=== PATIENT | male | born 1940 | race Caucasian/White ===

== ENCOUNTER → 2020-05-29 13:42 | Outpatient (BNVA) | payer MEDICARE, SELFPAY | PROVIDERS: PCP Internal Medicine; Referring Provider Internal Medicine; Visit Provider Surgery | DX: K42.9 Umbilical hernia without obstruction or gangrene (principal) | CPT/HCPCS: 99202 ==

== ENCOUNTER 2020-10-02 14:12 | Outpatient (REF) | payer MEDICARE, SELFPAY ==
--- NOTE | ~2020-10-02 | XR_ITS ---
EXAMINATION: XR CHEST CLINICAL INFORMATION: Cough. COMPARISON: Chest 12/18/2019 TECHNIQUE: 2 views of the chest were obtained. FINDINGS: The lungs are well-expanded and clear of acute pneumonic process. There is minimal atelectatic changes left lung base. Heart size and pulmonary vascularity is normal. 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 No gross bony abnormality seen. XR/XR chest 2V IMPRESSION: Minimal atelectatic changes left lung base.
== END 2020-10-02 14:13 | disposition home or self-care (01) ==
LOC: HO.HMGCX 14:12
PROVIDERS: PCP Internal Medicine; Visit Provider Internal Medicine
DX: R05 Cough (principal)
CPT/HCPCS: 71046

== ENCOUNTER 2020-10-03 13:49 | Outpatient (REF) | payer MEDICARE, SELFPAY ==
--- NOTE | ~2020-10-03 | XR_ITS ---
EXAMINATION: XR LUMBOSACRAL SPINE CLINICAL INFORMATION: Lower back pain COMPARISON: 12/07/2016 TECHNIQUE: Three views of the lumbosacral spine. FINDINGS: No acute fracture or subluxation. Grade 1 anterolisthesis of L4 on L5 with mild disc space narrowing. Vertebral body height and alignment is otherwise maintained. Remaining disc spaces are maintained with small multilevel endplate osteophytes. Mild facet arthropathy of the lower lumbar spine. Sacroiliac joints are symmetric. The sacrum appears intact. The bowel gas pattern is unremarkable. Aortic calcifications are noted. XR/XR lumbar spine 2-3V IMPRESSION: Mild multilevel degenerative changes of the spine. These are similar to prior.
== END 2020-10-03 13:50 | disposition home or self-care (01) ==
LOC: HO.HMGCX 13:49
PROVIDERS: PCP Internal Medicine; Visit Provider Internal Medicine
DX: M54.5 Low back pain (principal)
CPT/HCPCS: 72100

== ENCOUNTER 2020-10-11 09:58 | Outpatient (REF) | payer MEDICARE, SELFPAY ==
--- NOTE | ~2020-10-11 | US_ITS ---
EXAMINATION: US RETROPERITONEAL COMPLETE (RENAL) CLINICAL INFORMATION: Elevated blood work. COMPARISON: None TECHNIQUE: Real-time imaging of the kidneys and bladder. FINDINGS: RIGHT KIDNEY: 10.7 x 5.3 x 5.3 cm (SAG x AP x TRV). The kidney is normal in size, contour, and echogenicity. Renal cortical thickness is normal. No calculi or focal parenchymal lesions. No hydronephrosis. LEFT KIDNEY: 9.7 x 5.5 x 5.5 cm (SAG x AP x TRV). The kidney is normal in size, contour, and echogenicity. Renal cortical thickness is normal. No calculi or focal parenchymal lesions. No hydronephrosis. BLADDER: Well distended. No stone or mass. There is a small bladder diverticulum measuring 1.4 x 0.7 x 2.3 cm. Bilateral ureteral jets are demonstrated. Prevoid bladder volume is 203 mL. Postvoid bladder volume is 11.7 mL. Prostate volume is 54.9 mL. There is a 2.2 x 2.5 x 1.9 cm hypoechoic or cystic area in the prostate gland. US/US retroperitoneal comp IMPRESSION: Normal renal ultrasound. Small bladder diverticulum otherwise normal bladder ultrasound. Enlarged prostate gland. 2.2 x 2.5 x 1.9 cm cystic area in the central prostate gland..
== END 2020-10-11 09:59 | disposition home or self-care (01) ==
LOC: HO.HMGCX 09:58
PROVIDERS: Visit Provider Internal Medicine
DX: R79.89 Other specified abnormal findings of blood chemistry (principal); N40.0 Benign prostatic hyperplasia without lower urinary tract symptoms
CPT/HCPCS: 76770

== ENCOUNTER 2021-07-19 12:59 | Outpatient (REF) | payer MEDICARE, SELFPAY ==
--- NOTE | ~2021-07-19 | XR_ITS ---
EXAMINATION: XR KNEE, LEFT XR SHOULDER, LEFT CLINICAL INFORMATION: Sprain left knee. Injury left shoulder and left upper arm. COMPARISON: None TECHNIQUE: 4 views left knee and 2 views left shoulder. FINDINGS: Left Knee: There is mild reduction in the medial and patellofemoral compartment joint space with periarticular spurring anterior inferior patella. There is no visible acute fracture, dislocation or subluxation seen. No loose body seen. There is minimal suprapatellar joint effusion. The soft tissues are normal. Left Shoulder: There is no acute fracture, dislocation subluxation. There is moderate enthesophytes along the inferior acromion. The AC joint appears intact. The soft tissues are normal. XR/XR shoulder LT min 2V IMPRESSION: Mild degenerative changes medial and patellofemoral compartment with superior patellar enthesophytes. No joint effusion seen. There is minimal suprapatellar joint effusion. Moderate size enthesophyte along the inferior acromion. No visible acute fracture, dislocation or subluxation.
--- NOTE | ~2021-07-19 | XR_ITS ---
EXAMINATION: XR KNEE, LEFT XR SHOULDER, LEFT CLINICAL INFORMATION: Sprain left knee. Injury left shoulder and left upper arm. COMPARISON: None TECHNIQUE: 4 views left knee and 2 views left shoulder. FINDINGS: Left Knee: There is mild reduction in the medial and patellofemoral compartment joint space with periarticular spurring anterior inferior patella. There is no visible acute fracture, dislocation or subluxation seen. No loose body seen. There is minimal suprapatellar joint effusion. The soft tissues are normal. Left Shoulder: There is no acute fracture, dislocation subluxation. There is moderate enthesophytes along the inferior acromion. The AC joint appears intact. The soft tissues are normal. XR/XR knee LT 4V IMPRESSION: Mild degenerative changes medial and patellofemoral compartment with superior patellar enthesophytes. No joint effusion seen. There is minimal suprapatellar joint effusion. Moderate size enthesophyte along the inferior acromion. No visible acute fracture, dislocation or subluxation.
== END 2021-07-19 13:00 | disposition home or self-care (01) ==
LOC: HO.HMGCX 12:59
PROVIDERS: Visit Provider Physician Assistant Medical
DX: S83.92XD Sprain of unspecified site of left knee, subsequent encounter (principal); S49.90XD Unspecified injury of shoulder and upper arm, unspecified arm, subsequent encounter
CPT/HCPCS: 73030; 73564

== ENCOUNTER 2021-12-06 09:06 | Emergency (ER) | payer MEDICARE, SELFPAY ==
--- NOTE | ~2021-12-06 | CT_ITS ---
EXAMINATION: CT ABDOMEN AND PELVIS WITHOUT CONTRAST CLINICAL INFORMATION: Lower abdominal pain and diarrhea for one week COMPARISON: None TECHNIQUE: Multidetector volumetric imaging was performed from the superior aspect of the liver through the pubic symphysis. Sagittal and coronal reformatted images were obtained on the technologist's workstation. This CT examination was performed using dose optimization techniques as appropriate, variously including the following: *Automated exposure control *Adjustment of mA and/or kV according to patient size (this includes techniques or standardized protocols for targeted exams where dose is matched to indication/reason for exam; i.e. extremities or head) *Use of iterative reconstruction technique DLP: 549 mGy-cm FINDINGS: LUNG BASES: Linear scarring is seen at the lung bases. No pleural or pericardial effusion. Coronary artery calcifications are seen. There is a large hiatal hernia present. LIVER, GALLBLADDER, AND BILIARY TREE: The liver is normal in size, shape, and attenuation. No focal hepatic lesion or biliary ductal dilatation is present. The gallbladder is unremarkable with no evidence of radiopaque gallstones, gallbladder wall thickening, or obvious pericholecystic inflammatory changes. PANCREAS: Unremarkable. SPLEEN: Unremarkable. ADRENAL GLANDS: Unremarkable. KIDNEYS AND URETERS: The kidneys are normal in size, shape, and attenuation. No hydronephrosis, hydroureter, or calculi seen. There is bilateral perinephric stranding. BLADDER: Unremarkable. GASTROINTESTINAL TRACT: There is trace free fluid within the pelvis. No free air is seen. No dilated loops of large or small bowel are present. There is diverticular disease of the colon as well as some colonic wall thickening within the sigmoid colon and pericolonic fat stranding consistent with acute diverticulitis. No abscess formation is appreciated. ABDOMINAL WALL: No significant hernia is appreciated. LYMPH NODES: No lymphadenopathy appreciated. VASCULAR: Moderate calcified plaque within the aortoiliac system. No abdominal aortic aneurysm. PELVIC VISCERA: Prostatic calcifications present. OSSEOUS STRUCTURES: There are changes of enthesopathy seen within the pelvis. Multilevel degenerative disc disease is seen throughout the lumbar spine. No suspicious destructive bony lesions. Grade 1 spondylolisthesis L4-L5. CT/CT abdomen pelvis wo con IMPRESSION: Acute sigmoid diverticulitis without drainable abscess formation.
[2021-12-06 09:10] VITALS: BP 141/77; PULSE 81; RESP 19; TEMP 36.6; O2SAT 98; BMI 24.3
--- NOTE | 2021-12-06 11:29 | ED_ITS ---
HPI - Abdominal Pain General Chief Complaint: Abdominal Pain Stated Complaint: cramping/lower abd pain/diarrhea Time Seen by Provider: 12/06/21 10:03 Source: patient and family ( at bed) Mode of arrival: ambulatory Limitations: no limitations History of Present Illness HPI narrative: 81-year-old male with a past medical history of hypertension, hypercholesterolemia, CAD disease status post 5 vessel bypass approximately 18- 20 years currently on Plavix taking as, anxiety, depression, umbilical hernia and BPH presenting to the ED with his at bedside with complaints of lower abdominal pain with associated watery diarrhea for the past week intermittently. He denies any fevers, chills, dizziness, headaches, neck pain/stiffness, trouble swallowing or breathing, chest pain or shortness of breath, dyspnea on exertion, orthopnea, palpitations, paresthesias, radiation of the abdominal pain, back pain, flank pain, black or bloody emesis, black or bloody stools, recent antibiotic usage or travel, others with similar symptoms, recent hospitalization, history of C diff, possible bad food exposure or any other symptoms complaints or concerns at this time MD elicited complaint: abdominal pain Pertinent past history: other (See above) Onset (ago): week(s) (1) Pain Consistency: intermittent Location: RLQ, LLQ and suprapubic Severity: moderate Quality: cramping and aching Radiation: none Migration to: no migration Exacerbating factors: nothing Relieving factors: nothing Associated symptoms: diarrhea Related Data Home Medications Medication Instructions Recorded Confirmed alprazolam 0.5 mg tablet 0.5 mg PO TID PRN 05/29/20 clopidogrel 75 mg tablet 75 mg PO DAILY 05/29/20 doxazosin 8 mg tablet 8 mg PO DAILY 05/29/20 finasteride 5 mg tablet 5 mg PO DAILY 05/29/20 lisinopril 2.5 mg tablet 2.5 mg PO DAILY 05/29/20 metoprolol succinate 25 mg 25 mg PO DAILY 05/29/20 tablet,extended release 24 hr rosuvastatin 20 mg tablet 20 mg PO BEDTIME 05/29/20 sertraline 100 mg tablet 100 mg PO DAILY 05/29/20 Previous Rx's Medication Instructions Recorded acetaminophen 500 mg tablet 1,000 mg PO QID PRN #14 tab 12/06/21 (Tylenol Extra Strength) amoxicillin 875 mg-potassium 1 tab PO BID 10 Days #20 tab 06/04/22 clavulanate 125 mg tablet oxycodone 5 mg tablet 5 mg PO Q6H PRN #14 tab 12/06/21 Allergies Allergy/AdvReac Type Severity Reaction Status Date / Time No Known Allergies Allergy Mild NOT Unverified 05/29/20 13:47 APPLICABLE Review of Systems Review of Systems Constitutional : No Weight loss, No Fever, No Chills, No Night Sweats, No Fatigue, No Malaise ENT/Mouth : No Hearing loss, No Ear Pain, No Nasal Congestion, No Sinus Pain, No Hoarseness, No sore throat, No Rhinorrhea, No Swallowing Difficulty Eyes: No Eye Pain, No Swelling, No Redness, No Foreign Body, No Discharge, No Vision Changes Cardiovascular : No Chest Pain, No SOB, No Dyspnea on Exertion, No Orthopnea, No Edema, No Palpitations Respiratory : No Cough, No Sputum, No Wheezing, No Smoke Exposure, No Dyspnea Gastrointestinal : + diarrhea/abdominal pain, No Nausea, No Vomiting, No Constipation, No Hematochezia, No Melena Genitourinary : no irregular bleeding, No Dysuria, No Urinary Frequency, No Hematuria, No Urinary Incontinence, No Urgency, No Flank Pain, No Urinary Flow Changes, No Hesitancy Musculoskeletal : No joint pain, No Myalgias, No Joint Swelling Skin : No Skin Lesions, No rash Neuro : No Weakness, No Numbness, No Paresthesias, No Loss of Consciousness, No Dizziness, No Headache Psych : No Anxiety/Panic, No Depression, No SI/HI/AH/VH, No Social Issues, Heme/Lymph: No Bruising, No Bleeding,No Lymphadenopathy Endocrine : No Polyuria, No Polydipsia, No Temperature Intolerance Yes all other systems are reviewed and are negative [facility] Past Medical History Attestation statement: The following information was validated with the patient. Source: old records reviewed, obtained from family and nursing notes reviewed Medical History Anxiety Benign prostatic hyperplasia Coronary artery disease Depression Hypercholesterolemia Hypertension Surgical History History of ankle surgery History of heart surgery (~05/2004) Social History Social History Alcohol intake: never Years Smoked: 30 years Advance Directives: Yes Advance Directives Information Provided: No Advance Directives on File: No Physical Exam ED Vital Signs: Vital Signs - 24 hr 12/06/21 09:10 12/06/21 13:15 Temperature 98 F Pulse Rate 81 74 Respiratory Rate 19 20 Blood Pressure 141/77 H 134/84 Pulse Oximetry 98 97 BMI result Body Mass Index 24.3 vital signs have been reviewed as normal and appeared to be correct. Blood pressure 141/77. Heart rate normal. Respiration rate normal. Temperature normal. Oxygen saturation normal. Appearance: Alert. Oriented X3. No acute distress. Head: Normal external exam. Normocephalic. Atraumatic. Eyes: PERRLA. EOMI. Conjunctiva and sclera normal. Eyelids normal. ENT: Pharynx normal. Uvula midline. Moist mucous membranes. No lesions/ulcerations or masses noted on the tongue. Normal voice. No trismus noted. No drooling noted. No muffled voice noted. Neck: Normal inspection. Neck supple. FROM. No adenopathy. Thyroid Normal. No meningeal signs. No neck mass noted. No signs of trauma noted. CVS: Normal heart rate and rhythm. Heart sound normal. Pulses normal throughout. No murmurs/rales/gallops. Respiratory: No respiratory distress. Painless inspiration. Breath sounds normal. No wheezes/rales/rhonchi noted. Chest nontender. No crepitus is noted. No accessory muscle usage noted or decreased air movement noted. Abdomen: Soft and moderate tenderness palpation to the left lower quadrant and suprapubic area. No tenderness to the right lower quadrant on my exam no rebound tenderness is no Bowel sounds normal in all 4 quadrants. No distention noted. No organomegaly noted. No visible injury noted. Negative psoas sign. Negative Chapman sign. Negative obturator's sign. Negative Rovsing sign Back: No CVA tenderness. Full range of motion noted. Nontender. No signs of trauma. Patient neuro intact bilaterally and distally on all 4 extremities. Patient's reflexes intact bilaterally and distally on all 4 extremities. No rashes/lesion/induration/fluctuance or signs of infection noted. Skin: Skin warm and dry. Normal skin color. Normal skin turgor. No rashes/lesions/lacerations noted. Extremities: No lower extremity edema. No calf tenderness is noted. Extremities exhibit normal range of motion and nontender. Neuro: Oriented X 3. No motor deficit. No sensory deficit. Reflexes normal. Normal steady gait. No focal neuro deficits noted. CN's II-XII intact bilaterally? Vascular: + radial pulses/+ 2 distal pedal pulses/+2 dorsalis pedis b/l. Normal cap refill. No cyanosis noted to upper extremity nails and lower extremity toes nails. Course Course Course Narrative: 10:20pm - 81-year-old male presenting to the ED with his at bedside with complaints of lower abdominal pain with associated watery diarrhea for the past week intermittently. Concern for diverticulitis. Less concern for perforation as patient is afebrile. Less concern for appendicitis as patient does not have any right lower quadrant abdominal pain does not have any fevers, nausea/vomiting. Less concern for kidney stones as patient does not have any flank pain and is urinating normally. Not concerned for ACS as patient denies any cardiac related complaints. Reports only abdominal pain and diarrhea Plan: Will obtain labs, UA, CT scan abdomen pelvis without IV contrast. I did offer the patient some nausea medication and pain medication although he reports he is not nauseous and does not need anything for pain at this time. Will re- evaluate Reevaluation(s) Reevaluation #1: - labs reviewed and patient with an elevated white blood cell count at 11,000. Mild anemia with an H&H of 10.9/32.1. When I compared to the patient's labs and 2009 it appears that he has had some anemia at that time as well he had an H&H of 13.6/41.5 this was in the [facility] - platelet count 117 this is similar compared to his prior platelet count in 2009 from the [facility] where he had a platelet count of 158 - random glucose 117 - total protein 6.0 - otherwise all other labs are within normal limits - CT scan of abdomen and pelvis without IV contrast revealed acute diverticulitis of the sigmoid colon without drainable abscess formation - I did offer the patient admission although patient does not want to stay here and patient's pain is controlled I did not have to give him anything for pain while he was here he does not have an abscess and he is able to tolerate p.o. fluids as solids. He denied any nausea or vomiting therefore is a candidate for discharge with p.o. antibiotics. Will DC home antibiotics for acute diverticulitis and instructions to follow-up with PCP/GI and to return if any n ew or worsening symptoms. Patient and at bedside understand agree this plan Time: 12:42 MDM - Abdominal Pain Medical Records Attestation: I reviewed the patient's medical records. Lab Data Attestation: I reviewed the patient's lab results. Result diagrams: 12/06/21 11:21 12/06/21 11:21 Labs: Lab Results 12/06/21 12/06/21 12/06/21 Range/Units 10:40 11:21 11:21 WBC 11.6 H (4.8-10.8) X10*3/uL RBC 3.49 L (4.60-5.80) X10*6/uL Hgb 10.9 L (14.0-18.0) g/dl Hct 32.1 L (42.0-52.0) % MCV 92.0 (80.0-98.0) fL MCH 31.2 (27.0-33.0) pg MCHC 34.0 (31.0-36.0) g/dl RDW 12.3 (11.0-16.0) % Plt Count 117 L (160-400) X10*3/uL MPV 9.1 L (9.4-12.4) fL Immature Gran % (Auto) 0.9 H (0.0-0.4) % Neut % (Auto) 79.8 H (45-73) % Lymph % (Auto) 8.7 L (20-40) % [place] % (Auto) 9.9 (2-11) % Eos % (Auto) 0.4 (0-4) % Baso % (Auto) 0.3 (0-2) % Lymph # (Auto) 1.0 L (1.2-4.9) X10*3/uL [place] # (Auto) 1.2 (0.1-1.2) X10*3/uL Eos # (Auto) 0.1 (0.0-0.4) X10*3/uL Baso # (Auto) 0.0 (0.0-0.2) X10*3/uL Abs Immat Gran (auto) 0.10 H (0.00-0.03) X10*3/uL Absolute Neuts (auto) 9.3 H (2.0-8.3) x10*3/uL Absolute Nucleated RBC 0.000 (0.0-0.012) X10*3/uL Nucleated RBC % (auto) 0.0 (0.0-0.2) /100WBC Hold Purple Top SEE NOTE PT 11.0 (9.9-13.0) SEC INR 1.0 (0.9-1.1) Sodium (135-145) mmol/L Potassium (3.3-5.1) mmol/L Chloride (96-108) mmol/L Carbon Dioxide (22-29) mmol/L Anion Gap (12-20) BUN (9-16) mg/dL Creatinine (0.5-1.4) mg/dL Estim Creat Clear Calc Estimated GFR Random Glucose (60-115) mg/dL Calcium (8.4-10.2) mg/dL Magnesium (1.6-2.6) mg/dL Total Bilirubin (0.0-1.0) mg/dL AST (5-37) U/L ALT (0-40) U/L Alkaline Phosphatase (39-117) U/L Total Protein (6.5-8.0) g/dL Albumin (3.5-5.0) g/dL Lipase (8-78) U/L Urine Color Urine Appearance Urine pH (5.0-8.0) Ur Specific [place] (1.005-1.025) Urine Protein (NEG-TRACE) MG/DL Urine Glucose (UA) (NEG) MG/DL Urine Ketones (NEG) MG/DL Urine Blood (NEG) Urine Nitrite (NEG) Ur Leukocyte Esterase (NEG) 12/06/21 12/06/21 Range/Units 11:21 12:53 WBC (4.8-10.8) X10*3/uL RBC (4.60-5.80) X10*6/uL Hgb (14.0-18.0) g/dl Hct (42.0-52.0) % MCV (80.0-98.0) fL MCH (27.0-33.0) pg MCHC (31.0-36.0) g/dl RDW (11.0-16.0) % Plt Count (160-400) X10*3/uL MPV (9.4-12.4) fL Immature Gran % (Auto) (0.0-0.4) % Neut % (Auto) (45-73) % Lymph % (Auto) (20-40) % [place] % (Auto) (2-11) % Eos % (Auto) (0-4) % Baso % (Auto) (0-2) % Lymph # (Auto) (1.2-4.9) X10*3/uL [place] # (Auto) (0.1-1.2) X10*3/uL Eos # (Auto) (0.0-0.4) X10*3/uL Baso # (Auto) (0.0-0.2) X10*3/uL Abs Immat Gran (auto) (0.00-0.03) X10*3/uL Absolute Neuts (auto) (2.0-8.3) x10*3/uL Absolute Nucleated RBC (0.0-0.012) X10*3/uL Nucleated RBC % (auto) (0.0-0.2) /100WBC Hold Purple Top PT (9.9-13.0) SEC INR (0.9-1.1) Sodium 138 (135-145) mmol/L Potassium 4.2 (3.3-5.1) mmol/L Chloride 103 (96-108) mmol/L Carbon Dioxide 26 (22-29) mmol/L Anion Gap 13 (12-20) BUN 15 (9-16) mg/dL Creatinine 1.16 (0.5-1.4) mg/dL Estim Creat Clear Calc 50.7 Estimated GFR > 60 Random Glucose 117 H (60-115) mg/dL Calcium 8.7 (8.4-10.2) mg/dL Magnesium 2.0 (1.6-2.6) mg/dL Total Bilirubin 0.3 (0.0-1.0) mg/dL AST 22 (5-37) U/L ALT 33 (0-40) U/L Alkaline Phosphatase 66 (39-117) U/L Total Protein 6.0 L (6.5-8.0) g/dL Albumin 3.6 (3.5-5.0) g/dL Lipase 22 (8-78) U/L Urine Color YELLOW Urine Appearance CLEAR Urine pH 7.0 (5.0-8.0) Ur Specific [place] 1.010 (1.005-1.025) Urine Protein NEG (NEG-TRACE) MG/DL Urine Glucose (UA) NEG (NEG) MG/DL Urine Ketones NEG (NEG) MG/DL Urine Blood NEG (NEG) Urine Nitrite NEG (NEG) Ur Leukocyte Esterase NEG (NEG) Imaging Data CT scan abdomen pelvis without IV contrast: Attestation: I personally reviewed and interpreted this imaging study as follows: Radiologist's impression: FINDINGS: LUNG BASES: Linear scarring is seen at the lung bases. No pleural or pericardial effusion. Coronary artery calcifications are seen. There is a large hiatal hernia present.? LIVER, GALLBLADDER, AND BILIARY TREE: The liver is normal in size, shape, and attenuation. No focal hepatic lesion or biliary ductal dilatation is present. The gallbladder is unremarkable with no evidence of radiopaque gallstones, gallbladder wall thickening, or obvious pericholecystic inflammatory changes.? PANCREAS: Unremarkable.? SPLEEN: Unremarkable.? ADRENAL GLANDS: Unremarkable.? KIDNEYS AND URETERS: The kidneys are normal in size, shape, and attenuation. No hydronephrosis, hydroureter, or calculi seen. There is bilateral perinephric stranding. ? BLADDER: Unremarkable.? GASTROINTESTINAL TRACT: There is trace free fluid within the pelvis. No free air is seen. No dilated loops of large or small bowel are present. There is diverticular disease of the colon as well as some colonic wall thickening within the sigmoid colon and pericolonic fat stranding consistent with acute diverticulitis. No abscess formation is appreciated. ABDOMINAL WALL: No significant hernia is appreciated.? LYMPH NODES: No lymphadenopathy appreciated. VASCULAR: Moderate calcified plaque within the aortoiliac system. No abdominal aortic aneurysm. PELVIC VISCERA: Prostatic calcifications present.? OSSEOUS STRUCTURES: There are changes of enthesopathy seen within the pelvis. Multilevel degenerative disc disease is seen throughout the lumbar spine. No suspicious destructive bony lesions.? Grade [address] spondylolisthesis L4-L5. CT/CT abdomen pelvis wo con IMPRESSION: Acute sigmoid diverticulitis without drainable abscess formation.? Critical Care Time Critical Care Time Critical Care Time: Yes Total Critical Care Time: 60 Attestation: I personally attest to this time spent taking care of the patient Discharge Plan Discharge Clinical Impression: Diverticulitis, Anemia with low platelet count Patient Disposition: Home, Self-Care Instructions: Diverticulitis (ED), Diverticulitis Diet (ED) Prescriptions: New amoxicillin-pot clavulanate 875-125 mg tablet 1 tab PO BID 10 Days Qty: 20 0RF acetaminophen [Tylenol Extra Strength] 500 mg tablet 1,000 mg PO QID PRN (Reason: fever or pain) Qty: 14 0RF oxycodone 5 mg tablet 5 mg PO Q6H PRN (Reason: pain) Qty: 14 0RF No Action doxazosin 8 mg tablet 8 mg PO DAILY 0RF finasteride 5 mg tablet 5 mg PO DAILY 0RF clopidogrel 75 mg tablet 75 mg PO DAILY 0RF sertraline 100 mg tablet 100 mg PO DAILY 0RF lisinopril 2.5 mg tablet 2.5 mg PO DAILY 0RF alprazolam 0.5 mg tablet 0.5 mg PO TID PRN0RF metoprolol succinate 25 mg tablet extended release 24 hr 25 mg PO DAILY 0RF rosuvastatin 20 mg tablet 20 mg PO BEDTIME 0RF Referrals: Wolf Burnette MD [Primary Care Provider] - 2 days Sam Boyce [Physician] - 1 week Interventions: ED Discharge Assessment Last Done: 12/06/21 13:16 Discharge Date/Time: 12/06/21 13:16
[2021-12-06 11:35] LABS: Basophils Percent Auto 0.3 % (0-2); Eosinophils Absolute Auto 0.1 X10*3/uL (0.0-0.4); Eosinophils Percent Auto 0.4 % (0-4); Hematocrit 32.1 % (42.0-52.0); Hemoglobin 10.9 g/dl (14.0-18.0); Imm Gran Pct Auto 0.9 % (0.0-0.4); Lymphocytes Percent Auto 8.7 % (20-40); Mean Corpuscular Hemoglobin 31.2 pg (27.0-33.0); Mean Platelet Volume 9.1 fL (9.4-12.4); Monocytes Absolute Auto 1.2 X10*3/uL (0.1-1.2); Monocytes Percent Auto 9.9 % (2-11); Neutrophils Absolute Auto 9.3 x10*3/uL (2.0-8.3); Neutrophils Percent Auto 79.8 % (45-73); Platelet Count 117 X10*3/uL (160-400); Red Blood Count 3.49 X10*6/uL (4.60-5.80); Red Cell Distribution Width 12.3 % (11.0-16.0); White Blood Count 11.6 X10*3/uL (4.8-10.8)
[2021-12-06 11:38] LABS: MANUAL DIFF FLAG NO
[2021-12-06 11:59] LABS: Alanine Aminotransferase 33 U/L (0-40); Albumin Level 3.6 g/dL (3.5-5.0); Alkaline Phosphatase 66 U/L (39-117); Anion Gap 13 (12-20); Aspartate Amino Transferase 22 U/L (5-37); Bilirubin Total 0.3 mg/dL (0.0-1.0); Blood Urea Nitrogen 15 mg/dL (9-16); Calcium 8.7 mg/dL (8.4-10.2); Carbon Dioxide 26 mmol/L (22-29); Chloride 103 mmol/L (96-108); Creatinine Clr Calc Pharmacy 50.7; Estimated Glomerular Filt Rate > 60; Glucose Random 117 mg/dL (60-115); Lipase 22 U/L (8-78); Potassium 4.2 mmol/L (3.3-5.1); Sodium 138 mmol/L (135-145)
[2021-12-06] MEDS: Amoxicillin/Potassium Clav 875 MG TABLET PO (13:04)
[2021-12-06 13:15] VITALS: BP 134/84; PULSE 74; RESP 20; O2SAT 97
[2021-12-06 13:19] LABS: Appearance Urine CLEAR; Color Urine YELLOW; Glucose Urine UA NEG (NEG); Leukocyte Esterase Urine NEG (NEG); Nitrite Urine NEG (NEG); Urine Blood NEG (NEG); Urine Ketones NEG (NEG); Urine Protein NEG (NEG-TRACE)
== END 2021-12-06 13:16 | disposition home or self-care (01) ==
PROVIDERS: Physician Assistant Medical; Emergency Provider Student in an Organized Health Care Education/Training Program; PCP Internal Medicine
DX: K57.32 Diverticulitis of large intestine without perforation or abscess without bleeding (principal); D64.9 Anemia, unspecified; R10.31 Right lower quadrant pain; Z79.899 Other long term (current) drug therapy
CPT/HCPCS: 36415; 74176; 80053; 81003; 83690; 83735; 85025; 85610; 99284

== ENCOUNTER 2022-04-29 08:49 | Day surgery (SDC) | payer MEDICARE, SELFPAY ==
--- NOTE | 2022-04-28 13:10 | HO.ANESPROP2 ---
Documented by User: Johanny Tracy NP 04/28/22 13:19 HPI - Anesthesia Eval Consult details Narrative: 81yo M for Colonoscopy CAD s/p CABG x 5 in 2003. 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 Remains on plavix. Denies CP/SOB with activity. PMF Active Problems Active Problems: All Active Problems (Updated 12/07/21 @ 00:02 by Background Daemon) Hypertension (Acute) Hypercholesterolemia (Acute) Depression (Acute) Coronary artery disease (Acute) Benign prostatic hyperplasia (Acute) Anxiety (Acute) Shoulder injury (Acute) Left knee sprain (Acute) Umbilical hernia (Acute) Past Medical History Medical History Anxiety Benign prostatic hyperplasia Coronary artery disease Depression Hypercholesterolemia Hypertension Surgical History Surgical History History of ankle surgery History of heart surgery (~05/2004) Social History Social History Alcohol intake: never Patient Tobacco Use Status: Former Tobacco user Quit Date: 34 years ago Years Smoked: 30 years Use of substances other than those prescribed or required for medical reasons: No Are you DNR?: No Advance Directives: No Advance Directives Information Provided: Yes Meds Allergies Allergy/AdvReac Type Severity Reaction Status Date / Time No Known Allergies Allergy Mild NOT Unverified 05/29/20 13:47 APPLICABLE Home Medications Medication Instructions Recorded Confirmed Last Taken Type alprazolam 0.5 mg tablet 0.5 mg PO TID PRN Anxiety 05/29/20 04/29/22 History clopidogrel 75 mg tablet 75 mg PO DAILY 05/29/20 Unknown History doxazosin 8 mg tablet 8 mg PO DAILY 05/29/20 04/29/22 History finasteride 5 mg tablet 5 mg PO DAILY 05/29/20 Unknown History lisinopril 2.5 mg tablet 2.5 mg PO DAILY 05/29/20 04/29/22 History metoprolol succinate 25 mg 25 mg PO DAILY 05/29/20 Unknown History tablet,extended release 24 hr rosuvastatin 20 mg tablet 20 mg PO BEDTIME 05/29/20 Unknown History sertraline 100 mg tablet 100 mg PO DAILY 05/29/20 04/29/22 History Exam Exam Date and Time: April 28, 2022 1310 Pertinent Lab Results Pertinent Lab Results: Laboratory Tests 12/06/21 12/06/21 11:21 11:21 WBC 11.6 H Hgb 10.9 L Hct 32.1 L Plt Count 117 L Sodium 138 Potassium 4.2 Chloride 103 Carbon Dioxide 26 BUN 15 Creatinine 1.16 Assessment and Plan Assessment Anesthesia Assessment: Chart Reviewed Documented by User: Kevin Ryan MD 04/29/22 10:13 [facility] Past Medical History Medical History Anxiety Benign prostatic hyperplasia Coronary artery disease Depression Hypercholesterolemia Hypertension Family History Family history of problems with anesthesia: No Surgical History Surgical History History of ankle surgery History of heart surgery (~05/2004) History of Problems with Anesthesia: No Social History Social History Alcohol intake: never Patient Tobacco Use Status: Former Tobacco user Quit Date: 34 years ago Years Smoked: 30 years Use of substances other than those prescribed or required for medical reasons: No Are you DNR?: No Advance Directives: No Advance Directives Information Provided: Yes Meds Allergies Allergy/AdvReac Type Severity Reaction Status Date / Time No Known Allergies Allergy Mild NOT Unverified 05/29/20 13:47 APPLICABLE Home Medications Medication Instructions Recorded Confirmed Last Taken Type alprazolam 0.5 mg tablet 0.5 mg PO TID PRN Anxiety 05/29/20 04/29/22 History clopidogrel 75 mg tablet 75 mg PO DAILY 05/29/20 Unknown History doxazosin 8 mg tablet 8 mg PO DAILY 05/29/20 04/29/22 History finasteride 5 mg tablet 5 mg PO DAILY 05/29/20 Unknown History lisinopril 2.5 mg tablet 2.5 mg PO DAILY 05/29/20 04/29/22 History metoprolol succinate 25 mg 25 mg PO DAILY 05/29/20 Unknown History tablet,extended release 24 hr rosuvastatin 20 mg tablet 20 mg PO BEDTIME 05/29/20 Unknown History sertraline 100 mg tablet 100 mg PO DAILY 05/29/20 04/29/22 History Exam Airway Mallampati Class: III TM Dist: >3cm Neck ROM: Full Loose/Missing/Broken Teeth: No Heart: rrr Lungs: clear Assessment and Plan Final Anesthetic Review Family History of Problems with Anesthesia: No History of Problems with Anesthesia: No NPO: Yes ASA Class: III Final Preanesthetic Review: No Changes in Pt Med Stat, Meds/Allgs Chart Reviewed, Consent Obtained/Reviewed and Anes Risks/Benef Reviewed Patient Risk: Intermediate Procedure Risk: Low Anesthetic Plan Anesthetic Plan: MAC: Disposition: Standard PACU
[2022-04-29] VITALS (8 sets, daily range): BP systolic 77–125; BP diastolic 46–67; PULSE 47–62; RESP 16–20; TEMP 36.1–36.3; O2SAT 96–98; BMI 23.6
[2022-04-29] MEDS: Lactated Ringers 1,000 ML 50 ML IVCONT (09:51)
--- NOTE | 2022-04-29 11:01 | PM.OP ---
Brief Operative Note Date of Service: 04/29/22 Pre-op diagnosis: Abnormal xray of GI tract Post-op diagnosis: other (Diverticulosis) Procedure: Colonoscopy to the cecum and TI Surgeon: Sam Boyce Anesthesia: MAC Was an Structural Steel Trades Worker used for this Procedure?: No Estimated blood loss (mL): 0 Pathology: none sent Condition: stable Disposition: PACU
--- NOTE | 2022-04-30 11:54 | OP_ITS ---
SURGEON: Sam Boyce MD INDICATIONS: The patient presents for evaluation of abnormal CT scan of colon. Full consent obtained from him for this, including risks of bleeding and perforation. PREOPERATIVE DIAGNOSIS: POSTOPERATIVE DIAGNOSIS: Abnormal CT scan of colon, diverticulosis, internal hemorrhoids. PROCEDURE PERFORMED: Colonoscopy to the cecum and terminal ileum. ESTIMATED BLOOD LOSS: COMPLICATIONS: ANESTHESIA: Monitored anesthesia care. ASSISTANTS: SPECIMENS: PREOPERATIVE DIAGNOSES: Abnormal CT scan of colon. DESCRIPTION OF PROCEDURE: The patient was placed in the left lateral decubitus position. The digital rectal exam revealed no abnormalities. The Olympus video pediatric colonoscope was entered into the rectum and advanced easily to the cecum. Once in the cecum, I did identify normal-appearing cecal pouch with appendiceal orifice and normal-appearing ileocecal valve. The terminal ileum was cannulated and appeared normal. The scope was withdrawn back in the colon. The entire cecum and ileocecal valve appeared normal. The scope was slowly withdrawn assessing all mucosal surfaces carefully. Preparation was excellent. I did not visualize any sign of polyps, colitis, or angiodysplasia. There was a moderate amount of sigmoid diverticulosis. In the rectum, scope was retroflexed visualizing internal hemorrhoids, but no other pathology. The rectal mucosa appeared normal. The scope was straightened and withdrawn from the patient. He tolerated the procedure well and was returned to recovery area in stable condition. IMPRESSION: 1. Diverticulosis. 2. Internal hemorrhoids. PLAN: Given the negative exam and his age, I do not think he will need any further screening colonoscopies. He was advised to resume his aspirin, Plavix, iron, and fish oil today. He has not had any episodes of diverticulitis since the episode back in December. He will see me on a p.r.n. basis. MD AMRIK Cerna/SHON / [id number] MTDD
== END 2022-04-29 12:39 | disposition home or self-care (01) ==
PROVIDERS: PCP Internal Medicine; Visit Provider Internal Medicine
PROC: 0DJD8ZZ Inspection of Lower Intestinal Tract, Via Natural or Artificial Opening Endoscopic (ICD-10-PCS; CPT 45378; principal; 2022-04-29 10:30)
DX: R93.3 Abnormal findings on diagnostic imaging of other parts of digestive tract (principal); Z87.19 Personal history of other diseases of the digestive system; K57.30 Diverticulosis of large intestine without perforation or abscess without bleeding; K64.8 Other hemorrhoids; I25.10 Atherosclerotic heart disease of native coronary artery without angina pectoris; I10 Essential (primary) hypertension; E78.00 Pure hypercholesterolemia, unspecified; F41.1 Generalized anxiety disorder; N40.0 Benign prostatic hyperplasia without lower urinary tract symptoms; Z79.82 Long term (current) use of aspirin; Z79.899 Other long term (current) drug therapy; Z87.891 Personal history of nicotine dependence
CPT/HCPCS: 45378

== ENCOUNTER 2022-07-10 13:00 | Outpatient (REF) | payer MEDICARE, SELFPAY ==
--- NOTE | ~2022-07-10 | CT_ITS ---
EXAMINATION: CT HEAD WITHOUT CONTRAST CLINICAL INFORMATION: Headaches COMPARISON: None TECHNIQUE: Contiguous axial imaging was performed from the skull base to vertex without intravenous administration of contrast. This CT examination was performed using dose optimization techniques as appropriate, variously including the following: *Automated exposure control *Adjustment of mA and/or kV according to patient size (this includes techniques or standardized protocols for targeted exams where dose is matched to indication/reason for exam; i.e. extremities or head) *Use of iterative reconstruction technique DLP: 826 mGy-cm FINDINGS: There is no acute intra-axial, extra-axial bleed, masses, collection or midline shift. There is no acute infarction in evolution. There is no edema. The lateral ventricles are symmetrical in size and configuration without enlargement. Maki to white matter differentiation is maintained normal. Bone windows reveal no calvarial abnormality. CT/CT head/brain wo IV con IMPRESSION: No acute intracranial process seen.
== END 2022-07-10 13:01 | disposition home or self-care (01) ==
LOC: HO.CT 13:00
PROVIDERS: PCP Internal Medicine; Visit Provider Internal Medicine
DX: R51.9 Headache, unspecified (principal)
CPT/HCPCS: 70450

== ENCOUNTER 2022-07-24 15:04 | Outpatient (REF) | payer MEDICARE, SELFPAY ==
--- NOTE | ~2022-07-24 | XR_ITS ---
EXAMINATION: XR CERVICAL SPINE CLINICAL INFORMATION: Cervical pain. COMPARISON: Radiographs dated 12/10/2015. TECHNIQUE: Frontal, odontoid and lateral views of the cervical spine were obtained. FINDINGS: Vertebral body heights are normal. At C4-C5, there is a 2 mm anterolisthesis. At C5-C6, there is mild to moderate disc space narrowing. The remaining disc spaces are relatively well-maintained. No acute fracture or spondylolisthesis is seen. There is multi-level cervical spondylosis and facet arthropathy. The dens is intact. There is no prevertebral soft tissue swelling. There are bilateral carotid atherosclerotic calcifications. XR/XR cervical spine 3V IMPRESSION: 1. There is multi-level cervical degenerative disc disease, spondylosis and facet arthropathy. Degenerative disc disease is most pronounced at C5-C6, where it is mild to moderate. 2. Bilateral carotid atherosclerotic calcifications could be more fully evaluated with dedicated carotid ultrasound, if clinically indicated.
== END 2022-07-24 15:05 | disposition home or self-care (01) ==
LOC: HO.HMGCX 15:04
PROVIDERS: PCP Internal Medicine; Visit Provider Internal Medicine
DX: M54.2 Cervicalgia (principal)
CPT/HCPCS: 72040

== ENCOUNTER 2022-08-05 14:01 | Outpatient (REF) | payer MEDICARE, SELFPAY ==
--- NOTE | ~2022-08-05 | US_ITS ---
EXAMINATION: US EXTRACRANIAL CAROTID DUPLEX, BILATERAL CLINICAL INFORMATION: Atherosclerotic calcification on cervical spine x-ray. COMPARISON: None TECHNIQUE: Real-time ultrasound and Doppler techniques (integrating B-mode 2-D vascular images, Doppler spectral analysis and color-flow Doppler imaging) were utilized to interrogate the extracranial carotid arteries, the vertebral arteries and proximal subclavian arteries bilaterally. The degree of stenosis is determined by criteria similar to NASCET. FINDINGS: Right Side: 1. There is mild atherosclerotic plaque seen in the bifurcation/proximal ICA region. 2. The common carotid artery PSV proximally is 77 cm/s and distally 79 cm/s. 3. The proximal internal carotid artery velocities are 58 cm/s systolic and 19 cm/s diastolic. 4. The proximal external carotid artery PSV is 106 cm/s. 5. The vertebral artery shows into flow. 6. The subclavian artery waveforms are normal. Left Side: 1. There is mild atherosclerotic plaque seen in the bifurcation/proximal ICA region. 2. The common carotid artery PSV proximally is 87 cm/s and distally 75 cm/s. 3. The proximal internal carotid artery velocities are 57 cm/s systolic and 23 cm/s diastolic. 4. The proximal external carotid artery PSV is 128 cm/s. 5. The vertebral artery shows into flow. 6. The subclavian artery waveforms are normal. US/US carotid duplex BI IMPRESSION: 1. RIGHT: Minimal, non-hemodynamically significant stenosis of the proximal right internal carotid artery corresponding to a 0-49% stenosis by velocity criteria. 2. LEFT: Minimal, non-hemodynamically significant stenosis of the proximal left internal carotid artery corresponding to a 0-49% stenosis by velocity criteria.
== END 2022-08-05 14:02 | disposition home or self-care (01) ==
LOC: HO.HMGCX 14:01
PROVIDERS: PCP Internal Medicine; Visit Provider Internal Medicine
DX: I65.23 Occlusion and stenosis of bilateral carotid arteries (principal)
CPT/HCPCS: 93880

== ENCOUNTER 2022-08-21 11:24 | Outpatient (REF) | payer MEDICARE, SELFPAY ==
--- NOTE | ~2022-08-21 | XR_ITS ---
EXAMINATION: XR CHEST CLINICAL INFORMATION: Cough, rule out pneumonia. COMPARISON: 10/02/2020 chest radiographs. TECHNIQUE: 2 views of the chest were obtained. FINDINGS: No significant abnormality is noted involving the heart, lungs, mediastinum, bony thorax or soft tissues. Multilevel sternotomy wires. The superior most wire is fractured without significant displacement or change. XR/XR chest 2V IMPRESSION: No acute cardiopulmonary process.
== END 2022-08-21 11:25 | disposition home or self-care (01) ==
LOC: HO.HMGCX 11:24
PROVIDERS: PCP Internal Medicine; Visit Provider Internal Medicine
DX: R05.9 Cough, unspecified (principal)
CPT/HCPCS: 71046

== ENCOUNTER 2022-10-21 13:30 | Outpatient (REF) | payer MEDICARE, SELFPAY | END 2022-10-21 13:31 | disposition home or self-care (01) | LOC: HO.SH 13:30 | PROVIDERS: Visit Provider Internal Medicine | DX: Z01.118 Encounter for examination of ears and hearing with other abnormal findings (principal); H90.3 Sensorineural hearing loss, bilateral | CPT/HCPCS: 92557; 92567 ==

== ENCOUNTER 2023-07-06 10:26 | Inpatient (IN) | payer MEDICARE, SELFPAY ==
--- NOTE | ~2023-07-06 | CT_ITS ---
EXAMINATION: CT HEAD WITHOUT CONTRAST CLINICAL INFORMATION: Confusion/garbled speech COMPARISON: CT brain 07/10/2022 TECHNIQUE: Contiguous axial imaging was performed from the skull base to vertex without intravenous administration of contrast. This CT examination was performed using dose optimization techniques as appropriate, variously including the following: *Automated exposure control *Adjustment of mA and/or kV according to patient size (this includes techniques or standardized protocols for targeted exams where dose is matched to indication/reason for exam; i.e. extremities or head) *Use of iterative reconstruction technique DLP: 1762 mGy-cm FINDINGS: There is no acute intra-axial, extra-axial bleed, masses or midline shift. There is no acute infarction evolution. The jarvis to white matter differentiation is maintained normal. The lateral ventricles are symmetrical in size and configuration with mild enlargement. Bone windows reveal no calvarial abnormality. There is no scalp soft tissue abnormality. Bilateral paranasal sinuses and mastoid air cells are well-aerated. CT/CT head/brain wo IV con IMPRESSION: No acute intracranial process seen.
--- NOTE | ~2023-07-06 | CT_ITS ---
EXAMINATION: CT ABDOMEN AND PELVIS WITH CONTRAST CLINICAL INFORMATION: Left lower quadrant abdominal pain, nausea, vomiting, diarrhea. COMPARISON: 12/06/2021. TECHNIQUE: Multidetector volumetric images were obtained from the superior aspect of the liver through the pubic symphysis following administration 85 mL of Omnipaque 350 intravenous contrast. Sagittal and coronal reformatted images were obtained on the technologist's workstation. Oral contrast: No This CT examination was performed using dose optimization techniques as appropriate, variously including the following: *Automated exposure control *Adjustment of mA and/or kV according to patient size (this includes techniques or standardized protocols for targeted exams where dose is matched to indication/reason for exam; i.e. extremities or head) *Use of iterative reconstruction technique DLP: A dose data sheet for CT exams of the head, chest, abdomen and pelvis is provided. 635.94 mGy-cm is listed for the abdomen/pelvis. FINDINGS: LUNG BASES: Patchy airspace opacity in the left lower lobe and lingula is consistent with pneumonia. There is opacity from atelectasis in the periphery of the right lower lobe. Trace pleural effusions. Atherosclerotic disease of coronary arteries, status post coronary artery bypass graft surgery. HEPATOBILIARY: The liver has normal size, shape, and attenuation. Gallbladder has a normal appearance. No radiopaque stones, wall thickening or pericholecystic fluid. No dilated bile ducts. PANCREAS: No edema, pancreatic ductal dilatation or mass. SPLEEN: Normal. ADRENAL GLANDS: Normal. KIDNEYS AND URETERS: Kidneys are normal in size and enhance symmetrically. No renal stones or hydronephrosis. There is chronic nonspecific bilateral perinephric edema. BLADDER: Urinary bladder is well distended and has normal wall thickness. BOWEL AND PERITONEUM: Moderate hiatal hernia. No dilated bowel loops. The appendix is normal. Multiple diverticula of the descending and sigmoid colon. There is focal wall thickening around a diverticulum of the distal descending colon with adjacent fat stranding and trace fluid along the paracolic gutter. Findings are consistent with acute diverticulitis. No abdominal abscess or free air. ABDOMINAL WALL: Small fat-containing umbilical hernia measures up to 1.4 cm wide. There is chronic mild protrusion of fat into each inguinal canal. VASCULATURE: There is atherosclerotic calcification of the abdominal aorta and iliofemoral arteries. The infrarenal abdominal aorta measures up to 2.5 cm transverse. 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 LYMPH NODES: No pathologic sized lymph nodes in the abdomen or pelvis. No inguinal lymphadenopathy. PELVIC VISCERA: Prominent prostate gland measures approximately 5 x 3.5 x 5.3 cm. MUSCULOSKELETAL: Multilevel facet arthropathy and discovertebral degenerative change of the lumbar spine. Mild grade 1 anterolisthesis at L4-L5 and L5-S1. 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 CT/CT abdomen pelvis w IV con IMPRESSION: * Patchy airspace opacity in the visualized left lower lobe and lingula is consistent with pneumonia. * Acute diverticulitis of the distal descending colon. No bowel perforation or abscess. * Moderate hiatal hernia. * Prostatomegaly. * Atherosclerotic disease of coronary arteries, aorta and iliofemoral arteries. 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
--- NOTE | ~2023-07-06 | CT_ITS ---
EXAMINATION: CT ANGIOGRAM OF THE CHEST WITH CONTRAST (CT PULMONARY ANGIOGRAM FOR PE) CLINICAL INFORMATION: Hypoxia, low grade fever COMPARISON: No pertinent prior studies are available for comparison. TECHNIQUE: Prior to contrast administration, noncontrast localization images were obtained. Subsequently, multidetector volumetric imaging was performed from the thoracic inlet to below the diaphragms following the administration of 100 mL Omnipaque 350 intravenous contrast. No contrast reaction reported. Sagittal, coronal, and MIP oblique sagittal reformatted images were obtained on the CT workstation, uploaded to PACS, and reviewed. This CT examination was performed using dose optimization techniques as appropriate, variously including the following: *Automated exposure control *Adjustment of mA and/or kV according to patient size (this includes techniques or standardized protocols for targeted exams where dose is matched to indication/reason for exam; i.e. extremities or head) *Use of iterative reconstruction technique DLP: A dose data sheet is provided. The dose-length product is 321.38 mGy-cm for the PE chest exam. FINDINGS: LUNGS AND PLEURA: Patchy groundglass opacities are present within both upper lobes. Also, there are patchy airspace opacities involving the lingula and left lower lobe. Findings are consistent with multilobar inflammation/pneumonia. There is opacity from atelectasis in the dependent aspect of the right lower lobe. Trace bilateral pleural effusions are noted. QUALITY OF STUDY/CONTRAST BOLUS: Satisfactory. PULMONARY ARTERIES: The pulmonary arteries are normal in size. No embolic filling defects within the main, lobar or segmental vessels. OTHER CARDIOVASCULAR: The heart size is normal. No pericardial effusion. There is atherosclerotic calcification of coronary arteries status post coronary artery bypass graft surgery. Thoracic aorta atherosclerosis without aneurysm or dissection. The descending thoracic aorta is tortuous. MEDIASTINUM/LOWER NECK: No mediastinal mass. The esophagus is unremarkable. Moderate hiatal hernia is noted. LYMPHATICS: No pathologic sized axillary, hilar or mediastinal lymph nodes. UPPER ABDOMEN: Findings in the abdomen are dictated separately. OSSEOUS STRUCTURES: No acute findings within the visualized degenerated lower cervical and thoracic spine. No aggressive osseous lesion. The sternotomy is healed. CT/CT angio chest PE protocol IMPRESSION: * No evidence of pulmonary embolism. * Patchy groundglass and airspace opacities are consistent with multilobar inflammation/pneumonia. * Trace bilateral pleural effusions are present. * Atherosclerotic disease of coronary arteries, status post coronary artery bypass graft surgery. * Moderate hiatal hernia.
[2023-07-06 10:41] VITALS: BP 161/84; BP 192/100; PULSE 95; PULSE 98; RESP 20; TEMP 37.7; O2SAT 87; O2SAT 89; BMI 24.6
--- NOTE | 2023-07-06 10:43 | ECG_ITS ---
Test Reason : WEAKNESS Blood Pressure : / mmHG Vent. Rate : 090 BPM Atrial Rate : 090 BPM P-R Int : 194 ms QRS Dur : 146 ms QT Int : 402 ms P-R-T Axes : 040 105 022 degrees QTc Int : 491 ms Normal sinus rhythm Right bundle branch block Abnormal ECG When compared with ECG of 21-DEC-2008 10:17, Right bundle branch block is now Present Referred By: Felecia Arcos Electronically Signed By:Jose Dave
--- NOTE | 2023-07-06 10:56 | ED.GENADULT ---
HPI - General Adult General Chief complaint: Nausea/Vomiting/Diarrhea Stated complaint: N/V/D X1 WKS,L FACE DROOP PER EMS Time Seen by Provider: 07/06/23 10:35 Source: patient, EMS, RN notes reviewed and old records reviewed Mode of arrival: EMS History of Present Illness HPI narrative: 82-year-old male with a past medical history of CAD, BPH, HLD, depression, anxiety, HTN, presenting to the ED from home complaining of LLQ abdominal pain, nausea, vomiting, and nonbloody diarrhea x1 week. Patient reports increasing weakness/generalized fatigue. Upon EMS arrival they noted ?Left-sided facial droop and garbled speech which confirmed and reports this is not normal for patient. Patient also noted to be hypoxic placed on nasal cannula, does not use home O2. Denies known fever, cough, CP/SOB, dysuria Related Data Home Medications Medication Instructions Recorded Confirmed alprazolam 0.5 mg tablet 0.5 mg PO TID PRN Anxiety 05/29/20 clopidogrel 75 mg tablet 75 mg PO DAILY 05/29/20 doxazosin 8 mg tablet 8 mg PO DAILY 05/29/20 finasteride 5 mg tablet 5 mg PO DAILY 05/29/20 lisinopril 2.5 mg tablet 2.5 mg PO DAILY 05/29/20 metoprolol succinate 25 mg 25 mg PO DAILY 05/29/20 tablet,extended release 24 hr rosuvastatin 20 mg tablet 20 mg PO BEDTIME 05/29/20 sertraline 100 mg tablet 100 mg PO DAILY 05/29/20 Previous Rx's Medication Instructions Recorded acetaminophen 500 mg tablet 1,000 mg (2 x 500 mg) PO QID PRN 12/06/21 (Tylenol Extra Strength) fever or pain #14 tabs amoxicillin 875 mg-potassium 1 tab PO BID Diverticulitis 10 12/06/21 clavulanate 125 mg tablet days #20 tabs oxycodone 5 mg tablet 5 mg PO Q6H PRN pain #14 tabs 12/06/21 Allergies Allergy/AdvReac Type Severity Reaction Status Date / Time No Known Allergies Allergy Mild NOT Unverified 05/29/20 13:47 APPLICABLE Review of Systems Review of Systems: Constitutional: No Fever, No Chills, +Fatigue, +Malaise ENT/Mouth: No Ear Pain, No Nasal Congestion, No sore throat, No Rhinorrhea, No Swallowing Difficulty Eyes: No Eye Pain, No Swelling, No Redness Cardiovascular: No Chest Pain, No SOB, No Palpitations Respiratory: No Cough, No Sputum, No Dyspnea Gastrointestinal: + Nausea, +Vomiting, + Diarrhea, No Constipation, +Abdominal pain, No Hematochezia, No Melena Genitourinary: No Dysuria, No Urinary Frequency, No Hematuria, No Flank Pain Musculoskeletal: No joint pain, No Myalgias, No Joint Swelling Skin: No Skin Lesions, No rash Neuro: No Weakness, No Headache Yes all other systems are reviewed and are negative Constitutional: Constitutional: Reports as per HPI Neurologic: Denies Abnormal speech present [facility] Past Medical History Attestation statement: The following information was validated with the patient. Source: old records reviewed Onset Date is defined in the Problem List Problems that require an onset date and time if occurred within 24 hrs of arrival to the ED Aortic Dissection and Rupture; Neurologic impairment; Cardiopulmonary Arrest; Endotracheal Intubation; Insertion or Replacement of Mechanical Circulatory Assist Device Medical History Coronary artery disease Benign prostatic hyperplasia Hypercholesterolemia Depression Anxiety Hypertension Surgical History History of ankle surgery History of heart surgery (~05/2004) Social History Social History Alcohol intake: never Patient Tobacco Use Status: Former Tobacco user Quit Date: 34 years ago Years Smoked: 30 years Advance Directives: Yes Advance Directives Information Provided: Yes Advance Directives on File: No Physical Exam ED Vital Signs: Vital Signs - 24 hr 07/06/23 10:41 07/06/23 12:43 07/06/23 14:37 Temperature 99.9 F 98.8 F Pulse Rate 95 88 83 Respiratory Rate 20 22 H 20 Blood Pressure 161/84 H 129/73 110/63 Pulse Oximetry 87 L 94 98 Oxygen Delivery Method Room Air Nasal Cannula Room Air Oxygen Flow Rate 2 BMI result Body Mass Index 24.6 Const General: cooperative and no acute distress Orientation/consciousness: patient oriented x3 Limitations: no limitations HENMT Head: Yes normal to inspection and Yes atraumatic Ears: hearing grossly normal bilaterally General nose exam: Normal external nose present Face and sinus: Yes normal facial exam Mouth: Normal oral and palatal mucosa present Throat: Yes posterior oropharynx normal and Yes uvula midline Eyes General: appearance normal, both eyes and all related structures Pupils: Equal, round and reactive pupils present EOM: EOMs intact bilaterally Neck Neck: Yes normal visual inspection and Yes no meningeal signs Resp Effort & Inspection: normal respiratory effort and no respiratory distress Auscultation: clear to auscultation bilaterally, no rhonchi and no wheezes Cardio Rate: regular rate Heart sounds: S1 normal heart sound present and S2 normal heart sound present GI Inspection: Yes normal to inspection Palpation (GI): Soft to palpation, Tenderness to palpation present (GI) in the LLQ; with no rebound tenderness, no guarding and not rigid General: Yes no CVA tenderness Back/Spine/Pelvis Back: no CVA tenderness Skin Rashes: no rashes Wounds: no wounds Neuro General: patient oriented x3, tone normal, moves all extremities, no meningeal signs, no focal motor deficits and CN's II-XI intact bilaterally Cranial nerves: Yes CN's II-XII intact bilaterally and Yes Equal, round and reactive pupils present Cognition (Neuro): normal cognition Speech: No Abnormal speech present Gait exam (Neuro): Normal gait present Motor exam (neuro): 5/5 motor strength present throughout and no tremor noted Extrem General: Yes normal to inspection and Yes no pedal edema NIH Stroke Scale Internal: Initial- Upon Arrival Level of Consciousness: Alert Level of Consciousness Questions: Answers both questions correctly Level of Consciousness Commands: Performs both tasks correctly Best Gaze: Normal Visual: No visual loss Facial Palsy: Normal Motor Arm (Right): No drift Motor Arm (Left): No drift Motor Leg (Right): No drift Motor Leg (Left): No drift Limb Ataxia: Absent Sensory: Normal Best Language: No aphasia Dysarthia: Normal Extinction and Inattention: No abnormality Score: 0 Course Course Course Narrative: -1146--no leukocytosis. Troponin 5.4 > will obtain 3 hour repeat -UA negative. Viral testing negative 1453--CT head/brain wo IV con IMPRESSION: No acute intracranial process seen. CT angio chest PE protocol IMPRESSION: * No evidence of pulmonary embolism. * Patchy groundglass and airspace opacities are consistent with multilobar inflammation/pneumonia. * Trace bilateral pleural effusions are present. * Atherosclerotic disease of coronary arteries, status post coronary artery bypass graft surgery. * Moderate hiatal hernia. CT abdomen pelvis w IV con IMPRESSION: * Patchy airspace opacity in the visualized left lower lobe and lingula is consistent with pneumonia. * Acute diverticulitis of the distal descending colon. No bowel perforation or abscess. * Moderate hiatal hernia. * Prostatomegaly. * Atherosclerotic disease of coronary arteries, aorta and iliofemoral arteries. 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 > plan to admit for further management of acute pneumonia and diverticulitis Medications Administered Discontinued Medications Generic Name Dose Route Start Last Admin Trade Name Freq PRN Reason Stop Dose Admin Acetaminophen 650 mg 07/06/23 10:46 07/06/23 11:04 Acetaminophen 325 Mg Tablet PO 07/06/23 10:47 650 mg ONCE ONE Administration Sodium Chloride 1,000 mls @ 999 mls/hr 07/06/23 10:45 07/06/23 11:06 Ns IV 07/06/23 11:45 999 mls/hr .Q1H1M LARISSA Administration Piperacillin Sod/Tazobactam 50 mls @ 100 mls/hr 07/06/23 10:46 07/06/23 11:56 Sod 3.375 gm/ Sodium Chloride IV 07/06/23 11:15 Infused ONCE ONE Infusion Iohexol 100 ml 07/06/23 12:32 07/06/23 12:32 Iohexol 350 Mg/Ml 100 Ml Infus..Btl IV 07/06/23 12:33 65 ml ONCE ONE Administration Medical Decision Making Medical Decision Making MDM Narrative: 82-year-old male with a past medical history of CAD, BPH, HLD, depression, anxiety, HTN, presenting to the ED from home complaining of LLQ abdominal pain, nausea, vomiting, and nonbloody diarrhea x1 week. Upon EMS arrival they noted ?Left-sided facial droop and garbled speech. On exam 87% on RA >92-94% on 2L NC, low-grade temp 99.9 degrees, lungs CTA, abdomen soft with LLQ ttp, no appreciable facial droop or garbled/slurred speech. No focal neuro deficits. Concern for metabolic etiology including dehydration/electrolyte disturbance vs diverticulitis/colitis vs pneumonia or viral illness. Low suspicion for CVA/TIA likely metabolic in origin, & last known well time unknown > patient is not a canidate for TNK. Plan: EKG, Labs, UA, CXR, Head/abdomen/pelvis CT, lactic/blood cultures, empiric IV antibiotics, viral testing, anticipated admission Please refer to course for remaining clinical decision making, interpretation of labs/imaging results, and discussions with consultants and/or family members. Differential Diagnosis Differential Diagnoses: The differential diagnosis associated with the presentation includes As above Admission/Observation Consideration of admission/observation: Escalation of care including admission/observation considered Consult Healthcare Provider Management of the patient was discussed with: Hospitalist Lab Data MDM Lab Attestation statement: I reviewed the patient's lab results. 07/06/23 10:59 07/06/23 10:59 Labs: Lab Results 07/06/23 07/06/23 07/06/23 Range/Units 10:59 11:10 12:45 WBC 9.3 (4.8-10.8) X10*3/uL RBC 4.06 L (4.60-5.80) X10*6/uL Hgb 12.7 L (14.0-18.0) g/dl Hct 35.9 L (42.0-52.0) % MCV 88.4 (80.0-98.0) fL MCH 31.3 (27.0-33.0) pg MCHC 35.4 (31.0-36.0) g/dl RDW 12.4 (11.0-16.0) % Plt Count 92 L (160-400) X10*3/uL MPV 9.5 (9.4-12.4) fL Immature Gran % (Auto) 0.5 H (0.0-0.4) % Neut % (Auto) 89.1 H (45-73) % Lymph % (Auto) 4.7 L (20-40) % Harper % (Auto) 5.1 (2-11) % Eos % (Auto) 0.4 (0-4) % Baso % (Auto) 0.2 (0-2) % Lymph # (Auto) 0.4 L (1.2-4.9) X10*3/uL Harper # (Auto) 0.5 (0.1-1.2) X10*3/uL Eos # (Auto) 0.0 (0.0-0.4) X10*3/uL Baso # (Auto) 0.0 (0.0-0.2) X10*3/uL Abs Immat Gran (auto) 0.05 H (0.00-0.03) X10*3/uL Absolute Neuts (auto) 8.3 (2.0-8.3) x10*3/uL Absolute Nucleated RBC 0.000 (0.0-0.012) X10*3/uL Nucleated RBC % (auto) 0.0 (0.0-0.2) /100WBC PT 12.5 (11.1-13.3) SEC INR 1.0 (0.9-1.1) VBG pH 7.50 H (7.32-7.43) VBG pCO2 32 mmHg VBG pO2 71 mmHg VBG HCO3 25 (22-26) mmol/L VBG O2 Saturation 94.0 % VBG Base Excess 3.2 mmol/L Sodium 138 (135-145) mmol/L Potassium 4.1 (3.3-5.1) mmol/L Chloride 105 (96-108) mmol/L Carbon Dioxide 24 (22-29) mmol/L Anion Gap 13 (12-20) BUN 19 H (9-16) mg/dL Creatinine 1.08 (0.5-1.4) mg/dL Estim Creat Clear Calc 51.8 Estimated GFR > 60 Random Glucose 135 H (60-115) mg/dL Lactic Acid 1.2 (0.5-2.0) mmol/L Calcium 9.1 (8.4-10.2) mg/dL Magnesium 1.8 (1.6-2.6) mg/dL Total Bilirubin 1.0 (0.0-1.0) mg/dL Direct Bilirubin 0.3 (0.0-0.5) mg/dL AST 25 (5-37) U/L ALT 18 (0-40) U/L Alkaline Phosphatase 54 (39-117) U/L Troponin I High Sens 5.4 (<3.5-35.0) ng/L B-Natriuretic Peptide 24 (<100) pg/mL Total Protein 7.3 (6.5-8.0) g/dL Albumin 3.9 (3.5-5.0) g/dL Lipase 15 (8-78) U/L Urine Color Yellow Urine Appearance Clear Urine pH 5.5 (5.0-9.0) Ur Specific [place] 1.015 (1.005-1.025) Urine Protein Negative (Neg-Trace) mg/dL Urine Glucose (UA) Negative (Negative) mg/dL Urine Ketones Negative (Negative) mg/dL Urine Blood Trace H (Negative) Urine Nitrite Negative (Negative) Ur Leukocyte Esterase Negative (Negative) Urine RBC 0-2 (0-2) /HPF Urine WBC 0-5 (0-5) /HPF Ur Squamous Epith Cells 0-2 (0-2) /HPF Urine Bacteria None Seen (None Seen) Hyaline Casts 0-2 (0-2) /LPF Influenza Type A (PCR) NEGATIVE (Negative) Influenza Type B (PCR) NEGATIVE (Negative) RSV RNA Qual (PCR) NEGATIVE (Negative) SARS-CoV-2 RNA (RT-PCR) NEGATIVE (Negative) Independent Interpretation I performed an independent interpretation of an: EKG (My interpretation normal sinus rhythm rate of 90. Right bundle-branch block no present when compared to prior. No STEMI. QRS 146), Plain X-Ray and CT Scan Radiology Impression Discussion of test interpretation with radiology: I have reviewed the radiologist's reading. Independent Historian Clinical information obtained from an independent historian. History obtained from or confirmed by: EMS External Record Review External record reviewed: Inpatient record, Office record, Outpatient record, Prior outpatient labs, Prior outpatient radiology, Primary care record and Outside ED record Tests considered The following testing was considered but not selected: As above Prescription Management I considered prescription management with: Pain Medication and Antibiotic Chronic Conditions Patient?s care impacted by: Other Critical Care Time Critical Care Time Critical Care Time: Yes Total Critical Care Time: 45 Attestation: I have personally provided critical care time exclusive of time spent on separately billable procedures. Time includes review of lab data, radiology results, discussion with consultants, and monitoring for potential decompensation. Intervention performed as documented. Discharge Plan Discharge Clinical Impression: Hypoxia, Diverticulitis, Pneumonia Patient Disposition: Admitted As Inpatient
[2023-07-06] MEDS: Acetaminophen 325 MG TABLET 650 MG PO (11:04)
[2023-07-06] MEDS: 0.9 % Sodium Chloride 1,000 ML 999 ML IV (11:06)
[2023-07-06 11:12] LABS: MANUAL DIFF FLAG NO
[2023-07-06 11:14] LABS: Venous Blood Gas Refer to POC result
[2023-07-06 11:15] LABS: VBG Base Excess 3.2 mmol/L; VBG HCO3 25 mmol/L (22-26); VBG pCO2 32 mmHg; VBG pO2 71 mmHg
[2023-07-06 11:15] LABS: Basophils Percent Auto 0.2 % (0-2); Eosinophils Percent Auto 0.4 % (0-4); Hematocrit 35.9 % (42.0-52.0); Hemoglobin 12.7 g/dl (14.0-18.0); Imm Gran Abs Auto 0.05 X10*3/uL (0.00-0.03); Imm Gran Pct Auto 0.5 % (0.0-0.4); Lymphocytes Absolute Auto 0.4 X10*3/uL (1.2-4.9); Lymphocytes Percent Auto 4.7 % (20-40); Mean Corpuscular HGB Conc 35.4 g/dl (31.0-36.0); Mean Corpuscular Hemoglobin 31.3 pg (27.0-33.0); Mean Corpuscular Volume 88.4 fL (80.0-98.0); Mean Platelet Volume 9.5 fL (9.4-12.4); Monocytes Absolute Auto 0.5 X10*3/uL (0.1-1.2); Monocytes Percent Auto 5.1 % (2-11); Neutrophils Absolute Auto 8.3 x10*3/uL (2.0-8.3); Neutrophils Percent Auto 89.1 % (45-73); Platelet Count 92 X10*3/uL (160-400); Red Blood Count 4.06 X10*6/uL (4.60-5.80); Red Cell Distribution Width 12.4 % (11.0-16.0); White Blood Count 9.3 X10*3/uL (4.8-10.8)
[2023-07-06 11:20] LABS: Prothrombin Time 12.5 SEC (11.1-13.3)
[2023-07-06] MEDS: Piperacillin Sodium/Tazobactam 3.375 GM in 0.9 % Sodium Chloride 50 ML IV (11:26)
[2023-07-06 11:29] LABS: Lactic Acid 1.2 mmol/L (0.5-2.0)
[2023-07-06 11:40] LABS: B Type Natriuretic Peptide 24 pg/mL (<100)
[2023-07-06 11:41] LABS: Alanine Aminotransferase 18 U/L (0-40); Albumin Level 3.9 g/dL (3.5-5.0); Alkaline Phosphatase 54 U/L (39-117); Anion Gap 13 (12-20); Aspartate Amino Transferase 25 U/L (5-37); Bilirubin Direct 0.3 mg/dL (0.0-0.5); Blood Urea Nitrogen 19 mg/dL (9-16); Calcium 9.1 mg/dL (8.4-10.2); Carbon Dioxide 24 mmol/L (22-29); Chloride 105 mmol/L (96-108); Creatinine Clr Calc Pharmacy 51.8; Estimated Glomerular Filt Rate > 60; Glucose Random 135 mg/dL (60-115); Lipase 15 U/L (8-78); Magnesium 1.8 mg/dL (1.6-2.6); Potassium 4.1 mmol/L (3.3-5.1); Sodium 138 mmol/L (135-145); Total Protein 7.3 g/dL (6.5-8.0)
[2023-07-06 11:42] LABS: Troponin-I High Sensitivity 5.4 ng/L (<3.5-35.0)
[2023-07-06 12:16] LABS: Influenza A PCR NEGATIVE (Negative); Influenza B PCR NEGATIVE (Negative); Resp Syncy Virus RNA Qual PCR NEGATIVE (Negative); SARS COV2 PCR INHOUSE NEGATIVE (Negative)
[2023-07-06] MEDS: iohexoL 350 MG/ML 100 ML INFUS..BTL IV (12:32)
[2023-07-06 12:43] VITALS: BP 129/73; PULSE 88; RESP 22; TEMP 37.1; O2SAT 94
[2023-07-06 12:56] LABS: Appearance Urine Clear; Color Urine Yellow; Glucose Urine UA Negative (Negative); Nitrite Urine Negative (Negative); PH 5.5 (5.0-9.0); Specific Gravity - Urine 1.015 (1.005-1.025); Urine Blood Trace (Negative); Urine Ketones Negative (Negative); Urine Protein Negative (Neg-Trace)
[2023-07-06 12:57] LABS: Leukocyte Esterase Urine Negative (Negative); UMIC TRIGGER UACC YES
[2023-07-06 13:01] LABS: Bacteria Urine None Seen (None Seen); Hyaline Casts Urine 0-2 /LPF (0-2); RBC Urine 0-2 /HPF (0-2); Squamous Epithelial Cell Urine 0-2 /HPF (0-2); WBC Urine 0-5 /HPF (0-5)
[2023-07-06 14:37] VITALS: BP 110/63; PULSE 83; RESP 20; O2SAT 98
--- NOTE | 2023-07-06 15:55 | PHA.MEDREC ---
Pharmacy Consult ? Medication Reconciliation Pharmacy has completed the medication reconciliation. Patient and spouse confirmed medications. Patient's reported she stopped the oxybutynin. Hemalatha Cornelius, NicholasD
--- NOTE | 2023-07-06 15:57 | PM.IMHP ---
History of Present Illness Date of Service: 07/06/23 Chief Complaint: Abdominal pain, hypoxa An 82 years old male with PMH of CAD, anxiety, BPH, HTN, GERD and depression who presents to the hospital complaining of abdominal pain for few days [employer]. The patient reports that last week he started having diarrhea that did not resolve on its own so he start taking Immodium which helped but he became constipated with associated abdominal pain , bloating but no fever or chills. He presented to the emergency where he was found to have low O2 sat of 87% on RA. Images were consistent with pneumonia and diverticulitis. he was started on antibitoics and admitted for further evaluation and treatment. Review of Systems Review of Systems: No fever, chills but reports weakness No chest pain, palpitation No shortness of breath or coughing having abdominal pain along with nausea or vomiting No urinary symptoms No rash or wounds PMFSH Medical History Coronary artery disease Benign prostatic hyperplasia Hypercholesterolemia Depression Anxiety Hypertension Surgical History History of ankle surgery History of heart surgery (~05/2004) Social History Alcohol intake: never Patient Tobacco Use Status: Former Tobacco user Quit Date: 34 years ago Years Smoked: 30 years Advance Directives: Yes Advance Directives Information Provided: Yes Advance Directives on File: No Meds Allergies Allergy/AdvReac Type Severity Reaction Status Date / Time No Known Allergies Allergy Mild NOT Unverified 05/29/20 13:47 APPLICABLE Active Medications: Current Medications Acetaminophen (Acetaminophen 325 Mg Tablet) 650 mg PO Q6H PRN PRN Reason: Pain, Mild (Pain Scale 1-3) Sodium Chloride (Ns) 1,000 mls @ 100 mls/hr IVCONT .Q10H [facility] Piperacillin Sod/Tazobactam (Sod 4.5 gm/ Sodium Chloride) 100 mls @ 200 mls/hr IV Q6H [facility] Magnesium Hydroxide (Milk Of Magnesia 30 Ml Oral.Susp) 30 ml PO DAILY PRN PRN Reason: Constipation Morphine Sulfate (Morphine Sulfate 4 Mg/Ml Cartridge) 2 mg IVPUSH Q4H PRN; Protocol PRN Reason: Pain, Severe (Pain Scale 7-10) Ondansetron HCl (Ondansetron Hcl 4 Mg/2 Ml Vial) 4 mg IVPUSH Q8H PRN PRN Reason: Nausea and Vomiting Sodium Chloride (0.9 % Sodium Chloride Flush 3 Ml Syringe) 3 ml IVFLUSH QSHIFT [facility] Home Medications Medication Instructions Recorded Confirmed Last Taken Type alprazolam 0.5 mg tablet 0.5 mg PO TID Anxiety 05/29/20 07/06/23 07/05/22 History clopidogrel 75 mg tablet 75 mg PO DAILY 05/29/20 07/06/23 07/05/22 History doxazosin 8 mg tablet 8 mg PO DAILY 05/29/20 07/06/23 07/05/22 History finasteride 5 mg tablet 5 mg PO DAILY 05/29/20 07/06/23 07/05/22 History lisinopril 2.5 mg tablet 2.5 mg PO DAILY 05/29/20 07/06/23 07/05/22 History metoprolol succinate 25 mg 25 mg PO DAILY 05/29/20 07/06/23 07/05/22 History tablet,extended release 24 hr rosuvastatin 20 mg tablet 20 mg PO BEDTIME 05/29/20 07/06/23 07/05/22 History sertraline 100 mg tablet 100 mg PO DAILY 05/29/20 07/06/23 07/05/22 History cholecalciferol (vitamin D3) 25 25 mcg PO DAILY 07/06/23 07/06/23 07/05/22 History mcg (1,000 unit) tablet cyanocobalamin (vitamin B-12) 1,000 mcg PO DAILY 07/06/23 07/06/23 07/05/22 History 1,000 mcg tablet ferrous sulfate 325 mg (65 mg 325 mg PO DAILY 07/06/23 07/06/23 07/05/22 History iron) tablet flaxseed 1,000 mg capsule 1,000 mg PO DAILY 07/06/23 07/06/23 07/05/22 History multivitamin 1 tab PO DAILY 07/06/23 07/06/23 07/05/22 History omega 2-bci-nbw-fish oil 1,000 mg 1 cap PO DAILY 07/06/23 07/06/23 07/05/22 History (120 mg-180 mg) capsule (Fish Oil) pantoprazole 20 mg tablet,delayed 20 mg PO DAILY 07/06/23 07/06/23 07/05/22 History release Physical Exam Vital Signs and Narrative: Vital Signs: Last Vital Signs Temp 98.8 F 07/06/23 12:43 Pulse 83 07/06/23 14:37 Resp 20 07/06/23 14:37 BP 110/63 07/06/23 14:37 Pulse Ox 98 07/06/23 14:37 O2 Del Method Room Air 07/06/23 14:37 O2 Flow Rate 2 07/06/23 12:43 BMI result Body Mass Index 24.6 Const: Other: Constitutional : Awake, interactive, not in distress Neck : Normal inspection, Supple Cardiovascular : RRR, no JVP, no lower extremity edema Respiratory : fair bilateral air entry, basal crackles more on left sidei Gastrointestinal: soft, lax, decreased bowel sounds, mild tenderness LLQ Skin : Warm, Dry Neurological : Alert & oriented x3, No focal deficit Results Labs 07/06/23 10:59 07/06/23 10:59 Labs: Laboratory Results - last 24 hr 07/06/23 07/06/23 07/06/23 10:59 11:10 12:45 MCV 88.4 MCH 31.3 MCHC 35.4 RDW 12.4 Plt Count 92 L MPV 9.5 Immature Gran % (Auto) 0.5 H Neut % (Auto) 89.1 H Lymph % (Auto) 4.7 L [place] % (Auto) 5.1 Eos % (Auto) 0.4 Baso % (Auto) 0.2 Lymph # (Auto) 0.4 L [place] # (Auto) 0.5 Eos # (Auto) 0.0 Baso # (Auto) 0.0 Abs Immat Gran (auto) 0.05 H Absolute Neuts (auto) 8.3 Absolute Nucleated RBC 0.000 Nucleated RBC % (auto) 0.0 PT 12.5 INR 1.0 VBG pH 7.50 H VBG pCO2 32 VBG pO2 71 VBG HCO3 25 VBG O2 Saturation 94.0 VBG Base Excess 3.2 Anion Gap 13 Estim Creat Clear Calc 51.8 Estimated GFR > 60 Random Glucose 135 H Lactic Acid 1.2 Calcium 9.1 Magnesium 1.8 Total Bilirubin 1.0 Direct Bilirubin 0.3 AST 25 ALT 18 Alkaline Phosphatase 54 B-Natriuretic Peptide 24 Total Protein 7.3 Albumin 3.9 Lipase 15 Urine Color Yellow Urine Appearance Clear Urine pH 5.5 Ur Specific [place] 1.015 Urine Protein Negative Urine Glucose (UA) Negative Urine Ketones Negative Urine Blood Trace H Urine Nitrite Negative Ur Leukocyte Esterase Negative Urine RBC 0-2 Urine WBC 0-5 Ur Squamous Epith Cells 0-2 Urine Bacteria None Seen Hyaline Casts 0-2 Influenza Type A (PCR) NEGATIVE Influenza Type B (PCR) NEGATIVE RSV RNA Qual (PCR) NEGATIVE SARS-CoV-2 RNA (RT-PCR) NEGATIVE Imaging Radiologist's Impressions: Impressions Abdomen/Pelvis CT 07/06/23 12:44 IMPRESSION: * Patchy airspace opacity in the visualized left lower lobe and lingula is consistent with pneumonia. * Acute diverticulitis of the distal descending colon. No bowel perforation or abscess. * Moderate hiatal hernia. * Prostatomegaly. * Atherosclerotic disease of coronary arteries, aorta and iliofemoral arteries. 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 Chest CTA 07/06/23 12:44 IMPRESSION: * No evidence of pulmonary embolism. * Patchy groundglass and airspace opacities are consistent with multilobar inflammation/pneumonia. * Trace bilateral pleural effusions are present. * Atherosclerotic disease of coronary arteries, status post coronary artery bypass graft surgery. * Moderate hiatal hernia. Head CT 07/06/23 12:44 IMPRESSION: No acute intracranial process seen. Assessment and Plan (1) Pneumonia: Status: Acute (2) Diverticulitis: Status: Acute (3) Acute respiratory failure with hypoxia: Status: Acute Plan An 82 years old male with PMH of CAD, anxiety, BPH, HTN, GERD and depression who presents to the hospital complaining of abdominal pain for few days [employer] UP [employer]. Acute hypoxic respiratory failure 2/2 Pneumonia Per CTA Pending cultures on Zosyn 4.5mg Q6 Wean O2 down as tolerated Acute Diverticulitis start IVF on Antibiotics Clear liquids Anxiety Xanax, Sertraline BPH Finasteride and Doxazosin Hx CAD Plavix, Metoprolol and Atorvastatin DVT PPx SCDs for low PLT and reported brusing The patient will likely need >2 overnight hospital stay for IV antibiotics and fluids pending final blood cultures Quality Stroke Does the patient have a stroke diagnosis?: No VTE Prior VTE?: No VTE Risk Level:: Medical - moderate - high VTE Device Contraindication: N/A - Device Ordered VTE Drug Contraindication: Treatment Not Indicated
[2023-07-06 16:10] VITALS: BP 113/68; PULSE 71; RESP 13; TEMP 36.8; O2SAT 97
[2023-07-06] MEDS: lisinopriL 2.5 MG TABLET PO (17:22)
[2023-07-06] MEDS: Docusate Sodium 100 MG CAPSULE PO (17:23)
[2023-07-06] MEDS: Doxazosin Mesylate 2 MG TABLET 8 MG PO (17:23)
[2023-07-06] MEDS: Sertraline HCL 100 MG TABLET PO (17:24)
[2023-07-06] MEDS: Clopidogrel Bisulfate 75 MG TABLET PO (17:24)
[2023-07-06] MEDS: Metoprolol Succinate ER 25 MG TAB.ER.24H PO (17:24)
[2023-07-06] MEDS: 0.9 % Sodium Chloride Flush 3 ML SYRINGE IVFLUSH (17:25)
[2023-07-06] MEDS: ALPRAZolam 0.5 MG TABLET PO ×2 (17:25→21:12)
[2023-07-06] MEDS: Finasteride 5 MG TABLET PO (17:25)
[2023-07-06] MEDS: Piperacillin Sodium/Tazobactam 4.5 GM in 0.9 % Sodium Chloride 100 ML IV (17:25)
[2023-07-06] MEDS: 0.9 % Sodium Chloride 1,000 ML 100 ML IVCONT (17:26)
--- NOTE | 2023-07-06 18:55 | MHC.EDTECH ---
Clear liquid tray given
[2023-07-06] MEDS: Atorvastatin Calcium 80 MG TABLET PO (21:12)
--- NOTE | 2023-07-06 22:25 | PC.NURSE ---
report to Marisol EDMONDS
--- NOTE | 2023-07-06 22:47 | PC.NURSE ---
Handoff and report received from KENDAL Frances. PT transported by this RN to overflow bed 6. PT moved into hospital bed. VSS, lungs clear to auscultation. IV line intact, NS running at 100mls. pt on 4L NC. VSS. Pt reports no pain at this time. Plan of care ongoing.
[2023-07-06 22:59] VITALS: BP 136/75; PULSE 50; RESP 18; TEMP 36.6; O2SAT 97
[2023-07-07] MEDS: Piperacillin Sodium/Tazobactam 4.5 GM in 0.9 % Sodium Chloride 100 ML IV ×2 (00:14→06:08)
[2023-07-07] MEDS: Milk of Magnesia 30 ML ORAL.SUSP PO (00:19)
--- NOTE | 2023-07-07 00:20 | PC.NURSE ---
PT reporting constipation x3 days. PT medicated as per SEP. grants and contracts assistant obtained bedside commode. instructed pt to use call ball if he needs to use commode due to falls risk. pt acknowledged instruction. plan of care ongoing.
[2023-07-07] MEDS: 0.9 % Sodium Chloride 1,000 ML 100 ML IVCONT (03:28)
[2023-07-07 06:11] VITALS: BP 144/70; PULSE 60; RESP 14; TEMP 36.6; O2SAT 97
[2023-07-07 06:58] LABS: Hematocrit 31.2 % (42.0-52.0); Hemoglobin 10.7 g/dl (14.0-18.0); Mean Corpuscular HGB Conc 34.3 g/dl (31.0-36.0); Mean Corpuscular Hemoglobin 30.7 pg (27.0-33.0); Mean Corpuscular Volume 89.7 fL (80.0-98.0); Mean Platelet Volume 9.8 fL (9.4-12.4); Platelet Count 116 X10*3/uL (160-400); Red Blood Count 3.48 X10*6/uL (4.60-5.80); Red Cell Distribution Width 12.5 % (11.0-16.0); White Blood Count 8.9 X10*3/uL (4.8-10.8)
--- NOTE | 2023-07-07 07:02 | PC.NURSE ---
PT medicated as per SEP. plan of care ongoing
[2023-07-07 07:22] LABS: Anion Gap 7 (12-20); Blood Urea Nitrogen 16 mg/dL (9-16); Calcium 8.4 mg/dL (8.4-10.2); Carbon Dioxide 24 mmol/L (22-29); Chloride 112 mmol/L (96-108); Creatinine Clr Calc Pharmacy 48.3; Estimated Glomerular Filt Rate > 60; Glucose Random 93 mg/dL (60-115); Potassium 3.9 mmol/L (3.3-5.1); Sodium 139 mmol/L (135-145)
[2023-07-07] MEDS: Sertraline HCL 100 MG TABLET PO (09:18)
--- NOTE | 2023-07-07 09:33 | PC.NURSE ---
Patient with no results from milk of mag, reports no pain or discomfort, provider aware with new orders to give another dose of mom per patients request
--- NOTE | 2023-07-07 11:08 | HO.PM.IMPN ---
Subjective Subjective Date of Service: 07/07/23 Interval History: abd pain improved, never had sob with hypoxia Physical Exam Vital Signs: Vital Signs: Last Vital Signs Temp 97.9 F 07/07/23 06:11 Pulse 60 07/07/23 06:11 Resp 14 07/07/23 06:11 BP 144/70 H 07/07/23 06:11 Pulse Ox 97 07/07/23 06:11 O2 Del Method Nasal Cannula 07/07/23 06:11 O2 Flow Rate 4 07/07/23 06:11 BMI result Body Mass Index 24.6 General: AO X 3, no acute distress Resp: CTA bilateral, no accessory muscles used CVS: S1,S2,RRR GI: soft, tender, non distended Neuro: motor grossly intact, alert Psych: appropriate affect, appropriate insight Objective Data Active Medications Acetaminophen (Acetaminophen 325 Mg Tablet) 650 mg PO Q6H PRN PRN Reason: Pain, Mild (Pain Scale 1-3) Alprazolam (Alprazolam 0.5 Mg Tablet) 0.5 mg PO TID [facility] Last Admin: 07/07/23 09:19 Dose: 0.5 mg Documented By: MARTÍN Atorvastatin Calcium (Atorvastatin Calcium 80 Mg Tablet) 80 mg PO BEDTIME [facility] Last Admin: 07/06/23 21:12 Dose: 80 mg Documented By: CLAUDETTE Clopidogrel Bisulfate (Clopidogrel Bisulfate 75 Mg Tablet) 75 mg PO DAILY [facility] Last Admin: 07/07/23 09:18 Dose: 75 mg Documented By: MARTÍN Doxazosin Mesylate (Doxazosin Mesylate 2 Mg Tablet) 8 mg PO DAILY [facility]; Protocol Last Admin: 07/07/23 09:18 Dose: 8 mg Documented By: MARTÍN Finasteride (Finasteride 5 Mg Tablet) 5 mg PO DAILY [facility] Last Admin: 07/07/23 09:18 Dose: 5 mg Documented By: MARTÍN Sodium Chloride (Ns) 1,000 mls @ 100 mls/hr IVCONT .Q10H [facility] Last Admin: 07/07/23 03:28 Dose: 100 mls/hr Documented By: LOUISE Piperacillin Sod/Tazobactam (Sod 4.5 gm/ Sodium Chloride) 100 mls @ 200 mls/hr IV Q6H [facility] Last Infusion: 07/07/23 09:25 Dose: Infused Documented By: MARTÍN Lisinopril (Lisinopril 2.5 Mg Tablet) 2.5 mg PO DAILY [facility]; Protocol Last Admin: 07/07/23 09:24 Dose: 2.5 mg Documented By: MARTÍN Magnesium Hydroxide (Milk Of Magnesia 30 Ml Oral.Susp) 30 ml PO DAILY PRN PRN Reason: Constipation Last Admin: 07/07/23 10:03 Dose: 30 ml Documented By: MARTÍN Metoprolol Succinate (Metoprolol Succinate Er 25 Mg Tab.Er.24h) 25 mg PO DAILY [facility]; Protocol Last Admin: 07/07/23 09:18 Dose: 25 mg Documented By: MARTÍN Morphine Sulfate (Morphine Sulfate 4 Mg/Ml Cartridge) 2 mg IVPUSH Q4H PRN; Protocol PRN Reason: Pain, Severe (Pain Scale 7-10) Omeprazole (Omeprazole 20 Mg Capsule.Dr) 20 mg PO DAILY@0630 [facility] Last Admin: 07/07/23 09:18 Dose: 20 mg Documented By: MARTÍN Ondansetron HCl (Ondansetron Hcl 4 Mg/2 Ml Vial) 4 mg IVPUSH Q8H PRN PRN Reason: Nausea and Vomiting Sertraline HCl (Sertraline Hcl 100 Mg Tablet) 100 mg PO DAILY [facility] Last Admin: 07/07/23 09:18 Dose: 100 mg Documented By: MARTÍN Sodium Chloride (0.9 % Sodium Chloride Flush 3 Ml Syringe) 3 ml IVFLUSH QSHIFT [facility] Last Admin: 07/07/23 09:19 Dose: Not Given Documented By: MARTÍN Non-Admin Reason: IV Running Labs 07/07/23 06:24 07/07/23 06:24 Labs: Laboratory Results - last 24 hr 07/06/23 07/06/23 07/06/23 10:59 11:10 12:45 MCV 88.4 MCH 31.3 MCHC 35.4 RDW 12.4 Plt Count 92 L MPV 9.5 Immature Gran % (Auto) 0.5 H Neut % (Auto) 89.1 H Lymph % (Auto) 4.7 L [place] % (Auto) 5.1 Eos % (Auto) 0.4 Baso % (Auto) 0.2 Lymph # (Auto) 0.4 L [place] # (Auto) 0.5 Eos # (Auto) 0.0 Baso # (Auto) 0.0 Abs Immat Gran (auto) 0.05 H Absolute Neuts (auto) 8.3 Absolute Nucleated RBC 0.000 Nucleated RBC % (auto) 0.0 PT 12.5 INR 1.0 VBG pH 7.50 H VBG pCO2 32 VBG pO2 71 VBG HCO3 25 VBG O2 Saturation 94.0 VBG Base Excess 3.2 Anion Gap 13 Estim Creat Clear Calc 51.8 Estimated GFR > 60 Random Glucose 135 H Lactic Acid 1.2 Calcium 9.1 Magnesium 1.8 Total Bilirubin 1.0 Direct Bilirubin 0.3 AST 25 ALT 18 Alkaline Phosphatase 54 B-Natriuretic Peptide 24 Total Protein 7.3 Albumin 3.9 Lipase 15 Urine Color Yellow Urine Appearance Clear Urine pH 5.5 Ur Specific [place] 1.015 Urine Protein Negative Urine Glucose (UA) Negative Urine Ketones Negative Urine Blood Trace H Urine Nitrite Negative Ur Leukocyte Esterase Negative Urine RBC 0-2 Urine WBC 0-5 Ur Squamous Epith Cells 0-2 Urine Bacteria None Seen Hyaline Casts 0-2 Influenza Type A (PCR) NEGATIVE Influenza Type B (PCR) NEGATIVE RSV RNA Qual (PCR) NEGATIVE SARS-CoV-2 RNA (RT-PCR) NEGATIVE 07/07/23 06:24 MCV 89.7 MCH 30.7 MCHC 34.3 RDW 12.5 Plt Count 116 L D MPV 9.8 Immature Gran % (Auto) Neut % (Auto) Lymph % (Auto) [place] % (Auto) Eos % (Auto) Baso % (Auto) Lymph # (Auto) [place] # (Auto) Eos # (Auto) Baso # (Auto) Abs Immat Gran (auto) Absolute Neuts (auto) Absolute Nucleated RBC 0.000 Nucleated RBC % (auto) 0.0 PT INR VBG pH VBG pCO2 VBG pO2 VBG HCO3 VBG O2 Saturation VBG Base Excess Anion Gap 7 L Estim Creat Clear Calc 48.3 Estimated GFR > 60 Random Glucose 93 Lactic Acid Calcium 8.4 D Magnesium Total Bilirubin Direct Bilirubin AST ALT Alkaline Phosphatase B-Natriuretic Peptide Total Protein Albumin Lipase Urine Color Urine Appearance Urine pH Ur Specific [place] Urine Protein Urine Glucose (UA) Urine Ketones Urine Blood Urine Nitrite Ur Leukocyte Esterase Urine RBC Urine WBC Ur Squamous Epith Cells Urine Bacteria Hyaline Casts Influenza Type A (PCR) Influenza Type B (PCR) RSV RNA Qual (PCR) SARS-CoV-2 RNA (RT-PCR) Assessment and Plan (1) Acute respiratory failure with hypoxia: Status: Acute Plan 82M PMH of CAD, anxiety, BPH, HTN, GERD and depression who presented to the hospital complaining of abdominal pain for few days [employer]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 noted to be hypoxic as well Acute hypoxic respiratory failure 2/[address] Zosyn 4.5mg Q6 Wean O2 down as tolerated Acute Diverticulitis zosyn, advance diet Anxiety Xanax, Sertraline BPH Finasteride and Doxazosin Hx CAD Plavix, Metoprolol and Atorvastatin DVT PPx SCDs for low PLT and reported brusing reason for continued hospitalization:still hypoxic Quality Stroke Does the patient have a stroke diagnosis?: No VTE Prior VTE?: No VTE Risk Level:: Medical - moderate - high VTE Device Contraindication: N/A - Device Ordered VTE Drug Contraindication: Treatment Not Indicated
--- NOTE | 2023-07-07 12:49 | MHC.CM.PN ---
pt lives with they had no services prior to admisison and do not feel they will need seevies when dcd has own ride home
--- NOTE | 2023-07-07 18:06 | PC.NURSE ---
Alert and oriented, ate well for dinner, maintenance fluids running per order, denies pain or discomfort
[2023-07-07 19:01] VITALS: BP 144/71; PULSE 62; RESP 17; TEMP 36.9; O2SAT 96
--- NOTE | 2023-07-07 21:47 | PC.NURSE ---
pt medicated per mar.
[2023-07-07 23:29] VITALS: BP 148/62; PULSE 60; RESP 18; TEMP 36.5; O2SAT 98
[2023-07-08 03:26] VITALS: BP 164/62; PULSE 47; RESP 18; TEMP 37.1; O2SAT 98
[2023-07-08 06:31] LABS: Hemoglobin 10.4 g/dl (14.0-18.0); Mean Corpuscular HGB Conc 33.5 g/dl (31.0-36.0); Mean Corpuscular Hemoglobin 30.7 pg (27.0-33.0); Mean Corpuscular Volume 91.4 fL (80.0-98.0); Mean Platelet Volume 9.6 fL (9.4-12.4); Platelet Count 131 X10*3/uL (160-400); Red Blood Count 3.39 X10*6/uL (4.60-5.80); Red Cell Distribution Width 12.5 % (11.0-16.0); White Blood Count 7.6 X10*3/uL (4.8-10.8)
[2023-07-08 06:52] LABS: Anion Gap 11 (12-20); Blood Urea Nitrogen 13 mg/dL (9-16); Calcium 8.3 mg/dL (8.4-10.2); Carbon Dioxide 23 mmol/L (22-29); Chloride 111 mmol/L (96-108); Creatinine Clr Calc Pharmacy 47.1; Estimated Glomerular Filt Rate 59; Glucose Fasting 92 mg/dL (60-99); Potassium 3.8 mmol/L (3.3-5.1); Sodium 141 mmol/L (135-145)
[2023-07-08 08:00] VITALS: BP 166/80; PULSE 58; RESP 18; TEMP 36.1; O2SAT 97
--- NOTE | 2023-07-08 08:34 | HO.PM.IMPN ---
Subjective Subjective Date of Service: 07/08/23 Interval History: abd pain, diarrhea Physical Exam Vital Signs: Vital Signs: Last Vital Signs Temp 96.9 F 07/08/23 08:00 Pulse 58 07/08/23 08:00 Resp 18 07/08/23 08:00 BP 164/62 H 07/08/23 03:26 Pulse Ox 97 07/08/23 08:00 O2 Del Method Room Air 07/08/23 08:00 O2 Flow Rate 2 07/08/23 03:26 BMI result Body Mass Index 24.6 General: AO X 3, no acute distress Resp: CTA bilateral, no accessory muscles used CVS: S1,S2,RRR GI: soft, tender, non distended Neuro: motor grossly intact, alert Psych: appropriate affect, appropriate insight Objective Data Active Medications Acetaminophen (Acetaminophen 325 Mg Tablet) 650 mg PO Q6H PRN PRN Reason: Pain, Mild (Pain Scale 1-3) Alprazolam (Alprazolam 0.5 Mg Tablet) 0.5 mg PO TID [facility] Last Admin: 07/07/23 21:44 Dose: 0.5 mg Documented By: NIRAV Atorvastatin Calcium (Atorvastatin Calcium 80 Mg Tablet) 80 mg PO BEDTIME [facility] Last Admin: 07/07/23 21:44 Dose: 80 mg Documented By: NIRAV Clopidogrel Bisulfate (Clopidogrel Bisulfate 75 Mg Tablet) 75 mg PO DAILY [facility] Last Admin: 07/07/23 09:18 Dose: 75 mg Documented By: MARTÍN Doxazosin Mesylate (Doxazosin Mesylate 2 Mg Tablet) 8 mg PO DAILY [facility]; Protocol Last Admin: 07/07/23 09:18 Dose: 8 mg Documented By: MARTÍN Finasteride (Finasteride 5 Mg Tablet) 5 mg PO DAILY [facility] Last Admin: 07/07/23 09:18 Dose: 5 mg Documented By: MARTÍN Sodium Chloride (Ns) 1,000 mls @ 100 mls/hr IVCONT .Q10H [facility] Last Admin: 07/07/23 22:56 Dose: 100 mls/hr Documented By: NIRAV Piperacillin Sod/Tazobactam (Sod 4.5 gm/ Sodium Chloride) 100 mls @ 200 mls/hr IV Q6H [facility] Last Infusion: 07/08/23 06:05 Dose: Infused Documented By: HO.BOURQC Lisinopril (Lisinopril 2.5 Mg Tablet) 2.5 mg PO DAILY [facility]; Protocol Last Admin: 07/07/23 09:24 Dose: 2.5 mg Documented By: MARTÍN Magnesium Hydroxide (Milk Of Magnesia 30 Ml Oral.Susp) 30 ml PO DAILY PRN PRN Reason: Constipation Last Admin: 07/07/23 10:03 Dose: 30 ml Documented By: MARTÍN Metoprolol Succinate (Metoprolol Succinate Er 25 Mg Tab.Er.24h) 25 mg PO DAILY [facility]; Protocol Last Admin: 07/07/23 09:18 Dose: 25 mg Documented By: MARTÍN Morphine Sulfate (Morphine Sulfate 4 Mg/Ml Cartridge) 2 mg IVPUSH Q4H PRN; Protocol PRN Reason: Pain, Severe (Pain Scale 7-10) Omeprazole (Omeprazole 20 Mg Capsule.Dr) 20 mg PO DAILY@0630 [facility] Last Admin: 07/08/23 06:04 Dose: 20 mg Documented By: DAFNE Ondansetron HCl (Ondansetron Hcl 4 Mg/2 Ml Vial) 4 mg IVPUSH Q8H PRN PRN Reason: Nausea and Vomiting Sertraline HCl (Sertraline Hcl 100 Mg Tablet) 100 mg PO DAILY [facility] Last Admin: 07/07/23 09:18 Dose: 100 mg Documented By: MARTÍN Sodium Chloride (0.9 % Sodium Chloride Flush 3 Ml Syringe) 3 ml IVFLUSH QSHIFT [facility] Last Admin: 07/08/23 08:30 Dose: Not Given Documented By: BROOKS Non-Admin Reason: IV Running Labs 07/08/23 05:54 07/08/23 05:54 Labs: Laboratory Results - last 24 hr 07/08/23 05:54 MCV 91.4 MCH 30.7 MCHC 33.5 RDW 12.5 Plt Count 131 L MPV 9.6 Absolute Nucleated RBC 0.000 Nucleated RBC % (auto) 0.0 Anion Gap 11 L Estim Creat Clear Calc 47.1 Estimated GFR 59 Fasting Glucose 92 Calcium 8.3 L Microbiology Microbiology Results: Microbiology 07/06/23 11:10 Blood Culture - Preliminary Blood - Venous No growth after 24 hours. 07/06/23 10:59 Blood Culture - Preliminary Blood - Venous No growth after 24 hours. Assessment and Plan (1) Acute respiratory failure with hypoxia: Status: Acute Plan 82M PMH of CAD, anxiety, BPH, HTN, GERD and depression who presented to the hospital complaining of abdominal pain for few days [employer] PROVID[employer]. noted to be hypoxic as well Acute hypoxic respiratory failure 2/[address] Zosyn 4.5mg Q6 Wean O2 down as tolerated Acute Diverticulitis zosyn, advanced diet to solids Anxiety Xanax, Sertraline BPH Finasteride and Doxazosin Hx CAD Plavix, Metoprolol and Atorvastatin DVT PPx SCDs for low PLT and reported brusing reason for continued hospitalization:still hypoxic Quality Stroke Does the patient have a stroke diagnosis?: No VTE Prior VTE?: No VTE Risk Level:: Medical - moderate - high VTE Device Contraindication: N/A - Device Ordered VTE Drug Contraindication: Treatment Not Indicated
[2023-07-08] MEDS: Sertraline HCL 100 MG TABLET PO (08:39)
[2023-07-08 15:34] VITALS: BP 162/76; PULSE 63; RESP 18; TEMP 36.4; O2SAT 93
[2023-07-08 19:19] VITALS: BP 158/74; PULSE 60; RESP 18; TEMP 36.8; O2SAT 94
[2023-07-09 04:00] VITALS: BP 158/86; PULSE 69; RESP 18; TEMP 36.2; O2SAT 94
[2023-07-09 07:27] VITALS: BP 160/79; PULSE 65; RESP 16; TEMP 36.6; O2SAT 93
[2023-07-09] MEDS: Sertraline HCL 100 MG TABLET PO (07:58)
--- NOTE | 2023-07-09 09:53 | PM.DS ---
DS: Providers Provider Date of Service: 07/09/23 Date of admission: 07/06/23 15:52 Primary care physician: Wolf Burnette MD DS: Diagnosis Discharge Diagnosis (1) Acute respiratory failure with hypoxia: Status: Acute DS: Summary Hospital Course Hospital Course: from initial hpi: 82 years old male with PMH of CAD, anxiety, BPH, HTN, GERD and depression who presents to the hospital complaining of abdominal pain for few days HEALTH CARE / MEDICAL JOB TITLES. The patient reports that last week he started having diarrhea that did not resolve on its own so he start taking Immodium which helped but he became constipated with associated abdominal pain , bloating but no fever or chills. He presented to the emergency where he was found to have low O2 sat of 87% on RA. Images were consistent with pneumonia and diverticulitis. he was started on antibitoics and admitted for further evaluation and treatment. hospital course: Patient was admitted for acute hypoxic respiratory failure secondary to pneumonia. He was treated with IV Zosyn and was able to be weaned off oxygen, he never had significant shortness of breath. On discharge will have 7 more days of p.o. Augmentin. Also admitted for acute diverticulitis, which was also treated with IV Zosyn, abdominal pain improved, eventually tolerate solid diet and will continue on 7 more days of Augmentin. For anxiety was continued on Xanax and sertraline. For BPH was continued on finasteride and doxazosin. For coronary disease was continued on Plavix, metoprolol, atorvastatin. Patient is feeling better will be discharged home. Time Attestation Discharge coordination time: Greater than 30 minutes Quality: Safe Use of Opioids Does Pt have an Active Cancer Diagnosis on the Problem List?: No Quality: Stroke Does the patient have a stroke diagnosis?: No Physical Exam Vital Signs: Vital Signs: Last Vital Signs Temp 97.9 F 07/09/23 07:27 Pulse 65 07/09/23 07:27 Resp 16 07/09/23 07:27 BP 160/79 H 07/09/23 07:27 Pulse Ox 93 07/09/23 07:27 O2 Del Method Room Air 07/09/23 07:27 O2 Flow Rate 2 07/08/23 03:26 BMI result Body Mass Index 24.6 General: AO X 3, no acute distress Resp: CTA bilateral, no accessory muscles used CVS: S1,S2,RRR GI: soft, non tender, non distended Neuro: motor grossly intact, alert Psych: appropriate affect, appropriate insight DS: Data Data Completed and Pending Labs on day of discharge: Preliminary micro results at discharge 07/06/23 11:10 Blood Culture - Preliminary Blood - Venous No growth after 48 hours. 07/06/23 10:59 Blood Culture - Preliminary Blood - Venous No growth after 48 hours. Discharge Plan Discharge Anticipated Discharge Date/Time: 07/09/23 09:50 Patient Disposition: Home, Self-Care Discharge Diagnosis: pna, diverticulitis Referrals: Wolf Burnette MD [Primary Care Provider] - 1 Week Discharge Medications: New amoxicillin-pot clavulanate 875-125 mg tablet 1 tab PO Q12H Qty: 14 0RF Continued pantoprazole 20 mg tablet,delayed release (DR/EC) 20 mg PO DAILY multivitamin Tablet 1 tab PO DAILY cyanocobalamin (vitamin B-12) 1,000 mcg Tablet 1,000 mcg PO DAILY ferrous sulfate 325 mg (65 mg iron) Tablet 325 mg PO DAILY cholecalciferol (vitamin D3) 25 mcg (1,000 unit) Tablet 25 mcg PO DAILY omega 8-bac-tup-fish oil [Fish Oil] 1,000 mg (120 mg-180 mg) Capsule 1 cap PO DAILY flaxseed 1,000 mg Capsule 1,000 mg PO DAILY doxazosin 8 mg tablet 8 mg PO DAILY finasteride 5 mg tablet 5 mg PO DAILY clopidogrel 75 mg tablet 75 mg PO DAILY sertraline 100 mg tablet 100 mg PO DAILY lisinopril 2.5 mg tablet 2.5 mg PO DAILY alprazolam 0.5 mg tablet 0.5 mg PO TID metoprolol succinate 25 mg tablet extended release 24 hr 25 mg PO DAILY rosuvastatin 20 mg tablet 20 mg PO BEDTIME Discharge Orders: Discharge Order (Routine); Ordered 07/09/23 Ordered By: Conner Del Castillo Diet: Advance to usual diet Activity on Discharge: As tolerated Stand Alone Forms: Patient Portal Discharge page Care Plan Goals: [facility] Concerns: pna, diverticulitis Plan of Treatment: 7 more days augmentin Assessment: see above
--- NOTE | 2023-07-09 09:59 | MHC.CM.PN ---
pt dcd home no skilled servies
[2023-07-09 10:37] LABS: Hematocrit 30.8 % (42.0-52.0); Hemoglobin 10.7 g/dl (14.0-18.0); Mean Corpuscular HGB Conc 34.7 g/dl (31.0-36.0); Mean Corpuscular Hemoglobin 30.7 pg (27.0-33.0); Mean Corpuscular Volume 88.5 fL (80.0-98.0); Mean Platelet Volume 9.5 fL (9.4-12.4); Platelet Count 143 X10*3/uL (160-400); Red Blood Count 3.48 X10*6/uL (4.60-5.80); Red Cell Distribution Width 12.6 % (11.0-16.0); White Blood Count 6.8 X10*3/uL (4.8-10.8)
== END 2023-07-09 11:59 | disposition home or self-care (01) | DRG 193 ==
LOC: HO.ED 14:55 → HO.EDOVER 16:15 → HO.S3 07-07 19:45
PROVIDERS: Physician Assistant; Admitting Provider Student in an Organized Health Care Education/Training Program; Emergency Provider Emergency Medicine; PCP Internal Medicine; Visit Provider Internal Medicine
DX: J18.9 Pneumonia, unspecified organism (principal); J96.01 Acute respiratory failure with hypoxia; K57.32 Diverticulitis of large intestine without perforation or abscess without bleeding; F41.9 Anxiety disorder, unspecified; N40.0 Benign prostatic hyperplasia without lower urinary tract symptoms; I25.10 Atherosclerotic heart disease of native coronary artery without angina pectoris; Z20.822 Contact with and (suspected) exposure to COVID-19; Z87.891 Personal history of nicotine dependence; Z95.1 Presence of aortocoronary bypass graft; Z79.02 Long term (current) use of antithrombotics/antiplatelets; Z79.899 Other long term (current) drug therapy
CPT/HCPCS: 0241U; 36415; 70450; 71275; 74177; 80048; 80076; 81001; 82803; 83605; 83690; 83735; 83880; 84484; 85025; 85027; 85610; 87040; 93005; 97161; 99285; J2543; Q9967

== ENCOUNTER → 2023-07-06 10:43 | Outpatient (BNV) | payer MEDICARE, SELFPAY | PROVIDERS: Emergency Provider Emergency Medicine; PCP Internal Medicine; Visit Provider Internal Medicine Cardiovascular Disease | DX: R53.1 Weakness (principal) | CPT/HCPCS: 93010 ==

== ENCOUNTER → 2023-07-06 15:52 | Outpatient (BNV) | payer MEDICARE, SELFPAY | PROVIDERS: Admitting Provider Student in an Organized Health Care Education/Training Program; Emergency Provider Emergency Medicine; PCP Internal Medicine; Visit Provider Student in an Organized Health Care Education/Training Program | DX: J96.01 Acute respiratory failure with hypoxia (principal) | CPT/HCPCS: 99223; 99232; 99233; 99239 ==

== ENCOUNTER 2023-09-12 13:10 | Emergency (ER) | payer MEDICARE, SELFPAY ==
--- NOTE | ~2023-09-12 | CT_ITS ---
EXAMINATION: CT ABDOMEN AND PELVIS WITH CONTRAST CLINICAL INFORMATION: Lower quadrant pain history diverticulitis COMPARISON: CT abdomen from 07/06/2023 TECHNIQUE: Multidetector volumetric images were obtained from the superior aspect of the liver through the pubic symphysis following administration 85 mL of Omnipaque 350 intravenous contrast. Sagittal and coronal reformatted images were obtained on the technologist's workstation. Oral contrast: No This CT examination was performed using dose optimization techniques as appropriate, variously including the following: *Automated exposure control *Adjustment of mA and/or kV according to patient size (this includes techniques or standardized protocols for targeted exams where dose is matched to indication/reason for exam; i.e. extremities or head) *Use of iterative reconstruction technique DLP: 460 mGy-cm FINDINGS: LUNG BASES: Bibasilar atelectasis coronary artery calcifications are noted. No pleural effusion. No pneumothorax. LIVER, GALLBLADDER, AND BILIARY TREE: The liver is normal in size, shape, and attenuation. No focal hepatic lesion or biliary ductal dilatation is present. The gallbladder is unremarkable with no evidence of radiopaque gallstones, gallbladder wall thickening, or obvious pericholecystic inflammatory changes. PANCREAS: Unremarkable. SPLEEN: Unremarkable. ADRENAL GLANDS: Unremarkable. KIDNEYS AND URETERS: The kidneys are normal in size, shape, and attenuation. No hydronephrosis, hydroureter, or calculi seen. Chronic perinephric stranding. BLADDER: Unremarkable. GASTROINTESTINAL TRACT: Moderate to large hiatal hernia. Colonic diverticulosis with wall thickening and pericolonic inflammatory changes of the descending colon extending into the left paracolic gutter suggesting diverticulitis. The small and large bowel are unremarkable. The appendix is unremarkable. ABDOMINAL WALL: Small fat filled umbilical hernia. Fat filled bilateral inguinal hernias. LYMPH NODES/MESENTERY: Multiple subcentimeter lymph nodes in the left mid abdomen with haziness of the mesentery (series 3, image [id number]) may reflect mesenteric adenitis versus panniculitis. Correlation with symptomatology this was also visualized on prior imaging VASCULAR: Abdominal aorta measures up to 2.5 cm with atherosclerotic calcifications. Best Practice Recommendation: Based on published guidelines in J Am Maria Guadalupe Radiol 2013; 10(10):789-794 and J Vasc Surg. 2018; 67:2-77, the recommendation for an abdominal aorta <2.6 cm in diameter is no follow-up is recommended. Left common iliac artery measures up to 1.6 cm. PELVIC VISCERA: Prostate is enlarged measuring 5.0 x 3.9 cm in size with calcifications within its body and mass effect upon the urinary bladder base. OSSEOUS STRUCTURES: Very slight grade 1 anterolisthesis of L4 on L5 and L5 on S1. Multilevel degenerative changes of the thoracolumbar lumbosacral spine with anterior bridging osteophytes. CT/CT abdomen pelvis w IV con IMPRESSION: 1. Colonic diverticulosis with wall thickening and pericolonic inflammatory changes of the descending colon extending into the left paracolic gutter suggesting diverticulitis. 2. Multiple subcentimeter lymph nodes in the left mid abdomen with haziness of the mesentery may reflect mesenteric adenitis versus panniculitis. Correlation with symptomatology as this was also visualized on prior imaging. 3. Moderate to large hiatal hernia. 4. Very slight grade 1 anterolisthesis of L4 on L5 and L5 on S1.
[2023-09-12 13:37] VITALS: BP 106/84; PULSE 53; RESP 16; O2SAT 95; BMI 24.7
--- NOTE | 2023-09-12 14:05 | ED_ITS ---
HPI - Abdominal Pain General Chief Complaint: Abdominal Pain Stated Complaint: Left abdominal Pain Time Seen by Provider: 09/12/23 16:20 Source: patient Mode of arrival: ambulatory Limitations: no limitations Related Data Home Medications Medication Instructions Recorded Confirmed alprazolam 0.5 mg tablet 0.5 mg PO TID Anxiety 05/29/20 07/06/23 clopidogrel 75 mg tablet 75 mg PO DAILY 05/29/20 07/06/23 doxazosin 8 mg tablet 8 mg PO DAILY 05/29/20 07/06/23 finasteride 5 mg tablet 5 mg PO DAILY 05/29/20 07/06/23 lisinopril 2.5 mg tablet 2.5 mg PO DAILY 05/29/20 07/06/23 metoprolol succinate 25 mg 25 mg PO DAILY 05/29/20 07/06/23 tablet,extended release 24 hr rosuvastatin 20 mg tablet 20 mg PO BEDTIME 05/29/20 07/06/23 sertraline 100 mg tablet 100 mg PO DAILY 05/29/20 07/06/23 cholecalciferol (vitamin D3) 25 25 mcg PO DAILY 07/06/23 07/06/23 mcg (1,000 unit) tablet cyanocobalamin (vitamin B-12) 1,000 mcg PO DAILY 07/06/23 07/06/23 1,000 mcg tablet ferrous sulfate 325 mg (65 mg 325 mg PO DAILY 07/06/23 07/06/23 iron) tablet flaxseed 1,000 mg capsule 1,000 mg PO DAILY 07/06/23 07/06/23 multivitamin 1 tab PO DAILY 07/06/23 07/06/23 omega 2-xxu-wgt-fish oil 1,000 mg 1 cap PO DAILY 07/06/23 07/06/23 (120 mg-180 mg) capsule (Fish Oil) pantoprazole 20 mg tablet,delayed 20 mg PO DAILY 07/06/23 07/06/23 release Previous Rx's Medication Instructions Recorded amoxicillin 875 mg-potassium 1 tab PO Q12H #14 tabs 07/09/23 clavulanate 125 mg tablet Lactobacillus rhamnosus GG 15 1 cap PO DAILY #20 caps 09/12/23 billion cell sprinkle capsule (Culturelle) amoxicillin 500 mg-potassium 1 tab PO TID 10 days #29 tabs 09/12/23 clavulanate 125 mg tablet (Augmentin) polyethylene glycol 3350 17 17 g PO BID PRN laxative effect 09/12/23 gram/dose oral powder (Miralax) #119 grams tramadol 50 mg tablet 50 mg PO Q8H PRN pain #7 tabs 09/12/23 Allergies Allergy/AdvReac Type Severity Reaction Status Date / Time No Known Allergies Allergy Mild NOT Verified 09/12/23 13:37 APPLICABLE [facility] Past Medical History Medical History Coronary artery disease Benign prostatic hyperplasia Hypercholesterolemia Depression Anxiety Hypertension Surgical History History of ankle surgery History of heart surgery (~05/2004) Social History Social History Household Members: Spouse Housing: House Do you presently have visiting nurse or other home services: No Alcohol intake: never Patient Tobacco Use Status: Former Tobacco user Quit Date: 1988 Smoked: 30 years Smoked in Last 30 Days: No Second Hand Smoke Exposure: No Use of substances other than those prescribed or required for medical reasons: No Advance Directives: No Advance Directives Information Provided: No Advance Directives Date on File: 07/07/23 service: No Physical Exam ED Vital Signs: Vital Signs - 24 hr 09/12/23 13:37 09/12/23 16:34 09/12/23 18:26 Temperature 97.9 F 98.7 F Pulse Rate 53 52 49 L Respiratory Rate 16 16 16 Blood Pressure 106/84 149/73 H 162/77 H Pulse Oximetry 95 96 98 Oxygen Delivery Method Room Air Room Air Room Air BMI result Body Mass Index 24.7 Course Course Course Narrative: This is a rapid medical exam. Defer additional HPI, ROS, PE to primary provider. 82-year-old male with history of diverticulitis presents the ER with complaints of left lower quadrant abdominal pain since Wednesday with no other associated this. Will obtain labs. Vitals stable Medical Decision Making Medical Decision Making MDM Narrative: -my interpretation of labs, chemistry at baseline, urine analysis negative for UTI. -my interpretation of CT scan, no small bowel obstruction, no free air -radiology report: Diverticulitis -I discussed with the patient the option of admitting him here for pain control and starting antibiotics. Patient states that he feels well enough to go home. Differential Diagnosis Differential Diagnoses: The differential diagnosis associated with the presentation includes (Diverticulitis, small-bowel obstruction, kidney stone) Admission/Observation Consideration of admission/observation: Escalation of care including admission/observation considered (Admission was offered, patient respectfully declined) Lab Data MDM Lab Attestation statement: I reviewed the patient's lab results. 09/12/23 14:42 09/12/23 14:42 Labs: Lab Results 09/12/23 09/12/23 Range/Units 14:42 16:53 WBC 5.5 (4.8-10.8) X10*3/uL RBC 3.55 L (4.60-5.80) X10*6/uL Hgb 11.1 L (14.0-18.0) g/dl Hct 32.2 L (42.0-52.0) % MCV 90.7 (80.0-98.0) fL MCH 31.3 (27.0-33.0) pg MCHC 34.5 (31.0-36.0) g/dl RDW 12.4 (11.0-16.0) % Plt Count 106 L D (160-400) X10*3/uL MPV 9.9 (9.4-12.4) fL Immature Gran % (Auto) 0.4 (0.0-0.4) % Neut % (Auto) 67.5 (45-73) % Lymph % (Auto) 20.2 (20-40) % [place] % (Auto) 9.9 (2-11) % Eos % (Auto) 1.8 (0-4) % Baso % (Auto) 0.2 (0-2) % Lymph # (Auto) 1.1 L (1.2-4.9) X10*3/uL [place] # (Auto) 0.5 (0.1-1.2) X10*3/uL Eos # (Auto) 0.1 (0.0-0.4) X10*3/uL Baso # (Auto) 0.0 (0.0-0.2) X10*3/uL Abs Immat Gran (auto) 0.02 (0.00-0.03) X10*3/uL Absolute Neuts (auto) 3.7 (2.0-8.3) x10*3/uL Absolute Nucleated RBC 0.000 (0.0-0.012) X10*3/uL Nucleated RBC % (auto) 0.0 (0.0-0.2) /100WBC Sodium 139 (135-145) mmol/L Potassium 3.9 (3.3-5.1) mmol/L Chloride 107 (96-108) mmol/L Carbon Dioxide 25 (22-29) mmol/L Anion Gap 11 L (12-20) BUN 17 H (9-16) mg/dL Creatinine 1.20 (0.5-1.4) mg/dL Estim Creat Clear Calc 45.1 Estimated GFR 58 Random Glucose 129 H (60-115) mg/dL Calcium 9.2 D (8.4-10.2) mg/dL Total Bilirubin 0.4 (0.0-1.0) mg/dL AST 17 (5-37) U/L ALT 14 (0-40) U/L Alkaline Phosphatase 60 (39-117) U/L Total Protein 7.0 (6.5-8.0) g/dL Albumin 4.0 (3.5-5.0) g/dL Lipase 24 (8-78) U/L Urine Color Yellow Urine Appearance Clear Urine pH 5.5 (5.0-9.0) Ur Specific [place] 1.015 (1.005-1.025) Urine Protein Negative (Neg-Trace) mg/dL Urine Glucose (UA) Negative (Negative) mg/dL Urine Ketones Negative (Negative) mg/dL Urine Blood Negative (Negative) Urine Nitrite Negative (Negative) Ur Leukocyte Esterase Negative (Negative) Independent Interpretation I performed an independent interpretation of an: CT Scan Radiology Impression Discussion of test interpretation with radiology: I have reviewed the radiologist's reading. Radiologist Impression: FINDINGS: LUNG BASES: Bibasilar atelectasis coronary artery calcifications are noted. No pleural effusion. No pneumothorax. LIVER, GALLBLADDER, AND BILIARY TREE: The liver is normal in size, shape, and attenuation. No focal hepatic lesion or biliary ductal dilatation is present. The gallbladder is unremarkable with no evidence of radiopaque gallstones, gallbladder wall thickening, or obvious pericholecystic inflammatory changes. PANCREAS: Unremarkable. SPLEEN: Unremarkable. ADRENAL GLANDS: Unremarkable. KIDNEYS AND URETERS: The kidneys are normal in size, shape, and attenuation. No hydronephrosis, hydroureter, or calculi seen. Chronic perinephric stranding. BLADDER: Unremarkable. GASTROINTESTINAL TRACT: Moderate to large hiatal hernia. Colonic diverticulosis with wall thickening and pericolonic inflammatory changes of the descending colon extending into the left paracolic gutter suggesting diverticulitis. The small and large bowel are unremarkable. The appendix is unremarkable. ABDOMINAL WALL: Small fat filled umbilical hernia. Fat filled bilateral inguinal hernias. LYMPH NODES/MESENTERY: Multiple subcentimeter lymph nodes in the left mid abdomen with haziness of the mesentery (series 3, image [id number]) may reflect mesenteric adenitis versus panniculitis. Correlation with symptomatology this was also visualized on prior imaging VASCULAR: Abdominal aorta measures up to 2.5 cm with atherosclerotic calcifications. Best Practice Recommendation: Based on published guidelines in J Am Maria Guadalupe Radiol 2013; 10(10):789-794 and J Vasc Surg. 2018; 67:2-77, the recommendation for an abdominal aorta <2.6 cm in diameter is no follow-up is recommended. Left common iliac artery measures up to 1.6 cm. PELVIC VISCERA: Prostate is enlarged measuring 5.0 x 3.9 cm in size with calcifications within its body and mass effect upon the urinary bladder base. OSSEOUS STRUCTURES: Very slight grade 1 anterolisthesis of L4 on L5 and L5 on S1. Multilevel degenerative changes of the thoracolumbar lumbosacral spine with anterior bridging osteophytes. CT/CT abdomen pelvis w IV con IMPRESSION: 1. Colonic diverticulosis with wall thickening and pericolonic inflammatory changes of the descending colon extending into the left paracolic gutter suggesting diverticulitis. 2. Multiple subcentimeter lymph nodes in the left mid abdomen with haziness of the mesentery may reflect mesenteric adenitis versus panniculitis. Correlation with symptomatology as this was also visualized on prior imaging. 3. Moderate to large hiatal hernia. 4. Very slight grade 1 anterolisthesis of L4 on L5 and L5 on S1. Medications Administered Discontinued Medications Generic Name Dose Route Start Last Admin Trade Name Freq PRN Reason Stop Dose Admin Iohexol 85 ml 09/12/23 17:33 09/12/23 17:33 Iohexol 350 Mg/Ml 100 Ml Infus..Btl IV 09/12/23 17:34 85 ml ONCE ONE Administration Critical Care Time Critical Care Time Critical Care Time: Yes Total Critical Care Time: 45 Attestation: I have personally provided critical care time. Time includes review of lab data, radiology results, discussion with consultants, and monitoring for potential decompensation. Intervention performed as documented. Discharge Plan Discharge Clinical Impression: Diverticulitis Patient Disposition: Home, Self-Care Instructions: Diverticulitis (ED) Additional Instructions: Please follow-up with your primary care physician tomorrow. If you have any worsening or new symptoms, please return to the emergency room or call 911 Prescriptions: New amoxicillin-pot clavulanate [Augmentin] 500-125 mg tablet 1 tab PO TID 10 Days Qty: 29 0RF tramadol 50 mg tablet 50 mg PO Q8H PRN (Reason: pain) Qty: 7 0RF polyethylene glycol 3350 [Miralax] 17 gram/dose powder 17 g PO BID PRN (Reason: laxative effect) Qty: 119 0RF Culturelle 15 billion cell capsule, sprinkle 1 cap PO DAILY Qty: 20 0RF No Action pantoprazole 20 mg tablet,delayed release (DR/EC) 20 mg PO DAILY multivitamin Tablet 1 tab PO DAILY cyanocobalamin (vitamin B-12) 1,000 mcg Tablet 1,000 mcg PO DAILY ferrous sulfate 325 mg (65 mg iron) Tablet 325 mg PO DAILY cholecalciferol (vitamin D3) 25 mcg (1,000 unit) Tablet 25 mcg PO DAILY omega 9-vxa-cjn-fish oil [Fish Oil] 1,000 mg (120 mg-180 mg) Capsule 1 cap PO DAILY flaxseed 1,000 mg Capsule 1,000 mg PO DAILY amoxicillin-pot clavulanate 875-125 mg tablet 1 tab PO Q12H Qty: 14 0RF doxazosin 8 mg tablet 8 mg PO DAILY finasteride 5 mg tablet 5 mg PO DAILY clopidogrel 75 mg tablet 75 mg PO DAILY sertraline 100 mg tablet 100 mg PO DAILY lisinopril 2.5 mg tablet 2.5 mg PO DAILY alprazolam 0.5 mg tablet 0.5 mg PO TID metoprolol succinate 25 mg tablet extended release 24 hr 25 mg PO DAILY rosuvastatin 20 mg tablet 20 mg PO BEDTIME
[2023-09-12 14:58] LABS: MANUAL DIFF FLAG NO
[2023-09-12 15:00] LABS: Basophils Percent Auto 0.2 % (0-2); Eosinophils Absolute Auto 0.1 X10*3/uL (0.0-0.4); Eosinophils Percent Auto 1.8 % (0-4); Hematocrit 32.2 % (42.0-52.0); Hemoglobin 11.1 g/dl (14.0-18.0); Imm Gran Abs Auto 0.02 X10*3/uL (0.00-0.03); Imm Gran Pct Auto 0.4 % (0.0-0.4); Lymphocytes Absolute Auto 1.1 X10*3/uL (1.2-4.9); Lymphocytes Percent Auto 20.2 % (20-40); Mean Corpuscular HGB Conc 34.5 g/dl (31.0-36.0); Mean Corpuscular Hemoglobin 31.3 pg (27.0-33.0); Mean Corpuscular Volume 90.7 fL (80.0-98.0); Mean Platelet Volume 9.9 fL (9.4-12.4); Monocytes Absolute Auto 0.5 X10*3/uL (0.1-1.2); Monocytes Percent Auto 9.9 % (2-11); Neutrophils Absolute Auto 3.7 x10*3/uL (2.0-8.3); Neutrophils Percent Auto 67.5 % (45-73); Platelet Count 106 X10*3/uL (160-400); Red Blood Count 3.55 X10*6/uL (4.60-5.80); Red Cell Distribution Width 12.4 % (11.0-16.0); White Blood Count 5.5 X10*3/uL (4.8-10.8)
[2023-09-12 15:29] LABS: Alanine Aminotransferase 14 U/L (0-40); Alkaline Phosphatase 60 U/L (39-117); Anion Gap 11 (12-20); Aspartate Amino Transferase 17 U/L (5-37); Bilirubin Total 0.4 mg/dL (0.0-1.0); Blood Urea Nitrogen 17 mg/dL (9-16); Calcium 9.2 mg/dL (8.4-10.2); Carbon Dioxide 25 mmol/L (22-29); Chloride 107 mmol/L (96-108); Creatinine Clr Calc Pharmacy 45.1; Estimated Glomerular Filt Rate 58; Glucose Random 129 mg/dL (60-115); Lipase 24 U/L (8-78); Potassium 3.9 mmol/L (3.3-5.1); Sodium 139 mmol/L (135-145)
[2023-09-12 16:34] VITALS: BP 149/73; PULSE 52; RESP 16; TEMP 36.6; O2SAT 96
[2023-09-12 17:02] LABS: Appearance Urine Clear; Color Urine Yellow; Glucose Urine UA Negative (Negative); Leukocyte Esterase Urine Negative (Negative); Nitrite Urine Negative (Negative); PH 5.5 (5.0-9.0); Specific Gravity - Urine 1.015 (1.005-1.025); Urine Blood Negative (Negative); Urine Ketones Negative (Negative); Urine Protein Negative (Neg-Trace)
--- NOTE | 2023-09-12 17:04 | PC.NURSE ---
pt brought back to exam room, changed into hospital attire, 20G IV placed in R-forearm, UA obtained.
[2023-09-12] MEDS: iohexoL 350 MG/ML 100 ML INFUS..BTL 85 ML IV (17:33)
[2023-09-12 18:26] VITALS: BP 162/77; PULSE 49; RESP 16; TEMP 37.1; O2SAT 98
--- NOTE | 2023-09-12 19:04 | PC.NURSE ---
Assumed care of pt at 19:00. Laying in bed, offers no complaints at this time. at bedside. Awaiting CT results. Call stover placed within reach.
[2023-09-12] MEDS: Amoxicillin/Potassium Clav 875 MG TABLET PO (19:44)
== END 2023-09-12 20:00 | disposition home or self-care (01) ==
PROVIDERS: Emergency Provider Emergency Medicine; PCP Internal Medicine
DX: K57.32 Diverticulitis of large intestine without perforation or abscess without bleeding (principal); R10.30 Lower abdominal pain, unspecified; Z79.899 Other long term (current) drug therapy
CPT/HCPCS: 36415; 74177; 80053; 81003; 83690; 85025; 99284; Q9967

== ENCOUNTER 2023-10-25 14:46 | Outpatient (REF) | payer MEDICARE, SELFPAY ==
--- NOTE | ~2023-10-25 | XR_ITS ---
EXAMINATION: XR THORACIC SPINE CLINICAL INFORMATION: Upper back pain status-post fall. COMPARISON: Lumbar spine radiographs dated 10/03/2020. TECHNIQUE: Frontal, lateral and swimmer's views of the thoracic spine were obtained. FINDINGS: At T12, there is a very mild anterior wedge compression fracture, which is stable from the lumbar spine radiographs dated 10/03/2020. Remaining vertebral body heights and alignment are normal. The thoracic disc spaces are well-maintained. No acute fracture or spondylolisthesis is seen. There is multi-level thoracic endplate arthropathy, with an appearance suggesting possible DISH (diffuse idiopathic skeletal hyperostosis). The posterior elements are intact. There are post-CABG changes. XR/XR thoracic spine 3V IMPRESSION: 1. There is a chronic very mild T12 anterior wedge compression fracture. 2. No acute fracture or spondylolisthesis is seen. 3. The thoracic disc spaces are well-maintained.
== END 2023-10-25 14:47 | disposition home or self-care (01) ==
LOC: HO.HMGCX 14:46
PROVIDERS: PCP Internal Medicine; Visit Provider Internal Medicine
DX: M54.9 Dorsalgia, unspecified (principal); Z91.81 History of falling
CPT/HCPCS: 72072

== ENCOUNTER 2023-11-30 14:44 | Outpatient (REF) | payer MEDICARE, SELFPAY ==
--- NOTE | ~2023-11-30 | XR_ITS ---
EXAMINATION: XR chest 2V CLINICAL INFORMATION: Reason for Exam COUGH. R/O PNA COMPARISON: 08/21/2022 TECHNIQUE: XR chest 2V, 2 Views Lungs and Renu: Crowding of lung markings suggesting mild infiltrate/atelectasis at left lung base. Pleura: Blunting of left costophrenic angle probably small pleural effusion. Heart: The heart is normal in size. Mediastinum: The mediastinum is within normal limits.. Bones: Sternotomy wires from prior thoracotomy. XR/XR chest 2V IMPRESSION: * Crowding of lung markings suggesting mild infiltrate/atelectasis at left lung base. * Blunting of left costophrenic angle probably small pleural effusion.
== END 2023-11-30 14:45 | disposition home or self-care (01) ==
LOC: HO.HMGCX 14:44
PROVIDERS: PCP Internal Medicine; Visit Provider Internal Medicine
DX: R05.9 Cough, unspecified (principal)
CPT/HCPCS: 71046

== ENCOUNTER 2023-12-07 11:02 | Outpatient (REF) | payer MEDICARE, SELFPAY ==
--- NOTE | ~2023-12-07 | XR_ITS ---
EXAMINATION: XR CHEST CLINICAL INFORMATION: Shortness of breath, rule out pneumonia. COMPARISON: 11/30/[address] abdomen and pelvis 09/12/2023. Chest radiograph 10/02/2020. TECHNIQUE: 2 views of the chest were obtained. FINDINGS: Dextroscoliosis of the thoracic spine with multilevel degenerative changes. Redemonstration of postsurgical changes with median sternotomy wires and mediastinal clips. Stable cardiomediastinal silhouette. Heart borderline enlarged. There is no gross pneumothorax. Trace blunting of the bilateral costophrenic angles may represent trace pleural effusions versus pleural thickening. Streaky bibasilar opacities may represent atelectasis versus an infectious/inflammatory process. XR/XR chest 2V IMPRESSION: Trace blunting of the bilateral costophrenic angles may represent trace pleural effusions versus pleural thickening. Moderate streaky bibasilar opacities may represent atelectasis versus an infectious/inflammatory process. This study was presented today, December 07, 2023, for interpretation. Stat results provided at this time as requested by referring provider.
[2023-12-07 13:17] LABS: MANUAL DIFF FLAG NO
[2023-12-07 13:37] LABS: Basophils Percent Auto 0.3 % (0-2); Eosinophils Absolute Auto 0.1 X10*3/uL (0.0-0.4); Eosinophils Percent Auto 1.1 % (0-4); Hematocrit 34.6 % (42.0-52.0); Hemoglobin 11.7 g/dl (14.0-18.0); Imm Gran Pct Auto 1.6 % (0.0-0.4); Lymphocytes Absolute Auto 1.5 X10*3/uL (1.2-4.9); Lymphocytes Percent Auto 24.4 % (20-40); Mean Corpuscular HGB Conc 33.8 g/dl (31.0-36.0); Mean Corpuscular Hemoglobin 30.8 pg (27.0-33.0); Mean Corpuscular Volume 91.1 fL (80.0-98.0); Mean Platelet Volume 9.7 fL (9.4-12.4); Monocytes Absolute Auto 0.7 X10*3/uL (0.1-1.2); Monocytes Percent Auto 10.4 % (2-11); Neutrophils Absolute Auto 3.9 x10*3/uL (2.0-8.3); Neutrophils Percent Auto 62.2 % (45-73); Platelet Count 167 X10*3/uL (160-400); Red Cell Distribution Width 12.4 % (11.0-16.0); White Blood Count 6.3 X10*3/uL (4.8-10.8)
[2023-12-07 13:55] LABS: Alanine Aminotransferase 21 U/L (0-40); Albumin Level 4.3 g/dL (3.5-5.0); Alkaline Phosphatase 70 U/L (39-117); Anion Gap 12 (12-20); Aspartate Amino Transferase 28 U/L (5-37); Bilirubin Total 0.3 mg/dL (0.0-1.0); Blood Urea Nitrogen 25 mg/dL (9-16); Calcium 9.5 mg/dL (8.4-10.2); Carbon Dioxide 26 mmol/L (22-29); Chloride 106 mmol/L (96-108); Cholesterol 130 mg/dL (<200); Estimated Glomerular Filt Rate 47; Glucose Fasting 107 mg/dL (60-99); HDL Cholesterol 35 mg/dL (>40); LDL Cholesterol Calculated 67 mg/dL (<100); Potassium 4.4 mmol/L (3.3-5.1); Sodium 140 mmol/L (135-145); Total Protein 7.6 g/dL (6.5-8.0); Triglycerides 142 mg/dL (<150)
[2023-12-07 14:03] LABS: Estimated Average Glucose 123 mg/dL; Hemoglobin A1c % 5.9 % (<6.0)
== END 2023-12-07 11:03 | disposition home or self-care (01) ==
LOC: HO.HMGCX 11:02
PROVIDERS: PCP Internal Medicine; Visit Provider Internal Medicine
DX: Z13.6 Encounter for screening for cardiovascular disorders (principal); E11.9 Type 2 diabetes mellitus without complications; R53.83 Other fatigue; E78.5 Hyperlipidemia, unspecified; Z87.01 Personal history of pneumonia (recurrent)
CPT/HCPCS: 36415; 71046; 80053; 80061; 83036; 85025

== ENCOUNTER 2024-03-08 11:06 | Emergency (ER) | payer MEDICARE, SELFPAY ==
--- NOTE | ~2024-03-08 | CT_ITS ---
EXAMINATION: CT ABDOMEN AND PELVIS WITH CONTRAST CLINICAL INFORMATION: Abdominal pain COMPARISON: 09/12/2023 TECHNIQUE: Multidetector volumetric images were obtained from the superior aspect of the liver through the pubic symphysis following administration 85 mL of Omnipaque 350 intravenous contrast. Sagittal and coronal reformatted images were obtained on the technologist's workstation. Oral contrast: No This CT examination was performed using dose optimization techniques as appropriate, variously including the following: *Automated exposure control *Adjustment of mA and/or kV according to patient size (this includes techniques or standardized protocols for targeted exams where dose is matched to indication/reason for exam; i.e. extremities or head) *Use of iterative reconstruction technique DLP: 472 mGy-cm FINDINGS: LUNG BASES: The visualized lung bases are unremarkable. Severe coronary atherosclerosis. Moderate-sized axial S hernia. Herniation of abdominal fat and mesentery is also noted. LIVER, GALLBLADDER, AND BILIARY TREE: The liver is normal in size, shape, and attenuation. No focal hepatic lesion or biliary ductal dilatation is present. The gallbladder is unremarkable with no evidence of radiopaque gallstones, gallbladder wall thickening, or obvious pericholecystic inflammatory changes. PANCREAS: Unremarkable. SPLEEN: Unremarkable. ADRENAL GLANDS: Unremarkable. KIDNEYS AND URETERS: The kidneys are normal in size, shape, and attenuation. No hydronephrosis, hydroureter, or calculi seen. No perinephric stranding. BLADDER: Unremarkable. GASTROINTESTINAL TRACT: Severe diverticulosis again noted especially sigmoid colon acute fibroid changes within the distal descending colon sigmoid junction. No evidence of any perforation or abscess. No obstruction. Appendix normal. No small bowel pathology. ABDOMINAL WALL: No significant hernia is appreciated. LYMPH NODES: Mildly prominent mesenteric lymph nodes appear similar with haziness at the root of the mesentery. VASCULAR: Unremarkable. PELVIC VISCERA: Marked prostatomegaly. OSSEOUS STRUCTURES: Stable with no new findings. CT/CT abdomen pelvis w IV con IMPRESSION: Acute uncomplicated diverticulitis distal descending colon sigmoid junction. Fleischner guidelines were followed. Electronically signed by: Fred Carter MD 03/08/2024 03:20 PM EDT
[2024-03-08 11:29] VITALS: BP 121/58; PULSE 70; RESP 18; TEMP 36.6; O2SAT 96; BMI 25.0
--- NOTE | 2024-03-08 11:29 | ED_ITS ---
HPI - Abdominal Pain General Stated Complaint: abd pain Related Data Home Medications ?Medication ?Instructions ?Recorded ?Confirmed alprazolam 0.5 mg tablet 0.5 mg PO TID Anxiety 05/29/20 07/06/23 clopidogrel 75 mg tablet 75 mg PO DAILY 05/29/20 07/06/23 doxazosin 8 mg tablet 8 mg PO DAILY 05/29/20 07/06/23 finasteride 5 mg tablet 5 mg PO DAILY 05/29/20 07/06/23 lisinopril 2.5 mg tablet 2.5 mg PO DAILY 05/29/20 07/06/23 metoprolol succinate 25 mg 25 mg PO DAILY 05/29/20 07/06/23 tablet,extended release 24 hr rosuvastatin 20 mg tablet 20 mg PO BEDTIME 05/29/20 07/06/23 sertraline 100 mg tablet 100 mg PO DAILY 05/29/20 07/06/23 cholecalciferol (vitamin D3) 25 25 mcg PO DAILY 07/06/23 07/06/23 mcg (1,000 unit) tablet cyanocobalamin (vitamin B-12) 1,000 mcg PO DAILY 07/06/23 07/06/23 1,000 mcg tablet ferrous sulfate 325 mg (65 mg 325 mg PO DAILY 07/06/23 07/06/23 iron) tablet flaxseed 1,000 mg capsule 1,000 mg PO DAILY 07/06/23 07/06/23 multivitamin 1 tab PO DAILY 07/06/23 07/06/23 omega 5-zvk-rgs-fish oil 1,000 mg 1 cap PO DAILY 07/06/23 07/06/23 (120 mg-180 mg) capsule (Fish Oil) pantoprazole 20 mg tablet,delayed 20 mg PO DAILY 07/06/23 07/06/23 release Previous Rx's ?Medication ?Instructions ?Recorded amoxicillin 875 mg-potassium 1 tab PO Q12H #14 tabs 07/09/23 clavulanate 125 mg tablet Lactobacillus rhamnosus GG 15 1 cap PO DAILY #20 caps 09/12/23 billion cell sprinkle capsule (Culturelle) amoxicillin 500 mg-potassium 1 tab PO TID 10 days #29 tabs 09/12/23 clavulanate 125 mg tablet (Augmentin) polyethylene glycol 3350 17 17 g PO BID PRN laxative effect 09/12/23 gram/dose oral powder (Miralax) #119 grams tramadol 50 mg tablet 50 mg PO Q8H PRN pain #7 tabs 09/12/23 Allergies Allergy/AdvReac Type Severity Reaction Status Date / Time No Known Allergies Allergy Mild NOT Verified 03/08/24 11:32 APPLICABLE [facility] Past Medical History Medical History Coronary artery disease Benign prostatic hyperplasia Hypercholesterolemia Depression Anxiety Hypertension Surgical History History of ankle surgery History of heart surgery (~05/2004) Social History Social History Household Members: Spouse Housing: House Do you presently have visiting nurse or other home services: No Alcohol intake: never Patient Tobacco Use Status: Former Tobacco user Years Smoked: 30 years Second Hand Smoke Exposure: No Advance Directives Date on File: 07/07/23 service: No Course Course Course Narrative: This is an RME: Additional HPI, ROS, PE not included below will be deferred to primary provider. RME assessment and note performed by: Anabell Shell PA-C This is a [id number]-[id number]-male, with a hx of diverticiulitis, HTN, HLD, CAD on Plavix, who presents to the ER with complaints of with complaints of abdominal pain x 3-4 daus. Patient reports that he has had severe lower abdominal pain for several days with associated diarrhea. No vomiting. Abd is soft, distended, reporting pain all across lower abdomen. No hx of abd surgeries. No bloody or black stool. Plan: Labs, EKG, further ER evaluation needed. Discharge Plan Discharge Prescriptions: No Action pantoprazole 20 mg tablet,delayed release (DR/EC) 20 mg PO DAILY multivitamin Tablet 1 tab PO DAILY cyanocobalamin (vitamin B-12) 1,000 mcg Tablet 1,000 mcg PO DAILY ferrous sulfate 325 mg (65 mg iron) Tablet 325 mg PO DAILY cholecalciferol (vitamin D3) 25 mcg (1,000 unit) Tablet 25 mcg PO DAILY omega 4-fqw-zet-fish oil [Fish Oil] 1,000 mg (120 mg-180 mg) Capsule 1 cap PO DAILY flaxseed 1,000 mg Capsule 1,000 mg PO DAILY amoxicillin-pot clavulanate 875-125 mg tablet 1 tab PO Q12H Qty: 14 0RF amoxicillin-pot clavulanate [Augmentin] 500-125 mg tablet 1 tab PO TID 10 Days Qty: 29 0RF tramadol 50 mg tablet 50 mg PO Q8H PRN (Reason: pain) Qty: 7 0RF polyethylene glycol 3350 [Miralax] 17 gram/dose powder 17 g PO BID PRN (Reason: laxative effect) Qty: 119 0RF Culturelle 15 billion cell capsule, sprinkle 1 cap PO DAILY Qty: 20 0RF doxazosin 8 mg tablet 8 mg PO DAILY finasteride 5 mg tablet 5 mg PO DAILY clopidogrel 75 mg tablet 75 mg PO DAILY sertraline 100 mg tablet 100 mg PO DAILY lisinopril 2.5 mg tablet 2.5 mg PO DAILY alprazolam 0.5 mg tablet 0.5 mg PO TID metoprolol succinate 25 mg tablet extended release 24 hr 25 mg PO DAILY rosuvastatin 20 mg tablet 20 mg PO BEDTIME Print Language: Romanian
--- NOTE | 2024-03-08 11:33 | ECG_ITS ---
Test Reason : abdominal pain Blood Pressure : / mmHG Vent. Rate : 063 BPM Atrial Rate : 063 BPM P-R Int : 194 ms QRS Dur : 132 ms QT Int : 440 ms P-R-T Axes : 057 028 029 degrees QTc Int : 450 ms Normal sinus rhythm Right bundle branch block Possible Inferior infarct , age undetermined Abnormal ECG When compared with ECG of 06-JUL-2023 11:26, QRS axis Shifted left Borderline criteria for Inferior infarct are now Present QT has shortened Referred By: Anabell Shell Electronically Signed By:HERNÁN CHOWDARY
[2024-03-08 12:05] LABS: MANUAL DIFF FLAG NO
[2024-03-08 12:09] LABS: Appearance Urine Cloudy; Color Urine Dark Yellow; Glucose Urine UA Negative (Negative); Leukocyte Esterase Urine Trace (Negative); Nitrite Urine Negative (Negative); PH 5.5 (5.0-9.0); Specific Gravity - Urine 1.025 (1.005-1.025); UMIC TRIGGER UACC YES; Urine Blood Negative (Negative); Urine Ketones Trace mg/dL (Negative); Urine Protein 30 (1+) mg/dL (Neg-Trace)
[2024-03-08 12:12] LABS: Basophils Percent Auto 0.1 % (0-2); Eosinophils Percent Auto 0.4 % (0-4); Hematocrit 35.8 % (42.0-52.0); Hemoglobin 12.1 g/dl (14.0-18.0); Imm Gran Abs Auto 0.03 X10*3/uL (0.00-0.03); Imm Gran Pct Auto 0.4 % (0.0-0.4); Lymphocytes Absolute Auto 0.8 X10*3/uL (1.2-4.9); Lymphocytes Percent Auto 9.9 % (20-40); Mean Corpuscular HGB Conc 33.8 g/dl (31.0-36.0); Mean Corpuscular Hemoglobin 30.8 pg (27.0-33.0); Mean Corpuscular Volume 91.1 fL (80.0-98.0); Mean Platelet Volume 9.5 fL (9.4-12.4); Monocytes Absolute Auto 0.9 X10*3/uL (0.1-1.2); Monocytes Percent Auto 11.1 % (2-11); Neutrophils Absolute Auto 6.1 x10*3/uL (2.0-8.3); Neutrophils Percent Auto 78.1 % (45-73); Platelet Count 150 X10*3/uL (160-400); Red Blood Count 3.93 X10*6/uL (4.60-5.80); Red Cell Distribution Width 12.4 % (11.0-16.0); White Blood Count 7.8 X10*3/uL (4.8-10.8)
[2024-03-08 12:14] LABS: INTERNATIONAL NORM RATIO 0.9 (0.9-1.1); Prothrombin Time 11.5 SEC (11.1-13.3)
[2024-03-08 12:17] LABS: Partial Thromboplastin Time 27.6 SEC (26.0-36.8)
--- NOTE | 2024-03-08 12:17 | PC.NURSE ---
patient arrives through external triage with cc of lower abdominal pain for the last few days, patient states he has a hx of diverticulitis and feels as if he is starting to have a flare up. patient denies nausea or vomiting or diarrhea, patient denies any fevers or chills or recent sick contacts. patient endorsing some lower abdominal tenderness upon palpation, BS normoactive in all four quadrants, abdomen is soft, non distended. LSCTA. patient denying other symptoms at this time. blood work and EKG completed in triage, urinalysis sent, awaiting provider evaluation at this time
[2024-03-08 12:22] LABS: Alanine Aminotransferase 26 U/L (0-40); Albumin Level 4.2 g/dL (3.5-5.0); Alkaline Phosphatase 64 U/L (39-117); Anion Gap 13 (12-20); Aspartate Amino Transferase 27 U/L (5-37); Bilirubin Direct 0.3 mg/dL (0.0-0.5); Bilirubin Total 0.6 mg/dL (0.0-1.0); Blood Urea Nitrogen 25 mg/dL (9-16); Calcium 9.6 mg/dL (8.4-10.2); Carbon Dioxide 27 mmol/L (22-29); Chloride 106 mmol/L (96-108); Creatinine Clr Calc Pharmacy 37.4; Estimated Glomerular Filt Rate 44; Glucose Random 132 mg/dL (60-115); Lipase 27 U/L (8-78); Magnesium 1.9 mg/dL (1.6-2.6); Potassium 4.5 mmol/L (3.3-5.1); Sodium 141 mmol/L (135-145); Total Protein 7.6 g/dL (6.5-8.0)
[2024-03-08 12:26] LABS: Bacteria Urine None Seen (None Seen); RBC Urine 0-2 /HPF (0-2); WBC Urine 0-5 /HPF (0-5)
--- NOTE | 2024-03-08 12:26 | PC.NURSE ---
18g IV placed in left forearm
[2024-03-08 12:29] LABS: Troponin-I High Sensitivity 4.4 ng/L (<3.5-35.0)
[2024-03-08] MEDS: iohexoL 350 MG/ML 100 ML INFUS..BTL IV (12:34)
--- NOTE | 2024-03-08 13:03 | ED_ITS ---
HPI - General Adult General Chief complaint: Abdominal Pain Stated complaint: abd pain Time Seen by Provider: 03/08/24 12:07 Source: patient Mode of arrival: ambulatory Limitations: no limitations History of Present Illness HPI narrative: This is an 83-year-old man with a past medical history of CAD status post CABG, anxiety, BPH, GERD, depression, and diverticulitis who presents for evaluation of lower abdominal pain. He states he has had lower abdominal pain for the last 3 days. He reports noting loose stools last 2 days. He states 1 episode of loose stool per day. He states no melena or hematochezia. He states no fevers, chills or myalgias. He states no nausea or vomiting. He states no chest pain or difficulty breathing. He states no chest pain or difficulty breathing. He states no fever, cough or congestion. He states no dysuria or urinary frequency/urgency. He states no back pain or flank pain. Related Data Home Medications ?Medication ?Instructions ?Recorded ?Confirmed alprazolam 0.5 mg tablet 0.5 mg PO TID Anxiety 05/29/20 07/06/23 clopidogrel 75 mg tablet 75 mg PO DAILY 05/29/20 07/06/23 doxazosin 8 mg tablet 8 mg PO DAILY 05/29/20 07/06/23 finasteride 5 mg tablet 5 mg PO DAILY 05/29/20 07/06/23 lisinopril 2.5 mg tablet 2.5 mg PO DAILY 05/29/20 07/06/23 metoprolol succinate 25 mg 25 mg PO DAILY 05/29/20 07/06/23 tablet,extended release 24 hr rosuvastatin 20 mg tablet 20 mg PO BEDTIME 05/29/20 07/06/23 sertraline 100 mg tablet 100 mg PO DAILY 05/29/20 07/06/23 cholecalciferol (vitamin D3) 25 25 mcg PO DAILY 07/06/23 07/06/23 mcg (1,000 unit) tablet cyanocobalamin (vitamin B-12) 1,000 mcg PO DAILY 07/06/23 07/06/23 1,000 mcg tablet ferrous sulfate 325 mg (65 mg 325 mg PO DAILY 07/06/23 07/06/23 iron) tablet flaxseed 1,000 mg capsule 1,000 mg PO DAILY 07/06/23 07/06/23 multivitamin 1 tab PO DAILY 07/06/23 07/06/23 omega 7-cbx-duh-fish oil 1,000 mg 1 cap PO DAILY 07/06/23 07/06/23 (120 mg-180 mg) capsule (Fish Oil) pantoprazole 20 mg tablet,delayed 20 mg PO DAILY 07/06/23 07/06/23 release Previous Rx's ?Medication ?Instructions ?Recorded amoxicillin 875 mg-potassium 1 tab PO Q12H #14 tabs 07/09/23 clavulanate 125 mg tablet Lactobacillus rhamnosus GG 15 1 cap PO DAILY #20 caps 09/12/23 billion cell sprinkle capsule (Culturelle) amoxicillin 500 mg-potassium 1 tab PO TID 10 days #29 tabs 09/12/23 clavulanate 125 mg tablet (Augmentin) polyethylene glycol 3350 17 17 g PO BID PRN laxative effect 09/12/23 gram/dose oral powder (Miralax) #119 grams tramadol 50 mg tablet 50 mg PO Q8H PRN pain #7 tabs 09/12/23 amoxicillin 875 mg-potassium 1 tab PO BID 10 days #20 tabs 03/08/24 clavulanate 125 mg tablet Allergies Allergy/AdvReac Type Severity Reaction Status Date / Time No Known Allergies Allergy Mild NOT Verified 03/08/24 11:32 APPLICABLE Review of Systems 2 Review of Systems: ROS as per [facility] Past Medical History Medical History Coronary artery disease Benign prostatic hyperplasia Hypercholesterolemia Depression Anxiety Hypertension Surgical History History of ankle surgery History of heart surgery (~05/2004) Social History Social History Household Members: Spouse Housing: House Do you presently have visiting nurse or other home services: No Alcohol intake: never Patient Tobacco Use Status: Former Tobacco user Years Smoked: 30 years Smoked in Last 30 Days: No Second Hand Smoke Exposure: No Use of substances other than those prescribed or required for medical reasons: No Advance Directives: No Advance Directives Information Provided: No Advance Directives Date on File: 07/07/23 Do you have a plan to hurt others: No Plan service: No Physical Exam ED Vital Signs: Vital Signs - 24 hr 03/08/24 11:29 03/08/24 14:47 Temperature 98 F 97.9 F Pulse Rate 70 53 Respiratory Rate 18 16 Blood Pressure 121/58 L 125/58 L Pulse Oximetry 96 97 Oxygen Delivery Method Room Air Room Air BMI result Body Mass Index 25.0 Gen: NAD, AOx3 HEENT: NCAT, EOMI, normal conjunctiva CV: RRR Pulm: CTAB, no increased work of breathing GI: Soft, mild to moderate lower abdominal tenderness to palpation L>R, no rigidity Neuro: Grossly non focal Medications Administered Discontinued Medications Generic Name Dose Route Start Last Admin Trade Name Freq PRN Reason Stop Dose Admin Iohexol 100 ml 03/08/24 12:33 03/08/24 12:34 Iohexol 350 Mg/Ml 100 Ml Infus..Btl IV 03/08/24 12:34 85 ml ONCE ONE Administration Ketorolac Tromethamine 15 mg 03/08/24 13:02 03/08/24 14:20 Ketorolac Tromethamine 15 Mg/Ml Vial IVPUSH 03/08/24 13:03 Not Given ONCE ONE Morphine Sulfate 2 mg 03/08/24 13:02 03/08/24 14:20 Morphine Sulfate 2 Mg/Ml Cartridge IVPUSH 03/08/24 13:03 Not Given ONCE ONE Protocol Medical Decision Making Medical Decision Making MDM Narrative: Differential diagnosis includes, but is not limited to diverticulitis, nephrolithiasis, appendicitis, gastroenteritis, viral syndrome. Patient is afebrile and hemodynamically stable on room air. Exam is benign and reassuring. I independently reviewed interpreted the patient's labs, which are notable for stable chronic anemia with hemoglobin of 12.1 (previous 11.7), thrombocytopenia 150 (previous 167 and 106), creatinine 1.52 (previous 1.44), lipase within normal limits. Urinalysis is not consistent with urinary tract infection in this clinical setting. I reviewed and interpreted EKG, which is unremarkable for any acute findings. I reviewed radiology impression as below CT imaging results with acute uncomplicated diverticulitis. Patient is provided 1st dose of Augmentin here in the emergency room. On re-examination, patient is well-appearing and in no acute distress. ?Patient was offered analgesics, but declined. He states that his pain is well- controlled.. He is tolerating oral intake. There is no indication for further emergent evaluation in this otherwise well-appearing patient as above. ?Patient is provided written and verbal instructions, educational materials, prescription for Augmentin, recommendations for outpatient follow-up, strict return precautions and teach back is performed. ?Patient states understanding and agreement with plan of care. ?Patient is discharged home in stable and improved condition. Admission/Observation Consideration of admission/observation: Escalation of care including admission/observation considered I considered admission, but medical evaluation is reassuring and there is no indication for inpatient hospitalization at this time. Lab Data MDM Lab Attestation statement: I reviewed the patient's lab results. 03/08/24 11:49 03/08/24 11:49 Labs: Lab Results 03/08/24 03/08/24 Range/Units 11:49 11:52 WBC 7.8 (4.8-10.8) X10*3/uL RBC 3.93 L (4.60-5.80) X10*6/uL Hgb 12.1 L (14.0-18.0) g/dl Hct 35.8 L (42.0-52.0) % MCV 91.1 (80.0-98.0) fL MCH 30.8 (27.0-33.0) pg MCHC 33.8 (31.0-36.0) g/dl RDW 12.4 (11.0-16.0) % Plt Count 150 L (160-400) X10*3/uL MPV 9.5 (9.4-12.4) fL Immature Gran % (Auto) 0.4 (0.0-0.4) % Neut % (Auto) 78.1 H (45-73) % Lymph % (Auto) 9.9 L (20-40) % Alexander % (Auto) 11.1 H (2-11) % Eos % (Auto) 0.4 (0-4) % Baso % (Auto) 0.1 (0-2) % Lymph # (Auto) 0.8 L (1.2-4.9) X10*3/uL Alexander # (Auto) 0.9 (0.1-1.2) X10*3/uL Eos # (Auto) 0.0 (0.0-0.4) X10*3/uL Baso # (Auto) 0.0 (0.0-0.2) X10*3/uL Abs Immat Gran (auto) 0.03 (0.00-0.03) X10*3/uL Absolute Neuts (auto) 6.1 (2.0-8.3) x10*3/uL Absolute Nucleated RBC 0.000 (0.0-0.012) X10*3/uL Nucleated RBC % (auto) 0.0 (0.0-0.2) /100WBC PT 11.5 (11.1-13.3) SEC INR 0.9 (0.9-1.1) APTT 27.6 (26.0-36.8) SEC Sodium 141 (135-145) mmol/L Potassium 4.5 (3.3-5.1) mmol/L Chloride 106 (96-108) mmol/L Carbon Dioxide 27 (22-29) mmol/L Anion Gap 13 (12-20) BUN 25 H (9-16) mg/dL Creatinine 1.52 H (0.5-1.4) mg/dL Estim Creat Clear Calc 37.4 Estimated GFR 44 Random Glucose 132 H (60-115) mg/dL Calcium 9.6 (8.4-10.2) mg/dL Magnesium 1.9 (1.6-2.6) mg/dL Total Bilirubin 0.6 (0.0-1.0) mg/dL Direct Bilirubin 0.3 (0.0-0.5) mg/dL AST 27 (5-37) U/L ALT 26 (0-40) U/L Alkaline Phosphatase 64 (39-117) U/L Troponin I High Sens 4.4 (<3.5-35.0) ng/L Total Protein 7.6 (6.5-8.0) g/dL Albumin 4.2 (3.5-5.0) g/dL Lipase 27 (8-78) U/L Urine Color Dark Yellow Urine Appearance Cloudy Urine pH 5.5 (5.0-9.0) Ur Specific [place] 1.025 (1.005-1.025) Urine Protein 30 (1+) H (Neg-Trace) mg/dL Urine Glucose (UA) Negative (Negative) mg/dL Urine Ketones Trace (Negative) mg/dL Urine Blood Negative (Negative) Urine Nitrite Negative (Negative) Ur Leukocyte Esterase Trace H (Negative) Urine RBC 0-2 (0-2) /HPF Urine WBC 0-5 (0-5) /HPF Ur Squamous Epith Cells 6-10 (0-2) /HPF Urine Bacteria None Seen (None Seen) Hyaline Casts 3-5 (0-2) /LPF Independent Interpretation I performed an independent interpretation of an: EKG Interpretation: I independently reviewed injury the patient's EKG which demonstrates a normal sinus rhythm at 63 beats per minute, right bundle branch block, QRS 132, CO 194, no STEMI (compared to prior EKG July 06, 2023 there are no diagnostic ischemic changes) Radiology Impression Discussion of test interpretation with radiology: I have reviewed the radiologist's reading. Radiologist Impression: CT/CT abdomen pelvis w IV con IMPRESSION: Acute uncomplicated diverticulitis distal descending colon sigmoid junction. Fleischner guidelines were followed. Electronically signed by: Fred Carter MD 03/08/2024 03:20 PM EDT RP Dictated By: Fred Carter MD Signed By: <Electronically signed by Fred Carter MD in OV> 03/08/24 1520 Discharge Plan Discharge Clinical Impression: Diverticulitis Patient Disposition: Home, Self-Care Instructions: Diverticulitis (ED), Diverticulitis Diet (ED) Additional Instructions: You were seen and evaluated in the emergency room. You found to have diverticulitis on her CT scan. You were given your 1st dose for antibiotics here in the emergency room. You are given a prescription for the same antibiotic. Please take a 2nd dose before bed late this evening around midnight. Please be sure to finish the course of antibiotics prescribed to you. While you are taking the antibiotics and having symptoms of diverticulitis, please eat a low fiber diet. After you complete your antibiotic and symptoms have resolved, please start eating a high-fiber diet and consider a daily fiber supplement (such as Metamucil). Please follow-up with your primary care doctor in the next 1-2 weeks. Please return to the emergency room if you develop any new or worsening symptoms. Prescriptions: New amoxicillin-pot clavulanate 875-125 mg tablet 1 tab PO BID 10 Days Qty: 20 0RF No Action pantoprazole 20 mg tablet,delayed release (DR/EC) 20 mg PO DAILY multivitamin Tablet 1 tab PO DAILY cyanocobalamin (vitamin B-12) 1,000 mcg Tablet 1,000 mcg PO DAILY ferrous sulfate 325 mg (65 mg iron) Tablet 325 mg PO DAILY cholecalciferol (vitamin D3) 25 mcg (1,000 unit) Tablet 25 mcg PO DAILY omega 3-jql-ugd-fish oil [Fish Oil] 1,000 mg (120 mg-180 mg) Capsule 1 cap PO DAILY flaxseed 1,000 mg Capsule 1,000 mg PO DAILY amoxicillin-pot clavulanate 875-125 mg tablet 1 tab PO Q12H Qty: 14 0RF amoxicillin-pot clavulanate [Augmentin] 500-125 mg tablet 1 tab PO TID 10 Days Qty: 29 0RF tramadol 50 mg tablet 50 mg PO Q8H PRN (Reason: pain) Qty: 7 0RF polyethylene glycol 3350 [Miralax] 17 gram/dose powder 17 g PO BID PRN (Reason: laxative effect) Qty: 119 0RF Culturelle 15 billion cell capsule, sprinkle 1 cap PO DAILY Qty: 20 0RF doxazosin 8 mg tablet 8 mg PO DAILY finasteride 5 mg tablet 5 mg PO DAILY clopidogrel 75 mg tablet 75 mg PO DAILY sertraline 100 mg tablet 100 mg PO DAILY lisinopril 2.5 mg tablet 2.5 mg PO DAILY alprazolam 0.5 mg tablet 0.5 mg PO TID metoprolol succinate 25 mg tablet extended release 24 hr 25 mg PO DAILY rosuvastatin 20 mg tablet 20 mg PO BEDTIME Print Language: [place] Islander
[2024-03-08 14:47] VITALS: BP 125/58; PULSE 53; RESP 16; TEMP 36.6; O2SAT 97
[2024-03-08 15:57] VITALS: BP 130/63; PULSE 58; RESP 16; TEMP 36.6; O2SAT 95
[2024-03-08] MEDS: Amoxicillin/Potassium Clav 875 MG TABLET PO (15:59)
== END 2024-03-08 16:02 | disposition home or self-care (01) ==
PROVIDERS: Physician Assistant Medical; Emergency Provider Emergency Medicine; PCP Internal Medicine
DX: K57.32 Diverticulitis of large intestine without perforation or abscess without bleeding (principal); R10.9 Unspecified abdominal pain; R10.30 Lower abdominal pain, unspecified; I10 Essential (primary) hypertension; I25.10 Atherosclerotic heart disease of native coronary artery without angina pectoris
CPT/HCPCS: 36415; 74177; 80048; 80076; 81001; 83690; 83735; 84484; 85025; 85610; 85730; 93005; 99284; 99285; Q9967

== ENCOUNTER 2024-07-16 14:08 | Inpatient (IN) | payer MEDICARE, SELFPAY ==
[2024-07-16] VITALS (10 sets, daily range): BP systolic 144–184; BP diastolic 70–85; PULSE 62–83; RESP 16–24; TEMP 36.6–37; O2SAT 87–97; BMI 23.6
--- NOTE | ~2024-07-16 | XR_ITS ---
CLINICAL HISTORY: cough, uri sx Chest Radiographs, AP Comparison: 12/07/23 Findings: Cardiomegaly status post CABG. Unchanged mediastinal contours. No pneumothorax. Opacity in the left lower lung zone, increased. No pleural effusion. Normal upper abdomen. No acute fracture. Impression: Increased opacity in the left lower lung zone may indicate pneumonia. This document has been electronically signed by: Nadia Holm MD on 07/16/2024 15:00:55
--- NOTE | 2024-07-16 14:07 | ED.NAVMDI ---
HPI - Nausea/Vomiting/Diarrhea General Chief complaint: General Medical Stated complaint: DIARRHEA, COLD LIKE SX Time Seen by Provider: 07/16/24 14:30 Source: patient, EMS, RN notes reviewed and old records reviewed Mode of arrival: EMS History of Present Illness ED Provider: Felecia Arcos PA-C HPI Narrative: 83-year-old male with a past medical history of HTN, HLD, depression, CAD, anxiety, BPH, presenting to the ED via EMS complaining of a URI symptoms of cough, rhinorrhea, congestion x6 days, started on Augmentin by PCP, now complaining of nonbloody watery diarrhea. Reports about 3 episodes of diarrhea today. States diarrhea started after initiation of antibiotic. Denies brbpr, melena, nausea/vomiting, dysuria/hematuria, CP/SOB, travel, suspicious food intake, sick contacts Related Data Home Medications ?Medication ?Instructions ?Recorded ?Confirmed alprazolam 0.5 mg tablet 0.5 mg PO TID Anxiety 05/29/20 07/06/23 clopidogrel 75 mg tablet 75 mg PO DAILY 05/29/20 07/06/23 doxazosin 8 mg tablet 8 mg PO DAILY 05/29/20 07/06/23 finasteride 5 mg tablet 5 mg PO DAILY 05/29/20 07/06/23 lisinopril 2.5 mg tablet 2.5 mg PO DAILY 05/29/20 07/06/23 metoprolol succinate 25 mg 25 mg PO DAILY 05/29/20 07/06/23 tablet,extended release 24 hr rosuvastatin 20 mg tablet 20 mg PO BEDTIME 05/29/20 07/06/23 sertraline 100 mg tablet 100 mg PO DAILY 05/29/20 07/06/23 cholecalciferol (vitamin D3) 25 25 mcg PO DAILY 07/06/23 07/06/23 mcg (1,000 unit) tablet cyanocobalamin (vitamin B-12) 1,000 mcg PO DAILY 07/06/23 07/06/23 1,000 mcg tablet ferrous sulfate 325 mg (65 mg 325 mg PO DAILY 07/06/23 07/06/23 iron) tablet flaxseed 1,000 mg capsule 1,000 mg PO DAILY 07/06/23 07/06/23 multivitamin 1 tab PO DAILY 01/02/24 01/02/24 omega 3-bhz-avw-fish oil 1,000 mg 1 cap PO DAILY 07/06/23 07/06/23 (120 mg-180 mg) capsule (Fish Oil) pantoprazole 20 mg tablet,delayed 20 mg PO DAILY 07/06/23 07/06/23 release Previous Rx's ?Medication ?Instructions ?Recorded amoxicillin 875 mg-potassium 1 tab PO Q12H #14 tabs 07/09/23 clavulanate 125 mg tablet Lactobacillus rhamnosus GG 15 1 cap PO DAILY #20 caps 09/12/23 billion cell sprinkle capsule (Culturelle) amoxicillin 500 mg-potassium 1 tab PO TID 10 days #29 tabs 09/12/23 clavulanate 125 mg tablet (Augmentin) polyethylene glycol 3350 17 17 g PO BID PRN laxative effect 09/12/23 gram/dose oral powder (Miralax) #119 grams tramadol 50 mg tablet 50 mg PO Q8H PRN pain #7 tabs 09/12/23 amoxicillin 875 mg-potassium 1 tab PO BID 10 days #20 tabs 03/08/24 clavulanate 125 mg tablet Allergies Allergy/AdvReac Type Severity Reaction Status Date / Time No Known Allergies Allergy Mild NOT Verified 07/16/24 14:12 APPLICABLE Review of Systems Review of Systems: Yes all other systems are reviewed and are negative Constitutional: Constitutional: Reports as per [facility] Past Medical History Attestation statement: The following information was validated with the patient. Source: old records reviewed Medical History Coronary artery disease Benign prostatic hyperplasia Hypercholesterolemia Depression Anxiety Hypertension Surgical History History of ankle surgery History of heart surgery (~05/2004) Social History Social History Household Members: Spouse Housing: House Do you presently have visiting nurse or other home services: No Alcohol intake: never Patient Tobacco Use Status: Former Tobacco user Years Smoked: 30 years Smoked in Last 30 Days: No Second Hand Smoke Exposure: No Use of substances other than those prescribed or required for medical reasons: No Advance Directives: No Advance Directives Information Provided: Yes Advance Directives Date on File: 07/07/23 Do you have a plan to hurt others: No Plan service: No Physical Exam Vital Signs: Vital Signs: Last Vital Signs Temp 98.2 F 07/16/24 15:06 Pulse 67 07/16/24 15:06 Resp 16 07/16/24 15:06 BP 149/71 H 07/16/24 15:06 Pulse Ox 95 07/16/24 15:06 O2 Del Method Nasal Cannula 07/16/24 15:06 O2 Flow Rate 2.5 07/16/24 15:06 BMI result Body Mass Index 23.6 Const: General: cooperative, healthy appearing and no acute distress Orientation/consciousness: patient oriented x3 Limitations: no limitations HEENT: Head: Yes normal to inspection and Yes atraumatic Ears: hearing grossly normal bilaterally General nose exam: Normal external nose present Face and sinus: Yes normal facial exam Eyes: General: appearance normal, both eyes and all related structures EOM: EOMs intact bilaterally Neck: Neck: Yes normal visual inspection and Yes no meningeal signs Resp: Effort & Inspection: normal respiratory effort and no respiratory distress Auscultation: clear to auscultation bilaterally, no crackles and no wheezes Cardio: Rate: regular rate Heart sounds: S1 normal heart sound present and S2 normal heart sound present GI: Inspection: Yes normal to inspection Palpation (GI): Soft to palpation, nontender, no guarding and not rigid Skin: Rashes: no rashes Wounds: no wounds Neuro: General: patient oriented x3, tone normal and no meningeal signs Cranial nerves: Yes CN's II-XII intact bilaterally Gait exam (Neuro): Normal gait present Extrem: General: Yes normal to inspection Course Course Course Narrative: 1504--XR chest 1V Impression: Increased opacity in the left lower lung zone may indicate pneumonia. > patient already on Augmentin since 07/14/24, will add Azithromycin and blood cultures. Low suspicion for severe sepsis -1518--patient notably hypoxic to 88% on RA > 94% on 2 L NC. Will have Respiratory evaluate patient. Give dose of IV Solu-Medrol. Plan is for admission. -1630--ED care transferred to [facility] pending labs, UA, stool studies, anticipated admission Medications Administered Discontinued Medications Generic Name Dose Route Start Last Admin Trade Name Freq PRN Reason Stop Dose Admin Sodium Chloride 1,000 mls @ 999 mls/hr 07/16/24 14:30 07/16/24 14:31 Ns IV 07/16/24 15:30 999 mls/hr .Q1H1M LARISSA Administration Medical Decision Making Medical Decision Making MDM Narrative: 83-year-old male with a past medical history of HTN, HLD, depression, CAD, anxiety, BPH, presenting to the ED via EMS complaining of a URI symptoms of cough, rhinorrhea, congestion x6 days, started on Augmentin by PCP, now complaining of nonbloody watery diarrhea. On exam vital signs stable, NAD, nontoxic appearing, lungs CTA, abdomen soft/nontender. Concern for viral illness vs bronchitis vs pneumonia vs gastroenteritis vs C diff vs infectious diarrhea. Rule out metabolic abnormalities. Lower suspicion for severe sepsis at this time. Low suspicion for appendicitis/diverticulitis/pancreatitis or cholecystitis/lithiasis Plan: Labs, UA, stool studies, C diff, IVF, CXR, viral testing, re-evaluate Please refer to course for remaining clinical decision making, interpretation of labs/imaging results, and discussions with consultants and/or family members. Differential Diagnosis Differential Diagnoses: The differential diagnosis associated with the presentation includes As above Admission/Observation Consideration of admission/observation: Escalation of care including admission/observation considered Lab Data MDM Lab Attestation statement: I reviewed the patient's lab results. Independent Interpretation I performed an independent interpretation of an: Plain X-Ray Radiology Impression Discussion of test interpretation with radiology: I have reviewed the radiologist's reading. Independent Historian Clinical information obtained from an independent historian. History obtained from or confirmed by: EMS External Record Review External record reviewed: Inpatient record, Office record, Outpatient record, Prior outpatient labs, Prior outpatient radiology, Primary care record and Outside ED record Tests considered The following testing was considered but not selected: As above Chronic Conditions Patient?s care impacted by: Hypertension and Other (CAD, depression, anxiety) Social Determinants Patient?s care significantly limited by Social Determinants of Health including: Other Social Determinant of Health Critical Care Time Critical Care Time Critical Care Time: Yes Total Critical Care Time: 40 Attestation: I have personally provided critical care time exclusive of time spent on separately billable procedures. Time includes review of lab data, radiology results, discussion with consultants, and monitoring for potential decompensation. Intervention performed as documented. Discharge Plan Discharge Clinical Impression: Pneumonia, Hypoxia Patient Disposition: Admitted As Inpatient Print Language: Citizen Of [place]
[2024-07-16] MEDS: 0.9 % Sodium Chloride 1,000 ML 999 ML IV (14:31)
--- OUTSIDE RECORDS SUMMARY | 2024-07-16 14:36 | XMS_ITS ---
Author Organization [facility] Address [address] [place] [address] Care Team Providers Care Senior Electronics Technician Name Role Phone Vasile WAN, Wolf Primary Care Provider Unavailab Tejas Baker Unavailable [phone] Encounters Encounter Location Date Provider Diagnosis [address] [address] 12/07/2023 Tejas Taylor Plan Of Treatment Next Appt Details Provider Name:Tejas Taylor , 09/01/2024 10:45:00 AM, [address] [place], [address], Progress Notes * Aric GAITAN EDOB: [birth year] (83 yo M)Acc No.[id number]:12/07/2023 Progress Note Patient:?Aric GAITAN Provider:?Tejas Taylor DPM :1940???Age:83 Y???Sex:Male Huseyin e:12/07/2023 Address:[address] [place] [address] Pcp:Wolf Burnette MD Subjective: * Chief Complaints: * ??? * Medical History:? Objective: * Vitals:? Assessment: Plan: * Treatment: * Images: * The named appointment provid er may or may not be the originator of this progress note, and it is not deemed complete until electronically signed by the appointment provider. Sign off status: Pending * Provider:?Tejas Taylor DPM Date:?2023 Generated for Damian hand/Opal/Wily on:?07/16/2024 02:36 PM EST
--- OUTSIDE RECORDS SUMMARY | 2024-07-16 14:36 | XMS_ITS ---
[facility] Address [address] [place] [address] Care Team Providers Care Knockout Machine Operator Name Role Phone Wolf Burnette MD Primary Care Provider UnavailTejas García Unavailable [phone] Allergies No Known Allergies REASON FOR VISIT At Risk Footcare, Painful Nail(s) aggrevated by shoes and causing difficulty standing/walking, Ingrown Nail Medications Medication SIG (Take, Route, Frequency, Duration) Notes Start Date End Date Status Finasteride 5 MG 1 tablet Orally Once a day for 30 day(s) Active ALPRAZolam 0.5 MG 1 tablet Orally Thre e times a day Active Extra Depth Orthopedic Shoes, (1) Pair With (3) Pair Custom Heat Molded Multidensity Innersoles Dx: NIDDM/PVD(E11.51), Hammertoe Foot Deformity(M20.41,M20.42), Preulcerative Skin Lesion(s)(L85.1) Wear Daily for 365 days 09/07/2023 Active Doxazosin Mesylate 8 MG 1 tablet Orally Once a day for 30 day(s) Active Crestor 20 MG 1 tablet Orally Once a day for 30 day(s) Active Sertraline HCl 100 MG 1 tablet Orally On ce a day for 30 day(s) Active Plavix 75 MG 1 tablet Orally Once a day for 30 day(s) Active Ciclopirox Olamine 0.77 % 1 application Externally Twice a day for 30 days Active Zetia 10 MG 1 tablet Orally Once a day for 30 day(s) Active Norvasc 5 MG 1 tablet Orally Once a day for 30 day(s) Active Metoprolol Tartrate 25 MG 1 tablet Orall y Twice a day for 30 day(s) Active Social History Tobacco Use: Social History Observation Description Date Details (start date - stop date) Former Smoker NA - NA Tobacco Use/Smoking Question Answer Notes Are you a: former smoker Additional Findings: Tobacco Non-User Current no n-smoker Tobacco use other than smoking: Question Answer Notes Are you an other tobacco user? No Vital Signs Height 5 ft 9 in in 03/03/2024 Weight 165 lbs 03/03/2024 BMI 24.36 kg/m2 03/03/2024 Procedures Procedure Date Ordered Date Performed Result Body Sit e 55679-JECFQLR NAIL, 6 OR MORE 03/03/2024 N/A 30819-Eqqocxwi Plate 03/03/2024 N/A 76250-RMJE SKIN LESIONS, OVER 4 03/03/2024 N/A Encounters Encounter Location Date Provider Diagnosis [facility] [address] [address] 03/03/2024 Tejas Taylor Type 2 diabetes mellitus with diabetic peripheral angiopathy without gangrene E11.51 ; Onychomycosis B35.1 ; Pain of toe of right foot M79.674 ; Pain of toe of left foot M79.675 and Ingrown nail L60.0 Assessments Encounter Date Diagnosis (ICD Code) Assessment Notes Treatment Notes Treatment Clinical Notes Section Notes 03/03/2024 Type 2 diabetes mellitus with diabetic peripheral angiopathy without gangrene (ICD-10 - E11.51) 03/03/2024 Onychomycosis (ICD-10 - B35.1) 03/03/2024 Pain of toe of right foot (ICD-10 - M79.674) 03/03/2024 Pain of toe of left foot (ICD-10 - M79.675) 03/03/2024 Ingrown nail (ICD-10 - L60.0) 03/03/2024 Other Plan Of Treatment Pending Test Test Name Order Date 02601-UGZAETI NAIL, 6 OR MORE 03/03/2024 48045-Wnelaccc Plate 03/03/2024 98173-GEGK SKIN LESIONS, OVER 4 03/03/20 24 Next Appt Details Follow Up: prn, Reason: Provider Name:Tejas Taylor , 09/01/2024 10:45:00 AM, [address] [place], [address], Procedure Notes * Category Sub-Category Detail Notes Nail Avulsion Procedure A fine sterile e levator was placed between the eponychium, nail fold, and nail plate to separate the structures. A sterile nail splitter, and/or sterile 316 blade, was then used to longitudinally section the nail along its entire length through the eponychium to the area under the nail fold. The offending portion of nail was from the nail bed with a rolling action and then removed with a hemostat. No underlying bone was identified. There was minimal bleeding as hemostasis was achieved through the temporary use of either a digital tourniquet or the aforementioned local with epinephrine. A bacitracin sterile dressing was applied. Local wound aftercare instructions were discussed and dispensed. The patient was informed of both conservative and future surgical procedures to prevent recurrence. Tylenol or Motrin was recommended for pain or discomfort (22113) , DIABETES: Pt was advised as to the risk of delayed or nonhealing due to diabetes. Pt is to call the office with any questions, concerns, or complications Anesthesia 2cc of 1 percent Lid ocaine Plain local anesthesic utilizing aseptic technique Location Medial nail border , T5 Debride Nail 6-10 Nail debridement Performance o f this nail treatment by a nonprofessional would put this patients foot and overall health at risk. Therefore, nail debridement was performed extensively to reduce/remove overall nail length, girth, thickness, subungual debris, and necrotic tissue, by manual and/or electrical means through the use of a nail nipper and/or dremel-type internal grinder tender, to a more viable healthy nail plate or bed tissue 6-10. Silver nitrate used for any petechial bleeding as necessary. Definitive antifungal treatment options have been reviewed and discussed with the patient. The patient chooses, no pharmaceutical tx - 71843 Keratoma Treatment Parring or Cutting o f Benign Hyperkeratotic Lesion(s) 12456 ( More than 4 Lesions ) - The Benign hyperkeratotic lesions, as described above were pared, and/or cut utilizing a sterile 15 blade, tissue nippers, and/or dremel - 05068 , Q8 Progress Notes * Aric GAITAN EDOB: [birth year] (83 yo M)Acc No.[id number]:03/03/2024 Progress Note Patient:?Aric Gaitan Provider:?Tejas Taylor DPM :1940???Age:83 Y???Sex:Male Huseyin e:03/03/2024 Address:[address] [place] [address] [place] Pcp:Wolf Burnette MD Subjective: * Chief Complaints: * ???At Risk FootcarePainful N ail(s) aggrevated by shoes and causing difficulty standing/walkingIngrown Nail * HPI: ???At Risk footcare:?Pt States Last PCP Visit:?Date?01/10/2024 * ROS:?General/Constitutional:?Nausea?denies.?Vomiting?denies.?Hunger Thirst?denies.?Loss appetite?denies.?Chills?denies.?Fatigue?denies.?Fever?denies.?Night Sweats?denies.?Unexplained weight loss?denies.?Ophthalmologic:?Blurred vision?denies.?Red eye?denies.?HEENTM:?Dentures?denies.?Dizziness?denies.?Glasses/contacts?admits.?Retinopathy?de nies.?Blurred/double vision?denies.?TMJ?denies.?Discharge/drainage?denies.?Implants?denies.?Hard of hearing denies.?Difficulty chewing/swallowing/speaking?denies.?Nose bleeds?denies.?Sore mouth?denies.?Swollen glands?denies.?Respiratory:?On Oxygen?denies.?Pneumonia/pleurisy?denies.?Bronchitis?denies.?Emphysema?denies.?C oughing?denies.?Cough blood?denies.?Shortness of breath?denies.?Wheezing?denies.?Cardiovascular:?Pacemaker?denies.?MVP?denies.?WPW?denies.?CHF?denies.?Heart attack?denies.?Septal defect?denies.?Rapid beat?denies.?Chest pain ?denies.?Atrial Fib.?denies.?Murmur/Palpitations?denies.?Gastrointestinal:?Hemorrhoids?denies.?Stomach/Abdominal pain?denies.?Dark blood stool?denies.?Irritable bowel ?denies.?Constipation?denies.?Diarrhea?denies.?Vomiting?denies.?Hematology:?Swelling?denies.?Bruising?admits, on anticoagulants.?Bleeding problem?admits, on anticoagulants.?Genitourinary:?Blood urine?denies.?Frequent/Painfu/urination/bladder control?denies.?Kidney stones?denies.?Infection (UTI)?denies.?Nephropathy?denies.?Musculoskeletal:?Hammertoes?admits.?Bunions?admits.?Scoliosis/kyphosis?denies.?Muscle cramps / walking?denies.?Generalized aches and pains?denies.?Weakness?denies.?Integ.:?Garibay?denies.?Scars?denies.?Corns/calluses?admits.?Ingrown nails?admits.?Painful nails?admits.?Rashes?denies.?Neurologic:?Difficulty sleeping?denies.?Bipolar?denies.?Brain disorder?denies.?Balance trouble?denies.?Confusion?denies.?Fainting/blackouts?denies.?Headache?denies.?Tr emors?denies.? * Medical History:? * Surgical History:?5 bypass h eart surgery 05/26/2004broken jaw 2006 * Hospitalization/Major Diagno stic Procedure:?Diverticulitis Juliverticulitis 09/2023 * Family History:?Mother: dece ased, foot problems, diagnosed with Unspecified essential hypertension, Diabetic - NIDDM.?Father: , diagnosed with Family history of arthritis, Other malignant neoplasm of unspecified site.? * Social History:?Tobacco Use:?Tobacco Use/Smoking?Are you a:?former smoker ?Additional Findings: Tobacco Non-User?Current non-smoker ?Tobacco use other than smoking?Are you an other tobacco user??No ???Miscellaneous:?Caffeine: yes, frequency:, 1-2 cups per day. ?Children: yes. ?Exercise: yes, Soft Ball, lifting. ?Marital status: . ?Occupation: Retired. * Medications:?TakingALPRAZola m 0.5 MG Tablet 1 tablet Orally Three times a dayCrestor 20 MG Tablet 1 tablet Orally Once a dayDoxazosin Mesylate 8 MG Tablet 1 tablet Orally Once a dayFinasteride 5 MG Tablet 1 tablet Orally Once a dayMetoprolol Tartrate 25 MG Tablet 1 tablet Orally Twice a dayNorvasc 5 MG Tablet 1 tablet Orally Once a dayPlavix 75 MG Tablet 1 tablet Orally Once a daySertraline HCl 100 MG Tablet 1 tablet Orally Once a dayZetia 10 MG Tablet 1 tablet Orally Once a dayCiclopirox Olamine 0.77 % Cream 1 application Externally Twice a dayExtra Depth Orthopedic Shoes, (1) Pair With (3) Pair Custom Heat Molded Multidensity Innersoles . Dx: NIDDM/PVD(E11.51), Hammertoe Foot Deformity(M20.41,M20.42), Preulcerative Skin Lesion(s)(L85.1) Wear DailyMedication List reviewed and reconciled with the patientTaking ALPRAZolam 0.5 MG Tablet 1 tablet Orally Three times a dayTaking Crestor 20 MG Tablet 1 tablet Orally Once a dayTaking Doxazosin Mesylate 8 MG Tablet 1 tablet Orally Once a dayTaking Finasteride 5 MG Tablet 1 tablet Orally Once a dayTaking Metoprolol Tartrate 25 MG Tablet 1 tablet Orally Twice a dayTaking Norvasc 5 MG Tablet 1 tablet Orally Once a dayTaking Plavix 75 MG Tablet 1 tablet Orally Once a dayTaking Sertraline HCl 100 MG Tablet 1 tablet Orally Once a dayTaking Zetia 10 MG Tablet 1 tablet Orally Once a dayTaking Ciclopirox Olamine 0.77 % Cream 1 application Externally Twice a dayTaking Extra Depth Orthopedic Shoes, (1) Pair With (3) Pair Custom Heat Molded Multidensity Innersoles . Dx: NIDDM/PVD(E11.51), Hammertoe Foot Deformity(M20.41,M20.42), Preulcerative Skin Lesion(s)(L85.1) Wear DailyMedication List reviewed and reconciled with the patient * Allergies:?N.K.D.A.yes[Aller gies Verified] Objective: * Vitals:?Ht: 5 ft 9 in, Wt: 1 65, BMI: 24.36, Shoe size: 9.5, BS: not taken, Wt- k.84 kg. * Examination: ???Vascular: ?DP PULSES:?0/4, B/L.?PT PULSES:? 0-1/4, B/L.?CAPILLARY FILL TIME:? delayed, all digits, B/L.?SKIN TEMPERTURE GRADIENT OF THE LOWER EXTERMITIES:? decreased, cool to cool, proximal to distal, B/L.?HAIR GROWTH/TEXTURE/ELASTICITY/TURGOR:? decreased, B/L.?PIGMENTATION:? brawny, B/L.?EDEMA:?absent, B/L.?CLAUDICATION:?denies, B/L.?REST PAIN:?denies, B/L.?Nails: ?NAILS are:?Elongated, overgrown, dystrophic, lytic, greater than 3mm thick, discolored and friable with crumbly malodorous subungual debris, with pain on palpation, TA, T1, T3, T4, T5, T8, T9.?Dermatologic: ?SKIN FINDINGS:?Skin exam reveals Keratotic lesion(s) located at, Medial plantar, IPJ, TA, Medial plantar, IPJ, T5, SUB MTH (s), 1, B/L , Heel(s), B/L.?Ingrown Nail: ?INSPECTION:?Reveals nail incurvation, pain on palpation, groove hypertrophy , Medial nail border , T5.? Assessment: * Assessment: 1.?Type 2 diabetes mellitus with diabetic peripheral angiopathy without gangrene - E11.51?2.?Onychomycosis - B35.1?3.?Pain of toe of right foot - M79.674?4.?Pain of toe of left foot - M79.675?5.?Ingrown nail - L60.0, Medial nail border , T5? Plan: * Treatment: 2.?Onychomycosis?Procedure: 39368-NDRVMDF NAIL, 6 OR MORE 3.?Ingrown nail?Procedure: 63681-Cwmiktmx Plate * Procedures:?Debride Nail 6-10:?Nail debridement?Performance of this nail treatment by a nonprofessional would put this patients foot and overall health at risk. Therefore, nail debridement was performed extensively to reduce/remove overall nail length, girth, thickness, subungual debris, and necrotic tissue, by manual and/or electrical means through the use of a nail nipper and/or dremel-type internal grinder tender, to a more viable healthy nail plate or bed tissue 6-10. Silver nitrate used for any petechial bleeding as necessary. Definitive antifungal treatment options have been reviewed and discussed with the patient. The patient chooses, no pharmaceutical tx - 46492.?Keratoma Treatment:?Parring or Cutting of Benign Hyperkeratotic Lesion(s)?47278 ( More than 4 Lesions ) - The Benign hyperkeratotic lesions, as described above were pared, and/or cut utilizing a sterile 15 blade, tissue nippers, and/or dremel - 35236 , Q8.?Nail Avulsion:?Location?Medial nail border?,?T5.?Anesthesia?2cc of 1 percent Lidocaine Plain local anesthesic utilizing aseptic technique.?Procedure?A fine sterile elevator was placed between the eponychium, nail fold, and nail plate to separate the structures. A sterile nail splitter, and/or sterile 316 blade, was then used to longitudinally section the nail along its entire length through the eponychium to the area under the nail fold. The offending portion of nail was from the nail bed with a rolling action and then removed with a hemostat. No underlying bone was identified. There was minimal bleeding as hemostasis was achieved through the temporary use of either a digital tourniquet or the aforementioned local with epinephrine. A bacitracin sterile dressing was applied. Local wound aftercare instructions were discussed and dispensed. The patient was informed of both conservative and future surgical procedures to prevent recurrence. Tylenol or Motrin was recommended for pain or discomfort (61083) , DIABETES: Pt was advised as to the risk of delayed or nonhealing due to diabetes. Pt is to call the office with any questions, concerns, or complications.? * Procedure Codes:?63512 DEBRI DE NAIL, 6 OR MORE, Modifiers: XS 04898 Avulsion Plate, Modifiers: XS , [id number] TRIM SKIN LESIONS, OVER 4, Modifiers: XS , Q8 * Follow Up:?prn * Images: * Sign off status: Completed true * Provider:?Tejas Taylor DPM Date:?2023 Generated for Damian hand/Opal/Bruceitting on:?07/16/2024 02:36 PM EST History and Physical Notes * HPI (History of Present Illness) Category Sub-Category Detail Notes Category Not es At Risk footcare Pt States Last PCP Visit: Date: 4 Examination Category Sub-Category Detail Notes Category Not es Ingrown Nail INSPECTION: Reveals nail inc urvation, pain on palpation, groove hypertrophy , Medial nail border , T5 Dermatologic SKIN FINDINGS: Skin exam reveal s Keratotic lesion(s) located at, Medial plantar, IPJ, TA, Medial plantar, IPJ, T5, SUB MTH (s), 1, B/L , Heel(s), B/L Vascular DP PULSES (B): 0/4, B/L PT PULSES (B): 0-1/4, B/L CAPILLARY FILL TIME: delayed, all digits , B/L TEMPERTURE GRADIENT (C): decreased, cool to cool, proximal to distal, B/L TROPHIC CONDITION-TEXTURE/ELASTICITY/TURGOR/HAIR GROWTH (B): decreased, B/L EDEMA (C): absent, B/L CLAUDICATION (C): denies, B/L REST PAIN: denies, B/L PIGMENTATION: brawny, B/L Nails NAILS are: Elongated, overg rown, dystrophic, lytic, greater than 3mm thick, discolored and friable with crumbly malodorous subungual debris, with pain on palpation, TA, T1, T3, T4, T5, T8, T9
--- OUTSIDE RECORDS SUMMARY | 2024-07-16 14:37 | XMS_ITS | Continuity of Care Document ---
Author Organization [facility] Address [address] [place] [address] Phone Care Team Providers Care Alarm Signal Operator Name Role Phone John Paul WAN, Amadeo [...] Diagnoses Date Provider Providers Copied on Encounter [facility], [address], [place], [place], [id number], [place] tel:[phone] [facility] No Information John Paul Childs. [address], [address], [place], [place], [id number], [place]. tel:[phone] Referring Provider: Lloyd GUZMAN, [address], [place], [address]. tel:[phone] [facility], [address], [place], [place], [id number], tel:[phone] [facility] No Information Ronal Mann. [address], [address], [place], [place], [id number], [place]. tel:[phone] Referring Provider: Lloyd GUZMAN, [address], [place], [address]. tel:[phone] [facility], [address], [place], [place], [id number], tel:[phone] [facility] No Information Ronal Mann. [address], [address], [place], [place], [id number], [place]. tel:[phone] Referring Provider: Lloyd GUZMAN, [address], [place], [address]. tel:[phone] Family History Family Member Type Diagnosis Age At Onset No Information Payers Payer name Insurance type Covered republican ID Authorpedro mirandajamee(s) Medicare Part B Primary [id number] [facility] CI [id number] Social History Type Description Quantity Date Captured [...]
--- OUTSIDE RECORDS SUMMARY | 2024-07-16 14:37 | XMS_ITS | Patient Health Record ---
Author Organization [facility] Address [address] [place] [address] Care Team Providers Care Leather Production Worker Name Role Phone Wolf Burnette MD Primary Care Provider Sam Chaves Unavailable [phone] ALLERGIES No Known Allergies REASON FOR REFERRAL No Information MEDICATIONS Medication SIG (Take, Route, Frequency, Duration) Notes Start Date End Date Status Finasteride 5 MG Oral for 90 A ctive Doxazosin Mesylate 8 MG Oral for 90 Active Vitamin D3 25 MCG (1000 UT) 1 tablet Ora lly Once a day for 30 day(s) Active ALPRAZolam 0.5 MG Oral for 90 Active Aspirin Adult Low Dose 81 MG 1 tablet Orally Once a day for 30 day(s) Active Metoprolol Succinate ER 25 MG Oral for 90 Active Sertraline HCl 100 MG Oral for 90 Active Multivitamin - 1 tablet Orally Once a day for 30 day(s) Active Clopidogrel Bisulfate 75 MG Oral for 90 Active Fish Oil 600 MG 1 capsule Orally Onc e a day for 30 day(s) Active Lisinopril 2.5 MG Oral for 90 Active Vitamin B12 1000 MCG 1 tablet Orally Onc e a day for 30 day(s) Active Flaxseed (Linseed) 1000 MG as directed Orally Active Pantoprazole Sodium 20 MG Oral for 90 Active Rosuvastatin Calcium 20 MG Oral for 90 Active IMMUNIZATIONS Vaccine Route Administration Date Status Comme nts Influenza Unknown 03/05/2021 Administered SOCIAL HISTORY Tobacco Use: Social History Observation Description Date Details (start date - stop date) Former Smoker NA - NA Sex Assigned At : Social History Observation Description Sex Assigned At Unknown Tobacco Use/Smoking Question Answer Notes Patient is a former smoker How long has it been since you last smoked? > 10 years Alcohol Screen Question Answer Notes Did you have a drink containing alcohol in the p ast year? No Points 0 Interpretation Negative PROBLEMS Problem Type ICD Code Onset Dates Problem Status W/U Status Risk SNOMED Code Notes Problem Diverticulitis (K57.92) Active confirmed Diverticulitis (089879552) Problem Abnormal computed tomography of sigmoid colon (R93.3) Active confirmed Imaging of gastrointestinal tract abnormal (151971557) Problem Diverticulosis of sigmoid colon (K57.30) Active confirmed Diverticulosis of sigmoid colon (938713397) PLAN OF TREATMENT Future Test Test Name Order Date COLONOSCOPY 03/13/2022 Insurance Providers Payer Name Payer Address Payer Phone Subscriber Number Group Number Insured Name Patient Relationship to Insured Coverage Start Date Coverage End Date MEDICARE OF [place] [address] [place] [id number] ZI ADORNO Self - patient is the insured [facility] SUPPLEMENTAL PLAN [address] [place] [address] [phone] [id number] ZI ADORNO Self - patient is the insured MEDICAL (GENERAL) HISTORY Medical History History ICD Code Hypertension Hypercholesterolemia Coronary artery disease--[place] Umbilical hernia Anxiety BPH Sigmoid diverticulitis in 12/2021 Denies [place],DM,CVA,Lung disease,renal dise ase Negative colonoscopy approx 20 yrs ago Surgical History Surgery Date(Month/Year) 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
--- OUTSIDE RECORDS SUMMARY | 2024-07-16 14:37 | XMS_ITS | Continuity of Care Document ---
Author Organization [facility] Address [address] [place] [address] Phone Care Team Providers Care First Assistant Manager Name Role Phone John WAN, Check Unavailable [...] Diagnoses Date Provider Providers Copied on Encounter [facility], [address], [place], [place], [id number], tel:[phone] [address] No Information Sep- 0 John WAN Check. [address], [place], [place], [id number], [place]. tel:[phone] Referring Provider: Check John Rodriguez, [address], [place], [address] . tel:[phone] Office/outpa tient visit,est, mod [facility], [address], [place], [place], [id number], tel:[phone] [facility] 400 right shoulder pain (chief complaint) Rotator cuff rupture of right shoulder, not specified as traumatic 0 John WAN Check. [address], [address], [place], [place], [id number], [place]. tel:[phone] Referring Provider: Check John Rodriguez, [address], [place], [address] . tel:[phone] [facility], [address], [place], [place], [id number], [place] tel:[phone] [facility] [address] Unsp rotatr-cuff tear/ruptr of right shoulder, not traumaOth symptoms and signs involving the musculoskeletal systemStiffness of right shoulder, not elsewhere classified 0 Lorena Fuentes. [address], [address], [place], [place], [address], [place]. tel:[phone] Referring Provider: Check John Rodriguez, [address], [place], [address] . tel:[phone] [facility], [address], [place], [place], [id number], [place] tel:[phone] [facility] [address] Unsp rotatr-cuff tear/ruptr of right shoulder, not traumaOth symptoms and signs involving the musculoskeletal systemStiffness of right shoulder, not elsewhere classified 0 Lorena Fuentes. [address], [place], [place], [address], [place]. tel:[phone] Referring Provider: Check John Rodriguez, [address], [place], [address] . tel:[phone] [facility], [address], [place], [place], [id number], [place] tel:[phone] [facility] [address] Unsp rotatr-cuff tear/ruptr of right shoulder, not traumaOth symptoms and signs involving the musculoskeletal systemStiffness of right shoulder, not elsewhere classified 0 Lorena Fuentes. [address], [place], [place], [address], [place]. tel:[phone] Referring Provider: Check John Rodriguez, [address], [place], [address] . tel:[phone] [facility], [address], [place], [place], [address], [place] tel:[phone] [facility] [address] Unsp rotatr-cuff tear/ruptr of right shoulder, not traumaOth symptoms and signs involving the musculoskeletal systemStiffness of right shoulder, not elsewhere classified 0 Lorena Fuentes. [address], [place], [place], [address], [place]. tel:[phone] Referring Provider: Check John Rodriguez, [address], [place], [address] . tel:[phone] [facility], [address], [place], [place], [address], [place] tel:[phone] [facility] [address] Unsp rotatr-cuff tear/ruptr of right shoulder, not traumaOth symptoms and signs involving the musculoskeletal systemStiffness of right shoulder, not elsewhere classified 0 Nati Finch. [address], [place], [place], [address], [place]. tel:[phone] Referring Provider: Check John Rodriguez, [address], [place], [address] . tel:[phone] [facility], [address], [place], [place], [address], [place] tel:[phone] [facility] [address] Unsp rotatr-cuff tear/ruptr of right shoulder, not traumaOth symptoms and signs involving the musculoskeletal systemStiffness of right shoulder, not elsewhere classified 0 Lorena Fuentes. [address], [place], [place], [address], [place]. tel:[phone] Referring Provider: Check John Rodriguez, [address], [place], [address] . tel:[phone] [facility], [address], [place], [place], [id number], [place] tel:[phone] [facility] [address] Shoulder weaknessDecrease d ROM of right shoulderUnsp rotatr-cuff tear/ruptr of right shoulder, not trauma Aug-0 0 Lorena Fuentes. [address], [address], [place], [place], [address], [place]. tel:[phone] Referring Provider: Check John Rodriguez, [address], [place], [address] . tel:[phone] [facility], [address], [place], [place], [id number], [place] tel:[phone] [facility] [address] Rotator cuff rupture of right shoulder, not specified as traumatic 0 0 Nati Finch. [address], [address], [place], [place], [address], [place]. tel:[phone] Referring Provider: Check John Rodriguez, [address], [place], [address] . tel:[phone] Office/outpa tient visit,est, [facility], [address], [place], [place], [address], [place] tel:[phone] [facility] [address] right shoulder pain (chief complaint) Rotator cuff rupture of right shoulder, not specified as traumatic 0 0 John Murdock. [address], [place], [place], [address], [place]. tel:[phone] Referring Provider: Check John Rodriguez, [address], [place], [address] . tel:[phone] [facility], [address], [place], [place], [id number], [place] tel:[phone] [facility] [address] No Information 0 Noemi Hammond. [address], [place], [place], [address], [place]. tel:[phone] Referring Provider: Check John Rodriguez, [address], [place], [address] . tel:[phone] Office/outpa tient visit,new, [facility], [address], [place], [place], [address], [place] tel:[phone] [facility] 400 right shoulder pain (chief complaint) Acute pain of right shoulderRotator cuff rupture of right shoulder, not specified as traumatic 0 John WAN Check. [address], [address], [place], [place], [address], . tel:[phone] Referring Provider: Check John Rodriguez, [address], [place], [address] . tel:[phone] [facility], [address], [place], [place], [address], tel:[phone] [address] No Information 0 John WAN Check. [address], [place], [place], [address], . 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 F/u PRN. Related to Rotator cuff [...]
--- OUTSIDE RECORDS SUMMARY | 2024-07-16 14:37 | XMS_ITS | Patient Health Record ---
Author Organization [facility] Elizabeth paola HuangАндрей Address [address] [place] [address] Care Team Providers Care Stove Tender Name Role Phone Wolf Burnette MD Primary Care Provider Unavailab Tejas Baker Unavailable [phone] Allergies No Known Allergies Reason For Referral No Information Medications Medication SIG (Take, Route, Frequency, Duration) Notes Start Date End Date Status Metoprolol Tartrate 25 MG 1 tablet Orall y Twice a day for 30 day(s) Active Finasteride 5 MG 1 tablet Orally Once a day for 30 day(s) Active Doxazosin Mesylate 8 MG 1 tablet [...] Wear Daily for 365 days 09/07/2023 Active Ciclopirox Olamine 0.77 % 1 application [...] Once a day for 30 day(s) Active Immunizations Vaccine Route Administration Date Status Comme nts COVID-19 [employer] Vaccine Unknown 04/25/2021 Administered 1st 08/18/2020 2nd 09/08/2020 Influenza Unknown 05/22/2015 Administered Influenza Unknown 05/25/2016 Administered Influenza Unknown 05/23/2018 Administered Influenza Unknown 04/05/2019 Administered Influenza Unknown 05/06/2022 Administered Influenza Unknown 03/05/2023 Administered Pneumococcal Unknown 05/22/2015 Administered Social History Tobacco Use: Social History Observation Description Date Details (start date - stop date) Former Smoker NA - NA Tobacco Use/Smoking Question Answer Notes Are you a: former smoker Additional Findings: Tobacco Non-User Current no n-smoker Alcohol Screen Question Answer Notes Did you have a drink containing alcohol in the p ast year? No Points 0 Interpretation Negative Tobacco use other than smoking: Question Answer Notes Are you an other tobacco user? No Problems Problem Type SNOMED Code ICD Code Onset Dates Problem Status W/U Status Risk Notes Problem Acquired hammer toe of right foot (91478641842934 05) Other hammer toe(s) (acquired), right foot (M20.41) Active confirmed Problem Type 2 diabetes mellitus with peripheral angiopathy (868042740) Type 2 diabetes mellitus with diabetic peripheral angiopathy without gangrene (E11.51) Active confirmed Problem Acquired hammer toe of left foot (33665432284036 03) Other hammer toe(s) (acquired), left foot (M20.42) Active confirmed Vital Signs Blood pressure diastolic 80 mm Hg 05/30/2024 Height 5 ft 9 in in 05/30/2024 Blood pressure systolic 120 mm Hg 05/30/2024 Weight 165 lbs 05/30/2024 BMI 24.36 kg/m2 05/30/2024 Procedures Procedure Date Ordered Date Performed Result Body Sit e 29827-LNFTVNP NAIL, 6 OR MORE 09/07/2023 N/A 90501-Goxgerpb Plate 09/07/2023 N/A 22182-PHQR SKIN LESIONS, OVER 4 09/07/2023 N/A 88712-QMIDISE NAIL, 6 OR MORE 03/03/2024 N/A 22510-Rshffehi Plate 03/03/2024 N/A 11240-MUAH SKIN LESIONS, OVER 4 03/03/2024 N/A 73854-UWGRBSR NAIL, 6 OR MORE 05/30/2024 N/A 68878-YNKM SKIN LESIONS, OVER 4 05/30/2024 N/A Encounters Encounter Location Date Provider Diagnosis [address] [address] 09/07/2023 Tejas Adamsunier Type 2 diabetes mellitus with diabetic peripheral angiopathy without gangrene E11.51 ; Onychomycosis B35.1 ; Pain of toe of right foot M79.674 ; Pain of toe of left foot M79.675 ; Ingrown nail L60.0 ; Other hammer toe(s) (acquired), right foot M20.41 and Other hammer toe(s) (acquired), left foot M20.[address] [address] 03/03/2024 Tejas Taylor Type 2 diabetes mellitus with diabetic peripheral angiopathy without gangrene E11.51 ; Onychomycosis B35.1 ; Pain of toe of right foot M79.674 ; Pain of toe of left foot M79.675 and Ingrown nail L60.[address] [address] 05/30/2024 Tejas Taylor Type 2 diabetes mellitus with diabetic peripheral angiopathy without gangrene E11.51 ; Onychomycosis B35.1 ; Pain of toe of right foot M79.674 and Pain of toe of left foot M79.[address] [address] 12/06/2023 Tejas Taylor Assessments Encounter Date Diagnosis (ICD Code) Assessment Notes Treatment Notes Treatment Clinical Notes Section Notes 09/07/2023 Type 2 diabetes mellitus with diabetic peripheral angiopathy without gangrene (ICD-10 - E11.51) 03/03/2024 Type 2 diabetes mellitus with diabetic peripheral angiopathy without gangrene (ICD-10 - E11.51) 03/03/2024 Onychomycosis (ICD-10 - B35.1) 05/30/2024 Type 2 diabetes mellitus with diabetic peripheral angiopathy without gangrene (ICD-10 - E11.51) 05/30/2024 Onychomycosis (ICD-10 - B35.1) 03/03/2024 Pain of toe of right foot (ICD-10 - M79.674) 05/30/2024 Pain of toe of right foot (ICD-10 - M79.674) 09/07/2023 Onychomycosis (ICD-10 - B35.1) 09/07/2023 Pain of toe of right foot (ICD-10 - M79.674) 03/03/2024 Pain of toe of left foot (ICD-10 - M79.675) 05/30/2024 Pain of toe of left foot (ICD-10 - M79.675) 09/07/2023 Pain of toe of left foot (ICD-10 - M79.675) 03/03/2024 Ingrown nail (ICD-10 - L60.0) 09/07/2023 Ingrown nail (ICD-10 - L60.0) 09/07/2023 Other hammer toe(s) (acquired), left foot (ICD-10 - M20.42) 09/07/2023 Other hammer toe(s) (acquired), right foot (ICD-10 - M20.41) Patient Educated with: DIABETIC FOOT CARE INSTRUCTIONS.p df (DIABETIC FOOT CARE INSTRUCTIONS.p df) 03/03/2024 Other 05/30/2024 Other Plan Of Treatment Pending Test Test Name Order Date Hemoglobin A1c 11/13/2014 48867-KIKCNLA NAIL, 6 OR MORE 04/02/2015 05643-NEMEHUJ NAIL, 6 OR MORE 01/03/2016 00949-FEVSNGC NAIL, 6 OR MORE 04/03/2016 89989-JBTYTZP NAIL, 6 OR MORE 11/24/2016 98722-BMPMSLW NAIL, 6 OR MORE 03/12/2017 84076-CREMPMB NAIL, 6 OR MORE 01/03/2013 25348-OYOMCRO NAIL, 6 OR MORE 04/07/2013 27153-WHPAGZB NAIL, 6 OR MORE 11/14/2013 17482-BXHNRSG NAIL, 6 OR MORE 03/23/2014 65355-XISXOCI NAIL, 6 OR MORE 11/13/2014 19702-CADLFUI NAIL, 6 OR MORE 11/30/2017 04638-KKTLVWQ NAIL, 6 OR MORE 03/08/2018 54281-LMXYVPT NAIL, 6 OR MORE 06/21/2018 59006-BTGWILD NAIL, 6 OR MORE 11/08/2018 46043-MAXNKDW NAIL, 6 OR MORE 02/07/2019 50291-RNURSSS NAIL, 6 OR MORE 05/26/2019 18811-EAVDWDM NAIL, 6 OR MORE 10/27/2019 98350-MWXZKFN NAIL, 6 OR MORE 03/08/2020 43950-VKYRZSK NAIL, 6 OR MORE 06/07/2020 41330-RWUZANZ NAIL, 6 OR MORE 10/25/2020 86436-BFBFREJ NAIL, 6 OR MORE 01/31/2021 65689-MHSOJVU NAIL, 6 OR MORE 05/09/2021 99491-WSJBCES NAIL, 6 OR MORE 08/15/2021 16413-LGDJLSH NAIL, 6 OR MORE 11/14/2021 25206-KTOJFEB NAIL, 6 OR MORE 02/13/2022 21257-HVCMVJU NAIL, 6 OR MORE 05/15/2022 28406-OCNJLEK NAIL, 6 OR MORE 08/28/2022 36684-DUFKMAY NAIL, 6 OR MORE 12/01/2022 89371-PXLMFZV NAIL, 6 OR MORE 03/09/2023 08402-LZHMRQF NAIL, 6 OR MORE 06/15/2023 70988-HGBQUHV NAIL, 6 OR MORE 09/07/2023 15093-VORKPRI NAIL, 6 OR MORE 03/03/2024 60231-WNEKQSW NAIL, 6 OR MORE 05/30/2024 45542-Utmwcdiy Plate 03/03/2024 55470-Ykqkeytj Plate 09/07/2023 44425-Fuotdqwo Plate 06/15/2023 88626-Ffdkufrn Plate 03/09/2023 72822-Mtxszmvy Plate 05/09/2021 89380-Rrpfqxbt Plate 12/01/2022 46357-Dvzgfoxb Plate 02/13/2022 06686-Uvydvgir Plate 11/14/2021 31285-Dbycaawq Plate 08/15/2021 00436-Mlsvqnup Plate 11/13/2014 79391-Qnpfxzru Plate 03/23/2014 99868-Brcupuii Plate 11/14/2013 11974-Ptyrdewm Plate 11/30/2017 88946-Vzwygtgl Plate 04/02/2015 99686-Gjmhqbmb Plate Each Additional 87766-Stagsazj Plate Each Additional 35238-Cqzcwbpi Plate Each Additional 06/2015 79736-NSTN SKIN LESIONS, OVER 4 05/09/20 73999-QUPY SKIN LESIONS, OVER 4 05/15/20 80715-BOUM SKIN LESIONS, OVER 4 03/09/20 18796-LTKU SKIN LESIONS, OVER 4 12/02/19 69773-AGFR SKIN LESIONS, OVER 4 08/28/19 62176-NMXG SKIN LESIONS, OVER 4 09/07/19 56753-VJAM SKIN LESIONS, OVER 4 06/15/20 17663-ERPC SKIN LESIONS, OVER 4 03/03/20 82240-NQFK SKIN LESIONS, OVER 4 05/30/20 30132-NTWG SKIN LESIONS, 2 TO 4 02/14/20 74367-WPCQ SKIN LESIONS, 2 TO 4 08/15/19 05156-QNWM SKIN LESIONS, 2 TO 4 11/15/19 92055-HCFN SKIN LESIONS, 2 TO 4 02/01/20 02442-VYIA SKIN LESIONS, 2 TO 4 10/26/19 72407-ITDF SKIN LESIONS, 2 TO 4 06/07/20 73408-RUTK SKIN LESIONS, 2 TO 4 03/08/20 Next Appt Details Provider Name:Tejas Bernal Claudia , 09/01/2024 10:45:00 AM, [address] [facility], [place], [address], Insurance Providers Payer Name Payer Address Payer Phone Subscriber Number Group Number Insured Name Patient Relationship to Insured Coverage Start Date Coverage End Date Medicare National [employer] [address] [facility] [place] [address] [id number] Aric Gaitan Self - patient is the insured A[employer] Secondary to Medicare [address] [place] [id number] Aric Gaitan Self - patient is the insured Medical (General) History Medical History History ICD Code anxiety back, hip, knee pain broken bones cholesterol cataracts depression heart disease high blood pressure poor circulation measles mumps chicken pox joint implants/screws type II diabetes covid-19 Surgical History Surgery Date(Month/Year) 5 bypass heart surgery 05/26/2004 broken jaw 2006 Hospitalization History Reason Date(Month/Year) Diverticulitis 09/2023 Diverticulitis Jul 2023
[2024-07-16 15:59] LABS: MANUAL DIFF FLAG NO
[2024-07-16 16:06] LABS: Basophils Percent Auto 0.4 % (0-2); Eosinophils Percent Auto 0.4 % (0-4); Hematocrit 35.4 % (42.0-52.0); Hemoglobin 12.4 g/dl (14.0-18.0); Imm Gran Abs Auto 0.02 X10*3/uL (0.00-0.03); Imm Gran Pct Auto 0.8 % (0.0-0.4); Lymphocytes Absolute Auto 0.4 X10*3/uL (1.2-4.9); Lymphocytes Percent Auto 14.5 % (20-40); Mean Corpuscular Volume 88.5 fL (80.0-98.0); Monocytes Absolute Auto 0.4 X10*3/uL (0.1-1.2); Monocytes Percent Auto 13.7 % (2-11); Neutrophils Absolute Auto 1.8 x10*3/uL (2.0-8.3); Neutrophils Percent Auto 70.2 % (45-73); Red Cell Distribution Width 12.2 % (11.0-16.0); White Blood Count 2.6 X10*3/uL (4.8-10.8)
[2024-07-16 16:17] LABS: Alanine Aminotransferase 34 U/L (0-40); Albumin Level 4.3 g/dL (3.5-5.0); Alkaline Phosphatase 69 U/L (39-117); Anion Gap 10 (12-20); Aspartate Amino Transferase 36 U/L (5-37); Bilirubin Direct 0.2 mg/dL (0.0-0.5); Bilirubin Total 0.6 mg/dL (0.0-1.0); Blood Urea Nitrogen 17 mg/dL (9-16); Calcium 8.8 mg/dL (8.4-10.2); Carbon Dioxide 27 mmol/L (22-29); Chloride 106 mmol/L (96-108); Creatinine Clr Calc Pharmacy 42.8; Estimated Glomerular Filt Rate 51; Glucose Random 115 mg/dL (60-115); Magnesium 1.9 mg/dL (1.6-2.6); Potassium 4.6 mmol/L (3.3-5.1); Sodium 138 mmol/L (135-145); Total Protein 7.7 g/dL (6.5-8.0)
[2024-07-16] MEDS: Albuterol Sulfate 2.5 MG, Albuterol/Iprat 2.5/0.5MG 3 ML 3 ML INHALE (16:17)
[2024-07-16] MEDS: methylPREDNISolone Sod Succ 125 MG/2 ML VIAL 60 MG IVPUSH (16:57)
[2024-07-16] MEDS: Azithromycin 500 MG in 0.9 % Sodium Chloride 250 ML 125 MG IV (16:57)
[2024-07-16 16:59] LABS: Mean Platelet Volume 9.1 fL (9.4-12.4); Platelet Count 80 X10*3/uL (160-400)
[2024-07-16 17:24] LABS: Appearance Urine Clear; Color Urine Yellow; Glucose Urine UA Negative (Negative); Leukocyte Esterase Urine Negative (Negative); Nitrite Urine Negative (Negative); UMIC TRIGGER UACC YES; Urine Blood Small (1+) (Negative); Urine Ketones Negative (Negative); Urine Protein Negative (Neg-Trace)
[2024-07-16 17:30] LABS: Bacteria Urine None Seen (None Seen); Hyaline Casts Urine 0-2 /LPF (0-2); Squamous Epithelial Cell Urine 0-2 /HPF (0-2); WBC Urine 0-5 /HPF (0-5)
[2024-07-16 18:44] LABS: Influenza A PCR NEGATIVE (Negative); Influenza B PCR NEGATIVE (Negative); Resp Syncy Virus RNA Qual PCR POSITIVE (Negative); SARS COV2 PCR INHOUSE NEGATIVE (Negative)
--- NOTE | 2024-07-16 19:27 | PC.NURSE ---
Assumed care of this patient at 1900, patient resting quietly on stretcher at this time, sating 93 - 95% on 2.5L NC, awaiting admit orders/provider.
--- NOTE | 2024-07-16 19:31 | P.HPHOSP_ITS ---
History of Present Illness Date of Service: 07/16/24 Attending physician on admission: Moncho Caba Chief Complaint: Diarrhea Aric Gaitan is 83 years old man with past medical history significant for CAD, hypercholesterolemia, hypertension and anxiety/depression presents to the emergency department complaining of flu-like symptoms that started Wednesday including dry cough and nasal congestion. He denied any fever, chills, fever or sore throat. He mentioned that last Wednesday he was found to have UTI and was being taking Augmentin. Today he started to have multiple events of soft stools (non watery, nonbloody). He did not report any chest pain or shortness on breath. He did not report tobacco smoking or alcohol abuse. In the ED, he was found to have mild degree of tachypnea. There is no fever, tachycardia or hypotension. O2 sats dropped to 80% on room air and currently requiring 2 liters/minutes supplemental oxygen via nasal cannula. Blood workup was remarkable for neutropenia. Hemoglobin is 12.4 and at baseline. There is thrombocytopenia of 80. Electrolytes are normal. Creatinine is 1.33 and BUN 17. LFTs are normal. UA only remarkable for red blood cells 6-10 and blood 1+, normal WBC, leukocyte steroids and negative nitrites. CXR showed left lower lobe infiltrate concerning for pneumonia. ED tx: NS 1 L bolus, azithromycin 500 mg p.o., Solu-Medrol 60 mg IV, DuoNeb Review of Systems 2 Review of Systems: All 12 systems were reviewed and normal except as noted in HPI. [facility] Medical History Coronary artery disease Benign prostatic hyperplasia Hypercholesterolemia Depression Anxiety Hypertension Surgical History History of ankle surgery History of heart surgery (~05/2004) Social History Household Members: Spouse Housing: House Do you presently have visiting nurse or other home services: No Alcohol intake: never Patient Tobacco Use Status: Former Tobacco user Years Smoked: 30 years Smoked in Last 30 Days: No Second Hand Smoke Exposure: No Use of substances other than those prescribed or required for medical reasons: No Advance Directives: No Advance Directives Information Provided: Yes Advance Directives Date on File: 07/07/23 Do you have a plan to hurt others: No Plan service: No Meds Allergies Allergy/AdvReac Type Severity Reaction Status Date / Time No Known Allergies Allergy Mild NOT Verified 07/16/24 14:12 APPLICABLE Active Medications: Current Medications Acetaminophen (Acetaminophen 325 Mg Tablet) 975 mg PO Q6H PRN PRN Reason: Pain, Mild 1-3,fever,headache Ceftriaxone Sodium (Ceftriaxone Sodium 1 Gm Vial) 1 gm IVPUSH Q24H [facility] Azithromycin 500 mg/ Sodium (Chloride) 250 mls @ 125 mls/hr IV DAILY [facility] Melatonin (Melatonin 3 Mg Tablet) 6 mg PO BEDTIME PRN PRN Reason: Insomnia Ondansetron HCl (Ondansetron Hcl 4 Mg/2 Ml Vial) 4 mg IVPUSH Q8H PRN PRN Reason: Nausea and Vomiting Sodium Chloride (0.9 % Sodium Chloride Flush 3 Ml Syringe) 3 ml IVFLUSH QSHIFT [facility] Home Medications ?Medication ?Instructions ?Recorded ?Confirmed ?Last Taken ?Type alprazolam 0.5 mg tablet 0.5 mg PO TID Anxiety 05/29/20 07/06/23 07/05/22 History clopidogrel 75 mg tablet 75 mg PO DAILY 05/29/20 07/06/23 07/05/22 History doxazosin 8 mg tablet 8 mg PO DAILY 05/29/20 07/06/23 07/05/22 History finasteride 5 mg tablet 5 mg PO DAILY 05/29/20 07/06/23 07/05/22 History lisinopril 2.5 mg tablet 2.5 mg PO DAILY 05/29/20 07/06/23 07/05/22 History metoprolol succinate 25 mg 25 mg PO DAILY 05/29/20 07/06/23 07/05/22 History tablet,extended release 24 hr rosuvastatin 20 mg tablet 20 mg PO BEDTIME 05/29/20 07/06/23 07/05/22 History sertraline 100 mg tablet 100 mg PO DAILY 05/29/20 07/06/23 07/05/22 History cholecalciferol (vitamin D3) 25 25 mcg PO DAILY 07/06/23 07/06/23 07/05/22 History mcg (1,000 unit) tablet cyanocobalamin (vitamin B-12) 1,000 mcg PO DAILY 07/06/23 07/06/23 07/05/22 History 1,000 mcg tablet ferrous sulfate 325 mg (65 mg 325 mg PO DAILY 07/06/23 07/06/23 07/05/22 History iron) tablet flaxseed 1,000 mg capsule 1,000 mg PO DAILY 07/06/23 07/06/23 07/05/22 History multivitamin 1 tab PO DAILY 07/06/23 07/06/23 07/05/22 History omega [id number]-fish oil 1,000 mg 1 cap PO DAILY 07/06/23 07/06/23 07/05/22 History (120 mg-180 mg) capsule (Fish Oil) pantoprazole 20 mg tablet,delayed 20 mg PO DAILY 07/06/23 07/06/23 07/05/22 History release Physical Exam 2 Vital Signs and Narrative: Vital Signs: Last Vital Signs Temp 98.4 F 07/16/24 19: Pulse 83 07/16/24 19: Resp 24 H 07/16/24 19: BP 166/85 H 07/16/24 19: Pulse Ox 95 07/16/24 19:26 O2 Del Method Nasal Cannula 07/16/24 19: O2 Flow Rate 2.5 07/16/24 19:26 BMI result Body Mass Index 23.6 Constitutional - Awake and Alert, No apparent distress HEENT - PERRL, EOMI. Oropharyx normal. Dry oral mucosa. Heart - S1S2, RRR, No murmurs Lungs - Normal lung expansion, Normal respiratory effort, No respiratory distress. Tachypnea. Left lower base crackles. Right lung clear. No wheezing. No rhonchi. Abdomen - NT / ND; +BS; No rebound or guarding - No CVA tenderness Extremities - no calf tenderness bilaterally, no swelling Musculoskeletal - Normal inspection, normal ROM Skin - Warm/Dry. No pallor. Neurological - Alert & oriented x3. No focal weakness grossly noted. Normal speech. Psychological - Appropriate affect Results Labs 07/16/24 15:52 07/16/24 15:52 Labs: Laboratory Results - last 24 hr 07/16/24 07/16/24 07/16/24 15:52 15:53 16:58 MCV 88.5 MCH 31.0 MCHC 35.0 RDW 12.2 Plt Count 80 L D MPV 9.1 L Immature Gran % (Auto) 0.8 H Neut % (Auto) 70.2 Lymph % (Auto) 14.5 L [place] % (Auto) 13.7 H Eos % (Auto) 0.4 Baso % (Auto) 0.4 Lymph # (Auto) 0.4 L [place] # (Auto) 0.4 Eos # (Auto) 0.0 Baso # (Auto) 0.0 Abs Immat Gran (auto) 0.02 Absolute Neuts (auto) 1.8 L Absolute Nucleated RBC 0.000 Nucleated RBC % (auto) 0.0 Anion Gap 10 L Estim Creat Clear Calc 42.8 Estimated GFR 51 Random Glucose 115 Calcium 8.8 D Magnesium 1.9 Total Bilirubin 0.6 Direct Bilirubin 0.2 AST 36 ALT 34 Alkaline Phosphatase 69 Total Protein 7.7 Albumin 4.3 Urine Color Yellow Urine Appearance Clear Urine pH 6.0 Ur Specific [place] 1.010 Urine Protein Negative Urine Glucose (UA) Negative Urine Ketones Negative Urine Blood Small (1+) H Urine Nitrite Negative Ur Leukocyte Esterase Negative Urine RBC 6-10 H Urine WBC 0-5 Ur Squamous Epith Cells 0-2 Urine Bacteria None Seen Hyaline Casts 0-2 Influenza Type A (PCR) NEGATIVE Influenza Type B (PCR) NEGATIVE RSV RNA Qual (PCR) POSITIVE A SARS-CoV-2 RNA (RT-PCR) NEGATIVE Assessment and Plan (1) Acute respiratory failure with hypoxia: Status: Acute (2) Respiratory syncytial virus (RSV): Qualifiers: RSV infection type: acute bronchitis Qualified Code(s): J20.5 - Acute bronchitis due to respiratory syncytial virus Status: Acute (3) Pneumonia: Qualifiers: Pneumonia type: due to unspecified organism Laterality: left Lung location: lower lobe of lung Qualified Code(s): J18.9 - Pneumonia, unspecified organism Status: Acute Plan Aric Gaitan is 83 y/o man admitted with: * Acute hypoxic respiratory failure secondary to left lower lobe pneumonia and RSV infection. Admit to hospitalist service. Telemetry. Pulse oximetry. Supplemental O2 to keep O2 sats > 90%. Empiric IV antibiotic therapy with ceftriaxone azithromycin. * Pancytopenia, likely secondary to RSV infection. Continue to monitor. * Diarrhea, likely secondary to Augmentin. Check C diff and GI panel. * Essential hypertension. Continue home meds if any. * Anxiety/depression. Anti-anxiolytic as needed. * CAD. Continue home meds. DVT prophylaxis: SCDs. Pharmacological VT prophylaxis contraindicated due to thrombocytopenia. GI prophylaxis: PPI Code status: Full Need hospitalization for at least 2 midnights for acute has prostate respiratory failure due to pneumonia and RSV infection with supplemental oxygen and empiric IV antibiotic therapy. Quality Stroke Does the patient have a stroke diagnosis?: No VTE Prior VTE?: No VTE Risk Level:: Medical - moderate - high VTE Device Contraindication: Treatment Not Indicated VTE Drug Contraindication: N/A - Med Ordered
[2024-07-16] MEDS: cefTRIAXone sodium 1 GM VIAL IVPUSH (19:39)
[2024-07-17] VITALS (8 sets, daily range): BP systolic 141–177; BP diastolic 72–86; PULSE 63–75; RESP 14–20; TEMP 36.6–36.8; O2SAT 94–97
[2024-07-17 05:26] LABS: MANUAL DIFF FLAG NO
[2024-07-17 05:29] LABS: Hematocrit 34.5 % (42.0-52.0); Hemoglobin 12.2 g/dl (14.0-18.0); Imm Gran Abs Auto 0.03 X10*3/uL (0.00-0.03); Imm Gran Pct Auto 1.1 % (0.0-0.4); Lymphocytes Absolute Auto 0.5 X10*3/uL (1.2-4.9); Lymphocytes Percent Auto 19.2 % (20-40); Mean Corpuscular HGB Conc 35.4 g/dl (31.0-36.0); Mean Corpuscular Hemoglobin 31.1 pg (27.0-33.0); Mean Platelet Volume 9.3 fL (9.4-12.4); Monocytes Absolute Auto 0.2 X10*3/uL (0.1-1.2); Monocytes Percent Auto 5.3 % (2-11); Neutrophils Absolute Auto 2.1 x10*3/uL (2.0-8.3); Neutrophils Percent Auto 74.4 % (45-73); Red Blood Count 3.92 X10*6/uL (4.60-5.80); Red Cell Distribution Width 12.2 % (11.0-16.0); White Blood Count 2.8 X10*3/uL (4.8-10.8)
[2024-07-17 05:31] LABS: Platelet Count 98 X10*3/uL (160-400)
[2024-07-17 05:46] LABS: Anion Gap 14 (12-20); Blood Urea Nitrogen 18 mg/dL (9-16); Calcium 8.9 mg/dL (8.4-10.2); Carbon Dioxide 22 mmol/L (22-29); Chloride 107 mmol/L (96-108); Estimated Glomerular Filt Rate 57; Glucose Random 137 mg/dL (60-115); Magnesium 1.9 mg/dL (1.6-2.6); Potassium 4.4 mmol/L (3.3-5.1); Sodium 139 mmol/L (135-145)
[2024-07-17] MEDS: 0.9 % Sodium Chloride Flush 3 ML SYRINGE IVFLUSH ×3 (07:35→23:22)
[2024-07-17] MEDS: Pantoprazole Sodium 40 MG/10 ML VIAL IVPUSH (07:35)
--- NOTE | 2024-07-17 10:05 | PHA.MEDREC ---
Addendum entered by Lesly Hammonds RPh 07/17/24 10:22: reviewed by [facility]. Original Note: Pharmacy Consult ? Medication Reconciliation Pharmacy has completed the medication reconciliation. Spoke to patient to confirm med list. Patient had a list of medication with him. Didn't see any claim history on patient Except Augmentin 875 mg and Alprazolam 0.5 mg. Patient states he fills his medications through mail order [facility] ( ). Called [facility] and confirmed medications for Clopidogrel 75 mg, Doxazosin 8 mg, Finasteride 5 mg, Lisinopril 2.5 mg, Metoprolol succ 25 mg, Pantoprazole 20 mg, Rosuvastatin 20 mg, Sertraline 50 mg. Patient states he is no longer taking Fluicasone Propionate nasal spray, Culturelle, Miralax, and Tramadol 50 mg. Patient last took his medication Wednesday07/16/23.
[2024-07-17] MEDS: Multivitamin TABLET 1 TAB PO (11:58)
[2024-07-17] MEDS: Metoprolol Succinate ER 25 MG TAB.ER.24H PO (11:58)
[2024-07-17] MEDS: Cholecalciferol (Vitamin D3) 25 MCG TABLET PO (11:58)
[2024-07-17] MEDS: Cyanocobalamin (Vitamin B-12) 1,000 MCG TABLET 1000 MCG PO (11:59)
[2024-07-17] MEDS: Finasteride 5 MG TABLET PO (11:59)
[2024-07-17] MEDS: Ferrous Sulfate 324 MG TABLET.DR PO (11:59)
[2024-07-17] MEDS: Sertraline HCL 50 MG TABLET PO ×2 (11:59→21:05)
[2024-07-17] MEDS: lisinopriL 2.5 MG TABLET PO (11:59)
--- NOTE | 2024-07-17 12:33 | HO.PM.IMPN ---
Subjective Subjective Date of Service: 07/17/24 Interval History: Follow-up on acute hypoxic respiratory failure due to pneumonia and RSV. Overall better however remains on oxygen. Physical Exam Vital Signs: Vital Signs: Last Vital Signs Temp 98.2 F 07/17/24 11:57 Pulse 73 07/17/24 11:57 Resp 17 07/17/24 11:57 BP 156/72 H 07/17/24 11:57 Pulse Ox 96 07/17/24 11:57 O2 Del Method Nasal Cannula 07/17/24 11:57 O2 Flow Rate 2 07/17/24 11:57 BMI result Body Mass Index 23.6 General: AO X 3, no acute distress Resp: CTA bilateral CVS: S1,S2,RRR GI: +BS, NT, no distention Skin: No rash Neuro: motor grossly intact Psych: appropriate affect Objective Data Active Medications Acetaminophen (Acetaminophen 325 Mg Tablet) 975 mg PO Q6H PRN PRN Reason: Pain, Mild 1-3,fever,headache Alprazolam (Alprazolam 0.5 Mg Tablet) 0.5 mg PO TID [facility] Atorvastatin Calcium (Atorvastatin Calcium 80 Mg Tablet) 80 mg PO DAILY [facility] Ceftriaxone Sodium (Ceftriaxone Sodium 1 Gm Vial) 1 gm IVPUSH Q24H [facility] Last Admin: 07/16/24 19:39 Dose: 1 gm Documented By: COTY Clopidogrel Bisulfate (Clopidogrel Bisulfate 75 Mg Tablet) 75 mg PO BEDTIME [facility] Cyanocobalamin (Cyanocobalamin (Vitamin B-12) 1,000 Mcg Tablet) 1,000 mcg PO DAILY [facility] Last Admin: 07/17/24 11:59 Dose: 1,000 mcg Documented By: FLORIN Doxazosin Mesylate (Doxazosin Mesylate 2 Mg Tablet) 8 mg PO BEDTIME [facility]; Protocol Ferrous Sulfate (Ferrous Sulfate 324 Mg Tablet.Dr) 324 mg PO DAILY [facility] Last Admin: 07/17/24 11:59 Dose: 324 mg Documented By: FLORIN Finasteride (Finasteride 5 Mg Tablet) 5 mg PO DAILY [facility] Last Admin: 07/17/24 11:59 Dose: 5 mg Documented By: FLORIN Guaifenesin/Dextromethorphan (Guaifenesin Dm 200/20/10 Ml 10 Ml Syrup) 10 ml PO Q4H PRN PRN Reason: Cough Azithromycin 500 mg/ Sodium (Chloride) 250 mls @ 125 mls/hr IV Q24H [facility] Lisinopril (Lisinopril 2.5 Mg Tablet) 2.5 mg PO DAILY [facility]; Protocol Last Admin: 07/17/24 11:59 Dose: 2.5 mg Documented By: FLORIN Melatonin (Melatonin 3 Mg Tablet) 6 mg PO BEDTIME PRN PRN Reason: Insomnia Metoprolol Succinate (Metoprolol Succinate Er 25 Mg Tab.Er.24h) 25 mg PO DAILY [facility]; Protocol Last Admin: 07/17/24 11:58 Dose: 25 mg Documented By: FLORIN Multivitamins/Vitamin C (Multivitamin Tablet) 1 tab PO DAILY [facility] Last Admin: 07/17/24 11:58 Dose: 1 tab Documented By: FLORIN Ondansetron HCl (Ondansetron Hcl 4 Mg/2 Ml Vial) 4 mg IVPUSH Q8H PRN PRN Reason: Nausea and Vomiting Pantoprazole Sodium (Pantoprazole Sodium 20 Mg Tablet.Dr) 20 mg PO DAILY@0630 [facility] Sertraline HCl (Sertraline Hcl 50 Mg Tablet) 50 mg PO BID [facility] Last Admin: 07/17/24 11:59 Dose: 50 mg Documented By: FLORIN Sodium Chloride (0.9 % Sodium Chloride Flush 3 Ml Syringe) 3 ml IVFLUSH QSHIFT [facility] Last Admin: 07/17/24 07:35 Dose: 3 ml Documented By: SANGEETA Vitamin D (Cholecalciferol (Vitamin D3) 25 Mcg Tablet) 25 mcg PO DAILY [facility] Last Admin: 07/17/24 11:58 Dose: 25 mcg Documented By: FLORIN Labs 07/17/24 05:00 07/17/24 05:00 Labs: Laboratory Results - last 24 hr 07/16/24 07/16/24 07/16/24 15:52 15:53 16:58 MCV 88.5 MCH 31.0 MCHC 35.0 RDW 12.2 Plt Count 80 L D MPV 9.1 L Immature Gran % (Auto) 0.8 H Neut % (Auto) 70.2 Lymph % (Auto) 14.5 L [place] % (Auto) 13.7 H Eos % (Auto) 0.4 Baso % (Auto) 0.4 Lymph # (Auto) 0.4 L [place] # (Auto) 0.4 Eos # (Auto) 0.0 Baso # (Auto) 0.0 Abs Immat Gran (auto) 0.02 Absolute Neuts (auto) 1.8 L Absolute Nucleated RBC 0.000 Nucleated RBC % (auto) 0.0 Anion Gap 10 L Estim Creat Clear Calc 42.8 Estimated GFR 51 Random Glucose 115 Calcium 8.8 D Magnesium 1.9 Total Bilirubin 0.6 Direct Bilirubin 0.2 AST 36 ALT 34 Alkaline Phosphatase 69 Total Protein 7.7 Albumin 4.3 Urine Color Yellow Urine Appearance Clear Urine pH 6.0 Ur Specific [place] 1.010 Urine Protein Negative Urine Glucose (UA) Negative Urine Ketones Negative Urine Blood Small (1+) H Urine Nitrite Negative Ur Leukocyte Esterase Negative Urine RBC 6-10 H Urine WBC 0-5 Ur Squamous Epith Cells 0-2 Urine Bacteria None Seen Hyaline Casts 0-2 Influenza Type A (PCR) NEGATIVE Influenza Type B (PCR) NEGATIVE RSV RNA Qual (PCR) POSITIVE A SARS-CoV-2 RNA (RT-PCR) NEGATIVE 07/17/24 05:00 MCV 88.0 MCH 31.1 MCHC 35.4 RDW 12.2 Plt Count 98 L MPV 9.3 L Immature Gran % (Auto) 1.1 H Neut % (Auto) 74.4 H Lymph % (Auto) 19.2 L [place] % (Auto) 5.3 Eos % (Auto) 0.0 Baso % (Auto) 0.0 Lymph # (Auto) 0.5 L [place] # (Auto) 0.2 Eos # (Auto) 0.0 Baso # (Auto) 0.0 Abs Immat Gran (auto) 0.03 Absolute Neuts (auto) 2.1 Absolute Nucleated RBC 0.000 Nucleated RBC % (auto) 0.0 Anion Gap 14 Estim Creat Clear Calc 47.0 Estimated GFR 57 Random Glucose 137 H Calcium 8.9 Magnesium 1.9 Total Bilirubin Direct Bilirubin AST ALT Alkaline Phosphatase Total Protein Albumin Urine Color Urine Appearance Urine pH Ur Specific [place] Urine Protein Urine Glucose (UA) Urine Ketones Urine Blood Urine Nitrite Ur Leukocyte Esterase Urine RBC Urine WBC Ur Squamous Epith Cells Urine Bacteria Hyaline Casts Influenza Type A (PCR) Influenza Type B (PCR) RSV RNA Qual (PCR) SARS-CoV-2 RNA (RT-PCR) Assessment and Plan (1) Pneumonia: Status: Acute (2) Acute respiratory failure with hypoxia: Status: Acute (3) Hypoxia: Status: Acute Plan 83/m with Acute hypoxic respiratory failure secondary to left lower lobe pneumonia and RSV infection -Ceftriaxone + Azithro for PNA -symptomatic Tx for RSV -Wean off O2 as romi Pancytopenia, likely secondary to RSV infection. -monitor and if persists beyond viral infection, then hematology referal Diarrhea, likely secondary to Augmentin. Check C diff and GI panel if persists Essential hypertension. Continue home meds (lisinopril, metoprolol) Anxiety/depression. Alprozalam PRN CAD, statin, metoprolol DVT prophylaxis: SCDs. Pharmacological VT prophylaxis contraindicated due to thrombocytopenia. GI prophylaxis: PPI Code status: Full need for inpt: IV Abx for PNA, acute O2 need for acute hypoxic resp failure Quality Stroke Does the patient have a stroke diagnosis?: No VTE Prior VTE?: No VTE Risk Level:: Medical - moderate - high VTE Device Contraindication: Treatment Not Indicated VTE Drug Contraindication: N/A - Med Ordered
[2024-07-17] MEDS: ALPRAZolam 0.5 MG TABLET PO ×2 (15:08→21:05)
[2024-07-17] MEDS: Azithromycin 500 MG in 0.9 % Sodium Chloride 250 ML 125 MG IV (16:52)
--- NOTE | 2024-07-17 17:00 | PC.NURSE ---
Patient arrived to [facility] at 1600, a&o x 4, able to transfer from stretcher to bed with minimal assistance. Patient currently on supplemental oxygen 2L via NC sats above 95%. No complaints, requested bedside commode but unable to move bowel. BP elevated on arrival at 177/81 repeat 141/75, patient asymptomatic. Resting comfortably, visitor at bedside.
--- NOTE | 2024-07-17 17:12 | MHC.EDTECH ---
Call to [place] [phone] for delivery of patients dinner tray to overflow bed 4. They will send one up.
--- NOTE | 2024-07-17 18:17 | MHC.EDTECH ---
Patient requesting supplies to brush his teeth. This tech provided necessary toiletries and rinse basin. Patient aware to ring stover when he is finished. All current needs met.
[2024-07-17] MEDS: Clopidogrel Bisulfate 75 MG TABLET PO (21:05)
[2024-07-17] MEDS: cefTRIAXone sodium 1 GM VIAL IVPUSH (21:05)
[2024-07-17] MEDS: Doxazosin Mesylate 2 MG TABLET 8 MG PO (21:07)
[2024-07-18] MEDS: Pantoprazole Sodium 20 MG TABLET.DR PO (05:44)
--- NOTE | 2024-07-18 06:17 | PC.NURSE ---
Pt found to be 89% on 2L, increased to 3L and brought pt up to 93%. Respiratory aware.
[2024-07-18 06:18] VITALS: BP 145/78; PULSE 63; RESP 14; TEMP 36.5; O2SAT 93
[2024-07-18 08:54] VITALS: BP 147/75; PULSE 72; RESP 20; TEMP 36.7; O2SAT 93
[2024-07-18] MEDS: Cholecalciferol (Vitamin D3) 25 MCG TABLET PO (08:55)
[2024-07-18] MEDS: lisinopriL 2.5 MG TABLET PO (08:55)
[2024-07-18] MEDS: Finasteride 5 MG TABLET PO (08:55)
[2024-07-18] MEDS: Atorvastatin Calcium 80 MG TABLET PO (08:55)
[2024-07-18] MEDS: Cyanocobalamin (Vitamin B-12) 1,000 MCG TABLET 1000 MCG PO (08:56)
[2024-07-18] MEDS: Ferrous Sulfate 324 MG TABLET.DR PO (08:56)
[2024-07-18] MEDS: Multivitamin TABLET 1 TAB PO (08:56)
[2024-07-18] MEDS: Sertraline HCL 50 MG TABLET PO ×2 (08:56→21:13)
[2024-07-18] MEDS: Metoprolol Succinate ER 25 MG TAB.ER.24H PO (08:56)
[2024-07-18] MEDS: ALPRAZolam 0.5 MG TABLET PO ×3 (08:56→21:13)
--- NOTE | 2024-07-18 10:11 | PC.NURSE ---
assumed care of patient at 0700, patient found to not be wearing his oxygen. patient satting 88% on room air, placed back on 3lNC, recovered well to 93%. patient VSS. patient medicated per MAR, takes meds whole with water. patient is alert and oriented x3, urinal emptied of 300cc urine this morning. patient sat up and ate breakfast.
--- NOTE | 2024-07-18 12:01 | HO.PM.IMPN ---
Subjective Subjective Date of Service: 07/18/24 Interval History: Follow-up on acute hypoxic respiratory failure due to pneumonia and RSV. better, still requiring oxygen Physical Exam Vital Signs: Vital Signs: Last Vital Signs Temp 98.1 F 07/18/24 08:54 Pulse 72 07/18/24 08:54 Resp 20 07/18/24 08:54 BP 147/75 H 07/18/24 08:54 Pulse Ox 93 07/18/24 08:54 O2 Del Method Nasal Cannula 07/18/24 08:54 O2 Flow Rate 3 07/18/24 08:54 BMI result Body Mass Index 23.6 Const: Other: General: AO X 3, no acute distress Resp: CTA bilateral CVS: S1,S2,RRR GI: +BS, NT, no distention Skin: No rash Neuro: motor grossly intact Psych: appropriate affect Objective Data Active Medications Acetaminophen (Acetaminophen 325 Mg Tablet) 975 mg PO Q6H PRN PRN Reason: Pain, Mild 1-3,fever,headache Alprazolam (Alprazolam 0.5 Mg Tablet) 0.5 mg PO TID [facility] Last Admin: 07/18/24 08:56 Dose: 0.5 mg Documented By: RADHA Atorvastatin Calcium (Atorvastatin Calcium 80 Mg Tablet) 80 mg PO DAILY [facility] Last Admin: 07/18/24 08:55 Dose: 80 mg Documented By: RADHA Ceftriaxone Sodium (Ceftriaxone Sodium 1 Gm Vial) 1 gm IVPUSH Q24H [facility] Last Admin: 07/17/24 21:05 Dose: 1 gm Documented By: MILA Clopidogrel Bisulfate (Clopidogrel Bisulfate 75 Mg Tablet) 75 mg PO BEDTIME [facility] Last Admin: 07/17/24 21:05 Dose: 75 mg Documented By: MILA Cyanocobalamin (Cyanocobalamin (Vitamin B-12) 1,000 Mcg Tablet) 1,000 mcg PO DAILY [facility] Last Admin: 07/18/24 08:56 Dose: 1,000 mcg Documented By: RADHA Doxazosin Mesylate (Doxazosin Mesylate 2 Mg Tablet) 8 mg PO BEDTIME [facility]; Protocol Last Admin: 07/17/24 21:07 Dose: 8 mg Documented By: MILA Ferrous Sulfate (Ferrous Sulfate 324 Mg Tablet.) 324 mg PO DAILY [facility] Last Admin: 07/18/24 08:56 Dose: 324 mg Documented By: RADHA Finasteride (Finasteride 5 Mg Tablet) 5 mg PO DAILY [facility] Last Admin: 07/18/24 08:55 Dose: 5 mg Documented By: RADHA Guaifenesin/Dextromethorphan (Guaifenesin Dm 200/20/10 Ml 10 Ml Syrup) 10 ml PO Q4H PRN PRN Reason: Cough Azithromycin 500 mg/ Sodium (Chloride) 250 mls @ 125 mls/hr IV Q24H [facility] Last Infusion: 07/17/24 22:57 Dose: Infused Documented By: MILA Lisinopril (Lisinopril 2.5 Mg Tablet) 2.5 mg PO DAILY [facility]; Protocol Last Admin: 07/18/24 08:55 Dose: 2.5 mg Documented By: RADHA Melatonin (Melatonin 3 Mg Tablet) 6 mg PO BEDTIME PRN PRN Reason: Insomnia Metoprolol Succinate (Metoprolol Succinate Er 25 Mg Tab.Er.24h) 25 mg PO DAILY [facility]; Protocol Last Admin: 07/18/24 08:56 Dose: 25 mg Documented By: RADHA Multivitamins/Vitamin C (Multivitamin Tablet) 1 tab PO DAILY [facility] Last Admin: 07/18/24 08:56 Dose: 1 tab Documented By: RADHA Ondansetron HCl (Ondansetron Hcl 4 Mg/2 Ml Vial) 4 mg IVPUSH Q8H PRN PRN Reason: Nausea and Vomiting Pantoprazole Sodium (Pantoprazole Sodium 20 Mg Tablet.) 20 mg PO DAILY@0630 [facility] Last Admin: 07/18/24 05:44 Dose: 20 mg Documented By: MILA Sertraline HCl (Sertraline Hcl 50 Mg Tablet) 50 mg PO BID [facility] Last Admin: 07/18/24 08:56 Dose: 50 mg Documented By: RADHA Sodium Chloride (0.9 % Sodium Chloride Flush 3 Ml Syringe) 3 ml IVFLUSH QSHIFT [facility] Last Admin: 07/18/24 07:14 Dose: Not Given Documented By: RADHA Non-Admin Reason: See Note Vitamin D (Cholecalciferol (Vitamin D3) 25 Mcg Tablet) 25 mcg PO DAILY [facility] Last Admin: 07/18/24 08:55 Dose: 25 mcg Documented By: [facility] Labs 07/17/24 05:00 07/17/24 05:00 Microbiology Microbiology Results: Microbiology 07/16/24 15:53 Blood Culture - Preliminary Blood - Venous No growth after 24 hours. 07/16/24 15:52 Blood Culture - Preliminary Blood - Venous No growth after 24 hours. Assessment and Plan (1) Pneumonia: Status: Acute (2) Acute respiratory failure with hypoxia: Status: Acute (3) Hypoxia: Status: Acute Plan 83/m with Acute hypoxic respiratory failure secondary to left lower lobe pneumonia and RSV infection -Ceftriaxone + Azithro for PNA -symptomatic Tx for RSV -Wean off O2 as romi Pancytopenia, likely secondary to RSV infection. -monitor and if persists beyond viral infection, then hematology referal Diarrhea, he is no longer reporting diarrhea, cancel cdif, he's asking for something for not moving his bowels Essential hypertension. Continue home meds (lisinopril, metoprolol) Anxiety/depression. Alprozalam PRN CAD, statin, metoprolol DVT prophylaxis: SCDs. Pharmacological VT prophylaxis contraindicated due to thrombocytopenia. GI prophylaxis: PPI Code status: Full need for inpt: IV Abx for PNA, acute O2 need for acute hypoxic resp failure Quality Stroke Does the patient have a stroke diagnosis?: No VTE Prior VTE?: No VTE Risk Level:: Medical - moderate - high VTE Device Contraindication: Treatment Not Indicated VTE Drug Contraindication: N/A - Med Ordered
--- NOTE | 2024-07-18 13:56 | PC.NURSE ---
patient refused lunch tray, states his sister is bringing him lunch. patient given cup of coffee. standby assist to help patient to commode, patient had bowel movement and voided. patient sitting on edge of bed, given supplies to brush his teeth as requested. call stover within reach
[2024-07-18 14:15] VITALS: BP 112/63; PULSE 58; RESP 14; TEMP 36.6; O2SAT 95
[2024-07-18] MEDS: Azithromycin 500 MG in 0.9 % Sodium Chloride 250 ML 125 MG IV (17:14)
--- NOTE | 2024-07-18 18:16 | PC.NURSE ---
patient fmaily member brought him soup, patient sat on edge of bed to eat dinner. currently wearing 3lNC, resp even and unlabored. patient medicated per SEP. no signs of acute distress
[2024-07-18 18:21] VITALS: BP 124/66; PULSE 61; RESP 18; TEMP 36.4; O2SAT 95
[2024-07-18] MEDS: guaiFENesin DM 200/20/10 ML 10 ML SYRUP PO (18:41)
--- NOTE | 2024-07-18 19:25 | PC.NURSE ---
This RN assumed pt care @ 1900. Pt a&ox4, no signs of distress. Pt sitting up in bed watching tv. Pt on contact precautions. Plan of care ongoing.
[2024-07-18] MEDS: cefTRIAXone sodium 1 GM VIAL IVPUSH (21:00)
[2024-07-18 21:07] VITALS: BP 124/71; PULSE 68; RESP 20; TEMP 36.3; O2SAT 95
[2024-07-18 21:13] VITALS: BP 124/71
[2024-07-18] MEDS: Clopidogrel Bisulfate 75 MG TABLET PO (21:13)
[2024-07-18] MEDS: Doxazosin Mesylate 2 MG TABLET 8 MG PO (21:13)
--- NOTE | 2024-07-18 21:22 | PC.NURSE ---
Pt medicated per [facility] Plan of care ongoing.
--- NOTE | 2024-07-18 22:41 | PC.NURSE ---
Pt requested and given brief. Pt requested and chucks placed on bed. Pt requested and lights dimmed. Plan of care ongoing.
--- NOTE | 2024-07-18 22:45 | PC.NURSE ---
Pt assisted back into bed by this RN and tech. Pt positioned for comfort Purewick placed. Pt requested and TV and light turned off. Plan of care ongoing.
[2024-07-19 00:10] VITALS: BP 116/66; PULSE 62; RESP 16; TEMP 36.1; O2SAT 97
[2024-07-19] MEDS: Pantoprazole Sodium 20 MG TABLET.DR PO (05:54)
--- NOTE | 2024-07-19 05:58 | PC.NURSE ---
Pt medicated per [facility] Plan of care ongoing.
[2024-07-19 06:24] VITALS: BP 120/70; PULSE 68; RESP 16; TEMP 36.3; O2SAT 96
[2024-07-19 08:00] VITALS: BP 122/62; PULSE 62; RESP 18; TEMP 36.1; O2SAT 96; BMI 23.6
--- NOTE | 2024-07-19 11:02 | PM.DS ---
DS: Providers Provider Date of Service: 07/19/24 Date of admission: 07/16/24 19:27 Date of discharge: 07/19/24 Primary care physician: Wolf Burnette MD DS: Diagnosis Discharge Diagnosis (1) Pneumonia: Status: Acute (2) Acute respiratory failure with hypoxia: Status: Acute (3) Hypoxia: Status: Acute DS: Summary Hospital Course Hospital Course: admission hpi Chief Complaint: Diarrhea Aric Gaitan is 83 years old man with past medical history significant for CAD, hypercholesterolemia, hypertension and anxiety/depression presents to the emergency department complaining of flu-like symptoms that started Wednesday including dry cough and nasal congestion. He denied any fever, chills, fever or sore throat. He mentioned that last Wednesday he was found to have UTI and was being taking Augmentin. Today he started to have multiple events of soft stools (non watery, nonbloody). He did not report any chest pain or shortness on breath. He did not report tobacco smoking or alcohol abuse. In the ED, he was found to have mild degree of tachypnea. There is no fever, tachycardia or hypotension. O2 sats dropped to 80% on room air and currently requiring 2 liters/minutes supplemental oxygen via nasal cannula. Blood workup was remarkable for neutropenia. Hemoglobin is 12.4 and at baseline. There is thrombocytopenia of 80. Electrolytes are normal. Creatinine is 1.33 and BUN 17. LFTs are normal. UA only remarkable for red blood cells 6-10 and blood 1+, normal WBC, leukocyte steroids and negative nitrites. CXR showed left lower lobe infiltrate concerning for pneumonia. ED tx: NS 1 L bolus, azithromycin 500 mg p.o., Solu-Medrol 60 mg IV, [facility] course: Patient presented with shortness of breath, hypoxia and found to have RSV, he was treated with for possible PNA with Azithromycin and Ceftriaxone and symptomatic treatment for RSV. He is doing well, will complete 5 days of azithromycin and symptomatic treatment for RSV. Hypoxia has resolved. Time Attestation Discharge Coordination Time (in mins): 45 Quality: Safe Use of Opioids Does Pt have an Active Cancer Diagnosis on the Problem List?: No Quality: Stroke Does the patient have a stroke diagnosis?: No Physical Exam Vital Signs: Vital Signs: Last Vital Signs Temp 96.9 F 07/19/24 08:00 Pulse 62 07/19/24 08:00 Resp 18 01/15/25 08:00 BP 122/62 07/19/24 08:00 Pulse Ox 96 07/19/24 08:00 O2 Del Method Nasal Cannula 07/19/24 08:00 O2 Flow Rate 2 07/19/24 08:00 BMI result Body Mass Index 23.6 General: AO X 3, no acute distress Resp: CTA bilateral CVS: S1,S2,RRR GI: +BS, NT, no distention Skin: No rash Neuro: motor grossly intact Psych: appropriate affect DS: Data Data Completed and Pending Labs on day of discharge: Preliminary micro results at discharge 07/16/24 15:53 Blood Culture - Preliminary Blood - Venous No growth after 48 hours. 07/16/24 15:52 Blood Culture - Preliminary Blood - Venous No growth after 48 hours. Discharge Plan Discharge Anticipated Discharge Date/Time: 07/19/24 11:02 Patient Disposition: Home, Self-Care Discharge Diagnosis: Acute hypoxic respiratory failure due to RSV Referrals: Wolf Burnette MD [Primary Care Provider] - 1 Week Discharge Medications: New azithromycin 250 mg tablet 250 mg PO DAILY 2 Days Qty: 2 0RF Rx Instructions: start on day 2 of therapy dextromethorphan-guaifenesin 10-100 mg/5 mL Syrup 10 ml PO Q4H PRN (Reason: Cough) Qty: 237 0RF Continued pantoprazole 20 mg tablet,delayed release (DR/EC) 20 mg PO DAILY@0630 multivitamin Tablet 1 tab PO DAILY cyanocobalamin (vitamin B-12) 1,000 mcg Tablet 1,000 mcg PO DAILY ferrous sulfate 325 mg (65 mg iron) Tablet 325 mg PO DAILY cholecalciferol (vitamin D3) 25 mcg (1,000 unit) Tablet 25 mcg PO DAILY omega 6-dbb-gqf-fish oil [Fish Oil] 1,000 mg (120 mg-180 mg) Capsule 1 cap PO BEDTIME flaxseed 1,000 mg Capsule 1,000 mg PO DAILY sertraline 50 mg Tablet 50 mg PO BID doxazosin 8 mg tablet 8 mg PO BEDTIME finasteride 5 mg tablet 5 mg PO DAILY clopidogrel 75 mg tablet 75 mg PO BEDTIME lisinopril 2.5 mg tablet 2.5 mg PO DAILY alprazolam 0.5 mg tablet 0.5 mg PO TID metoprolol succinate 25 mg tablet extended release 24 hr 25 mg PO DAILY rosuvastatin 20 mg tablet 20 mg PO BEDTIME Discontinued amoxicillin-pot clavulanate 875-125 mg tablet 1 tab PO Q12H Rx Instructions: end date 07/20/24 Discharge Orders: Discharge Order (Routine); Ordered 07/19/24 Ordered By: Mike Cantor Diet: Advance to usual diet Activity on Discharge: As tolerated Stand Alone Forms: Patient Portal Discharge page Print Language: Citizen Of [place] Care Plan Goals: recovery from RSV Health Concerns: RSV, respiratory failure Plan of Treatment: take it easy take robiutussin for cour take Azithromycin for possible bronchitis RSV itself doesn't need any specific treatment follow up with your doctor in a week Assessment: see above
--- NOTE | 2024-07-19 11:22 | MHC.CM.PN ---
PT LIVES WITH THEYN HAD NO SERBVIES ARE INDEPEDENT
--- NOTE | 2024-07-19 11:24 | MHC.CM.PN ---
Addendum entered by Jadyn Dickey RN 07/19/24 11:30: Last IMM 05/18. Original Note: Per MD patient medically cleared for dc home self care. Now on room air. is aware of dc. Son will transport home. RN aware.
[2024-07-19 11:32] VITALS: O2SAT 92
[2024-07-19] MEDS: ALPRAZolam 0.5 MG TABLET PO (11:53)
[2024-07-19] MEDS: Cyanocobalamin (Vitamin B-12) 1,000 MCG TABLET 1000 MCG PO (11:53)
[2024-07-19] MEDS: Ferrous Sulfate 324 MG TABLET.DR PO (11:53)
[2024-07-19] MEDS: 0.9 % Sodium Chloride Flush 3 ML SYRINGE IVFLUSH (11:53)
[2024-07-19] MEDS: Cholecalciferol (Vitamin D3) 25 MCG TABLET PO (11:54)
[2024-07-19] MEDS: Multivitamin TABLET 1 TAB PO (11:54)
[2024-07-19] MEDS: Finasteride 5 MG TABLET PO (11:54)
[2024-07-19] MEDS: lisinopriL 2.5 MG TABLET PO (11:54)
[2024-07-19] MEDS: Sertraline HCL 50 MG TABLET PO (11:54)
[2024-07-19] MEDS: Atorvastatin Calcium 80 MG TABLET PO (11:54)
[2024-07-19 11:55] VITALS: BP 145/78; PULSE 65
[2024-07-19] MEDS: Metoprolol Succinate ER 25 MG TAB.ER.24H PO (11:55)
[2024-07-19] MEDS: guaiFENesin DM 200/20/10 ML 10 ML SYRUP PO (11:59)
== END 2024-07-19 14:10 | disposition home or self-care (01) | DRG 193 ==
LOC: HO.ED 15:20 → HO.EDOVER 19:32 → HO.S3 07-19 07:41
PROVIDERS: Physician Assistant; Admitting Provider Internal Medicine; Emergency Provider Emergency Medicine; PCP Internal Medicine; Visit Provider Internal Medicine
DX: J18.9 Pneumonia, unspecified organism (principal); J96.01 Acute respiratory failure with hypoxia; D61.818 Other pancytopenia; K52.1 Toxic gastroenteritis and colitis; I25.10 Atherosclerotic heart disease of native coronary artery without angina pectoris; B97.4 Respiratory syncytial virus as the cause of diseases classified elsewhere; E78.00 Pure hypercholesterolemia, unspecified; F32.A Depression, unspecified; F41.9 Anxiety disorder, unspecified; I10 Essential (primary) hypertension; Z87.891 Personal history of nicotine dependence; T36.0X5A Adverse effect of penicillins, initial encounter; T36.1X5A Adverse effect of cephalosporins and other beta-lactam antibiotics, initial encounter; Z79.02 Long term (current) use of antithrombotics/antiplatelets; Z79.899 Other long term (current) drug therapy
CPT/HCPCS: 0241U; 36415; 71045; 80048; 80076; 81001; 83735; 85025; 87040; 94640; 99285; J0456; J0696; J2470; J2919

== ENCOUNTER → 2024-07-16 14:17 | Outpatient (BNV) | payer MEDICARE, SELFPAY | PROVIDERS: Emergency Provider Emergency Medicine; PCP Internal Medicine; Visit Provider Radiology Diagnostic Radiology | DX: R91.8 Other nonspecific abnormal finding of lung field (principal); R05.9 Cough, unspecified | CPT/HCPCS: 71045 ==

== ENCOUNTER → 2024-07-16 19:27 | Outpatient (BNV) | payer MEDICARE, SELFPAY | PROVIDERS: Admitting Provider Internal Medicine; Emergency Provider Emergency Medicine; PCP Internal Medicine; Visit Provider Internal Medicine | DX: J96.01 Acute respiratory failure with hypoxia (principal); J20.5 Acute bronchitis due to respiratory syncytial virus; J18.9 Pneumonia, unspecified organism | CPT/HCPCS: 99223 ==

== ENCOUNTER 2024-08-01 14:40 | Outpatient (REF) | payer MEDICARE, SELFPAY ==
--- NOTE | ~2024-08-01 | XR_ITS ---
EXAMINATION: XR CHEST 2 VIEWS HISTORY: F/U PNA COMPARISON: Comparison is made with the prior examination dated 07/16/2024. FINDINGS: PA and lateral views of the chest are submitted. There is improved aeration of the left base. There is residual linear subsegmental atelectasis in the lingula. The right lung is clear. There is no pleural effusion, pneumothorax, or pulmonary vascular congestion. The heart is normal in size. The aorta is tortuous. 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 XR/XR chest 2V IMPRESSION: Improved aeration of the left lung base with residual linear subsegmental atelectasis in the lingula. Electronically signed by: Sam Craft MD 08/02/2024 03:03 PM [facility] STANFORD
--- OUTSIDE RECORDS SUMMARY | 2024-08-01 15:39 | XMS_ITS | Patient Health Record ---
Author Organization [facility] Address [address] [place] [address] Care Team Providers Care Family Mediator Name Role Phone Wolf Burnette MD Primary Care Provider Sam Chaves Unavailable [phone] ALLERGIES No Known Allergies REASON FOR REFERRAL [...] Notes Problem Diverticulitis (K57.92) Active confirmed Diverticulitis (904456521) Problem Abnormal computed tomography of sigmoid colon (R93.3) Active confirmed Imaging of gastrointestinal tract abnormal (184918306) Problem Diverticulosis of sigmoid colon (K57.30) Active confirmed Diverticulosis of sigmoid colon (637373568) PLAN OF TREATMENT Future Test Test Name Order Date COLONOSCOPY 03/13/2022 Insurance Providers Payer Name Payer Address Payer Phone Subscriber Number Group Number Insured Name Patient Relationship to Insured Coverage Start Date Coverage End Date MEDICARE OF [place] [address] [place] [id number] [phone] [id number] ZI ADORNO Self - patient is the insured [facility] SUPPLEMENTAL [facility]AN [address] [place] [address] [phone] [id number] ADORNO Self - patient is the insured MEDICAL (GENERAL) HISTORY Medical History History ICD Code Hypertension Hypercholesterolemia Coronary artery disease--CA Umbilical hernia Anxiety BPH Sigmoid diverticulitis in 12/2021 Denies CA,DM,CVA,Lung disease,renal dise ase Negative colonoscopy approx 20 yrs ago Surgical History Surgery Date(Month/Year) 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
--- OUTSIDE RECORDS SUMMARY | 2024-08-01 15:39 | XMS_ITS ---
[facility] Address [address] [place] [address] Care Team Providers Care Rn Paralegal Name Role Phone Wolf Burnette MD Primary Care Provider UnavailTejas García Unavailable [phone] Allergies No Known Allergies REASON FOR VISIT [...] Ordered Date Performed Result Body Sit e 65378-RHDFLTO NAIL, 6 OR MORE 03/03/2024 N/A 15956-Xifoloku Plate 03/03/2024 N/A 25435-LQBI SKIN LESIONS, OVER 4 03/03/2024 N/A Encounters Encounter Location Date Provider Diagnosis [facility] [address] [address] 03/03/2024 Tejas Taylor Type 2 diabetes mellitus [...] Treatment Pending Test Test Name Order Date 68510-HPQVFVE NAIL, 6 OR MORE 03/03/2024 48793-Yqjrprum Plate 03/03/2024 47305-BLQL SKIN LESIONS, OVER 4 03/03/20 24 Next Appt Details Follow Up: prn, Reason: Provider Name:Tejas Taylor , 09/01/2024 10:45:00 AM, [address] [place], [address], Procedure Notes * Category Sub-Category Detail Notes [...] Motrin was recommended for pain or discomfort (37680) , DIABETES: Pt was advised as to [...] use of a nail nipper and/or dremel-type instrument lens grinder, to a more viable healthy nail plate or bed tissue 6-10. Silver nitrate used for any petechial bleeding as necessary. Definitive antifungal treatment options have been reviewed and discussed with the patient. The patient chooses, no pharmaceutical tx - 04082 Keratoma Treatment Parring or Cutting o f Benign Hyperkeratotic Lesion(s) 91597 ( More than 4 Lesions ) - The Benign hyperkeratotic lesions, as described above were pared, and/or cut utilizing a sterile 15 blade, tissue nippers, and/or dremel - 29932 , Q8 Progress Notes * Aric GAITAN EDOB: 2 (83 yo M)Acc No.[id number]:03/03/2024 Progress Note Patient:?Aric Gaitan Provider:?Tejas Taylor DPM :1940???Age:83 Y???Sex:Male Huseyin e:03/03/2024 Address:[address] [place] [address] [place] Pcp:Wolf Burnette MD Subjective: * Chief Complaints: [...] border , T5? Plan: * Treatment: 2.?Onychomycosis?Procedure: 83494-HASWXXU NAIL, 6 OR MORE 3.?Ingrown nail?Procedure: 14545-Dbxdxpdw Plate * Procedures:?Debride Nail 6-10:?Nail debridement?Performance of this nail treatment by a nonprofessional would put this patients foot and overall health at risk. Therefore, nail debridement was performed extensively to reduce/remove overall nail length, girth, thickness, subungual debris, and necrotic tissue, by manual and/or electrical means through the use of a nail nipper and/or dremel-type instrument lens grinder, to a more viable healthy nail plate or bed tissue 6-10. Silver nitrate used for any petechial bleeding as necessary. Definitive antifungal treatment options have been reviewed and discussed with the patient. The patient chooses, no pharmaceutical tx - 57191.?Keratoma Treatment:?Parring or Cutting of Benign Hyperkeratotic Lesion(s)?20263 ( More than 4 Lesions ) - The Benign hyperkeratotic lesions, as described above were pared, and/or cut utilizing a sterile 15 blade, tissue nippers, and/or dremel - 90390 , Q8.?Nail Avulsion:?Location?Medial nail border?,?T5.?Anesthesia?2cc of 1 [...] Motrin was recommended for pain or discomfort (24738) , DIABETES: Pt was advised as to the risk of delayed or nonhealing due to diabetes. Pt is to call the office with any questions, concerns, or complications.? * Procedure Codes:?81993 DEBRI DE NAIL, 6 OR MORE, Modifiers: XS 15286 Avulsion Plate, Modifiers: XS , [id number] TRIM SKIN LESIONS, OVER 4, Modifiers: XS , Q8 * Follow Up:?prn * Images: * Sign off status: Completed true * Provider:?Tejas Taylor DPM Date:?2023 Generated for Damian hand/Opal/Bruceitting on:?08/01/2024 03:39 PM EST History and Physical Notes * [...]
--- OUTSIDE RECORDS SUMMARY | 2024-08-01 15:39 | XMS_ITS | Continuity of Care Document ---
Author Organization [facility] Address [address] [place] [address] Phone Care Team Providers Care Case Briefer Name Role Phone John WAN, Check Unavailable [...] Diagnoses Date Provider Providers Copied on Encounter [facility], [address], [place], [place], [address], tel:[phone] [phone] No Information Sep- 0 John WAN Check. [address], [place], [place], [address], [place]. tel:[phone] Referring Provider: Check John Rodriguez, [address], [place], [address] . tel:[phone] Office/outpa tient visit,est, mod [facility], [address], [place], [place], [address], tel:[phone] [facility] 400 right shoulder pain (chief complaint) Rotator cuff rupture of right shoulder, not specified as traumatic 0 John WAN Check. [address], [address], [place], [place], [address], [place]. tel:[phone] Referring Provider: Check John Rodriguez, [address], [place], [address] . tel:[phone] [facility], [address], [place], [place], [address], [place] tel:[phone] [facility] [address] Unsp rotatr-cuff tear/ruptr of right shoulder, not traumaOth symptoms and signs involving the musculoskeletal systemStiffness of right shoulder, not elsewhere classified 0 Lorena Fuentes. [address], [place], [place], [address], [place]. tel:[phone] Referring Provider: Check John Rodriguez, [address], [place], [address] . tel:[phone] [facility], [address], [place], [place], [address], [place] tel:[phone] [facility] [address] Unsp rotatr-cuff tear/ruptr of right shoulder, not traumaOth symptoms and signs involving the musculoskeletal systemStiffness of right shoulder, not elsewhere classified 0 Lorena Fuentes. [address], [address], [place], [place], [address], [place]. tel:[phone] Referring Provider: Check John Rodriguez, [address], [place], [address] . tel:[phone] [facility], [address], [place], [place], [address], [place] tel:[phone] [facility] [address] Unsp rotatr-cuff tear/ruptr of right shoulder, not traumaOth symptoms and signs involving the musculoskeletal systemStiffness of right shoulder, not elsewhere classified 0 Lorena Fuentes. [address], [address], [place], [place], [address], [place]. tel:[phone] Referring Provider: Check John Rodriguez, [address], [place], [address] . tel:[phone] [facility], [address], [place], [place], [address], [place] tel:[phone] [facility] [address] Unsp rotatr-cuff tear/ruptr of right shoulder, not traumaOth symptoms and signs involving the musculoskeletal systemStiffness of right shoulder, not elsewhere classified 0 Lorena Fuentes. [address], [address], [place], [place], [address], [place]. tel:[phone] Referring Provider: Check John Rodriguez, [address], [place], [address] . tel:[phone] [facility], [address], [place], [place], [address], [place] tel:[phone] [facility] [address] Unsp rotatr-cuff tear/ruptr of right shoulder, not traumaOth symptoms and signs involving the musculoskeletal systemStiffness of right shoulder, not elsewhere classified 0 Nati Finch. [address], [address], [place], [place], [address], [place]. tel:[phone] Referring Provider: Check John Rodriguez, [address], [place], [address] . tel:[phone] [facility], [address], [place], [place], [address], [place] tel:[phone] [facility] [address] Unsp rotatr-cuff tear/ruptr of right shoulder, not traumaOth symptoms and signs involving the musculoskeletal systemStiffness of right shoulder, not elsewhere classified 0 Lorena Fuentes. [address], [address], [place], [place], [address], [place]. tel:[phone] Referring Provider: Check John Rodriguez, [address], [place], [address] . tel:[phone] [facility], [address], [place], [place], [address], [place] tel:[phone] [facility] [address] Shoulder weaknessDecrease d ROM of right shoulderUnsp rotatr-cuff tear/ruptr of right shoulder, not trauma Aug-0 0 Lorena Fuentes. [address], [address], [place], [place], [address], [place]. tel:[phone] Referring Provider: Check John Rodriguez, [address], [place], [address] . tel:[phone] [facility], [address], [place], [place], [address], [place] tel:[phone] [facility] [address] Rotator cuff rupture of right shoulder, not specified as traumatic 0 0 Nati Finch. [address], [address], [place], [address], [place]. tel:[phone] Referring Provider: Check John Rodriguez, [address], [place], [address] . tel:[phone] Office/outpa tient visit,est, [facility], [address], [place], [place], [address], [place] tel:[phone] [facility] [address] right shoulder pain (chief complaint) Rotator cuff rupture of right shoulder, not specified as traumatic 0 0 John Murdock. [address], [address], [place], [place], [address], [place]. tel:[phone] Referring Provider: Check John Rodriguez, [address], [place], [address] . tel:[phone] [facility], [address], [place], [address], [place] tel:[phone] [facility] [address] No Information 0 Noemi Hammond. [address], [address], [place], [address], [place]. tel:[phone] Referring Provider: Check John Rodriguez, [address], [place], [address] . tel:[phone] Office/outpa tient visit,new, [facility], [address], [place], [address], [place] tel:[phone] [facility] [address] right shoulder pain (chief complaint) Acute pain of right shoulderRotator cuff rupture of right shoulder, not specified as traumatic 0 John WAN Check. [address], [address], [place], [place], [address], . tel:[phone] Referring Provider: Check John Rodriguez, [address], [place], [address] . tel:[phone] [facility], [address], [place], [place], [address], tel:[phone] [address] No Information 0 John WAN Check. [address], [address], [place], [place], [address], . 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 F/u PRN. Related to Rotator cuff [...]
--- OUTSIDE RECORDS SUMMARY | 2024-08-01 15:39 | XMS_ITS ---
Author Organization [facility] Address [address] [place] [address] Care Team Providers Care Superintendent Cemetery Name Role Phone Vasile WAN, Wolf Primary Care Provider Unavailab Tejas Baker Unavailable [phone] Encounters Encounter Location Date Provider Diagnosis [facility] [address] [place] [address] 12/07/2023 Tejas Taylor Plan Of Treatment Next Appt Details Provider Name:Tejas Taylor , 09/01/2024 10:45:00 AM, [address] [place], [address], Progress Notes * Aric GAITAN EDOB: 2 (83 yo M)Acc No.[id number]:12/07/2023 Progress Note Patient:?Aric GAITAN Provider:?Tejas Taylor DPM :1940???Age:83 Y???Sex:Male Huseyin e:12/07/2023 Address:[address] [place] [address] Pcp:Wolf Burnette MD Subjective: * Chief Complaints: [...] Taylor DPM Date:?2023 Generated for Damian hand/Opal/Wily on:?08/01/2024 03:38 PM EST
--- OUTSIDE RECORDS SUMMARY | 2024-08-01 15:39 | XMS_ITS | Patient Health Record ---
Author Organization [facility] Elizabeth paola HuangАндрей Address [address] [place] [address] Care Team Providers Care Public Information Relations Manager Name Role Phone Wolf Burnette MD Primary Care Provider Unavailab Tejas Baker Unavailable [phone] Allergies No Known Allergies Reason For Referral [...] Route Administration Date Status Comme nts COVID-19 Exchange Lab Vaccine Unknown 04/25/2021 Administered 1st 08/18/2020 2nd [...] Problem Acquired hammer toe of right foot (29662630799096 05) Other hammer toe(s) (acquired), right foot (M20.41) Active confirmed Problem Type 2 diabetes mellitus with peripheral angiopathy (537249602) Type 2 diabetes mellitus with diabetic peripheral angiopathy without gangrene (E11.51) Active confirmed Problem Acquired hammer toe of left foot (18460019525990 03) Other hammer toe(s) (acquired), left foot (M20.42) Active confirmed Vital Signs Blood pressure diastolic 80 mm Hg 05/30/2024 Height 5 ft 9 in in 05/30/2024 Blood pressure systolic 120 mm Hg 05/30/2024 Weight 165 lbs 05/30/2024 BMI 24.36 kg/m2 05/30/2024 Procedures Procedure Date Ordered Date Performed Result Body Sit e 12366-OLZWQAB NAIL, 6 OR MORE 09/07/2023 N/A 63212-Jyfchgdy Plate 09/07/2023 N/A 65888-WFZI SKIN LESIONS, OVER 4 09/07/2023 N/A 96941-JZQBRPE NAIL, 6 OR MORE 03/03/2024 N/A 54583-Gijtupbx Plate 03/03/2024 N/A 78136-UDBW SKIN LESIONS, OVER 4 03/03/2024 N/A 07903-JFOEENZ NAIL, 6 OR MORE 05/30/2024 N/A 59952-XFJQ SKIN LESIONS, OVER 4 05/30/2024 N/A Encounters Encounter Location Date Provider Diagnosis [address] [address] 09/07/2023 Tejas Adamsunier Type 2 diabetes mellitus with diabetic peripheral angiopathy without gangrene E11.51 ; Onychomycosis B35.1 ; Pain of toe of right foot M79.674 ; Pain of toe of left foot M79.675 ; Ingrown nail L60.0 ; Other hammer toe(s) (acquired), right foot M20.41 and Other hammer toe(s) (acquired), left foot M20.[address] [address] 03/03/2024 Tejas Taylor Type 2 diabetes mellitus with diabetic peripheral angiopathy without gangrene E11.51 ; Onychomycosis B35.1 ; Pain of toe of right foot M79.674 ; Pain of toe of left foot M79.675 and Ingrown nail L60.[address] [address] 05/30/2024 Tejas Taylor Type 2 diabetes mellitus with diabetic peripheral angiopathy without gangrene E11.51 ; Onychomycosis B35.1 ; Pain of toe of right foot M79.674 and Pain of toe of left foot M79.[address] [address] 12/06/2023 Tejas Taylor Assessments Encounter Date Diagnosis [...] Test Name Order Date Hemoglobin A1c 11/13/2014 94189-BMSAQXK NAIL, 6 OR MORE 04/02/2015 24458-ZLGCGBP NAIL, 6 OR MORE 01/03/2016 54782-EVQFTXG NAIL, 6 OR MORE 04/03/2016 38040-QTBOMRB NAIL, 6 OR MORE 11/24/2016 94501-DBZFZMN NAIL, 6 OR MORE 03/12/2017 88004-RHLDZEM NAIL, 6 OR MORE 01/03/2013 09100-HDAASXE NAIL, 6 OR MORE 04/07/2013 78734-VARCMJA NAIL, 6 OR MORE 11/14/2013 25152-TGPDXXJ NAIL, 6 OR MORE 03/23/2014 61426-YACAMDL NAIL, 6 OR MORE 11/13/2014 19825-GGTRJWF NAIL, 6 OR MORE 11/30/2017 64649-NTTFGAG NAIL, 6 OR MORE 03/08/2018 82463-KAHBSKE NAIL, 6 OR MORE 06/21/2018 83202-OUJGMWL NAIL, 6 OR MORE 11/08/2018 12417-FDTCTXN NAIL, 6 OR MORE 02/07/2019 69570-ZSLWLBK NAIL, 6 OR MORE 05/26/2019 29040-ZQQBAMM NAIL, 6 OR MORE 10/27/2019 22390-XTAOVTC NAIL, 6 OR MORE 03/08/2020 24037-TQAETPA NAIL, 6 OR MORE 06/07/2020 24208-XSJPQBA NAIL, 6 OR MORE 10/25/2020 99963-YVPKLGL NAIL, 6 OR MORE 01/31/2021 43654-PTJAJCQ NAIL, 6 OR MORE 05/09/2021 05627-HDTCACH NAIL, 6 OR MORE 08/15/2021 69063-LXXRPBE NAIL, 6 OR MORE 11/14/2021 11190-WJDTDZB NAIL, 6 OR MORE 02/13/2022 38252-FRLWFSW NAIL, 6 OR MORE 05/15/2022 31215-SSBODHY NAIL, 6 OR MORE 08/28/2022 13224-PEEIKDW NAIL, 6 OR MORE 12/01/2022 55368-XMLQGWI NAIL, 6 OR MORE 03/09/2023 51116-PMSVBQR NAIL, 6 OR MORE 06/15/2023 79965-UXAGPEJ NAIL, 6 OR MORE 09/07/2023 69373-JQJAYKB NAIL, 6 OR MORE 03/03/2024 30667-JOPTSJU NAIL, 6 OR MORE 05/30/2024 84575-Nelkofch Plate 03/03/2024 32020-Nweheoco Plate 09/07/2023 43265-Hmskqtnp Plate 06/15/2023 93372-Umslgkbh Plate 03/09/2023 93013-Oyjttwag Plate 05/09/2021 28356-Iltqskog Plate 12/01/2022 68535-Eecgcjqi Plate 02/13/2022 25406-Zypxrska Plate 11/14/2021 88973-Kdqiwhxh Plate 08/15/2021 51021-Vewlhqqf Plate 11/13/2014 52305-Gdytyrtg Plate 03/23/2014 39831-Lsxmpkmw Plate 11/14/2013 12266-Balciugw Plate 11/30/2017 18577-Wrxavohg Plate 04/02/2015 79056-Bhzhzapu Plate Each Additional 87670-Ioqehvtu Plate Each Additional 95377-Cblgtdhw Plate Each Additional 06/2015 91310-VZRQ SKIN LESIONS, OVER 4 05/09/20 37155-CNWR SKIN LESIONS, OVER 4 05/15/20 63340-EJDD SKIN LESIONS, OVER 4 03/09/20 66885-XWZL SKIN LESIONS, OVER 4 12/02/19 14461-JYRN SKIN LESIONS, OVER 4 08/28/19 22328-CNLT SKIN LESIONS, OVER 4 09/07/19 26026-MCQH SKIN LESIONS, OVER 4 06/15/20 83343-BKIG SKIN LESIONS, OVER 4 03/03/20 70566-KTUM SKIN LESIONS, OVER 4 05/30/20 95552-JYRY SKIN LESIONS, 2 TO 4 02/14/20 76021-XPIQ SKIN LESIONS, 2 TO 4 08/15/19 93324-OEJA SKIN LESIONS, 2 TO 4 11/15/19 45903-DTSF SKIN LESIONS, 2 TO 4 02/01/20 55103-VMQA SKIN LESIONS, 2 TO 4 10/26/19 63573-RZNO SKIN LESIONS, 2 TO 4 06/07/20 02767-BBAA SKIN LESIONS, 2 TO 4 03/08/20 Next Appt Details Provider Name:Tejas Bernal Claudia , 09/01/2024 10:45:00 AM, [address] [facility], [place], [address], Insurance Providers Payer Name Payer Address Payer Phone Subscriber Number Group Number Insured Name Patient Relationship to Insured Coverage Start Date Coverage End Date Medicare National Govt Sv[employer] Inc [address] [place] [address] [id number] Aric Gaitan Self - patient is the insured A[employer] Secondary to Medicare [address] [place] [address] [phone] [id number] Aric Gaitan Self - patient is the [...]
--- OUTSIDE RECORDS SUMMARY | 2024-08-01 15:39 | XMS_ITS | Continuity of Care Document ---
Author Organization [facility] ou Address [address] [place] [address] Phone Care Team Providers Care Cmm Operator Name Role Phone John Paul WAN, [...] Diagnoses Date Provider Providers Copied on Encounter [facility], [address], [place], [place], [id number], [place] tel:[phone] [facility] No Information John Paul Childs. [address], [place], [place], [id number], [place]. tel:[phone] Referring Provider: Lloyd GUZMAN, [address], [place], [address]. tel:[phone] [facility], [address], [place], [place], [id number], tel:[phone] [facility] No Information Ronal Mann. [address] [place] [address], [address], [place], [place], [id number], [place]. tel:[phone] Referring Provider: Lloyd GUZMAN, [address], [place], [address]. tel:[phone] [facility], [address] [place] [address], [place], [place], [id number], tel:[phone] [facility] No Information Ronal Mann. [address] [place] [address], [place], [place], [id number], [place]. tel:[phone] Referring Provider: Lloyd GUZMAN, [address], [place], [address]. tel:[phone] Family History Family Member Type Diagnosis Age At Onset No Information Payers Payer name Insurance type Covered republican ID Authorpedro mirandajamee(s) Medicare Part B Primary [id number] [facility] CI [id number] Social History Type Description Quantity Date Captured [...]
--- OUTSIDE RECORDS SUMMARY | 2024-08-01 15:39 | XMS_ITS ---
Author Organization [facility] Address [address] [place] [address] Care Team Providers Care Shroud Line Tier Name Role Phone Wolf Burnette MD Primary Care Provider Unavailab Tejas Baker Unavailable [phone] Allergies No Known Allergies REASON FOR VISIT At Risk Footcare, Painful Nail(s) aggrevated by shoes and causing difficulty standing/walking Medications Medication SIG (Take, Route, Frequency, Duration) Notes Start Date End Date Status Extra Depth Orthopedic Shoes, (1) Pair With [...] Orally Thre e times a day Active Social History Tobacco Use: Social History [...] Signs Height 5 ft 9 in in 05/30/2024 Weight 165 lbs 05/30/2024 BMI 24.36 kg/m2 05/30/2024 Blood pressure systolic 120 mm Hg 05/30/20 Blood pressure diastolic 80 mm Hg 024 Procedures Procedure Date Ordered Date Performed Result Body Sit e 12656-SCYDKWX NAIL, 6 OR MORE 05/30/2024 N/A 42559-JKIL SKIN LESIONS, OVER 4 05/30/2024 N/A Encounters Encounter Location Date Provider Diagnosis [facility] [address] [address] 05/30/2024 Tejas Taylor Type 2 diabetes mellitus with diabetic peripheral angiopathy without gangrene E11.51 ; Onychomycosis B35.1 ; Pain of toe of right foot M79.674 and Pain of toe of left foot M79.675 Assessments Encounter Date Diagnosis (ICD Code) Assessment Notes Treatment Notes Treatment Clinical Notes Section Notes 05/30/2024 Type 2 diabetes mellitus with diabetic peripheral angiopathy without gangrene (ICD-10 - E11.51) 05/30/2024 Onychomycosis (ICD-10 - B35.1) 05/30/2024 Pain of toe of right foot (ICD-10 - M79.674) 05/30/2024 Pain of toe of left foot (ICD-10 - M79.675) 05/30/2024 Other Plan Of Treatment Pending Test Test Name Order Date 97738-FOAMLNZ NAIL, 6 OR MORE 05/30/2024 73314-UEBO SKIN LESIONS, OVER 4 05/30/20 24 Next Appt Details Follow Up: prn, Reason: Provider Name:Tejas Taylor , 09/01/2024 10:45:00 AM, [address] [place] [address], [address], Procedure Notes * Category Sub-Category Detail Notes Debride Nail 6-10 Nail debridement Performance o f this nail treatment by a nonprofessional would put this patients foot and overall health at risk. Therefore, debridement to affected nail(s), as described in exam, was performed extensively to reduce/remove overall nail length, girth, thickness, subungual debris, and necrotic tissue, by manual and/or electrical means through the use of a nail nipper and/or dremel-type facing grinder, to a more viable healthy nail plate or bed tissue 6-10 nails in total. Silver nitrate was used for any petechial bleeding as necessary. Definitive antifungal treatment options, both pharmaceutical and surgical, have been reviewed and discussed with the patient. The patient solely prefers the use of intermittent/as needed professional debridement services for their nail condition and understands the need for additional periodic treatments to maintain effectiveness in symptomatic relief - 98608 Keratoma Treatment Parring or Cutting o f Benign Hyperkeratotic Lesion(s) (-57) More than 4 Lesions - The Benign hyperkeratotic lesions, ( 6) in total, locations as stated and described in exam, were pared, and/or cut utilizing a sterile 15 blade, tissue nippers, and/or power dremel instrumentation - 99613, Q8 Progress Notes * Aric ADORNO EDOB: [birth year] (83 yo M)Acc No.[id number]:05/30/2024 Progress Note Patient:?Aric ADORNO E Provider:?Tejas Taylor DPM :1940???Age:83 Y???Sex:Male Huseyin e:05/30/2024 Address:[address] [place], [place] [id number] Pcp:Wolf Burnette MD Subjective: * Chief Complaints: * ???At Risk FootcarePainful N ail(s) aggrevated by shoes and causing difficulty standing/walking * HPI: ???At Risk footcare:?Pt States Last [...] History:?Mother: dece ased, foot problems, diagnosed with Diabetic - NIDDM, Unspecified essential hypertension.?Father: , diagnosed with Other malignant neoplasm of unspecified site, Family history of arthritis.? * Social History:?Tobacco Use:?Tobacco Use/Smoking?Are you a:?former smoker ?Additional Findings: Tobacco Non-User?Current non-smoker ?Tobacco use other than smoking?Are you an other tobacco user??No ???Drugs/Alcohol:?Drugs?Have you used drugs other than those for medical reasons in the past 12 months??No ?Alcohol Screen?Did you have a drink containing alcohol in the past year??No ?Points?0 ?Interpretation?Negative ???Miscellaneous:?Caffeine: yes, frequency:, 1-2 cups per day. ?Children: yes. ?Exercise: yes, Soft Ball, lifting. ?Marital status: . ?Occupation: Retired. * Medications:?TakingALPRAZola m 0.5 MG Tablet 1 tablet Orally Three times a day Crestor 20 MG Tablet 1 tablet Orally Once a day Doxazosin Mesylate 8 MG Tablet 1 tablet Orally Once a day Finasteride 5 MG Tablet 1 tablet Orally Once a day Metoprolol Tartrate 25 MG Tablet 1 tablet Orally Twice a day Norvasc 5 MG Tablet 1 tablet Orally Once a day Plavix 75 MG Tablet 1 tablet Orally Once a day Sertraline HCl 100 MG Tablet 1 tablet Orally Once a day Zetia 10 MG Tablet 1 tablet Orally Once a day Ciclopirox Olamine 0.77 % Cream 1 application Externally Twice a day Extra Depth Orthopedic Shoes, (1) Pair With (3) Pair Custom Heat Molded Multidensity Innersoles . Dx: NIDDM/PVD(E11.51), Hammertoe Foot Deformity(M20.41,M20.42), Preulcerative Skin Lesion(s)(L85.1) Wear Daily Medication List reviewed and reconciled with the patientTaking ALPRAZolam 0.5 MG Tablet 1 tablet Orally Three times a day Taking Crestor 20 MG Tablet 1 tablet Orally Once a day Taking Doxazosin Mesylate 8 MG Tablet 1 tablet Orally Once a day Taking Finasteride 5 MG Tablet 1 tablet Orally Once a day Taking Metoprolol Tartrate 25 MG Tablet 1 tablet Orally Twice a day Taking Norvasc 5 MG Tablet 1 tablet Orally Once a day Taking Plavix 75 MG Tablet 1 tablet Orally Once a day Taking Sertraline HCl 100 MG Tablet 1 tablet Orally Once a day Taking Zetia 10 MG Tablet 1 tablet Orally Once a day Taking Ciclopirox Olamine 0.77 % Cream 1 application Externally Twice a day Taking Extra Depth Orthopedic Shoes, (1) Pair With (3) Pair Custom Heat Molded Multidensity Innersoles . Dx: NIDDM/PVD(E11.51), Hammertoe Foot Deformity(M20.41,M20.42), Preulcerative Skin Lesion(s)(L85.1) Wear Daily Medication List reviewed and reconciled with the patient * Allergies:?N.K.D.A.yes[Aller gies Verified] Objective: * Vitals:?Ht: 5 ft 9 in, Wt:16 5, BMI: 24.36, Shoe size:9.5, BP:120/80mm Hg, BS:not taken, Wt-k.84 kg. * Examination: ???Vascular: ?DP PULSES(B):?0/4, B/L.?PT PULSES(B):? 0-1/4, B/L.?CAPILLARY FILL TIME:? delayed, all digits, B/L.?TROPHIC CONDITION-TEXTURE/ELASTICITY/TURGOR/HAIR GROWTH(B):? decreased,?with sparse to absent hair growth, B/L.?TEMPERTURE GRADIENT(C):? decreased, cool to cool, proximal to distal, B/L.?PIGMENTATION:? brawny, B/L.?EDEMA(C):?absent, B/L.?CLAUDICATION(C):?denies, B/L.?REST PAIN:?denies, B/L.?Nails: ?NAILS are:?Elongated, overgrown, dystrophic, lytic, greater than 3mm thick, discolored and friable with crumbly malodorous subungual debris, with pain on palpation, TA, T1, T3, T4, T5, T8, T9.?Dermatologic: ?SKIN FINDINGS:?Skin exam reveals Keratotic lesion(s) located at, Medial plantar, IPJ, TA, Medial plantar, IPJ, T5, SUB MTH (s), 1, B/L , Plantar, Heel(s), B/L.? Assessment: * Assessment: 1.?Type 2 diabetes mellitus with diabetic peripheral angiopathy without gangrene - E11.51 (Primary)???2.?Onychomycosis - B35.1???3.?Pain of toe of right foot - M79.674???4.?Pain of toe of left foot - M79.675??? Plan: * Treatment: 2.?Onychomycosis?Procedure: 19740-NCDXJDH NAIL, 6 OR MORE * Procedures:?Debride Nail 6-10:?Nail debridement?Performance of this nail treatment by a nonprofessional would put this patients foot and overall health at risk. Therefore, debridement to affected nail(s), as described in exam, was performed extensively to reduce/remove overall nail length, girth, thickness, subungual debris, and necrotic tissue, by manual and/or electrical means through the use of a nail nipper and/or dremel-type facing grinder, to a more viable healthy nail plate or bed tissue 6-10 nails in total. Silver nitrate was used for any petechial bleeding as necessary. Definitive antifungal treatment options, both pharmaceutical and surgical, have been reviewed and discussed with the patient. The patient solely prefers the use of intermittent/as needed professional debridement services for their nail condition and understands the need for additional periodic treatments to maintain effectiveness in symptomatic relief - 68862.?Keratoma Treatment:?Parring or Cutting of Benign Hyperkeratotic Lesion(s)?(-57) More than 4 Lesions - The Benign hyperkeratotic lesions, ( 6) in total, locations as stated and described in exam, were pared, and/or cut utilizing a sterile 15 blade, tissue nippers, and/or power dremel instrumentation - 89349, Q8.? * Procedure Codes:?03623 DEBRI DE NAIL, 6 OR MORE, Modifiers: XS 93618 TRIM SKIN LESIONS, OVER 4, Modifiers: XS [...] Category Sub-Category Detail Notes Category Not es Dermatologic SKIN FINDINGS: Skin exam reveal s Keratotic lesion(s) located at, Medial plantar, IPJ, TA, Medial plantar, IPJ, T5, SUB MTH (s), 1, B/L , Plantar, Heel(s), B/L Vascular DP PULSES (B): 0/4, B/L PT PULSES (B): 0-1/4, B/L CAPILLARY FILL TIME: delayed, all digits , B/L TEMPERTURE GRADIENT (C): decreased, cool to cool, proximal to distal, B/L TROPHIC CONDITION-TEXTURE/ELASTICITY/TURGOR/HAIR GROWTH (B): decreased, with sparse to absent hair gr owth, B/L EDEMA (C): absent, B/L CLAUDICATION (C): denies, B/L REST PAIN: denies, B/L PIGMENTATION: brawny, B/L Nails NAILS are: Elongated, overg rown, dystrophic, lytic, greater than 3mm thick, discolored and friable with crumbly malodorous subungual debris, with pain on palpation, TA, T1, T3, T4, T5, T8, T9
== END 2024-08-01 14:41 | disposition home or self-care (01) ==
LOC: HO.HMGCX 14:40
PROVIDERS: PCP Internal Medicine; Visit Provider Internal Medicine
DX: J18.9 Pneumonia, unspecified organism (principal)
CPT/HCPCS: 71046

== ENCOUNTER → 2024-08-01 14:47 | Outpatient (BNV) | payer MEDICARE, SELFPAY | PROVIDERS: PCP Internal Medicine; Visit Provider Radiology Diagnostic Radiology | DX: J98.11 Atelectasis (principal) | CPT/HCPCS: 71046 ==

== ENCOUNTER 2024-12-13 09:00 | Outpatient (REF) | payer MEDICARE, SELFPAY ==
--- OUTSIDE RECORDS SUMMARY | 2024-12-13 09:29 | XMS_ITS | Data Portability ---
Author Organization [place] - [facility], [facility] Address [address] [place] [address] Care Team Providers Care Construction Project Coordinator Name Role Phone MERLIN PHELAN Primary Care Provider Assessment No assessment recorded. Plan of Treatment Reminders Order Date Submit Date Provider Last Modified By Organization Details Last Modified Time Details Appointments MUST SEE 15 2024 02:15P Katelyn Amaya MD Not available Not available Not available Lab None recorded. Referral occupatio nal therapist referral - DIPJ FREE PIPJ EXTENSION SERIAL CASTING RRF 2024 025 [email or web address] Not available 11/28/2024 14:04:02 Procedures None recorded. Surgeries None recorded. Imaging XR, finger(s) , 2 or more view - RM 116 3V RRF 2024 025 [email or web address] [facility] Office, [address], [facility] [address], [place], [address], 11/28/2024 14:04:02 Medication Orders None recorded. Patient TargetsNo targets recorded. Patient InstructionsNo instructions recorded. Reason for Referral Occupational Therapist Refer ral for Sprain of ligament DIPJ FREE PIPJ EXTENSION SERIAL CASTING RRF Referring Physician: Lukasz Patel, Orthopedic Surgery, Encounter Date: 11/28/2024 Results Created Date Observation Date Name Description Value Unit Range Abnormal Flag Note LastModifiedBy Organization Detail LastModifiedTime 11/29/1911/28/2024 XR, finge r(s), 2 or more view [email or web address] ?Encry pted=s hAaTro YD8dLq bEUv6g %2BXZw aYqtaq 0bqfl% 2Fg9IQ a4ajBk vP9nXo QUaueC m3YtLR FvZlgJ [address]tai[address] [id number] AC0Kla 3iAVqK nKiQtr MwF INTERFACE [facility] [address] [address], [place], [address], 11/28/2024 11:27:46 11/29/19 25 11/28/2024 XR, finge r(s), 2 or more view [email or web address] ?Encry pted=s hAaTro YD8dLq bEUv6g %2BXZw aYqtaq 0bqfl% 2Fg9IQ a4ajBk vP9nXo QUaueC m3YtLR FvZlJ JJ8Dallas HZtai3 [id number] AC0Kla 3iAVqK nKiQtr MwF INTERFACE [facility] [address] [address], [place], [address], 11/28/2024 11:27:48 11/29/19 25 11/28/2024 XR, finge r(s), 2 or more view [email or web address] ?Encry pted=s hAaTro YD8dLq bEUv6g %2BXZw aYqtaq 0bqfl% 2Fg9IQ a4ajBk vP9nXo QUaueC m3YtLR FvZl42 [address]tai[address] [id number] AC0Kla 3iAVqK nKiQtr MwF INTERFACE [facility] [address] [address], [place], [address], 11/28/2024 11:30:05 11/29/19 25 11/28/2024 XR, finge r(s), 2 or more view [email or web address] ?Encry pted=s hAaTro YD8dLq bEUv6g %2BXZw aYqtaq 0bqfl% 2Fg9IQ a4ajBk vP9nXo QUaueC m3YtLR FvZlgJ JJ8mAn HZtai3 [id number] AC0Kla 3iAVqK nKiQtr [facility] INTERFACE [facility] [address], [place], [address], 11/28/2024 11:30:07 Result Notes None recorded. Problems Name Problem SNOMED Code Status Onset Date Resolution Date Notes Provider Name and Address Organization Details Recorded Time Sprain of ligament of proximal interphala ngeal joint of finger Active 2024 Justin Flores PA-C [address] [facility] [address], [place], [address] , [facility] 5 09:22:19 Pain of left shoulder joint [id number] 9109 Active 2021 Status : 'A'; Not Available [facility] 4 11:59:02 Problem Notes None recorded. Medical Equipment None Reported. Allergies No known drug allergies Medications Name Sig Start Date Stop Date Status Note LastModified by Organization Details LastModified Time prednisone 20 mg tablet TAKE 2 TABLETS BY MOUTH DAILY FOR 5 DAYS active Not Available Not Available No t Available sertraline 100 mg tablet Take 1 tablet every day by oral route. active Not Available Not Available No t Available clopidogrel 75 mg tablet Take 1 tablet every day by oral route. active Not Available Not Available No t Available ketorolac 0.5 % eye drops PLACE 1 DROP IN SURGICAL EYE THREE TIMES DAILY FOR 3 WEEKS FOLLOWING CATARACT SURGERY active Not Available Not Available No t Available alprazolam 0.5 mg tablet Take 1 tablet 3 times a day by oral route. active Not Available Not Available No t Available flaxseed oil 1,000 mg capsule Take by oral route. active Not Available Not Available No t Available doxazosin 8 mg tablet Take 1 tablet every day by oral route. active Not Available Not Available No t Available lisinopril 2.5 mg tablet Take 1 tablet every day by oral route. active Not Available Not Available No t Available finasteride 5 mg tablet Take 1 tablet every day by oral route. active Not Available Not Available No t Available amoxicillin 875 mg-potassium clavulanate 125 mg tablet TAKE 1 TABLET BY MOUTH EVERY 12 HOURS FOR 7 DAYS active Not Available Not Available No t Available Daily Multi-Vitamin tablet Take by oral route. active Not Available Not Available No t Available rosuvastatin 20 mg tablet Take 1 tablet every day by oral route. active Not Available Not Available No t Available vit B12 50 mcg-folic acid 200 mcg-vit D3 100 unit-calcium- zinc capsule Take by oral route. active Not Available Not Available No t Available metoprolol succinate ER 25 mg capsule sprinkle, ext. release 24 hr Take 1 capsule every day by oral route. active Not Available Not Available No t Available Fish Oil 1,200 mg (144 mg-216 mg) capsule Take by oral route. active Not Available Not Available No t Available Vitals Date Recorded Body height Body mass index (BMI) Body weight Provider Name and Address Organization Details Last Updated DateTime 10/27/2024 172.72 cm 24.3 kg/m2 85461.78 g Ruth Giron [facility] 10/27/2024 08:51:00 Date Recorded Body height Body mass index (BMI) Body weight Provider Name and Address Organization Details Last Updated DateTime 11/28/2024 172.72 cm 24.3 kg/m2 31938.78 g ISRAEL FERNANDEZ [facility] 11/28/2024 11:21:15 Social History Question Answer Notes LastModified by [employer] Details LastModified Time Tobacco Smoking Status Never Smoker Ruth Giron [facility] 10/27/2024 08:56:30 What Is Your Relationship Status? [email or web address] Information not available 10/27/2024 Sex: Unknown Functional Status Question Answer Note LastModified by [employer] Details LastModified Time Do you use any illicit or recreational drugs? No [email or web address] Information not available 10/27/2024 Do you or have you ever used any other forms of tobacco or nicotine? No [email or web address] Information not available 10/27/2024 Mental Status None recorded. Family History Nothing Reported. Medical History Condition Response Hypertension Y Cholesterol Y Past Encounters Encounter ID Performer Location Encounter Start Date Encounter Closed Date Diagnosis/Indication Diagnosis SNOMED-CT Code Diagnosis ICD10 Code Diagnosis Note [id number] STARLA Ayala [address] [place] [address] 10/27/2024 08:40:59 11/15/2024 10:27:37 Sprain of ligament of proximal interphalangeal joint of finger [id number] S63.639A [id number] STARLA Lua [address] [place] [address] 11/28/2024 11:14:48 11/28/2024 11:52:38 Pain in right hand [id number] 44711 M79.641 Sprain of ligament 79112 8007 T14.8XXA Health Concerns Section Related Observation LastModified by Organization Detai ls LastModified Time None Recorded Concern Status LastModified by Organization Details LastModified Time None Recorded Advance Directives Directive None Recorded Payers Encounter Date Sequence Insurance Name Policy Number Policy Fernandes Covered Member ID Fernandes Member ID Guarantor Name 10/27/2024 1 MEDICARE B-KS: [employer] Aric Gaitan [id number] Aric Gaitan 10/27/2024 2 [employer] (MEDICARE SUPPLEMENT) Aric Gaitan [id number] Aric Gaitan 11/28/2024 1 MEDICARE B-KS: [employer] Aric Gaitan [id number] Aric Gaitan 11/28/2024 2 [employer] (MEDICARE SUPPLEMENT) Aric Gaitan [id number] Aric Gaitan Notes Date Note Type Note Provider Name and Address Organization Details Recorded Time 10/27/2024 text/html I am seeing the patient today under the supervision of Dr. Larry who was available but who did not see the patient. HPI: Aric is an 83-year-old male who presents to our office urgent care clinic for evaluation of a new injury to his right ring finger. Patient participates in [employer] soft[employer]. He was playing softball about 3 weeks ago and went to catch a fly ball and it hit the tip of his right ring finger without a glove on. He suffered a hyperflexion injury of the PIP joint. He reports that he spontaneously extended. Went to an urgent care clinic had x-rays obtained and was advised that there is no evidence for dislocation or fracture. He was placed in a splint. He has been wearing the splint intermittently but presents at this time to our urgent care clinic for formal orthopedic evaluation due to lack of improvement, continued flexion deformity and swelling. Past family, medical, social history and review of systems has been reviewed, updated and signed by me and is located in the patient's chart. Patient has multiple medical issues and medications which were reviewed Examination: The patient is well appearing and in no apparent distress. Alert and oriented x3. Gait is symmetric. Orthopedic evaluation of the right hand shows soft tissue swelling about the PIP joint of the right ring finger. There is some tenderness to palpation. He has flexion to 90 degrees. Passively I am able to fully extend but he prefers the finger slightly flexed 35 to 40 degrees. He has intact tendon function with extension and flexion of the PIP and DIP joints. No evidence for tendon avulsion/tear. X-rays from the outside source were brought with the patient on CD and independently reviewed today at [facility]. No evidence for acute injury or fracture of the right ring finger. No evidence of dislocation. Impression: Sprain PIP joint right ring finger Plan: Nature of his problem discussed with Aric. He has quite a bit of stiffness and soft tissue swelling about the PIP joint. It is improving but I feel he would benefit from occupational therapy. He is prescribed hand therapy for range of motion and modalities. Recommended a custom extension splint. Therapy prescription provided for the patient. Recheck is arranged with our hand team for routine follow-up in 2 to 3 weeks. Justin Flores PA-C [address] [place] [address] [address], [place], [address], [facility] 10/27/2024 09:22:50 11/28/2024 text/html I am seeing the patient today under the supervision of dr Amaya who was available but who did not see the patient. 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 He was seen by Mr. Flores in urgent care on 10/27/2024. Patient injured his right ring finger while playing softball. He jammed his finger. He has been splinting and therapy working on range of motion. Today's PIP joint is in a flexed posture.. He continues to have tenderness over the central slip. Past family, medical, social history and review of systems has been reviewed, updated and is located in the patient? s chart. Examination: Alert and oriented ? ? 3 . No acute distress. Nonantalgic gait. Examination right ring finger reveals swelling of the PIP joint. PIP joint is in a flexed posture. Lacks approximately 30 degrees of extension at the PIP joint. Unable to passively extend his PIP joint. He is tender over the central slip. Positive Charly's test. Able to make a full fist. No collateral ligament stability. Left hand reveals no soft tissue swelling, erythema or ecchymosis. Digital range of motion is full. Neurovascular intact. X-rays ordered, obtained and reviewed at [facility] 3 views of the right ring finger reveals PIP joint in a flexed posture. No fracture or dislocation. Impression/Plan: Findings and the situation discussed. Patient was referred to occupational therapy for serial casting's to maintain his PIP joint extension, DIPJ free. Will obtain an MRI of the right ring finger to evaluate the integrity of the extensor mechanism. he will follow-up after the study. Lukasz Patel PA-C [address], [place], [address], [facility] 11/28/2024 11:52:36
[2024-12-13 10:40] LABS: Estimated Average Glucose 120 mg/dL; Hemoglobin A1c % 5.8 % (<6.0)
[2024-12-13 10:47] LABS: Basophils Percent Auto 0.3 % (0-2); Eosinophils Absolute Auto 0.1 X10*3/uL (0.0-0.4); Eosinophils Percent Auto 0.7 % (0-4); Hematocrit 34.3 % (42.0-52.0); Hemoglobin 11.6 g/dl (14.0-18.0); Imm Gran Abs Auto 0.03 X10*3/uL (0.00-0.03); Imm Gran Pct Auto 0.4 % (0.0-0.4); Lymphocytes Absolute Auto 1.4 X10*3/uL (1.2-4.9); Lymphocytes Percent Auto 18.6 % (20-40); MANUAL DIFF FLAG SCAN; Mean Corpuscular HGB Conc 33.8 g/dl (31.0-36.0); Mean Corpuscular Hemoglobin 30.4 pg (27.0-33.0); Monocytes Absolute Auto 0.5 X10*3/uL (0.1-1.2); Monocytes Percent Auto 6.5 % (2-11); Neutrophils Absolute Auto 5.3 x10*3/uL (2.0-8.3); Neutrophils Percent Auto 73.5 % (45-73); PLT CLUMP 1; Red Blood Count 3.81 X10*6/uL (4.60-5.80); Red Cell Distribution Width 12.5 % (11.0-16.0); SCAN SMEAR FLAG 1
[2024-12-13 10:48] LABS: White Blood Count 7.3 X10*3/uL (4.8-10.8)
[2024-12-13 10:49] LABS: Alanine Aminotransferase 33 U/L (0-40); Albumin Level 4.7 g/dL (3.5-5.0); Alkaline Phosphatase 72 U/L (39-117); Anion Gap 10 (12-20); Aspartate Amino Transferase 59 U/L (5-37); Bilirubin Total 0.4 mg/dL (0.0-1.0); Blood Urea Nitrogen 23 mg/dL (9-16); Calcium 9.8 mg/dL (8.4-10.2); Carbon Dioxide 25 mmol/L (22-29); Chloride 107 mmol/L (96-108); Cholesterol 142 mg/dL (<200); Estimated Glomerular Filt Rate 47; Glucose Fasting 109 mg/dL (60-99); HDL Cholesterol 42 mg/dL (>40); LDL Cholesterol Calculated 62 mg/dL (<100); Potassium 4.4 mmol/L (3.3-5.1); Sodium 138 mmol/L (135-145); Total Protein 7.4 g/dL (6.5-8.0); Triglycerides 193 mg/dL (<150)
[2024-12-13 10:59] LABS: Prostate Specific Antigen Scr 0.35 ng/mL (<0.05-4.0)
[2024-12-13 11:25] LABS: Mean Platelet Volume 10.5 fL (9.4-12.4); Platelet Count 114 X10*3/uL (160-400); SLIDE REVIEW VERIFIED
== END 2024-12-13 09:01 | disposition home or self-care (01) ==
LOC: HO.HMGCLDS 09:00
PROVIDERS: PCP Internal Medicine; Visit Provider Internal Medicine
DX: Z00.00 Encounter for general adult medical examination without abnormal findings (principal); R53.83 Other fatigue; E11.9 Type 2 diabetes mellitus without complications; E78.00 Pure hypercholesterolemia, unspecified; Z12.5 Encounter for screening for malignant neoplasm of prostate
CPT/HCPCS: 36415; 80053; 80061; 83036; 84153; 85025

== ENCOUNTER 2025-01-04 10:33 | Outpatient (REF) | payer MEDICARE, SELFPAY ==
[2025-01-04 13:21] LABS: MANUAL DIFF FLAG NO
[2025-01-04 13:30] LABS: Hematocrit 31.6 % (42.0-52.0); Hemoglobin 10.6 g/dl (14.0-18.0); Imm Gran Abs Auto 0.03 X10*3/uL (0.00-0.03); Imm Gran Pct Auto 0.6 % (0.0-0.4); Lymphocytes Absolute Auto 1.4 X10*3/uL (1.2-4.9); Mean Corpuscular HGB Conc 33.5 g/dl (31.0-36.0); Mean Corpuscular Hemoglobin 30.9 pg (27.0-33.0); Mean Corpuscular Volume 92.1 fL (80.0-98.0); NRBC Abs Auto 0.000 X10*3/uL (0.0-0.012); NRBC Pct Auto 0.0 /100WBC (0.0-0.2); Platelet Count 98 X10*3/uL (160-400); Red Blood Count 3.43 X10*6/uL (4.60-5.80); White Blood Count 4.7 X10*3/uL (4.8-10.8)
[2025-01-04 13:35] LABS: Hemoglobin A1C 113.1542 umol/L; Total Hemoglobin (HGBA1C) 2816.1955 umol/L
[2025-01-04 14:05] LABS: Alanine Aminotransferase 27 U/L (0-40); Albumin Level 4.4 g/dL (3.5-5.0); Alkaline Phosphatase 62 U/L (39-117); Anion Gap 11 (12-20); Aspartate Amino Transferase 35 U/L (5-37); Blood Urea Nitrogen 24 mg/dL (9-16); Calcium 8.9 mg/dL (8.4-10.2); Carbon Dioxide 26 mmol/L (22-29); Chloride 105 mmol/L (96-108); Estimated Glomerular Filt Rate 49; Magnesium 2.0 mg/dL (1.6-2.6); Potassium 4.1 mmol/L (3.3-5.1); Sodium 138 mmol/L (135-145); Total Protein 6.9 g/dL (6.5-8.0)
[2025-01-04 14:35] LABS: Folate 16.9 ng/mL (> or = 4.0); Vitamin B12 1044 pg/mL (200-900)
== END 2025-01-04 10:34 | disposition home or self-care (01) ==
LOC: HO.HMGCLDS 10:33
PROVIDERS: PCP Internal Medicine; Visit Provider Physician Assistant Medical
DX: Z76.89 Persons encountering health services in other specified circumstances (principal); K08.89 Other specified disorders of teeth and supporting structures; F41.9 Anxiety disorder, unspecified; F32.A Depression, unspecified; R79.9 Abnormal finding of blood chemistry, unspecified; R79.89 Other specified abnormal findings of blood chemistry; R74.01 Elevation of levels of liver transaminase levels; E78.1 Pure hyperglyceridemia; I10 Essential (primary) hypertension; I25.10 Atherosclerotic heart disease of native coronary artery without angina pectoris; E78.00 Pure hypercholesterolemia, unspecified; Z87.898 Personal history of other specified conditions; Z79.899 Other long term (current) drug therapy; Z13.30 Encounter for screening examination for mental health and behavioral disorders, unspecified; Z13.31 Encounter for screening for depression; Z00.00 Encounter for general adult medical examination without abnormal findings
CPT/HCPCS: 36415; 80053; 82248; 82306; 82607; 82746; 83036; 83735; 84443; 85025; 96127; 99202

== ENCOUNTER 2025-01-04 10:33 | Outpatient (AMB) | payer MEDICARE, SELFPAY ==
--- OUTSIDE RECORDS SUMMARY | 2010-08-08 08:18 | XMS_ITS | Continuity of Care Document ---
Author Organization [facility] ou Address [address] [place] [address] Phone Care Team Providers Care Rattlesnake Farmer Name Role Phone John Paul WAN, Amadeo Unavailable Unavailable Procedures Procedure Date Nuclear scans of heart muscle SPECT Cardiovascular stress test Nuclear scan of heart muscle Nuclear scan of heart muscle Radiopharm Tech 99 [place] Myoview Aug Nuclear scans of heart muscle SPECT Cardiovascular stress test Nuclear scan of heart muscle Nuclear scan of heart muscle Radiopharm Tech 99 [place] Myoview Jul Advance Directives Directive Yes / No Effective Date File Name No Information Encounters Encounter Description Practice Location Reason(s) For Visit Diagnoses Date Provider Providers Copied on Encounter [facility], [address], [place], [place], [id number], [place] tel:[phone] [facility] No Information John Paul Childs. [address], [place], [place], [id number], [place]. tel:[phone] Referring Provider: Lloyd GUZMAN, [address], [place], [address]. tel:[phone] [facility], [address], [place], [place], [address], tel:[phone] [facility] No Information Ronal Mann. [address], [place], [place], [address], [place]. tel:[phone] Referring Provider: Lloyd GUZMAN, [address], [place], [address]. tel:[phone] [facility], [address], [place], [place], [id number], tel:[phone] [facility] No Information Ronal Mann. [address], [place], [place], [address], [place]. tel:[phone] Referring Provider: Lloyd GUZMAN, [address], [place], [address]. tel:[phone] Family History Family Member Type Diagnosis Age At Onset No Information Payers Payer name Insurance type Covered democrat ID Authorpedro mirandajamee(s) Medicare Part B Primary [id number] [facility] CI [id number] Social History Type Description Quantity Date Captured Comments Sex Male Smoking Status No Information Chief Complaint And Reason For Visit No Information Reason For Referral Reason For Referral No Information History Of Present Illness Encounter Date Complaint History Of Prese nt Illness No Information Functional Status Date Functional Assessmen t No Information Instructions Date Instruction Additional Infor mation No Information Assessments Type Assessment Date No Information Patient Care Teams Name Effective Dates (start - stop) Status Members No Information
--- NOTE | 2025-01-04 10:34 | A.OFFPC_ITS ---
Vital Signs 01/04/25 10:39 Height 5 ft 7.4 in Weight 177 lb 2 oz BMI 27.4 BP 120/64 Blood Pressure Location Rt brachial Position Sitting Respiration 20 Pulse 65 Pulse Source Pulse Oximeter Temp 97.5 F Temp Source Temporal Artery Scan Pulse Oximetry (%) 95 Oxygen Delivery Method Room Air Intake Visit Reasons: Establish Care Equalizer Operator Required: No Accompanied by: Spouse Allergies No Known Allergies Allergy (Mild, Verified 01/04/25 11:01) NOT APPLICABLE Medication List - Last Reconciled 01/04/25 by Karis Zafar PA-C alprazolam 0.5 mg PO TID aspirin 81 mg PO DAILY cholecalciferol (vitamin D3) 25 mcg PO DAILY clopidogrel 75 mg PO BEDTIME cyanocobalamin (vitamin B-12) 1,000 mcg PO DAILY doxazosin 8 mg PO BEDTIME ferrous sulfate 325 mg PO DAILY finasteride 5 mg PO DAILY flaxseed 1,000 mg PO DAILY lisinopril 2.5 mg PO DAILY metoprolol succinate ER 25 mg PO DAILY multivitamin 1 tab PO DAILY omega 6-aej-rxt-fish oil 1,000 (120-180) mg (Fish Oil) 1 cap PO BEDTIME pantoprazole 20 mg PO DAILY@0630 rosuvastatin 20 mg PO BEDTIME sertraline 100 mg PO DAILY Tobacco use date assessed: 01/04/25 Fall risk assessment: No Falls in past year Last assessed Fall Risk: 01/04/25 Dental Screening Dental Screen Date: 01/04/25 Did you have a dental visit in the last 12 months?: Yes Did you have a dental problem in the last 6 months where you did not have access to dental care?: No Was dental information given to patient?: Patient has dentist HPI Establish Care HPI Details The patient is an 84-year-old male presenting to establish a new primary care provider along with a request for clearance for dental surgery involving tooth extraction. He has a history of coronary artery bypass grafting (CABG) involving five vessels, performed due to significant coronary artery disease. He is currently on clopidogrel (Plavix) and aspirin, which require careful management due to the risk of bleeding during surgical procedures. The patient has been experiencing anxiety and depression, for which he is taking alprazolam (Xanax) and sertraline (Zoloft). He has been on these medications for an extended period, raising concerns about potential side effects such as memory loss. The patient has a history of anemia and elevated kidney function, which were noted in previous lab results. Additionally, his liver enzymes, specifically AST, were slightly elevated, and triglycerides were noted to be high. 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 - Reports a history of consuming fast fo od frequently, including [employer] and [employer]. [facility] Medical History (Updated 01/04/25 @ 12:11 by Karis Zafar PA-C) Hypertriglyceridemia Elevated AST (SGOT) Elevated serum creatinine Elevated BUN History of alcohol use disorder Anxiety and depression Establishing care with new doctor, encounter for Pain of tooth on palpation Pre-op evaluation Coronary artery disease Benign prostatic hyperplasia Hypercholesterolemia Depression Anxiety Hypertension Surgical History History of ankle surgery History of heart surgery (~05/2004) Family History Father Prostate cancer Aneurysm of gastric artery Mother Heart disease Diabetes Social History Household Members: Spouse Housing: House Do you presently have visiting nurse or other home services: No Alcohol intake: current Alcohol intake frequency: does not drink Patient Tobacco Use Status: Former Tobacco user Years Smoked: 30 years Second Hand Smoke Exposure: No Advance Directives Date on File: 07/07/23 service: Yes Current occupational status: retired Cognitive needs: No Hearing needs: No Vision needs: Yes (rx glasses) Questionnaire PHQ-9 Over the last 2 weeks, how often have you been bothered by any of the following problems? 1. Little interest or pleasure in doing things: not at all 2. Feeling down, depressed, or hopeless: not at all 3. Trouble falling or staying asleep, or sleeping too much: not at all 4. Feeling tired or having little energy: not at all 5. Poor appetite or overeating: not at all 6. Feeling bad about yourself - or that you are a failure or have let yourself or your family down: not at all 7. Trouble concentrating on things, such as reading the newspaper or watching television: not at all 8. Moving or speaking so slowly that other people could have noticed. Or the opposite - being so fidgety or restless that you have been moving around a lot more than usual: not at all 9. Thoughts that you would be better off or of hurting yourself in some way: not at all Total score: 0 Depression Screening Interpretation: Negative Depression Screening Done: Yes 97257 - PHQ-9 Billing: Yes Source: Developed by Drs. Sam Manjarrez, Donna Knapp, Antolin Adame and colleagues, with an educational justo from [employer]. Thrive Questionnaire Date Thrive assessed: 01/04/25 I am a: Patient What is your living situation today?: I have a steady place to live Within the past 12 months, did the food you bought not last and you didn't have the money to get more?: Never true Within the past 12 months, did you worry whether your food would run out before you got money to buy more?: Never true Do you have trouble paying for medicines?: No Do you have trouble getting transportation to medical appointments?: No Do you have trouble paying your heating and electricity bill?: No Do you have trouble taking care of your child, family member or friend?: No Do you have trouble with day-to-day activities such as bathing, preparing meals, shopping, managing finances, etc.?: No Are you currently unemployed and looking for a job?: No Are you interested in more education?: No Please select the resources that you would like help with: None Currently or been in a relationship where the following occur: No concerns reported THRIVE Score: 0 AUDIT C Alcohol Use Questionnaire (AUDIT-C) 1. How often do you have a drink containing alcohol?: Never 3. How often do you have six or more drinks on one occasion?: Never Total Score: 0 Score Reviewed/Action Taken: No GERARDO-7 AMB Questionnaire GERARDO-7 Date GERARDO - 7 assessed: 01/04/25 Feeling nervous, anxious, or on edge: 0 = Not at all Not being able to stop or control worryin = Not at all Worrying too much about different things: 0 = Not at all Trouble relaxin = Not at all Being so restless that it is hard to sit still: 0 = Not at all Becoming easily annoyed or irritable: 0 = Not at all Feeling afraid as if something awful might happen: 0 = Not at all Total GERARDO-7 score (0-4 normal; 5-9 mild; 10-14 moderate; 15-21 severe): 0 Source: Developed by Drs. Sam Manjarrez, Donna Knapp, Antolin Adame and colleagues, with an educational justo from [employer]. GERARDO-7 Assessment Billing GERARDO-7 Assessment Tool: GERARDO-7 Assessment 24104 Review of Systems Const Details: - Cardiovascular: Denies chest pain, dyspnea, or orthopnea. - Musculoskeletal: Reports bruising, likely due to anticoagulant therapy. Physical exam (Primary Care) Vital Signs: Last Vital Signs Temp 97.5 F 01/04/25 10:39 Pulse 65 01/04/25 10:39 Resp 20 01/04/25 10:39 BP 120/64 01/04/25 10:39 Pulse Ox 95 01/04/25 10:39 Oxygen Delivery Method Room Air 01/04/25 10:39 Care Plan Goal for BP management: <140/90 at Goal BMI result Body Mass Index 27.4 BMI Assessment/Plan discussion: High BMI High, discussed plan: lifestyle, weight reduction, dietary, physical activity and alcohol moderation Tobacco/Smoking Status: Tobacco use Status Tobacco use date assessed 01/04/25 01/04/25 10:38 Patient Tobacco Use Status Former Tobacco user 01/04/25 10:55 PHQ-9: PHQ-9 Score PHQ-9: Total score 0 01/04/25 10:38 Depression Screening Interpretation: Negative Thrive Assessment: Date of Thrive Assessment Date Thrive assessed 01/04/25 01/04/25 10:38 Currently or been in a relationship where the following occur: No concerns reported Const Other: Appearance: Alert. Oriented X3. No acute distress. Head: Normal external exam. Normocephalic. Atraumatic. Eyes: Pupils are equal, round, and reactive to light. Extraocular movements intact. Conjunctiva and sclera normal. Eyelids normal. Throat: Pharynx normal. Uvula midline. Moist mucous membranes. Neck: Normal inspection. Neck supple. Full range of motion Cardiovascular: Normal heart rate and rhythm. Heart sound normal. Pulses normal throughout. Respiratory: No respiratory distress. Painless inspiration. Breath sounds normal. No wheezes/rales/rhonchi noted. Chest nontender. No accessory muscle usage noted or decreased air movement noted. Abdomen: Soft and nontender. Back: Full range of motion noted. Skin: Skin warm and dry. Normal skin color. Normal skin turgor. No rashes/lesions/lacerations noted. Extremities: Extremities exhibit normal range of motion. Neuro: Oriented X 3. No motor deficit. No sensory deficit. Reflexes normal. Results Reviewed Results Reviewed: - Labs: Anemia noted, elevated kidney function, elevated AST, triglycerides at 193 mg/dL. Coding Level of Care Code New Pt Level 5 (23309) Complex EM visit Add On G2211 Diagnoses Establishing care with new doctor, encounter for Z76.89 Pain of tooth on palpation K08.89 Anxiety and depression F41.9; F32.A History of alcohol use disorder Z87.898 Elevated BUN R79.9 Elevated serum creatinine R79.89 Elevated AST (SGOT) R74.01 Hypertriglyceridemia E78.1 Hypertension I10 Coronary artery disease I25.10 History of heart surgery Z98.890 Hypercholesterolemia E78.00 Additional Codes PHQ-9 - 17494 - PHQ-9 Billing: Yes ([id number]) GERARDO-7 Assessment Billing - GERARDO-7 Assessment Tool: GERARDO-7 Assessment 10101 ([id number]) Time Spent (min) 60 Assessment & Plan Assessment & Plan (1) Establishing care with new doctor, encounter for: Code(s): Z76.89 - Persons encountering health services in other specified circumstances Category: Medical (2) Pain of tooth on palpation: Code(s): K08.89 - Other specified disorders of teeth and supporting structures Category: Medical Plan: The patient requires clearance for dental surgery to extract two teeth. Due to his history of coronary artery bypass grafting and current use of clopidogrel and aspirin, there is a need to manage anticoagulation therapy carefully to minimize bleeding risk. The plan includes stopping clopidogrel and aspirin two to three days prior to surgery, pending cardiology clearance. An EKG and blood work, including kidney function and liver enzymes, are ordered to assess the patient's current health status. Referral to cardiology is made to ensure comprehensive evaluation and management of the patient's cardiovascular status before proceeding with surgery. (3) Anxiety and depression: Code(s): F41.9 - Anxiety disorder, unspecified; F32.A - Depression, unspecified Category: Medical Plan: The patient is currently on alprazolam and sertraline for anxiety and depression. There is a plan to gradually reduce the dosage of alprazolam to minimize potential side effects such as memory loss. When the patient needs a refill we will reduced from t.i.d. to b.i.d., then we will reduce to once a day then we will reduce to every other day until the patient is completely off. He reports he was on this after stopping alcohol usage 40 years ago and he has not use alcohol and 40 years. His is concerned that he has memory loss from this medication and would like to wean him off as well. Patient would also like to be weaned off. The patient is advised to discuss any changes in symptoms or concerns with his healthcare provider. (4) History of alcohol use disorder: Comment: Sober for 40 years Code(s): Z87.898 - Personal history of other specified conditions Category: Medical Plan: The patient is currently on alprazolam and sertraline for anxiety and depression. There is a plan to gradually reduce the dosage of alprazolam to minimize potential side effects such as memory loss. When the patient needs a refill we will reduced from t.i.d. to b.i.d., then we will reduce to once a day then we will reduce to every other day until the patient is completely off. He reports he was on this after stopping alcohol usage 40 years ago and he has not use alcohol and 40 years. His is concerned that he has memory loss from this medication and would like to wean him off as well. Patient would also like to be weaned off. The patient is advised to discuss any changes in symptoms or concerns with his healthcare provider. (5) Elevated BUN: Code(s): R79.9 - Abnormal finding of blood chemistry, unspecified Category: Medical Plan: The patient has elevated kidney function, as noted in previous lab results. Further evaluation through blood work is planned to monitor kidney function and guide management. (6) Elevated serum creatinine: Code(s): R79.89 - Other specified abnormal findings of blood chemistry Category: Medical Plan: The patient has elevated kidney function, as noted in previous lab results. Further evaluation through blood work is planned to monitor kidney function and guide management. (7) Elevated AST (SGOT): Code(s): R74.01 - Elevation of levels of liver transaminase levels Category: Medical Plan: The patient has elevated AST and hypertriglyceridemia, as noted in previous lab results. Further blood work is ordered to monitor liver function and triglyceride levels. (8) Hypertriglyceridemia: Code(s): E78.1 - Pure hyperglyceridemia Category: Medical Plan: The patient has elevated AST and hypertriglyceridemia, as noted in previous lab results. Patient to continue rosuvastatin 20 mg at bedtime. Further blood work is ordered to monitor liver function and triglyceride levels. (9) Hypertension: Code(s): I10 - Essential (primary) hypertension Category: Medical Plan: Patient to continue lisinopril 2.5 mg daily, metoprolol extended release 25 mg daily. Condition is chronic and stable will continue to monitor. (10) Coronary artery disease: Code(s): I25.10 - Atherosclerotic heart disease of [place] coronary artery without angina pectoris Category: Medical Plan: Will refer patient for basic labs, EKG and cardiology referral. Condition is chronic and stable continue to monitor. (11) History of heart surgery: Onset Date: ~05/2004 Comment: 5 vessel bypass, [place], [place] Code(s): Z98.890 - Other specified postprocedural states Category: Surgical Plan: Will refer patient for basic labs, EKG and cardiology referral. Condition is chronic and stable continue to monitor. (12) Hypercholesterolemia: Code(s): E78.00 - Pure hypercholesterolemia, unspecified Category: Medical Plan: Patient to continue rosuvastatin 20 mg at bedtime. Condition is chronic and stable continue to monitor. Plan Plan Patient was informed and verbally consented to the use of an ambient scribe for clinic note documentation during this visit. 1. Dental Issues Requiring Tooth Extraction The patient requires clearance for dental surgery to extract two teeth. Due to his history of coronary artery bypass grafting and current use of clopidogrel and aspirin, there is a need to manage anticoagulation therapy carefully to minimize bleeding risk. The plan includes stopping clopidogrel and aspirin two to three days prior to surgery, pending cardiology clearance. An EKG and blood work, including kidney function and liver enzymes, are ordered to assess the patient's current health status. Referral to cardiology is made to ensure c omprehensive evaluation and management of the patient's cardiovascular status before proceeding with surgery. 2. Anxiety And Depression The patient is currently on alprazolam and sertraline for anxiety and depression. There is a plan to gradually reduce the dosage of alprazolam to minimize potential side effects such as memory loss. When the patient needs a refill we will reduced from t.i.d. to b.i.d., then we will reduce to once a day then we will reduce to every other day until the patient is completely off. He reports he was on this after stopping alcohol usage 40 years ago and he has not use alcohol and 40 years. His is concerned that he has memory loss from this medication and would like to wean him off as well. Patient would also like to be weaned off. The patient is advised to discuss any changes in symptoms or concerns with his healthcare provider. 3. Anemia The patient has a history of anemia, which was noted in previous lab results. Further blood work is ordered to reassess the anemia and determine any necessary interventions. 4. Elevated Kidney Function The patient has elevated kidney function, as noted in previous lab results. Further evaluation through blood work is planned to monitor kidney function and guide management. 5. Elevated Ast And Hypertriglyceridemia The patient has elevated AST and hypertriglyceridemia, as noted in previous lab results. Further blood work is ordered to monitor liver function and triglyceride levels. During the visit, I discussed with the patient the need for careful management of his anticoagulation therapy due to his history of coronary artery bypass grafting and the upcoming dental surgery. I explained the importance of stopping clopidogrel and aspirin two to three days before the procedure, pending cardiology clearance, to minimize bleeding risk. We also discussed the need for further blood work and an EKG to assess his current health status and the referral to cardiology for comprehensive evaluation. 60 minutes were spent on the day of encounter including history, physical, coordination of care, consulting with Dr. Cobos, counseling and documentation. Orders: Orders Liver Panel Today Z00.00 - Encounter for general adult medical examination without abnormal findings Hemoglobin A1c Today Z00.00 - Encounter for general adult medical examination without abnormal findings Vitamin D 25-OH Total Today Z00.00 - Encounter for general adult medical examination without abnormal findings Complete Blood Count Auto Diff Today Z00.00 - Encounter for general adult m edical examination without abnormal findings Magnesium Today Z00.00 - Encounter for general adult medical examination without abnormal findings Vitamin B12 and Folate Today Z00.00 - Encounter for general adult medical examination without abnormal findings Comprehensive Met. Panel Today Z00.00 - Encounter for general adult medical examination without abnormal findings ECG 12 lead EKG Today Z01.818 - Encounter for other preprocedural examination TSH reflex Free T4 Today Z00.00 - Encounter for general adult medical examination without abnormal findings Referrals Cardiology Referral E78.00 - Pure hypercholesterolemia, unspecified, I10 - Essential (primary) hypertension, I25.10 - Atherosclerotic heart disease of [place] coronary artery without angina pectoris, Z01.818 - Encounter for other preprocedural examination, Z98.890 - Other specified postprocedural states Patient Instructions: - Stop taking clopidogrel and aspirin two to three days before the dental surgery, pending cardiology clearance. - Complete the ordered blood work and EKG before the next appointment. - Attend the follow-up appointment with Dr. Suresh for further evaluation. - Discuss any changes in symptoms or concerns with your healthcare provider.
[2025-01-04 10:39] VITALS: BP 120/64; PULSE 65; RESP 20; TEMP 36.4; O2SAT 95; BMI 27.4
== END 2025-01-04 11:24 | disposition home or self-care (01) ==
LOC: HO.HMCSH 10:33
PROVIDERS: PCP Internal Medicine; Visit Provider Physician Assistant Medical
DX: F41.9 Anxiety disorder, unspecified (principal); R79.89 Other specified abnormal findings of blood chemistry; E78.1 Pure hyperglyceridemia; I10 Essential (primary) hypertension; Z76.89 Persons encountering health services in other specified circumstances; F32.A Depression, unspecified; R74.01 Elevation of levels of liver transaminase levels; Z87.898 Personal history of other specified conditions; I25.10 Atherosclerotic heart disease of native coronary artery without angina pectoris; Z98.890 Other specified postprocedural states

== ENCOUNTER → 2025-01-08 10:40 | Outpatient (REF) | payer MEDICARE, SELFPAY ==
--- NOTE | 2025-01-08 10:46 | ECG_ITS ---
Test Reason : preop Blood Pressure : */* mmHG Vent. Rate : 59 BPM Atrial Rate : 59 BPM P-R Int : 204 ms QRS Dur : 98 ms QT Int : 436 ms P-R-T Axes : 64 19 99 degrees QTcB Int : 431 ms Sinus bradycardia Cannot rule out Inferior infarct (cited on or before 08-Mar-2024) Abnormal ECG When compared with ECG of 08-Mar-2024 11:32, Right bundle branch block is no longer Present Referred By: Karis Zfaar Electronically Signed By: Jose Dave
--- OUTSIDE RECORDS SUMMARY | 2025-01-08 11:35 | XMS_ITS | Patient Health Record ---
[facility] Organization [facility] paola HuangАндрей Address [address] [place] [address] Care Team Providers Care Swatch Maker Name Role Phone Wolf Burnette MD Primary Care Provider Unavailab Tejas Baker Unavailable [phone] Allergies No Known Allergies Results Component Value Reference Range Notes HEMOGLOBIN A1C (GLYCOHEMOGLO BIN) Reviewed date:09/01/2024 11:58:01 AM Interpretation: Performing Lab: Notes/Report: HEMOGLOBIN A1C % (HH) 6.5 HEMOGLOBIN A1C (GLYCOHEMOGLO BIN) Reviewed date:12/12/2024 01:48:57 PM Interpretation: Performing Lab: Notes/Report: HEMOGLOBIN A1C % (HH) 6.5 Reason For Referral No Information Medications Medication SIG (Take, Route, Frequency, Duration) Notes Start Date End Date Status Ciclopirox Olamine 0.77 % 1 application Externally Twice a day; Duration: 30 days Active Sertraline HCl 100 MG 1 tablet Orally On ce a day; Duration: 30 day(s) Active Zetia 10 MG 1 tablet Orally Once a day; Duration: 30 day(s) Active Norvasc 5 MG 1 tablet Orally Once a day; Duration: 30 day(s) Active Plavix 75 MG 1 tablet Orally Once a day; Duration: 30 day(s) Active Extra Depth Orthopedic Shoes, (1) Pair With (3) Pair Custom Heat Molded Multidensity Innersoles Dx: NIDDM/PVD(E11.51), Hammertoe Foot Deformity(M20.41,M20.42), Preulcerative Skin Lesion(s)(L85.1) Wear Daily; Duration: 365 days Active Metoprolol Tartrate 25 MG 1 tablet Orall y Twice a day; Duration: 30 day(s) Active Doxazosin Mesylate 8 MG 1 tablet Orally Once a day; Duration: 30 day(s) Active Finasteride 5 MG 1 tablet Orally Once a day; Duration: 30 day(s) Active ALPRAZolam 0.5 MG 1 tablet Orally Thre e times a day Active Crestor 20 MG 1 tablet Orally Once a day; Duration: 30 day(s) Active Immunizations Vaccine Route Administration Date Status Comme nts COVID-19 Pfizer BioNTech Vaccine Unknown 04/25/2021 Administered 1st 08/18/2020 2nd 09/08/2020 Influenza Unknown 05/22/2015 Administered Influenza Unknown 05/25/2016 Administered Influenza Unknown 05/23/2018 Administered Influenza Unknown 04/05/2019 Administered Influenza Unknown 05/06/2022 Administered Influenza Unknown 03/05/2023 Administered Influenza Unknown 04/04/2024 Administered Pneumococcal Unknown 05/22/2015 Administered Social History Tobacco Use: Social History Observation Description Date Details (start date - stop date) Never Smoker NA - NA Tobacco use other than smoking: Question Answer Notes Are you an other tobacco user? No Tobacco Control (Standard) Question Answer Notes Tobacco use: Nonsmoker Additional Findings: Tobacco non-user Current no nsmoker AUDIT-C (Standard) Question Answer Notes Did you have a drink containing alcohol in the p ast year? No Points 0 Interpretation Negative Problems Problem Type SNOMED Code ICD Code Onset Dates Problem Status W/U Status Risk Notes Problem Acquired hammer toe of right foot (97802717745674 05) Other hammer toe(s) (acquired), right foot (M20.41) Active confirmed Problem Type 2 diabetes mellitus with peripheral angiopathy (274553482) Type 2 diabetes mellitus with diabetic peripheral angiopathy without gangrene (E11.51) Active confirmed Problem Acquired hammer toe of left foot (94862395161157 03) Other hammer toe(s) (acquired), left foot (M20.42) Active confirmed Vital Signs Blood pressure diastolic 65 mm Hg 12/12/2024 Height 5 ft 9 in in 12/12/2024 Blood pressure systolic 128 mm Hg 12/12/2024 Weight 165 lbs 12/12/2024 BMI 24.36 kg/m2 12/12/2024 Procedures Procedure Date Ordered Date Performed Result Body Sit e 81342-OQLKGLJ NAIL, 6 OR MORE 03/03/2024 N/A 26671-Vyaykqix Plate 03/03/2024 N/A 61428-SSQE SKIN LESIONS, OVER 4 03/03/2024 N/A 22607-VNKPFFA NAIL, 6 OR MORE 05/30/2024 N/A 61790-ZIOB SKIN LESIONS, OVER 4 05/30/2024 N/A 41972-QRKDBCL NAIL, 6 OR MORE 09/01/2024 N/A 89848-Xypsmkvx Plate 09/01/2024 N/A 73669-EVSG SKIN LESIONS, OVER 4 09/01/2024 N/A 64995-YJCJLWG NAIL, 6 OR MORE 12/12/2024 N/A 48055-Pxjmqaoo Plate 12/12/2024 N/A 89182-FQHP SKIN LESIONS, OVER 4 12/12/2024 N/A Encounters Encounter Location Date Provider Diagnosis [address] [address] 03/03/2024 Tejas Claudia Type 2 diabetes mellitus with diabetic peripheral angiopathy without gangrene E11.51 ; Onychomycosis B35.1 ; Pain of toe of right foot M79.674 ; Pain of toe of left foot M79.675 and Ingrown nail L60.[address] [address] 05/30/2024 Tejasmillicent AdamsClaudia Type 2 diabetes mellitus with diabetic peripheral angiopathy without gangrene E11.51 ; Onychomycosis B35.1 ; Pain of toe of right foot M79.674 and Pain of toe of left foot M79.[address] [address] 09/01/2024 Tejas Claudia Type 2 diabetes mellitus with diabetic peripheral angiopathy without gangrene E11.51 ; Onychomycosis B35.1 ; Pain of toe of right foot M79.674 ; Pain of toe of left foot M79.675 ; Other hammer toe(s) (acquired), left foot M20.42 ; Other hammer toe(s) (acquired), right foot M20.41 and Ingrown nail L60.[address] [place] [address] 12/12/2024 Tejas Taylor Type 2 diabetes mellitus with diabetic peripheral angiopathy without gangrene E11.51 ; Other hammer toe(s) (acquired), right foot M20.41 ; Onychomycosis B35.1 ; Pain of toe of right foot M79.674 ; Pain of toe of left foot M79.675 ; Other hammer toe(s) (acquired), left foot M20.42 and Ingrown nail L60.0 Assessments Encounter Date Diagnosis (ICD Code) Assessment Notes Treatment Notes Treatment Clinical Notes Section Notes 03/03/2024 Type 2 diabetes mellitus with diabetic peripheral angiopathy without gangrene (ICD-10 - E11.51) 03/03/2024 Onychomycosis (ICD-10 - B35.1) 05/30/2024 Type 2 diabetes mellitus with diabetic peripheral angiopathy without gangrene (ICD-10 - E11.51) 05/30/2024 Onychomycosis (ICD-10 - B35.1) 09/01/2024 Type 2 diabetes mellitus with diabetic peripheral angiopathy without gangrene (ICD-10 - E11.51) 12/12/2024 Other hammer toe(s) (acquired), right foot (ICD-10 - M20.41) Patient Educated with: DIABETIC FOOT CARE INSTRUCTIONS.p df (DIABETIC FOOT CARE INSTRUCTIONS.p df) 12/12/2024 Type 2 diabetes mellitus with diabetic peripheral angiopathy without gangrene (ICD-10 - E11.51) 09/01/2024 Onychomycosis (ICD-10 - B35.1) 12/12/2024 Onychomycosis (ICD-10 - B35.1) 03/03/2024 Pain of toe of right foot (ICD-10 - M79.674) 05/30/2024 Pain of toe of right foot (ICD-10 - M79.674) 03/03/2024 Pain of toe of left foot (ICD-10 - M79.675) 05/30/2024 Pain of toe of left foot (ICD-10 - M79.675) 12/12/2024 Pain of toe of right foot (ICD-10 - M79.674) 09/01/2024 Pain of toe of right foot (ICD-10 - M79.674) 09/01/2024 Pain of toe of left foot (ICD-10 - M79.675) 12/12/2024 Pain of toe of left foot (ICD-10 - M79.675) 03/03/2024 Ingrown nail (ICD-10 - L60.0) 09/01/2024 Other hammer toe(s) (acquired), left foot (ICD-10 - M20.42) 12/12/2024 Other hammer toe(s) (acquired), left foot (ICD-10 - M20.42) 12/12/2024 Ingrown nail (ICD-10 - L60.0) 09/01/2024 Ingrown nail (ICD-10 - L60.0) 09/01/2024 Other hammer toe(s) (acquired), right foot (ICD-10 - M20.41) Patient Educated with: DIABETIC FOOT CARE INSTRUCTIONS.p df (DIABETIC FOOT CARE INSTRUCTIONS.p df) 03/03/2024 Other 05/30/2024 Other Plan Of Treatment Pending Test Test Name Order Date Hemoglobin A1c 11/13/2014 76226-YFIQNBS NAIL, 6 OR MORE 04/02/2015 81054-AVSNPGE NAIL, 6 OR MORE 01/03/2016 81669-KXWCGEJ NAIL, 6 OR MORE 04/03/2016 03741-XBAUPYZ NAIL, 6 OR MORE 11/24/2016 53710-KEIFAKW NAIL, 6 OR MORE 03/12/2017 79636-QBGSSYE NAIL, 6 OR MORE 01/03/2013 41945-EWEKKHD NAIL, 6 OR MORE 04/07/2013 52287-UNRZTIZ NAIL, 6 OR MORE 11/14/2013 72355-XQAICNC NAIL, 6 OR MORE 03/23/2014 98262-GLPDTGN NAIL, 6 OR MORE 11/13/2014 45881-MFPFMEQ NAIL, 6 OR MORE 11/30/2017 99606-THADTQO NAIL, 6 OR MORE 03/08/2018 10132-LKFKGUF NAIL, 6 OR MORE 06/21/2018 23012-ZCDBATO NAIL, 6 OR MORE 11/08/2018 86328-YGDWVLZ NAIL, 6 OR MORE 02/07/2019 84691-UQEKGNB NAIL, 6 OR MORE 05/26/2019 19253-LDNTSSS NAIL, 6 OR MORE 10/27/2019 66744-SWGXVNH NAIL, 6 OR MORE 03/08/2020 75411-HIVNOXZ NAIL, 6 OR MORE 06/07/2020 77716-RUVUFIK NAIL, 6 OR MORE 10/25/2020 69096-XWSFZSU NAIL, 6 OR MORE 01/31/2021 92303-KWSKVGD NAIL, 6 OR MORE 05/09/2021 96914-QXRGXFR NAIL, 6 OR MORE 08/15/2021 47292-XIHUROF NAIL, 6 OR MORE 11/14/2021 44576-LDWJKGE NAIL, 6 OR MORE 02/13/2022 92356-HWFLREU NAIL, 6 OR MORE 05/15/2022 18986-FMLNHHU NAIL, 6 OR MORE 08/28/2022 11223-IVDMXOI NAIL, 6 OR MORE 12/01/2022 83460-MXHCIDX NAIL, 6 OR MORE 03/09/2023 78629-FKBVERP NAIL, 6 OR MORE 06/15/2023 45405-EDAOPGY NAIL, 6 OR MORE 09/07/2023 24315-FKOKVHY NAIL, 6 OR MORE 03/03/2024 73155-CNFXAAC NAIL, 6 OR MORE 05/30/2024 30492-TAIECDL NAIL, 6 OR MORE 09/01/2024 31890-SOPAIIL NAIL, 6 OR MORE 12/12/2024 18451-Nzwsrenu Plate 12/12/2024 95524-Ecaohdon Plate 06/15/2023 01738-Kiotmjvf Plate 09/01/2024 17720-Omkhjjsg Plate 03/03/2024 65031-Wxofrycv Plate 09/07/2023 68067-Eaobuxgg Plate 03/09/2023 13756-Evhamfka Plate 05/09/2021 63493-Cochrqjn Plate 12/01/2022 92036-Ucmuegtp Plate 02/13/2022 14672-Fjzdsqqa Plate 11/14/2021 35681-Knakmjis Plate 08/15/2021 77148-Klhbozpb Plate 11/13/2014 19051-Pkryujzx Plate 03/23/2014 43477-Dfabmbcu Plate 11/14/2013 41933-Meczuegw Plate 11/30/2017 34937-Tajpwjon Plate 04/02/2015 48908-Xshynraa Plate Each Additional 54985-Dkeoxkbv Plate Each Additional 44848-Hdqpuzmp Plate Each Additional 06/2015 97735-JJVJ SKIN LESIONS, OVER 4 05/09/20 21 62633-BZKJ SKIN LESIONS, OVER 4 05/15/20 22 52860-DQKQ SKIN LESIONS, OVER 4 03/09/20 23 40363-FBCA SKIN LESIONS, OVER 4 12/02/19 23 43230-SIUK SKIN LESIONS, OVER 4 08/28/19 23 36768-LJOZ SKIN LESIONS, OVER 4 09/07/19 52513-ULNV SKIN LESIONS, OVER 4 06/15/20 05968-UOJU SKIN LESIONS, OVER 4 03/03/20 24 94954-UVLC SKIN LESIONS, OVER 4 05/30/20 24 29943-UHDH SKIN LESIONS, OVER 4 09/01/19 92513-ACJZ SKIN LESIONS, OVER 4 12/13/19 99635-HQHL SKIN LESIONS, 2 TO 4 02/14/20 22 92108-RAJE SKIN LESIONS, 2 TO 4 08/15/19 22 15531-IOHZ SKIN LESIONS, 2 TO 4 11/15/19 22 18714-IERU SKIN LESIONS, 2 TO 4 02/01/20 21 41144-ZMKX SKIN LESIONS, 2 TO 4 10/26/19 21 43252-AGRR SKIN LESIONS, 2 TO 4 06/07/20 20 74881-VILZ SKIN LESIONS, 2 TO 4 03/08/20 Next Appt Details Provider Name:Tejas Taylor , 03/20/2025 01:30:00 PM, [address] [facility], [place], [address], Insurance Providers Payer Name Payer Address Payer Phone Subscriber Number Group Number Insured Name Patient Relationship to Insured Coverage Start Date Coverage End Date Medicare National [employer]t [employer] [address] [place] [address] [id number] Aric Gaitan Self - patient is the insured A[employer] Secondary to Medicare [address] [place] [address] [id number] Aric Gaitan Self - patient is the insured Medical (General) History Medical History History ICD Code anxiety back, hip, knee pain broken bones cholesterol cataracts depression heart disease high blood pressure poor circulation measles mumps chicken pox joint implants/screws type II diabetes covid-19 Surgical History Surgery Date(Month/Year) 5 bypass heart surgery 05/26/2004 broken jaw 2005 Hospitalization History Reason Date(Month/Year) Diverticulitis 09/2023 Diverticulitis Jul 2023
--- OUTSIDE RECORDS SUMMARY | 2025-01-08 11:35 | XMS_ITS | Patient Health Record ---
Author Organization [facility] Address [address] [place] [address] Care Team Providers Care Cooker Helper Name Role Phone Wolf Burnette MD Primary Care Provider Sam Chaves Unavailable [phone] Allergies No Known Allergies Reason For Referral [...] Calcium 20 MG Oral for 90 Active Immunizations Vaccine Route Administration Date Status Comme nts Influenza Unknown 03/05/2021 Administered Social History Tobacco Use: Social History Observation Description Date Details (start date - stop date) Former Smoker NA - NA Tobacco Use/Smoking Question Answer Notes Patient is a former smoker How long has it been since you last smoked? > 10 years Alcohol Screen Question Answer Notes Did you have a drink containing alcohol in the p ast year? No Points 0 Interpretation Negative Section Notes: Nonsmoker; no sig alcohol Problems Problem Type SNOMED Code ICD Code Onset Dates Problem Status W/U Status Risk Notes Problem Diverticulitis (479811265) Diverticulitis (K57.92) Active confirmed Problem Diverticulosis of sigmoid colon (485524434) Diverticulosis of sigmoid colon (K57.30) Active confirmed Problem Imaging of gastrointestinal tract abnormal (210299339) Abnormal computed tomography of sigmoid colon (R93.3) Active confirmed Plan Of Treatment Future Test Test Name Order Date COLONOSCOPY 03/13/2022 Insurance Providers Payer Name Payer Address Payer Phone Subscriber Number Group Number Insured Name Patient Relationship to Insured Coverage Start Date Coverage End Date MEDICARE OF [place] [address] [place] [address] [id number] ZI ADORNO Self - patient is the insured [facility] SUPPLEMENTAL PLAN [address] [place] [address] [id number] ZI ADORNO Self - patient is the insured Medical (General) History Medical History History ICD Code Hypertension Hypercholesterolemia Coronary artery disease--AL Umbilical hernia Anxiety BPH Sigmoid diverticulitis in 12/2021 Denies AL,DM,CVA,Lung disease,renal dise ase Negative colonoscopy approx 20 yrs ago Surgical History Surgery Date(Month/Year) 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
== END ==
LOC: HO.CARD 10:40
PROVIDERS: PCP Internal Medicine; Visit Provider Physician Assistant Medical
DX: Z01.818 Encounter for other preprocedural examination (principal)
CPT/HCPCS: 93005

== ENCOUNTER → 2025-01-08 10:46 | Outpatient (BNV) | payer MEDICARE, SELFPAY | PROVIDERS: PCP Internal Medicine; Visit Provider Internal Medicine Cardiovascular Disease | DX: R00.1 Bradycardia, unspecified (principal) | CPT/HCPCS: 93010 ==

== ENCOUNTER 2025-01-09 14:20 | Outpatient (AMB) | payer MEDICARE, SELFPAY ==
--- OUTSIDE RECORDS SUMMARY | 2019-10-02 04:41 | XMS_ITS | Continuity of Care Document ---
Author Organization [facility] Address [address] [place] [address] Phone Care Team Providers Care Book Repairer Name Role Phone John WAN, Check Unavailable Unavailable Allergies, Adverse Reactions, Alerts Substance Reaction Status Criticality No Known Allergies Active No Inform ation Medications Medication Instructions Dosage Effective Dates (start - stop) Status Comments doxazosin 8 mg tablet take 1 tablet by o ral route every day 8 MG - Active finasteride 5 mg tablet take 1 tablet by oral route every day 5 MG - Active metoprolol succinate ER 50 mg tablet,extended release 24 hr take 1 tablet by oral route every day 50 MG - Active clopidogrel 75 mg tablet take 1 tablet by oral route every day 75 MG - Active sertraline 100 mg tablet take 1 tablet by oral route every day 100 MG - Active lisinopril 2.5 mg tablet take 1 tablet by oral route every day 2.5 MG - Active alprazolam 0.5 mg tablet take 1 tablet by oral route 3 times every day 0.5 MG - Active flaxseed oil 1,000 mg capsule - Active Fish Oil 1,000 mg (120 mg-180 mg) capsule - Active Vitamin B-12 100 mcg tablet - Active Vitamin D3 1,000 unit capsule - Active pantoprazole 40 mg tablet,delayed release take 1 tablet by oral route every day 40 MG - Active aspirin 81 mg tablet,delayed release take 1 tablet by oral route every day 81 MG - Active multivitamin tablet take 1 tablet by ora l route every day with food - Active Procedures Procedure Date Office/outpatient visit,est, mod 2019 Physical Tx excercises, ea 15 min Physical Tx excercises, ea 15 min Physical Tx excercises, ea 15 min Physical Tx excercises, ea 15 min Physical Tx excercises, ea 15 min Physical Tx excercises, ea 15 min PT EVAL MOD COMPLEX 30 MIN Physical Tx excercises, ea 15 min Batamethasone Per 3mg Drain/inject major joint or bursa Office/outpatient visit,est, mod 2019 MRI Upper Ext Of Joint X-ray exam of shoulder, complete 2019 Office/outpatient visit,new, mod 2019 Advance Directives Directive Yes / No Effective Date File Name No Information Encounters Encounter Description Practice Location Reason(s) For Visit Diagnoses Date Provider Providers Copied on Encounter [facility], [address], [place], [place], [id number], tel:[phone] [phone] No Information Sep- 0 John WAN Check. [address], [address], [place], [place], [address], [place]. tel:[phone] Referring Provider: Check John Rodriguez, [address], [place], [address] . tel:[phone] Office/outpa tient visit,est, mod [facility], [address], [place], [place], [id number], tel:[phone] [facility] [address] right shoulder pain (chief complaint) Rotator cuff rupture of right shoulder, not specified as traumatic 0 John WAN Check. [address], [place], [place], [id number], [place]. tel:[phone] Referring Provider: Check John Rodriguez, [address], [place], [address] . tel:[phone] [facility], [address], [place], [place], [id number], [place] tel:[phone] [facility] [address] Unsp rotatr-cuff tear/ruptr of right shoulder, not traumaOth symptoms and signs involving the musculoskeletal systemStiffness of right shoulder, not elsewhere classified 0 Lorena Fuentes. [address], [address], [place], [place], [address], [place]. tel:[phone] Referring Provider: Check John Rodriguez, [address], [place], [address] . tel:[phone] [facility], [address], [place], [place], [address], [place] tel:[phone] [facility] [address] Unsp rotatr-cuff tear/ruptr of right shoulder, not traumaOth symptoms and signs involving the musculoskeletal systemStiffness of right shoulder, not elsewhere classified 0 Lorena Fuentes. [address], [place], [place], [address], [place]. tel:[phone] Referring Provider: Check John Rodriguez, [address], [place], [address] . tel:[phone] [facility], [address], [place], [place], [address], [place] tel:[phone] [facility] [address] Unsp rotatr-cuff tear/ruptr of right shoulder, not traumaOth symptoms and signs involving the musculoskeletal systemStiffness of right shoulder, not elsewhere classified 0 Lorena Fuentes. [address], [place], [place], [address], [place]. tel:[phone] Referring Provider: Check John Rodriguez, [address], [place], [address] . tel:[phone] [facility], [address], [place], [place], [address], [place] tel:[phone] [facility] [address] Unsp rotatr-cuff tear/ruptr of right shoulder, not traumaOth symptoms and signs involving the musculoskeletal systemStiffness of right shoulder, not elsewhere classified 0 Lorena Fuentes. [address], [place], [place], [address], [place]. tel:[phone] Referring Provider: Check John Rodriguez, [address], [place], [address] . tel:[phone] [facility], [address], [place], [place], [id number], [place] tel:[phone] [facility] [address] Unsp rotatr-cuff tear/ruptr of right shoulder, not traumaOth symptoms and signs involving the musculoskeletal systemStiffness of right shoulder, not elsewhere classified 0 Nati Finch. [address], [place], [place], [address], [place]. tel:[phone] Referring Provider: Check John Rodriguez, [address], [place], [address] . tel:[phone] [facility], [address], [place], [place], [id number], [place] tel:[phone] [facility] [address] Unsp rotatr-cuff tear/ruptr of right shoulder, not traumaOth symptoms and signs involving the musculoskeletal systemStiffness of right shoulder, not elsewhere classified 0 Lorena Fuentes. [address], [place], [place], [address], [place]. tel:[phone] Referring Provider: Check John Rodriguez, [address], [place], [address] . tel:[phone] [facility], [address], [place], [place], [address], [place] tel:[phone] [facility] [address] Shoulder weaknessDecrease d ROM of right shoulderUnsp rotatr-cuff tear/ruptr of right shoulder, not trauma Aug-0 0 Lorena Fuentes. [address], [place], [place], [address], [place]. tel:[phone] Referring Provider: Check John Rodriguez, [address], [place], [address] . tel:[phone] [facility], [address], [place], [place], [address], [place] tel:[phone] [facility] [address] Rotator cuff rupture of right shoulder, not specified as traumatic 0 0 Nati Finch. [address], [address], [place], [place], [address], [place]. tel:[phone] Referring Provider: Check John Rodriguez, [address], [place], [address] . tel:[phone] Office/outpa tient visit,est, [facility], [address], [place], [place], [address], [place] tel:[phone] [facility] [address] right shoulder pain (chief complaint) Rotator cuff rupture of right shoulder, not specified as traumatic 0 0 John Murdock. [address], [place], [place], [address], [place]. tel:[phone] Referring Provider: Check John Rodriguez, [address], [place], [address] . tel:[phone] [facility], [address], [place], [place], [address], [place] tel:[phone] [facility] [address] No Information 0 Noemi Hammond. [address], [place], [place], [address], [place]. tel:[phone] Referring Provider: Check John Rodriguez, [address], [place], [address] . tel:[phone] Office/outpa tient visit,new, [facility], [address], [place], [place], [address], [place] tel:[phone] [facility] [address] right shoulder pain (chief complaint) Acute pain of right shoulderRotator cuff rupture of right shoulder, not specified as traumatic 0 John WAN Check. [address], [place], [place], [address], . tel:[phone] Referring Provider: Check John Rodriguez, [address], [place], [address] . tel:[phone] [facility], [address], [place], [place], [id number], tel:[phone] [address] No Information 0 John WAN Check. [address], [place], [place], [address], . tel:[phone] Family History Family Member Type Diagnosis Age At Onset Problem (finding) Family history of Cardi ac issues Payers Payer name Insurance type Covered alliance party ID Authoriza tion(s) MEDICARE [id number] [employer] SUPPLEMENT CI [id number] Social History Type Description Quantity Date Captured Comments Sex Male Smoking Status No Information Chief Complaint And Reason For Visit No Information Reason For Referral Reason For Referral No Information Plan Of Treatment Date Type Action Status Referral Ordered: MRI upr extr joint, w/o contrast RT shoulder ordered Referral Ordered: X-ray exam of shoulder, complete RT ordered History Of Present Illness Encounter Date Complaint History Of Prese nt Illness right shoulder pain Aric Giatan is a 78 year old male. He presents with pain on the right side. The symptoms occur constantly. The problem is fluctuating. Currently the patient states that the symptoms are moderate. The pain is described as aching. The symptoms occur continuously. The patient is experiencing pain in the following location: entire shoulder on the right side. He rates his worst pain as 6/10. He rates his current pain as 3/10. The pain does not radiate. The symptoms are aggravated by daily activities and lifting. Aric states that the symptoms are relieved by rest. right shoulder pain Aric Gaitan is a 78 year old male. He presents with pain on the right side. Patient presents today for MRI fu of right shoulder. Aric states that the symptoms began as the result of a fall injury. The symptoms occur intermittently. The problem is fluctuating. Currently the patient states that the symptoms are mild-moderate. The pain is described as aching. The patient is experiencing pain in the following location: entire shoulder on the right side. He rates his worst pain as 4/10. He rates his current pain as 2/10. The pain does not radiate. The symptoms are aggravated by daily activities, throwing overhand, exercise and lifting. Aric states that the symptoms are relieved by rest. He denies having any associated symptoms. right shoulder pain Mr Gaitan is a 78 year old male who complains of right shoulder pain. He presents with pain on the right side. He states that the symptoms have been acute traumatic and began on 06/21/2019. Aric states that the symptoms began as the result of a fall injury. Currently the patient states that the symptoms are moderate. The pain is described as aching. In addition to right shoulder pain the patient is also experiencing. The symptoms are aggravated by daily activities. Aric states that the symptoms are relieved by no specific activity. In addition to right shoulder pain the patient is also experiencing decreased mobility. Functional Status Date Functional Assessmen t No Information Instructions Date Instruction Additional Infor emily Patient will follow up with orthopaedic surgeon as he is [place] soon. F/u PRN. Related to Rotator cuff rupture of right shoulder, not specified as traumatic The pathophysiology of cuff tear were explained to the patient. We will initiate treatment with a subacromial injection today. Risks, benefits, and alternatives to injection were described to the patient. After the injection today patient will initiate physical therapy for oswaldo-scapular strengthening and range of motion as well as modalities. After the skin was prepped with alcohol twice, a 10cc syringe with 3cc celestone, 3cc Xylocaine 2%, and 4cc Marcaine 0.5% was then injected into the posterior shoulder. Patient instructed that there may be increased soreness to the injected shoulder for several days before the steroid takes effect. Patient will look for significant swelling and redness that may be a sign of infection. Ice can be applied to the injection site for the first days after the injection. Patient will return in 6 weeks for repeat evaluation or sooner if there are any problems Related to Rotator cuff rupture of right shoulder, not specified as traumatic We will order an MRI of right shoulder to eval for RCT tear. RTC p MRI. Related to Rotator cuff rupture of right shoulder, not specified as traumatic Assessments Type Assessment Date No Information Patient Care Teams Name Effective Dates (start - stop) Status Members No Information
[2025-01-09 14:23] VITALS: BP 138/66; PULSE 68; RESP 16; TEMP 36.7; O2SAT 96; BMI 26.8
--- NOTE | 2025-01-09 14:23 | A.OFFPC_ITS ---
Vital Signs 01/09/25 14:23 Height 5 ft 7.4 in Weight 173 lb BMI 26.8 BP 138/66 Respiration 16 Pulse 68 Pulse Source Pulse Oximeter Temp 98.0 F Temp Source Temporal Artery Scan Pulse Oximetry (%) 96 Oxygen Delivery Method Room Air Intake Visit Reasons: Dental work ~ Pre-op [employer] Terminal Operator Required: No Accompanied by: Spouse Allergies No Known Allergies Allergy (Mild, Verified 01/09/25 19:00) NOT APPLICABLE Medication List - Last Reconciled 01/09/25 by Ryan Cobos MD alprazolam 0.5 mg PO TID aspirin 81 mg PO DAILY cholecalciferol (vitamin D3) 25 mcg PO DAILY clopidogrel 75 mg PO BEDTIME cyanocobalamin (vitamin B-12) 1,000 mcg PO DAILY doxazosin 8 mg PO BEDTIME ferrous sulfate 325 mg PO DAILY finasteride 5 mg PO DAILY flaxseed 1,000 mg PO DAILY lisinopril 2.5 mg PO DAILY metoprolol succinate ER 25 mg PO DAILY multivitamin 1 tab PO DAILY omega 1-xor-rfz-fish oil 1,000 (120-180) mg (Fish Oil) 1 cap PO BEDTIME pantoprazole 20 mg PO DAILY@0630 rosuvastatin 20 mg PO BEDTIME sertraline 100 mg PO DAILY Tobacco use date assessed: 01/09/25 Fall risk assessment: No Falls in past year Last assessed Fall Risk: 01/09/25 Dental Screening Dental Screen Date: 01/09/25 Did you have a dental visit in the last 12 months?: Yes Did you have a dental problem in the last 6 months where you did not have access to dental care?: No Was dental information given to patient?: Patient has dentist [facility] Medical History Hypertriglyceridemia Elevated AST (SGOT) Elevated serum creatinine Elevated BUN History of alcohol use disorder Anxiety and depression Establishing care with new doctor, encounter for Pain of tooth on palpation Pre-op evaluation Coronary artery disease Benign prostatic hyperplasia Hypercholesterolemia Depression Anxiety Hypertension Surgical History History of colonoscopy (~04/30/22) History of ankle surgery History of heart surgery (~05/2004) Family History Father Prostate cancer Aneurysm of gastric artery Mother Heart disease Diabetes Social History Household Members: Spouse Housing: House Do you presently have visiting nurse or other home services: No Alcohol intake: current Alcohol intake frequency: does not drink Patient Tobacco Use Status: Former Tobacco user Years Smoked: 30 years Advance Directives Date on File: 07/07/23 service: Yes Current occupational status: retired Cognitive needs: No Hearing needs: No Vision needs: Yes (rx glasses) Questionnaire PHQ-9 Over the last 2 weeks, how often have you been bothered by any of the following problems? 1. Little interest or pleasure in doing things: not at all 2. Feeling down, depressed, or hopeless: not at all 3. Trouble falling or staying asleep, or sleeping too much: not at all 4. Feeling tired or having little energy: not at all 5. Poor appetite or overeating: not at all 6. Feeling bad about yourself - or that you are a failure or have let yourself or your family down: not at all 7. Trouble concentrating on things, such as reading the newspaper or watching television: not at all 8. Moving or speaking so slowly that other people could have noticed. Or the opposite - being so fidgety or restless that you have been moving around a lot more than usual: not at all 9. Thoughts that you would be better off or of hurting yourself in some way: not at all Total score: 0 Depression Screening Interpretation: Negative Depression Screening Done: Yes 76793 - PHQ-9 Billing: Yes Source: Developed by Drs. Sam Manjarrez, Donna Knapp, Antolin Adame and colleagues, with an educational justo from [employer]. Thrive Questionnaire Date Thrive assessed: 01/04/25 I am a: Patient What is your living situation today?: I have a steady place to live Within the past 12 months, did the food you bought not last and you didn't have the money to get more?: Never true Within the past 12 months, did you worry whether your food would run out before you got money to buy more?: Never true Do you have trouble paying for medicines?: No Do you have trouble getting transportation to medical appointments?: No Do you have trouble paying your heating and electricity bill?: No Do you have trouble taking care of your child, family member or friend?: No Do you have trouble with day-to-day activities such as bathing, preparing meals, shopping, managing finances, etc.?: No Are you currently unemployed and looking for a job?: No Are you interested in more education?: No Please select the resources that you would like help with: None Currently or been in a relationship where the following occur: No concerns reported THRIVE Score: 0 AUDIT C Alcohol Use Questionnaire (AUDIT-C) 1. How often do you have a drink containing alcohol?: Never 3. How often do you have six or more drinks on one occasion?: Never Total Score: 0 Score Reviewed/Action Taken: No GERARDO-7 AMB Questionnaire GERARDO-7 Date GERARDO - 7 assessed: 01/04/25 Feeling nervous, anxious, or on edge: 0 = Not at all Not being able to stop or control worryin = Not at all Worrying too much about different things: 0 = Not at all Trouble relaxin = Not at all Being so restless that it is hard to sit still: 0 = Not at all Becoming easily annoyed or irritable: 0 = Not at all Feeling afraid as if something awful might happen: 0 = Not at all Total GERARDO-7 score (0-4 normal; 5-9 mild; 10-14 moderate; 15-21 severe): 0 Source: Developed by Drs. Sam Manjarrez, Donna Knapp, Antolin Adame and colleagues, with an educational justo from [employer]. GERARDO-7 Assessment Billing GERARDO-7 Assessment Tool: GERARDO-7 Assessment 99689 Physical exam (Primary Care) Vital Signs: Last Vital Signs Temp 98.0 F 01/09/25 14:23 Pulse 68 01/09/25 14:23 Resp 16 01/09/25 14:23 BP 138/66 01/09/25 14:23 Pulse Ox 96 01/09/25 14:23 Oxygen Delivery Method Room Air 01/09/25 14:23 Care Plan Goal for BP management: BP in range BMI result Body Mass Index 26.8 Tobacco/Smoking Status: Tobacco use Status Tobacco use date assessed 01/09/25 01/09/25 14:32 Patient Tobacco Use Status Former Tobacco user 01/09/25 14:32 PHQ-9: PHQ-9 Score PHQ-9: Total score 0 01/09/25 14:32 Depression Screening Interpretation: Negative Thrive Assessment: Date of Thrive Assessment Date Thrive assessed 01/04/25 01/09/25 14:32 Currently or been in a relationship where the following occur: No concerns reported Coding Level of Care Code New Pt Level 4 (91678) Complex EM visit Add On G2211 Diagnoses Coronary artery disease I25.10 Preoperative clearance Z01.818 Additional Codes GERARDO-7 Assessment Billing - GERARDO-7 Assessment Tool: GERARDO-7 Assessment 68925 ([id number]) PHQ-9 - 34050 - PHQ-9 Billing: Yes ([id number]) Assessment & Plan Assessment & Plan (1) Coronary artery disease: Code(s): I25.10 - Atherosclerotic heart disease of [place] coronary artery without angina pectoris Category: Medical Plan: Condition is stable. Hold Plavix 7 days prior to surgery (2) Preoperative clearance: Code(s): Z01.818 - Encounter for other preprocedural examination Plan: BW and EKG revd. Hold Plavix for 7 days prior to surgery, restart meds after oozing at the wound stops. Cleared for dental extraction Plan History of Present Illness - The patient is an 84-year-old male presenting with a need for dental extraction. - The patient is scheduled for a dental extraction at an oral surgeon's office, where local anesthesia will be used. - He has a history of coronary artery bypass grafting performed in 2003, for which he has been on Plavix since the surgery. - There have been no recent cardiac procedures or new cardiac issues in the past year or two. - The patient has a history of skin cancer but has not undergone any recent surgeries or anesthesia. - He reports a tendency to bruise and bleed easily, which is attributed to his use of Plavix. - The patient denies any history of stroke, drooling, or weakness in the extremities. - He has a hernia and reports a history of alcohol use, which he ceased 48 years ago, and smoking cessation 10 years after quitting alcohol. - The patient engages in physical activity, including playing senior softball, and previously worked with chemical solvents and lacquers. Social History - The patient has a history of alcohol use, which he ceased 48 years ago, and smoking cessation 10 years after quitting alcohol. - He engages in physical activity, including playing senior softball. - The patient previously worked with chemical solvents and lacquers. Review of Systems - Cardiovascular: Denies recent cardiac procedures or new cardiac issues. - Neurological: Denies history of stroke, drooling, or weakness in extremities. Physical Exam General: Cooperative and healthy appearing Nutritional Appearance: Well nourished Orientation/consciousness: Patient oriented x3 Limitations: No limitations Head: Normal to inspection General: Appearance normal, both eyes and all related structures Neck: Normal visual inspection Chest: Normal palpation of entire chest wall Respiratory: N ormal respiratory effort Neurology: Patient oriented x3, no weakness in the hands or legs, no stroke Results - Labs: Blood work completed last week at [facility]. - Tests: EKG performed yesterday at [facility]. Plan 1. Dental Extraction - Plan to proceed with dental extraction under local anesthesia at the oral surgeon's office. 2. History Of Coronary Artery Bypass Grafting - Continue current medication regimen with Plavix as prescribed. 3. Skin Cancer - No recent interventions required; monitor for any new lesions. 4. Bruising And Bleeding Tendency - Monitor for excessive bleeding, especially post-dental procedure due to Plavix use. 5. Hernia - No immediate intervention required; monitor for any changes or complications. Discussion Notes The patient was informed about the dental extraction procedure, which will be performed under local anesthesia. The importance of continuing Plavix was discussed, given his history of coronary artery bypass grafting. Monitoring for bleeding post-procedure was emphasized due to the blood thinner. The patient was advised to report any new skin lesions or changes in the hernia. Patient Instructions - Proceed with dental extraction as scheduled. - Continue taking Plavix as prescribed. - Monitor for any excessive bleeding after the dental procedure. - Report any new skin lesions or changes in the hernia.
== END 2025-01-09 15:19 | disposition home or self-care (01) ==
LOC: HO.HMCSH 14:21
PROVIDERS: PCP Internal Medicine; Visit Provider Internal Medicine
DX: I25.10 Atherosclerotic heart disease of native coronary artery without angina pectoris (principal); Z01.818 Encounter for other preprocedural examination

== ENCOUNTER → 2025-01-09 14:20 | Outpatient (BNVA) | payer MEDICARE, SELFPAY | PROVIDERS: PCP Internal Medicine; Visit Provider Internal Medicine | DX: Z01.818 Encounter for other preprocedural examination (principal); I25.10 Atherosclerotic heart disease of native coronary artery without angina pectoris | CPT/HCPCS: 96127; 99202 ==

== ENCOUNTER 2025-04-10 09:24 | Emergency (ER) | payer MEDICARE, SELFPAY ==
--- NOTE | ~2025-04-10 | CT_ITS ---
EXAMINATION: CT ABDOMEN AND PELVIS WITH CONTRAST CLINICAL INFORMATION: Bilateral lower quadrant tenderness. COMPARISON: 03/08/2024, 09/12/2023. TECHNIQUE: Multidetector volumetric images were obtained from the superior aspect of the liver through the pubic symphysis following administration 85 mL of Omnipaque 350 intravenous contrast. Sagittal and coronal reformatted images were obtained on the technologist's workstation. Oral contrast: No This CT examination was performed using dose optimization techniques as appropriate, variously including the following: *Automated exposure control *Adjustment of mA and/or kV according to patient size (this includes techniques or standardized protocols for targeted exams where dose is matched to indication/reason for exam; i.e. extremities or head) *Use of iterative reconstruction technique FINDINGS: LUNG BASES: Lung bases demonstrate similar subpleural scarring bilaterally involving both lower lobes and the right middle lobe. No effusions. Prior sternotomy. Mild cardiac enlargement, with heavy coronary calcifications. No pericardial effusion. Moderate to large sized paraesophageal hiatus hernia. LIVER, GALLBLADDER, AND BILIARY TREE: The liver is normal in size, shape, and attenuation. No focal hepatic lesion or biliary ductal dilatation is present. The gallbladder is unremarkable with no evidence of radiopaque gallstones, gallbladder wall thickening, or obvious pericholecystic inflammatory changes. PANCREAS: Unremarkable. SPLEEN: Unremarkable. ADRENAL GLANDS: Unremarkable. KIDNEYS AND URETERS: Mild bilateral hydroureteronephrosis noted without obstructing lesions seen. Kidneys otherwise image normally without calculi or mass. BLADDER: Distended, otherwise unremarkable. The median lobe of the prostate protrudes into the bladder base. GASTROINTESTINAL TRACT: Significant diverticulosis of the descending and sigmoid colon. There is a focus of inflammation with an enhancing diverticulum, and pericolonic inflammation at the junction of the descending and sigmoid colon, findings consistent with uncomplicated diverticulitis. Normal appendix noted. Small bowel is normal in caliber and course without wall thickening or inflammation evident. Terminal ileum is normal. Stomach is decompressed. Moderate to large paraesophageal hiatus hernia containing the fundus of the stomach. The duodenum is normal. No rectal abnormality. PERITONEUM: No free air or ascites. Mistiness of the central small bowel mesentery with a few prominent associated lymph nodes present, in keeping with stable sclerosing mesenteritis. No change in this finding. ABDOMINAL WALL: Small fat-containing umbilical hernia. Small fat-containing right inguinal hernia. LYMPH NODES: No abnormal lymphadenopathy present. VASCULAR: Extensive atheromatous calcification of the aorta and arterial structures. There is no aneurysm. There is mild ectasia of the aorta. PELVIC VISCERA: Moderate prostate enlargement, with diameter estimated at 5.2 cm. The median lobe protrudes into the bladder base. There is a questionable TURP defect present. OSSEOUS STRUCTURES: No suspicious lytic or blastic bone lesions. There are severe degenerative changes of the lumbar spine, with disc vacuum phenomenon spanning L2-L5. Mild to moderate degenerative changes of both hip joints. CT/CT abdomen pelvis w IV con IMPRESSION: 1. Acute uncomplicated diverticulitis of the proximal sigmoid colon at the junction of the descending colon. Extensive descending and sigmoid colonic diverticulosis. 2. Moderate to large paraesophageal hiatus hernia. 3. Mild bilateral hydronephrosis and hydroureter with urinary bladder distention. This may represent reflux. No obstructing abnormality or calculi seen. 4. Prostatomegaly. 5. Stable sclerosing mesenteritis. 6. Additional ancillary findings as discussed in the body of the report. Electronically signed by: Ismael Church MD 04/10/2025 03:04 PM EDT
[2025-04-10 09:50] VITALS: BP 125/86; PULSE 56; RESP 20; TEMP 37; O2SAT 98; BMI 29.8
--- NOTE | 2025-04-10 09:51 | ED.GENADULT ---
HPI - General Adult General Chief complaint: Abdominal Pain Stated complaint: Abd pain, weakness Time Seen by Provider: 04/10/25 11:47 Source: patient, RN notes reviewed and old records reviewed Mode of arrival: ambulatory Limitations: no limitations History of Present Illness ED Provider: Gamaliel [place] narrative: Patient is a an 84-year-old male with history of CAD, HTN, diverticulitis, alcohol use disorder, anxiety, BPH presenting to the emergency department with complaint of bilateral lower quadrant pain. States the pain waxes and wanes, currently rates at 1/10. He denies any nausea, vomiting, diarrhea or constipation. Denies any hematochezia or melena. Denies any dysuria, frequency, hematuria or other urinary symptoms. Denies any radiation of pain to flanks or back. Denies fevers. States that over the past several months he feels his abdomen has become more bloated and has mentioned this to his PCP but has not had any imaging yet. Denies any prior abdominal surgeries. Unable to note if this feels similar or different from prior episodes of diverticulitis. MD complaint: lower abdominal pain Related Data Home Medications ?Medication ?Instructions ?Recorded ?Confirmed alprazolam 0.5 mg tablet 0.5 mg PO TID Anxiety 05/29/20 01/09/25 clopidogrel 75 mg tablet 75 mg PO BEDTIME 05/29/20 01/09/25 doxazosin 8 mg tablet 8 mg PO BEDTIME 05/29/20 01/09/25 finasteride 5 mg tablet 5 mg PO DAILY 05/29/20 01/09/25 lisinopril 2.5 mg tablet 2.5 mg PO DAILY 05/29/20 01/09/25 metoprolol succinate 25 mg 25 mg PO DAILY 05/29/20 01/09/25 tablet,extended release 24 hr rosuvastatin 20 mg tablet 20 mg PO BEDTIME 05/29/20 01/09/25 cholecalciferol (vitamin D3) 25 25 mcg PO DAILY 07/06/23 01/09/25 mcg (1,000 unit) tablet cyanocobalamin (vitamin B-12) 1,000 mcg PO DAILY 07/06/23 01/09/25 1,000 mcg tablet ferrous sulfate 325 mg (65 mg 325 mg PO DAILY 07/06/23 01/09/25 iron) tablet flaxseed 1,000 mg capsule 1,000 mg PO DAILY 07/06/23 01/09/25 multivitamin 1 tab PO DAILY 07/06/23 01/09/25 omega 9-htg-kpa-fish oil 1,000 mg 1 cap PO BEDTIME 07/06/23 01/09/25 (120 mg-180 mg) capsule (Fish Oil) pantoprazole 20 mg tablet,delayed 20 mg PO DAILY@0630 07/06/23 01/09/25 release aspirin 81 mg tablet 81 mg PO DAILY 01/04/25 01/09/25 sertraline 100 mg tablet 100 mg PO DAILY 01/04/25 01/09/25 Previous Rx's ?Medication ?Instructions ?Recorded amoxicillin 875 mg-potassium 1 tab PO BID 10 days #19 tabs 04/10/25 clavulanate 125 mg tablet Allergies Allergy/AdvReac Type Severity Reaction Status Date / Time No Known Allergies Allergy Mild NOT Verified 04/10/25 09:52 APPLICABLE Review of Systems Review of Systems: As per HPI Yes all other systems are reviewed and are negative Constitutional: Constitutional: Reports as per HPI PMFSH Past Medical History Medical History Hypertriglyceridemia Elevated AST (SGOT) Elevated serum creatinine Elevated BUN History of alcohol use disorder Anxiety and depression Establishing care with new doctor, encounter for Pain of tooth on palpation Pre-op evaluation Coronary artery disease Benign prostatic hyperplasia Hypercholesterolemia Depression Anxiety Hypertension Surgical History History of colonoscopy (~04/30/22) History of ankle surgery History of heart surgery (~05/2004) Family History Family History Father Prostate cancer Aneurysm of gastric artery Mother Heart disease Diabetes Social History Social History Household Members: Spouse Housing: House Do you presently have visiting nurse or other home services: No Alcohol intake: current Alcohol intake frequency: does not drink Patient Tobacco Use Status: Former Tobacco user Years Smoked: 30 years Advance Directives: Yes Advance Directives on File: Yes Advance Directives Date on File: 07/07/23 service: Yes Current occupational status: retired Cognitive needs: No Hearing needs: No Vision needs: Yes (rx glasses) Physical Exam ED Vital Signs: Vital Signs - 24 hr 04/10/25 09:50 04/10/25 12:10 Temperature 98.6 F 97.8 F Pulse Rate 56 50 Respiratory Rate 20 14 Blood Pressure 125/86 143/60 H Pulse Oximetry 98 98 Oxygen Delivery Method Room Air Room Air BMI result Body Mass Index 29.8 Vital signs have been reviewed and appear to be correct. Blood pressure normal. Heart rate normal. Respiratory rate normal. Temperature normal. Oxygen saturation normal. Const General: cooperative, healthy appearing and no acute distress Orientation/consciousness: oriented to person, oriented to place, oriented to time and patient oriented x3 Limitations: no limitations HENMT Head: Yes normocephalic and Yes atraumatic Ears: external ears normal General nose exam: Normal external nose present Face and sinus: Yes face symmetric Mouth: oropharynx normal and moist mucous membranes Throat: Yes uvula midline Eyes Pupils: Equal, round and reactive pupils present Neck Neck: Yes normal visual inspection and Yes supple Resp Effort & Inspection: normal respiratory effort and able to speak in complete sentences Auscultation: clear to auscultation bilaterally Cardio Rate: regular rate Rhythm: regular rhythm Heart sounds: S1 normal heart sound present and S2 normal heart sound present GI Palpation (GI): Soft to palpation, Tenderness to palpation present (GI) in the LLQ and in the RLQ, no guarding, not rigid and No Rebound tenderness present Auscultation: normoactive bowel sounds General: Yes no CVA tenderness Back/Spine/Pelvis Back: no CVA tenderness Skin General skin exam: elasticity normal and turgor normal Neuro General: oriented to person, oriented to place, oriented to time, patient oriented x3, moves all extremities, no focal motor deficits and CN's II-XI intact bilaterally Cranial nerves: Yes Equal, round and reactive pupils present Cognition (Neuro): normal cognition Extrem General: Yes full ROM, Yes no pedal edema and Yes no calf tenderness Psych Mental Status: mental status grossly normal Affect: normal affect Thought process: Normal thought process present Course Course Course Narrative: This is a rapid medical exam performed by Jose Luis Alston NP: Additional HPI, ROS, PE not included below will be deferred to primary provider. Patient is an 84y/o M presenting to the ED with complaint of bilateral lower abdominal pain. States BMs have been normal. Denies N, V, D, C. No known sick contacts. Plan: Labs, UA Medications Administered Discontinued Medications Generic Name Dose Route Start Last Admin Trade Name Dragan PRN Reason Stop Dose Admin Sodium Chloride 1,000 mls @ 999 mls/hr 04/10/25 12:00 04/10/25 13:27 Ns IV 04/10/25 13:00 Infused .Q1H1M LARISSA Infusion Iohexol 85 ml 04/10/25 14:05 04/10/25 14:05 Iohexol 350 Mg/Ml 100 Ml Infus..Btl IV 04/10/25 14:06 85 ml ONCE ONE Administration Medical Decision Making Medical Decision Making [facility] Narrative: Patient is a an 84-year-old male with history of CAD, HTN, diverticulitis, alcohol use disorder, anxiety, BPH presenting to the emergency department with complaint of bilateral lower quadrant pain. On exam patient is awake, A+Ox3, VS WNL, afebrile, normal neurological exam without focal deficits, physical exam findings as above. Given reported symptoms and physical exam findings, initial differential includes but is not limited to diverticulitis, perforation, abscess, constipation, UTI. Labs notable for no leukocytosis, mild anemia similar to prior labs, mildly elevated BUN/creatinine. IV fluids ordered. CT A/P notable for diverticulitis, also notable for moderate to large paraesophageal hiatal hernia. Mild hydro nephrosis and hydroureter noted as well, however, patient noted to have distended bladder, no obstructing pathology and patient is without any urinary symptoms. My interpretation is in agreement with the radiologist's interpretation. Results discussed with patient and and all questions answered. Will treat with course of Augmentin. Will refer to thoracic surgery for further management of hiatal hernia. Advised follow up with PCP as well. Return precautions discussed. Patient verbalized understanding of and agreement with plan. Differential Diagnosis Differential Diagnoses: The differential diagnosis associated with the presentation includes as per [facility] Admission/Observation Consideration of admission/observation: Escalation of care including admission/observation considered Patient would have been admitted to the hospital and transferred to appropriate facility had their clinical presentation warranted hospital admission. Lab Data [facility] Lab Attestation statement: I reviewed the patient's lab results. as per [facility] 04/10/25 10:05 04/10/25 10:05 Labs: Lab Results 04/10/25 04/10/25 Range/Units 10:05 14:22 WBC 7.9 (4.8-10.8) X10*3/uL RBC 3.82 L (4.60-5.80) X10*6/uL Hgb 11.8 L (14.0-18.0) g/dl Hct 34.3 L (42.0-52.0) % MCV 89.8 (80.0-98.0) fL MCH 30.9 (27.0-33.0) pg MCHC 34.4 (31.0-36.0) g/dl RDW 12.6 (11.0-16.0) % Plt Count 120 L (160-400) X10*3/uL MPV 9.2 L (9.4-12.4) fL Immature Gran % (Auto) 0.6 H (0.0-0.4) % Neut % (Auto) 76.3 H (45-73) % Lymph % (Auto) 13.8 L (20-40) % [place] % (Auto) 8.5 (2-11) % Eos % (Auto) 0.5 (0-4) % Baso % (Auto) 0.3 (0-2) % Lymph # (Auto) 1.1 L (1.2-4.9) X10*3/uL [place] # (Auto) 0.7 (0.1-1.2) X10*3/uL Eos # (Auto) 0.0 (0.0-0.4) X10*3/uL Baso # (Auto) 0.0 (0.0-0.2) X10*3/uL Abs Immat Gran (auto) 0.05 H (0.00-0.03) X10*3/uL Absolute Neuts (auto) 6.0 (2.0-8.3) x10*3/uL Absolute Nucleated RBC 0.000 (0.0-0.012) X10*3/uL Nucleated RBC % (auto) 0.0 (0.0-0.2) /100WBC Sodium 141 (135-145) mmol/L Potassium 4.3 (3.3-5.1) mmol/L Chloride 105 (96-108) mmol/L Carbon Dioxide 28 (22-29) mmol/L Anion Gap 12 (12-20) BUN 24 H (9-16) mg/dL Creatinine 1.48 H (0.5-1.4) mg/dL Estim Creat Clear Calc 38.3 Estimated GFR 45 Random Glucose 108 (60-115) mg/dL Calcium 9.5 D (8.4-10.2) mg/dL Total Bilirubin 0.5 (0.0-1.0) mg/dL AST 32 (5-37) U/L ALT 31 (0-40) U/L Alkaline Phosphatase 68 (39-117) U/L Total Protein 7.6 (6.5-8.0) g/dL Albumin 4.7 (3.5-5.0) g/dL Urine Color Yellow Urine Appearance Clear Urine pH 6.5 (5.0-9.0) Ur Specific [place] 1.010 (1.005-1.025) Urine Protein Negative (Neg-Trace) mg/dL Urine Glucose (UA) Negative (Negative) mg/dL Urine Ketones Negative (Negative) mg/dL Urine Blood Negative (Negative) Urine Nitrite Negative (Negative) Ur Leukocyte Esterase Negative (Negative) Independent Interpretation I performed an independent interpretation of an: CT Scan Interpretation: CT A/P notable for diverticulitis, also notable for moderate to large paraesophageal hiatal hernia. Mild hydro nephrosis and hydroureter noted as well, however, patient noted to have distended bladder, no obstructing pathology and patient is without any urinary symptoms. Radiology Impression Discussion of test interpretation with radiology: I have reviewed the radiologist's reading. Radiologist Impression: CT/CT abdomen pelvis w IV con IMPRESSION: 1. Acute uncomplicated diverticulitis of the proximal sigmoid colon at the junction of the descending colon. Extensive descending and sigmoid colonic diverticulosis. 2. Moderate to large paraesophageal hiatus hernia. 3. Mild bilateral hydronephrosis and hydroureter with urinary bladder distention. This may represent reflux. No obstructing abnormality or calculi seen. 4. Prostatomegaly. 5. Stable sclerosing mesenteritis. 6. Additional ancillary findings as discussed in the body of the report. Independent Historian Clinical information obtained from an independent historian. History obtained from or confirmed by: Spouse External Record Review External record reviewed: Inpatient record, Office record and Outpatient record Prescription Management I considered prescription management with: Antibiotic Discharge Plan Discharge Clinical Impression: Diverticulitis, Paraesophageal hiatal hernia Patient Disposition: Home, Self-Care Instructions: Amoxicillin/Clavulanate Potassium (By mouth), Diverticulitis (DC) Additional Instructions: You were evaluated in the emergency department today for abdominal pain. Your CT scan showed diverticulitis, and you are being treated with a course of antibiotics. Complete the full course as prescribed even if your symptoms improve. Your CT also showed a moderate to large paraesophageal hiatus hernia. You are being referred to a thoracic surgeon to discuss management of this. We also recommend that you follow up with your primary care provider. Return to the emergency department if you develop worsening pain, persistent vomiting, fever 100.4 degrees Fahrenheit or greater or any other new or concerning symptoms. Prescriptions: New amoxicillin-pot clavulanate 875-125 mg tablet 1 tab PO BID 10 Days Qty: 19 0RF No Action pantoprazole 20 mg tablet,delayed release (DR/EC) 20 mg PO DAILY@0630 multivitamin Tablet 1 tab PO DAILY cyanocobalamin (vitamin B-12) 1,000 mcg Tablet 1,000 mcg PO DAILY ferrous sulfate 325 mg (65 mg iron) Tablet 325 mg PO DAILY cholecalciferol (vitamin D3) 25 mcg (1,000 unit) Tablet 25 mcg PO DAILY omega 7-lsc-afu-fish oil [Fish Oil] 1,000 mg (120 mg-180 mg) Capsule 1 cap PO BEDTIME flaxseed 1,000 mg Capsule 1,000 mg PO DAILY doxazosin 8 mg tablet 8 mg PO BEDTIME finasteride 5 mg tablet 5 mg PO DAILY clopidogrel 75 mg tablet 75 mg PO BEDTIME lisinopril 2.5 mg tablet 2.5 mg PO DAILY alprazolam 0.5 mg tablet 0.5 mg PO TID metoprolol succinate 25 mg tablet extended release 24 hr 25 mg PO DAILY rosuvastatin 20 mg tablet 20 mg PO BEDTIME sertraline 100 mg tablet 100 mg PO DAILY aspirin 81 mg tablet 81 mg PO DAILY Referrals: [facility] [Outside] Clinical Impression: Paraesophageal hiatal hernia Print Language: Upper Sorbian
[2025-04-10 10:08] LABS: MANUAL DIFF FLAG NO
[2025-04-10 10:10] LABS: Hematocrit 34.3 % (42.0-52.0); Hemoglobin 11.8 g/dl (14.0-18.0); Imm Gran Abs Auto 0.05 X10*3/uL (0.00-0.03); Imm Gran Pct Auto 0.6 % (0.0-0.4); Lymphocytes Absolute Auto 1.1 X10*3/uL (1.2-4.9); Mean Corpuscular HGB Conc 34.4 g/dl (31.0-36.0); Mean Corpuscular Hemoglobin 30.9 pg (27.0-33.0); Mean Corpuscular Volume 89.8 fL (80.0-98.0); NRBC Abs Auto 0.000 X10*3/uL (0.0-0.012); NRBC Pct Auto 0.0 /100WBC (0.0-0.2); Platelet Count 120 X10*3/uL (160-400); Red Blood Count 3.82 X10*6/uL (4.60-5.80); White Blood Count 7.9 X10*3/uL (4.8-10.8)
[2025-04-10 10:29] LABS: Alanine Aminotransferase 31 U/L (0-40); Albumin Level 4.7 g/dL (3.5-5.0); Alkaline Phosphatase 68 U/L (39-117); Anion Gap 12 (12-20); Aspartate Amino Transferase 32 U/L (5-37); Blood Urea Nitrogen 24 mg/dL (9-16); Calcium 9.5 mg/dL (8.4-10.2); Carbon Dioxide 28 mmol/L (22-29); Chloride 105 mmol/L (96-108); Creatinine Clr Calc Pharmacy 38.3; Estimated Glomerular Filt Rate 45; Potassium 4.3 mmol/L (3.3-5.1); Sodium 141 mmol/L (135-145); Total Protein 7.6 g/dL (6.5-8.0)
[2025-04-10 12:10] VITALS: BP 143/60; PULSE 50; RESP 14; TEMP 36.6; O2SAT 98
[2025-04-10] MEDS: iohexoL 350 MG/ML 100 ML INFUS..BTL 85 ML IV (14:05)
[2025-04-10 14:30] LABS: Appearance Urine Clear; Glucose Urine UA Negative (Negative); PH 6.5 (5.0-9.0); Specific Gravity - Urine 1.010 (1.005-1.025)
[2025-04-10 16:14] VITALS: BP 144/80; PULSE 57; RESP 18; TEMP 36.6; O2SAT 98
== END 2025-04-10 16:15 | disposition home or self-care (01) ==
PROVIDERS: Registered Nurse Emergency; Emergency Provider Emergency Medicine; PCP Internal Medicine
DX: K57.32 Diverticulitis of large intestine without perforation or abscess without bleeding (principal); K44.9 Diaphragmatic hernia without obstruction or gangrene; R10.22 Pelvic and perineal pain left side; I25.10 Atherosclerotic heart disease of native coronary artery without angina pectoris; I10 Essential (primary) hypertension; Z79.899 Other long term (current) drug therapy
CPT/HCPCS: 36415; 74177; 80053; 81003; 85025; 96360; 99283; 99285; Q9967

== ENCOUNTER → 2025-04-10 11:47 | Outpatient (BNV) | payer MEDICARE, SELFPAY | PROVIDERS: Emergency Provider Emergency Medicine; PCP Internal Medicine; Visit Provider Radiology Diagnostic Radiology | DX: K57.32 Diverticulitis of large intestine without perforation or abscess without bleeding (principal); K57.30 Diverticulosis of large intestine without perforation or abscess without bleeding; K44.9 Diaphragmatic hernia without obstruction or gangrene; N40.0 Benign prostatic hyperplasia without lower urinary tract symptoms | CPT/HCPCS: 74177 ==

== ENCOUNTER 2025-04-16 13:57 | Outpatient (AMB) | payer MEDICARE, SELFPAY ==
[2025-04-16 14:05] VITALS: BP 146/80; PULSE 58; RESP 14; TEMP 36.7; O2SAT 97; BMI 26.9
--- NOTE | 2025-04-16 14:05 | MHC.PC.OV ---
Vital Signs 04/16/25 14:05 Height 5 ft 7.4 in Weight 174 lb BMI 26.9 BP 146/80 H Respiration 14 Pulse 58 Pulse Source Pulse Oximeter Temp 98.1 F Temp Source Temporal Artery Scan Pulse Oximetry (%) 97 Oxygen Delivery Method Room Air Intake Visit Reasons: ER Discharge Alterations Tailor Required: No Accompanied by: Spouse Allergies No Known Allergies Allergy (Mild, Verified 04/16/25 14:05) NOT APPLICABLE Tobacco use date assessed: 04/16/25 Dental Screening Dental Screen Date: 01/09/25 [facility] Medical History Hypertriglyceridemia Elevated AST (SGOT) Elevated serum creatinine Elevated BUN History of alcohol use disorder Anxiety and depression Establishing care with new doctor, encounter for Pain of tooth on palpation Pre-op evaluation Coronary artery disease Benign prostatic hyperplasia Hypercholesterolemia Depression Anxiety Hypertension Surgical History History of colonoscopy (~04/30/22) History of ankle surgery History of heart surgery (~05/2004) Family History Father Prostate cancer Aneurysm of gastric artery Mother Heart disease Diabetes Social History Household Members: Spouse Housing: House Do you presently have visiting nurse or other home services: No Alcohol intake: current Alcohol intake frequency: does not drink Patient Tobacco Use Status: Former Tobacco user Years Smoked: 30 years Advance Directives Date on File: 07/07/23 service: Yes Current occupational status: retired Cognitive needs: No Hearing needs: No Vision needs: Yes (rx glasses) Questionnaire PHQ-9 Over the last 2 weeks, how often have you been bothered by any of the following problems? 1. Little interest or pleasure in doing things: not at all 2. Feeling down, depressed, or hopeless: not at all 3. Trouble falling or staying asleep, or sleeping too much: not at all 4. Feeling tired or having little energy: not at all 5. Poor appetite or overeating: not at all 6. Feeling bad about yourself - or that you are a failure or have let yourself or your family down: not at all 7. Trouble concentrating on things, such as reading the newspaper or watching television: not at all 8. Moving or speaking so slowly that other people could have noticed. Or the opposite - being so fidgety or restless that you have been moving around a lot more than usual: not at all 9. Thoughts that you would be better off or of hurting yourself in some way: not at all Total score: 0 Depression Screening Interpretation: Negative Depression Screening Done: Yes 20761 - PHQ-9 Billing: Yes Source: Developed by Drs. Sam Manjarrez, Donna Knapp, Antolin Adame and colleagues, with an educational justo from [employer]. Thrive Questionnaire Date Thrive assessed: 01/04/25 I am a: Patient What is your living situation today?: I have a steady place to live Within the past 12 months, did the food you bought not last and you didn't have the money to get more?: Never true Within the past 12 months, did you worry whether your food would run out before you got money to buy more?: Never true Do you have trouble paying for medicines?: No Do you have trouble getting transportation to medical appointments?: No Do you have trouble paying your heating and electricity bill?: No Do you have trouble taking care of your child, family member or friend?: No Do you have trouble with day-to-day activities such as bathing, preparing meals, shopping, managing finances, etc.?: No Are you currently unemployed and looking for a job?: No Are you interested in more education?: No Please select the resources that you would like help with: None Currently or been in a relationship where the following occur: No concerns reported THRIVE Score: 0 AUDIT C Alcohol Use Questionnaire (AUDIT-C) 1. How often do you have a drink containing alcohol?: Never 3. How often do you have six or more drinks on one occasion?: Never Total Score: 0 Score Reviewed/Action Taken: No GERARDO-7 AMB Questionnaire GERARDO-7 Date GERARDO - 7 assessed: 01/04/25 Feeling nervous, anxious, or on edge: 0 = Not at all Not being able to stop or control worryin = Not at all Worrying too much about different things: 0 = Not at all Trouble relaxin = Not at all Being so restless that it is hard to sit still: 0 = Not at all Becoming easily annoyed or irritable: 0 = Not at all Feeling afraid as if something awful might happen: 0 = Not at all Total GERARDO-7 score (0-4 normal; 5-9 mild; 10-14 moderate; 15-21 severe): 0 Source: Developed by Drs. Sam Manjarrez, Donna Knapp, Antolin Adame and colleagues, with an educational justo from [employer]. GERARDO-7 Assessment Billing GERARDO-7 Assessment Tool: GERARDO-7 Assessment 20315 Physical exam (Primary Care) Vital Signs: Last Vital Signs Temp 98.1 F 04/16/25 14:05 Pulse 58 04/16/25 14:05 Resp 14 04/16/25 14:05 BP 146/80 H 04/16/25 14:05 Pulse Ox 97 04/16/25 14:05 Oxygen Delivery Method Room Air 04/16/25 14:05 BMI result Body Mass Index 26.9 Tobacco/Smoking Status: Tobacco use Status Tobacco use date assessed 04/16/25 04/16/25 14:12 Patient Tobacco Use Status Former Tobacco user 04/16/25 14:12 PHQ-9: PHQ-9 Score PHQ-9: Total score 0 04/16/25 14:12 Depression Screening Interpretation: Negative Thrive Assessment: Date of Thrive Assessment Date Thrive assessed 01/04/25 04/16/25 14:12 Currently or been in a relationship where the following occur: No concerns reported Coding Level of Care Code Est Pt Level 4 (50273) Complex EM visit Add On G2211 Diagnoses Diverticulitis K57.92 Additional Codes GERARDO-7 Assessment Billing - GERARDO-7 Assessment Tool: GERARDO-7 Assessment 01256 ([id number]) PHQ-9 - 00723 - PHQ-9 Billing: Yes ([id number]) Assessment & Plan Assessment & Plan (1) Diverticulitis: Code(s): K57.92 - Diverticulitis of intestine, part unspecified, without perforation or abscess without bleeding Category: Medical Plan: History of Present Illness - The patient is an 84-year-old male presenting with follow-up for diverticulitis and hiatal hernia. - Diverticulitis: The patient has experienced recurrent episodes over the past few years, with the most recent episode not requiring hospitalization. - The condition has improved with antibiotic treatment, and the patient is advised to maintain a high-fiber diet to prevent future episodes. - Hiatal hernia: The patient has a longstanding hiatal hernia, which has increased in size over the years. - He experiences occasional acid reflux but is currently asymptomatic. - Hydronephrosis: The patient has been diagnosed with hydronephrosis, characterized by enlarged kidneys and ureters, but no stones or obstructions were found. - Regular monitoring of kidney function is planned. - Anxiety and Depression: The patient has a long history of anxiety and depression, managed with alprazolam and sertraline. - There is a plan to reduce the dosage of alprazolam due to potential side effects at his age. Social History - Employment: The patient worked at [employer] for 32 years, handling solvents, chemicals, and lacquers. - Substance Use: The patient has a history of alcohol use, which he refers to as a 10-year way. - Nutrition: The patient consumes ice cream regularly, advised to avoid eating it right before bed. Review of Systems - Gastrointestinal: Reports resolved abdominal pain, denies blood in stool, reports regular bowel movements. - General: Denies vomiting, reports improved appetite and ability to eat regular meals. - Genitourinary: Denies urinary incontinence, reports dark urine occasionally. - Neurological: Denies hearing loss requiring aids, reports occasional selective hearing. Physical Exam General: Cooperative and healthy appearing Nutritional Appearance: Well nourished Orientation/consciousness: Patient oriented x3 Limitations: No limitations Head: Normal to inspection General: Appearance normal, both eyes and all related structures Neck: Normal visual inspection Chest: Normal palpation of entire chest wall Respiratory: N ormal respiratory effort Neurology: Patient oriented x3, hearing slightly impaired, selective hearing noted. Results - Imaging: CT scan showed enlarged hiatal hernia and hydronephrosis without stones or obstruction. - Labs: Blood work reviewed, kidney function slightly worsened, creatinine levels noted. Plan - Continue high-fiber diet to manage diverticulitis and prevent recurrence. - Monitor hiatal hernia; no surgical intervention required unless symptoms worsen. - Regular monitoring of kidney function due to hydronephrosis, repeat blood tests every 3-6 months. - Reduce alprazolam dosage to minimize risk of respiratory depression, continue sertraline as prescribed. - Follow-up appointment scheduled in three months to reassess conditions and medication management. Discussion Notes During the visit, we discussed the patient's diverticulitis, which has improved with antibiotics, and the importance of a high-fiber diet to prevent recurrence. The hiatal hernia, although enlarged, does not currently require surgical intervention unless symptoms develop. We reviewed the CT scan findings of hydronephrosis and decided on regular monitoring of kidney function with blood tests every 3-6 months. The patient is advised to reduce the alprazolam dosage to minimize the risk of respiratory depression, while continuing sertraline as prescribed. A follow-up appointment is scheduled in three months to reassess these conditions and medication management. Patient Instructions - Maintain a high-fiber diet to help manage diverticulitis. - Monitor for any new symptoms related to the hiatal hernia and report them. - Follow up with blood tests every 3-6 months to monitor kidney function. - Reduce alprazolam dosage as discussed to minimize side effects. - Schedule a follow-up appointment in three months.
== END 2025-04-16 14:46 | disposition home or self-care (01) ==
LOC: HO.HMCSH 13:58
PROVIDERS: PCP Internal Medicine; Visit Provider Internal Medicine
DX: K57.92 Diverticulitis of intestine, part unspecified, without perforation or abscess without bleeding (principal)

== ENCOUNTER → 2025-04-16 13:57 | Outpatient (BNVA) | payer MEDICARE, SELFPAY | PROVIDERS: PCP Internal Medicine; Visit Provider Internal Medicine | DX: K44.9 Diaphragmatic hernia without obstruction or gangrene (principal); Z87.19 Personal history of other diseases of the digestive system | CPT/HCPCS: 96127; 99212 ==

== ENCOUNTER 2025-05-16 10:56 | Outpatient (AMB) | payer MEDICARE, SELFPAY ==
[2025-05-16 11:02] VITALS: BP 124/68; PULSE 60; BMI 25.7
--- NOTE | 2025-05-16 11:02 | A.OFFVIS_ITS ---
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 Allergies No Known Allergies Allergy (Mild, Verified 04/16/25 14:05) NOT APPLICABLE Medication List - Last Reconciled 05/16/25 by Tim Fitzpatrick MD alprazolam 0.5 mg PO BID amoxicillin-pot clavulanate 875-125 mg 1 tab PO BID 10 days aspirin 81 mg PO DAILY cholecalciferol (vitamin D3) 25 mcg PO DAILY clopidogrel 75 mg PO BEDTIME cyanocobalamin (vitamin B-12) 1,000 mcg PO DAILY doxazosin 8 mg PO BEDTIME ferrous sulfate 325 mg PO DAILY finasteride 5 mg PO DAILY flaxseed 1,000 mg PO DAILY lisinopril 2.5 mg PO DAILY metoprolol succinate ER 25 mg PO DAILY multivitamin 1 tab PO DAILY omega [id number]-[id number]-fish oil 1,000 (120-180) mg (Fish Oil) 1 cap PO BEDTIME pantoprazole 20 mg PO DAILY@0630 rosuvastatin 20 mg PO BEDTIME sertraline 100 mg PO DAILY HPI Comments Details: Aric is here for cardiac evaluation. He states that he underwent coronary artery bypass surgery around 2003 in [place] but has not been followed up since. In fact he has not seen any vocational training instructor for almost 2 decades. He states he has been doing fine and has not had any clear-cut concerns. He does not have a ny exertional angina or shortness of breath or other concerning cardiac symptoms. He states he is still quite active without any major limitations and plays senior softball. [facility] Medical History (Updated 05/16/25 @ 11:21 by Tim Fitzpatrick MD) Hypertriglyceridemia Elevated AST (SGOT) Elevated serum creatinine Elevated BUN History of alcohol use disorder Anxiety and depression Establishing care with new doctor, encounter for Pain of tooth on palpation Pre-op evaluation Coronary artery disease Benign prostatic hyperplasia Hypercholesterolemia Depression Anxiety Hypertension Surgical History (Updated 05/16/25 @ 11:21 by Tim Fitzpatrick MD) Status post aorto-coronary artery bypass graft History of colonoscopy (~04/30/22) History of ankle surgery History of heart surgery (~05/2004) Family History Father Prostate cancer Aneurysm of gastric artery Mother Heart disease Diabetes Social History (Updated 05/16/25 @ 11:13 by Bailey Jovel) Household Members: Spouse Housing: House Do you presently have visiting nurse or other home services: No Alcohol intake: former Patient Tobacco Use Status: Former Tobacco user Years Smoked: 30 years Advance Directives Date on File: 07/07/23 service: Yes Current occupational status: retired Cognitive needs: No Hearing needs: No Vision needs: Yes (rx glasses) Review of Systems Const Denies weakness ENT Denies dizziness Card Denies chest pain, Denies chest pain with activity, Denies syncope, Denies rapid heart rate, Denies pedal edema, Denies edema, Denies leg edema, Denies lightheadedness, Denies palpitations, Denies dyspnea, Denies dyspnea on exertion and Denies orthopnea Resp Denies cough, Denies dyspnea and Denies dyspnea on exertion GI Denies hematochezia and Denies change in stool character Musc Denies abnormal gait, Denies muscle cramps, Denies muscle weakness, Denies numbness, Denies radiating pain into limb and Denies tingling Neuro Denies abnormal gait, Denies dizziness, Denies syncope, Denies numbness, Denies tingling and Denies weakness Endo Denies palpitations Physical Exam Vital Signs: Last Vital Signs Pulse 60 05/16/25 11:02 BP 124/68 05/16/25 11:02 BMI result Body Mass Index 25.7 Const General: comfortable and no acute distress Orientation/consciousness: patient oriented x3 HEENT Other: Unremarkable Head: Yes normal to inspection Neck Neck: Yes normal visual inspection Chest Chest palpation & inspection: normal inspection of the chest Resp Auscultation: clear to auscultation bilaterally Cardio Palpation: normal PMI Heart sounds: S1 normal heart sound present, S2 normal heart sound present, no gallops, no murmurs and no rubs GI Palpation (GI): Soft to palpation Back/Spine/Pelvis Other: unremarkable Skin General skin exam: no rashes or lesions noted Neuro General: patient oriented x3 Extrem General: Yes normal to inspection Psych Mental Status: mental status grossly normal Assessment & Plan Assessment & Plan (1) Atherosclerotic cardiovascular disease: Code(s): I25.10 - Atherosclerotic heart disease of [place] coronary artery without angina pectoris Category: Medical (2) Status post aorto-coronary artery bypass graft: Code(s): Z95.1 - Presence of aortocoronary bypass graft Category: Surgical Plan Last EKG with sinus bradycardia at 59/Min; nonspecific ST-T changes; normal AL and corrected QT. In the EKG from 2023, there was right bundle-branch block pattern which is not seen in the most recent EKG. Overall, coronary artery disease, remote bypass surgery around 20 years ago here for cardiac evaluation. Clinically, no overt symptoms but due to the extent of time without any follow- up we will pursue an echocardiogram and stress test. Otherwise, with regard to medications I am not clear why he is still on dual antiplatelet therapy after so long. He can stopped the Plavix and just take as pirin. We discussed about that today. Continue statins. LDL levels 62 mg/dL. Discussion Notes I discussed with the patient the importance of a cardiovascular checkup given the long interval since his last cardiology evaluation. We agreed on conducting a stress test and echocardiogram to evaluate his heart health. I advised him to discontinue Plavix and continue with aspirin therapy. Patient was informed and verbally consented to the use of an ambient scribe for clinic note documentation during this visit. Orders: Orders CA echo transthoracic complete Today I25.10 - Atherosclerotic heart disease of [place] coronary artery without angina pectoris, Z95.1 - Presence of aortocoronary bypass graft CA stress test Today Z95.1 - Presence of aortocoronary bypass graft NM cardiolite stress test Today Z95.1 - Presence of aortocoronary bypass graft Patient Instructions: - Continue taking aspirin as prescribed. - Discontinue Plavix as advised. - Attend scheduled stress test and echocardiogram appointments. Coding Level of Care Code New Pt Level 4 (36319) Complex EM visit Add On G2211 Diagnoses Atherosclerotic cardiovascular disease I25.10 Status post aorto-coronary artery bypass graft Z95.1
== END 2025-05-16 11:31 | disposition home or self-care (01) ==
LOC: HO.HCS 10:57
PROVIDERS: PCP Internal Medicine; Visit Provider Internal Medicine
DX: I25.10 Atherosclerotic heart disease of native coronary artery without angina pectoris (principal); Z95.1 Presence of aortocoronary bypass graft
CPT/HCPCS: 99204; G2211

== ENCOUNTER → 2025-05-16 10:56 | Outpatient (BNVA) | payer MEDICARE, SELFPAY | PROVIDERS: PCP Internal Medicine; Visit Provider Internal Medicine | DX: I25.10 Atherosclerotic heart disease of native coronary artery without angina pectoris (principal); Z87.891 Personal history of nicotine dependence; Z95.5 Presence of coronary angioplasty implant and graft; Z79.82 Long term (current) use of aspirin; I10 Essential (primary) hypertension | CPT/HCPCS: 99202 ==

== ENCOUNTER → 2025-07-04 08:57 | Outpatient (REF) | payer MEDICARE, SELFPAY ==
--- NOTE | 2025-07-04 09:02 | CA_ITS ---
Transthoracic Echocardiogram Patient (Last, First, Middle): Aric Gaitan, Gender: M Date of : 1940 Age: 84 Procedure Date: 07/04/2025 Procedure Type: Transthoracic Echocardiogram Location: OP Height: 175.26 cm Weight: 78.93 kg BSA: 1.95 m2 Heart Rate: bpm BP: 124 / 68 mmHg [employer]: [facility]RE[facility] Referring MD: Tim Fitzpatrick MD Symptoms: I25.10 - Atherosclerotic heart disease of [place] coronary artery without... Study Quality: Adequate ECG Rhythm: Sinus Conclusions: - The left ventricular systolic function is normal. The calculated ejection fraction is 55% by biplane method. - No obvious valvular pathology seen on this study. Findings Left Ventricle Normal left ventricular cavity size. The left ventricular systolic function is normal. The calculated ejection fraction is 55% by biplane method. There is no evidence of regional wall motion abnormalities. Diastolic function is normal for age. There is mild septal asymmetric hypertrophy. LV peak GLS 16.5%. Right Ventricle Mildly increased right ventricular cavity size. There is low normal right ventricular systolic function. Atria Both atria are normal in size. Aortic Valve There is a normal trileaflet aortic valve. There is no aortic valve stenosis. There is no aortic valve regurgitation. Mitral Valve The mitral valve appears normal. There is no mitral valve regurgitation. There is no mitral valve stenosis. Pulmonic Valve The pulmonic valve is likely normal. Tricuspid Valve There is trace tricuspid valve regurgitation. There is no evidence of pulmonary hypertension. Great Vessels The asc aorta is normal in size. Venous The inferior vena cava is normal in size and collapses less than 50% with inspiration. Pericardium/Pleural There is no evidence of pericardial effusion. Prior Study Comparison No prior study available for comparison. Recommendations, Care & Conclusions No obvious valvular pathology seen on this study. Measurements 2D Linear Measurements IVSd: 1.27 0.6-0.9/0.6-1.0 cm LVIDd: 4.83 3.9-5.3/4.2-5.9 cm LVIDd Index: 2.48 2.4-3.2/2.2-3.1 cm/m2 LVIDs: 3.29 2.0-3.6 cm LVPWd: 1.00 0.7-1.1 cm LA Diam: 3.20 2.7-3.8/3.0-4.0 cm LAIDs Index: 1.64 1.5-2.3 cm/m2 LV Mass: 255.04 67-162/88-224 g LV Mass Index: 130.79 43-95/49-115 g/m2 LVOT Diam: 2.00 3.0+(-)1.3 cm 2D Systolic Function EF 4C: 56.70 >55% EF 2C: 54.20 >55% EF BiP: 54.60 >55% Mitral Valve MV Pk E: 0.90 MV PK A: 0.89 MV Decel Time: 275.00 E/A: 1.00 E'Lateral: 6.85 E'Medial: 5.11 E/E' Med: 17.70 E/E' Lat: 13.20 PHT: 81.00 MVA PHT: 2.72 Decel [place]: 3.29 Aortic Valve AoV Pk Reji: 1.45 AoV Mn Reji: 0.95 AoV VTI: 0.35 AoV Pk Grad: 8.00 Aov Mn Grad: 4.00 YSED Cont.VTI: 2.48 LVOT LVOT Pk Reji: 1.21 LVOT Mn Reji: 0.79 LVOT VTI: 0.28 LVOT Pk Grad: 6.00 LVOT Mn Grad: 3.00 LVOT Diam: 2.00 LVOT Area: 3.14 Diastolic Function MV Pk E: 0.90 MV Pk A: 0.89 E/A: 1.00 E'Medial: 5.11 E/E' Med: 17.70 E' Laterial: 6.85 E/E' Lat: 13.20 Right Ventricle TAPSE (mm): 18.50 TVS' Reji: 9.46 Tricuspid Valve TR Pk Reji: 2.16 TR Pk Grad: 19.00 RA Press: 8.00 RVSP: 27.00 Great Vessels Aorta Sinus of Valsalva: 3.51 2.0-3.[address] [place]: 2.84 1.7-3.4 cm Ao Asc: 3.60 2.1-3.4 cm Pulmonary Veins Pulm Vein S/D 1.20 Updated in Other Vendor System with Status of Final Tim Fitzpatrick MD electronically signed on 07/05/2025 1:56:40 PM with status of Final
== END ==
LOC: HO.CARD 08:57
PROVIDERS: PCP Internal Medicine; Visit Provider Internal Medicine
DX: I25.10 Atherosclerotic heart disease of native coronary artery without angina pectoris (principal); Z95.1 Presence of aortocoronary bypass graft
CPT/HCPCS: 93306

== ENCOUNTER → 2025-07-04 09:02 | Outpatient (BNV) | payer MEDICARE, SELFPAY | PROVIDERS: PCP Internal Medicine; Visit Provider Internal Medicine | DX: I25.10 Atherosclerotic heart disease of native coronary artery without angina pectoris (principal) | CPT/HCPCS: 93306; 93356 ==